=== PATIENT | female | born 1990 | race Caucasian/White ===

== ENCOUNTER → 2019-05-06 | Outpatient (CLI) | payer MEDICAID, OTHER ==
--- NOTE | 2019-05-06 16:45 | Diagnostic Imaging Report ---
INDICATION: survey. TECHNIQUE: Multiple real-time grayscale images were obtained over the gravid uterus. COMPARISON: There are no prior studies available for comparison. FINDINGS: There is a single live fetus in breech presentation. heart motion was noted, and a rate of 152 BPM was recorded. There were no abnormalities identified. However, the spine and the four-chamber heart views were less than optimal. The stomach also seems somewhat prominent. It may prove worthwhile to have a follow-up exam in 4-6 weeks for further evaluation. The growth parameters are fairly uniform. The placenta is anterior, and there is no previa. The amniotic fluid volume is within normal limits. The cervix was visualized and measures 4.4 cm in length. Biometrical measurements are as follows: Biparietal 4.7 cm, age 20 weeks 2 days. Head circumference 18.84 cm, age 21 weeks 1 days. Abdominal circumference 15.93 cm, age 21 weeks 1 days. Femur length 3.26 cm, age 20 weeks 2 days. Sonographic estimate age: 20 weeks 5 days. Sonographic estimated date of delivery: 09/18/2019. Estimated Weight: 370 gm (+/- 54 gm). LMP percentile: 43%. heart rate: 152 beats per minute. number: 1 of 1. IMPRESSION: 1. There is a single live fetus of approximately 20 weeks 5 days gestation, +/- 1.5 weeks. The EDC is 09/18/2019. 2. There were no abnormalities identified. However, the four-chamber heart view and the spine were not optimally visualized. Recommendations as above. 3. The growth parameters are fairly uniform. Dictated by: Dictated on workstation # [id number]
== END ==
LOC: RAD 15:03
PROVIDERS: ATTEND Obstetrics & Gynecology
DX: Z36.9 Encounter for antenatal screening, unspecified (principal); Z3A.20 20 weeks gestation of pregnancy
CPT/HCPCS: 76805

== ENCOUNTER 2019-09-09 05:39 | Outpatient (RCR) | payer MEDICAID ==
[~2019-09-09] VITALS: Ht 172.7 cm; Wt 82.7 kg
[~2019-09-09 05:39] MED LIST: ACYC400T PO; BUSP10TA95 PO; CLON0.5T PO; QUET200T PO; SERT100T8 PO
== END 2019-09-09 13:40 | disposition home or self-care (01) ==
LOC: PREOP 05:39
PROVIDERS: ATTEND Obstetrics & Gynecology
DX: Z01.818 Encounter for other preprocedural examination (principal)

== ENCOUNTER 2019-09-13 07:04 | Inpatient (IN) | payer MEDICAID ==
[2019-09-13] VITALS (13 sets, daily range): BP systolic 110–155; BP diastolic 65–90
[~2019-09-13] VITALS: Ht 172.7 cm; Wt 83.6 kg
--- NOTE | 2019-09-13 07:09 | NUR ---
AUSTIN NICHOLAS presented to unit via ambulation from ED, accompanied by s/o , with c/o primary c/s. Pt. weighed, gowned, voided, and to bed. EFHM and TOCO applied, VS taken. Pt. oriented to bed controls, call light, TV, heat, and A/C controls.
--- OUTSIDE RECORDS SUMMARY | 2019-09-13 07:30 | XMS REPORT | CCD ---
Author Author AUSTIN SIM Organization Unknown Address [address] [place], [place] [id number] Care Team Providers Care Rag Room Supervisor Name Role Phone HANDSHY ER, RON YBARRA Attphys HANDSHY ER, RON YBARRA Prisurg Vital Signs Unknown or Not Available. Allergies Allergy Code Allergy Type Reaction Status SULFA (sulfonamide) 0 Drug allergy Active Procedures Procedure Code Procedure Type Date CX CHEST [address] 01/01/2015 ^CULTURE URINE IDENTIFICATION 569712852 SNOMED CT 01/01/2015 .THC QUANT UR 612231019 SNOMED CT 01/01/2015 .BENZO QUANT UR 196453095 SNOMED CT 01/01/2015 CULTURE URINE 050325912 SNOMED CT 01/01/2015 D DIMER QUANT 026279046 SNOMED CT 01/01/2015 TEST URINE 863193426 SNOMED CT 01/01 RAPID DRUG SCREEN 029559450 SNOMED CT 01/02/20 15 UA ROUTINE C&S IF IND 866540597 SNOMED CT 03/2014 TROPONIN-I ADV 393282665 SNOMED CT 01/01/2015 COMPREHENSIVE METABOLIC PANEL 994358476 SNOMED CT 01/01/2015 CBC W/ AUTO DIFF (RFLX MAN DIFF IF IND) 3123847 SN OMED CT 01/01/2015 ^CBC W/AUTO DIFF 0041989 SNOMED CT 5 ^UA WITH MICRO 071785965 SNOMED CT 01/01/2015 History of Immunizations Unknown or Not Available. Problems Problem Code Start Date Resolved Date Sta tus VAGINAL DELIVERY 650 05/03/2011 A ctive Results COMPREHENSIVE METABOLIC PANEL - Collect Date/Time: 01/01/2015 13:25 Test Name Code Test Result Test Units Chiquita t Ref Range GLUCOSE 2345-7 96 MG/DL L=70 H=1 00 SODIUM 2951-2 136 MEQ/L L=135 H=14 8 POTASSIUM 2823-3 3.8 MEQ/L L=3.5 H =5.3 CHLORIDE 2075-0 105 MEQ/L L=96 H= 110 CO2 2028-9 18 MEQ/L L=22 H=29 BUN 3094-0 9 MG/DL L=8 H=22 CREATININE 2160-0 0.8 MG/DL L=0.6 H=1.6 SGOT/AST 1920-8 30 IU/L L=10 H= 40 SGPT/ALT 1742-6 18 IU/L L=8 H= 54 ALK PHOS 6768-6 75 IU/L L=35 H= 115 TOTAL PROTEIN 2885-2 7.6 G/DL L=5.5 H=8.5 ALBUMIN 1751-7 4.6 G/DL L=3.1 H=5 .4 TOTAL BILI 1975-2 0.8 MG/DL L=0.0 H=1.5 CALCIUM 73518-2 9.4 MG/DL L=8.2 H= 10.6 AGE 24 yrs GFR NonAA 89 GFR AA 108 eGFR >60 N/A eGFR AA* >60 N/A RAPID DRUG SCREEN - Collect Date/Time: 03/03/2014 14:00 Test Name Code Test Result Test Units Chiquita t Ref Range Cannabinoids (THC) NON-NEGATIVE N/A NEG: < 50 ng/ml Phencyclidine (PCP) NEGATIVE N/A NEG: < 25 ng/ml Cocaine NEGATIVE N/A NEG: < 300 ng/ml Methamphetamine NEGATIVE N/A NEG: < 1000 ng/ml Opiates NEGATIVE N/A NEG: < 300 ng/ml Amphetamine NEGATIVE N/A NEG: < 1 000 ng/ml Benzodiazepines NON-NEGATIVE N/A NEG: < 300 ng/ml Tricyclic Antidepres NEGATIVE N/A NEG: < 300 ng/ml Methadone NEGATIVE N/A NEG: < 30 0 ng/ml Barbiturates NEGATIVE N/A NEG: < 200 ng/ml Oxycodone NEGATIVE N/A NEG: < 10 0 ng/ml Propoxyphene (PPX) NEGATIVE N/A N EG: < 300 ng/ml CBC W/ AUTO DIFF (RFLX MAN DIFF IF IND) - Collect Date/Time: 01/01/2015 13:25 Test Name Code Test Result Test Units Chiquita t Ref Range WBC 33374-1 11.2 TH/CMM L=4.5 H=1 0.8 RBC 789-8 4.24 ML/CMM L=4.20 H=5. 40 HGB 718-7 14.1 G/DL L=12.0 H=16 .0 HCT 4544-3 41.0 % L=37.0 H=47 .0 MCV 97 FL L=81 H=99 MCH 33.3 PG L=27.0 H=33 .0 MCHC 34.4 G/DL L=31.0 H=36 .0 RDW SD 45 FL L=36 H=50 RDW CV 12.8 % L=0.0 H=14 .8 MPV 10.5 FL L=9.3 H=12 .5 PLT 777-3 274 TH/CMM L=130 H=44 0 NRBC# 0.00 TH/CMM L=0.00 H=0. 00 NRBC% 0.0 /100WBC L=0.0 H=2 .0 %NEUT 78.6 % %LYMP 12.0 % %MONO 7.2 % %EOS 1.8 % %BASO 0.4 % #NEUT 8.81 TH/CMM L=2.10 H=8. 20 #LYMP 1.35 TH/CMM L=0.90 H=5. 20 #MONO 0.81 TH/CMM L=0.16 H=1. 00 #EOS 0.20 TH/CMM L=0.00 H=0. 80 #BASO 0.04 TH/CMM L=0.00 H=0. 20 MANUAL DIFF NOT IND N/A D DIMER QUANT - Collect Date/Time: 01/01 13:25 Test Name Code Test Result Test Units Chiquita t Ref Range D-DIMER QUANT 54815-0 0.36 MG/L FEU L=0.0 0 H=0.50 UA ROUTINE C&S IF IND - Collect Date/Cyrus e: 01/01/2015 14:00 Test Name Code Test Result Test Units Chiquita t Ref Range COLOR YELLOW N/A NL: YELLOW APPEARANCE CLEAR N/A NL: CLEAR SPEC GRAV 1.025 N/A NL: 1.002 - 1.022 pH 6.0 N/A NL: 5 - 9 PROTEIN NEGATIVE N/A NL: NEGATIVE mg/dl GLUCOSE NEGATIVE N/A NL: NEGATIVE mg/dl KETONE TRACE N/A NL: NEGATIVE m g/dl BILIRUBIN NEGATIVE N/A NL: NEGATI VE BLOOD SMALL N/A NL: NEGATIVE NITRITE NEGATIVE N/A NL: NEGATIVE LEUK SCREEN SMALL N/A NL: NEGATI VE MICRO INDICATED? SEE BELOW N/A WBC/HPF 0-5 N/A NL: NEGATIVE RBC/HPF RARE N/A NL: NEGATIVE CASTS/LPF NEGATIVE N/A NL: NEGAT SULAIMAN CRYSTALS TRACE AMORPH N/A NL: NE GATIVE MUCOUS THRDS 1+ N/A NL: NEGA TIVE BACTERIA 1+ N/A NL: NEGATIVE EPITH CELLS FEW SQUAMOUS N/A NL: NEGATIVE TRICHOMONAS NEGATIVE N/A NL: NEG ATIVE YEAST NEGATIVE N/A NL: NEGATIVE CULT SET UP? YES N/A TEST URINE - Collect Date/Time : 01/01/2015 14:00 Test Name Code Test Result Test Units Chiquita t Ref Range TEST UR 2106-3 NEGATIVE N/A TROPONIN-I ADV - Collect Date/Time: 03/2014 13:25 Test Name Code Test Result Test Units [place] [address]-5 <0.04 ng/mL L=0.04 H=0.40 Active Medications Unknown or Not Available. Medications Administered During Visit Unknown or Not Available. Encounters Encounter Diagnosis Diagnosis Code Start Date Panic disorder without agoraphobia 37185180 01/01/2015 Social History Smoking Status Code Start Date End Date Never smoker [id number] Patient Decision Aids Unknown or Not Available. Discharge Instructions You were admitted to [facility] on 01/01/2015 with a principal diagnosis of Panic disorder without agoraphobia . You were discharged from [facility] on 01/01/2015. Should you have any questions prior to discharge, please contact a member of your healthcare team. If you have left the hospital and have any questions, please contact your primary care physician. Chief Complaint and Reason For Visit Chief Complaint Date of Onset PANIC ATTACK Function Status Unknown or Not Available. Plan of Care Unknown or Not Available. Referral/Transition of Care Unknown or Not Available.
--- OUTSIDE RECORDS SUMMARY | 2019-09-13 07:30 | XMS REPORT ---
Author Author Jo Fung Organization [facility] o[facility] Address [address] [place], [place] [id number] Care Team Providers Care Stoker Erector And Servicer Name Role Phone Radha Fung PCP Dayne Taylor PreferredProvider Allergies and Adverse Reactions Name Reaction Notes erythromycin vomiting SULFA (SULFONAMIDES) Plan of Treatment Planned Activity Comments Planned Date Planned Time Plan/Goal Nasal bone fracture and Left maxillary fracture 016 4:30 PM Mirena placement 10/03/2015 12:00 AM Scoliois with previous surgery and harward placement 1 03/08/2014 1:00 PM Medications Active Name Start Date Estimated Completion Date SIG Co mments buspirone 10 mg oral tablet take 1 tablet by oral route daily Seroquel oral ProAir HFA 90 mcg/actuation inhalation HFA aerosol inhaler 2019 inhale 1 puff (90 mcg) by inhalation route every 6 hours as needed Zoloft oral acyclovir 800 mg oral tablet 07/15/2019 07/17/2019 gomez e 1 tablet by oral route 3 times a day for 2 days Name Start Date Expiration Date SIG Comments Zithromax Z-Joel 250 mg oral tablet 05/01/2009 05/06/2009 take 2 tablets (500 mg) by oral route once daily for 1 day then 1 tablet (250 mg) by oral route once daily for 4 days Paxil 20 mg oral tablet 03/07/2010 04/06/2010 take 1 t ablet (20 mg) by oral route once daily for 30 days amoxicillin 500 mg oral tablet 06/08/2010 06/18/2010 t pavan 2 tablets by mouth BID x10 days. Zofran (as hydrochloride) 8 mg oral tablet 01/16/201101/26 take 1 tablet by oral route every 8 hours for 10 days ibuprofen 800 mg oral tablet 05/08/2011 05/18/2011 gomez e 1 tablet by oral route 3 times a day for 10 days Lidocaine Viscous 2 % mucous membrane solution 06/05/2011 use as directed by oral route 3 times a day for 5 days amoxicillin 500 mg oral tablet 08/06/2011 08/13/2011 t pavan 1 tablet (500 mg) by oral route every 12 hours for 7 days Singulair 10 mg oral tablet 12/03/2011 05/31/2012 take 1 tablet (10 mg) by oral route once daily in the evening for 30 days Zithromax Z-Joel 250 mg oral tablet 03/09/2012 03/14/2012 take 2 tablets (500 mg) by oral route once daily for 1 day then 1 tablet (250 mg) by oral route once daily for 4 days Dexilant 60 mg oral capsule,biphase delayed releas 10/27/2013 11/06/2013 take 1 capsule (60 mg) by oral route once daily for 10 days Bactrim DS 800-160 mg oral tablet 11/16/2013 11/23/2013 take 1 tablet by oral route every 12 hours for 7 days clindamycin HCl 150 mg oral capsule 12/01/2013 12/08/2013 take 2 capsules (300 mg) by oral route 2 times per day for 7 days cephalexin 500 mg oral tablet 01/04/2014 01/11/2014 ta ke 1 tablet (500 mg) by oral route every 12 hours for 7 days prednisone 20 mg oral tablet 03/28/2014 04/02/2014 gomez e 1 tablet by oral route daily for 5 days Zithromax Z-Joel 250 mg oral tablet 06/29/2014 07/04/2014 take 2 tablets (500 mg) by oral route once daily for 1 day then 1 tablet (250 mg) by oral route once daily for 4 days estradiol 1 mg oral tablet 09/14/2014 09/24/2014 take 1 tablet (1 mg) by oral route once daily for 10 days Famvir 500 mg oral tablet 09/20/2014 09/27/2014 take 1 tablet (500 mg) by oral route every 8 hours for 7 days Celebrex 200 mg oral capsule 12/05/2014 01/04/2015 gomez e 1 capsule (200 mg) by oral route once daily for 30 days Augmentin 875-125 mg oral tablet 04/05/2015 04/12/2015 take 1 tablet by oral route every 12 hours for 7 days ciprofloxacin HCl 500 mg oral tablet 04/25/2015 04/30/2015 take 1 tablet (500 mg) by oral route every 12 hours for 5 days Cipro 500 mg oral tablet 05/03/2015 05/10/2015 take 1 tablet by oral route 2 times a day for 7 days amoxicillin 500 mg oral tablet 10/05/2015 10/12/2015 t pavan 1 tablet (500 mg) by oral route every 12 hours for 7 days Vyvanse 20 mg oral capsule 10/05/2015 11/04/2015 take 1 capsule (20 mg) by oral route once daily in the morning Augmentin 875-125 mg oral tablet 01/04/2016 01/11/2016 take 1 tablet by oral route every 12 hours for 7 days amoxicillin 500 mg oral capsule 02/06/2016 02/16/2016 take 1 capsule (500 mg) by oral route every 12 hours for 10 days Macrobid 100 mg oral capsule 03/20/2016 03/27/2016 gomez e 1 capsule (100 mg) by oral route 2 times per day with food for 7 days Zofran ODT 4 mg oral tablet,disintegrating 04/22/20162016 dissolve 1 tablet by oral route every 8 hours for 3 days Zofran ODT 4 mg oral tablet,disintegrating 05/14/20162016 Take 1 tab Po q 4 hours for n/v Fioricet 50-300-40 mg oral capsule 07/31/2017 take 1 - 2 capsules by oral route every 4 hours as needed not to exceed 6 capsules per 24hrs promethazine 25 mg oral tablet 10/16/2017 t pavan 1 tablet (25 mg) by oral route every 4-6 hours as needed Macrobid 100 mg oral capsule 10/30/2017 11/06/2017 gomez e 1 capsule (100 mg) by oral route every 12 hours with food for 7 days Diflucan 150 mg oral tablet 02/12/2018 take 1 tablet (150 mg) by oral route once norethindrone (contraceptive) 0.35 mg oral tablet 03/19/2018 03/14/2019 take 1 tablet by oral route once daily for 90 days Keflex 500 mg oral capsule 04/16/2018 04/26/2018 take 1 capsule (500 mg) by oral route every 12 hours for 10 days acyclovir 400 mg oral tablet 03/19/2019 03/26/2019 gomez e 1 tablet (400 mg) by oral route every 8 hours for 7 days Discontinued Name Start Date Discontinued Date SIG Comments desonide 0.05 % topical lotion 02/02/2009 03/07/2010 a pply sparingly and rub gently into the affected area(s) by topical route 2 times per day Vyvanse 30 mg oral capsule 08/31/2009 03/07/2010 take 1 capsule (30 mg) by oral route once daily in the morning pt stopped it Augmentin 875-125 mg oral tablet 03/27/2010 06/08/2010 take 1 tablet by oral route every 12 hours omeprazole 40 mg oral capsule,delayed release(DR/EC) 03/27/2010 06/08/2010 take 1 capsule (40 mg) by oral route once daily before a meal fluoxetine 20 mg oral capsule 07/19/2010 09/23/2011 ta ke 1 capsule (20 mg) by oral route once daily in the morning "not taking" Apri 0.15-0.03 mg oral tablet 06/17/2011 12/01/2012 ta ke 1 tablet by oral route once daily for 30 days "not taking" Vyvanse 30 mg oral capsule 08/01/2011 09/23/2011 take 1 capsule (30 mg) by oral route once daily in the morning for 30 daysDx: ADHD "ran out" sertraline 100 mg oral tablet 09/23/2011 10/14/2011 ta ke 0.5 tablet daily for 6 days then 1 tablet (100 mg) by oral route once daily "I stopped taking it. It didn't work" paroxetine HCl 20 mg oral tablet 10/14/2011 12/03/2011 take 1 tablet (20 mg) by oral route once daily "made me feel like a zombie" Ventolin HFA 90 mcg/actuation inhalation HFA aerosol inhaler 12/03/2011 12/01/2012 inhale 2 puffs by inhalation route every 6 hours as ne eded "too expensive" Flexeril 10 mg oral tablet 03/09/2012 12/01/2012 take 1 tablet by mouth daily at HS alprazolam 0.5 mg oral tablet 03/09/2012 12/01/2012 ta ke 1 tablet (0.5 mg) by oral route 3 times per day "no longer have any" prednisone 20 mg oral tablet 03/09/2012 12/01/2012 gomez e 2 tablets x2 days then 1 tablet x4 days. escitalopram oxalate 20 mg oral tablet 12/01/2012 05/18/2013 take 1 tablet (20 mg) by oral route once daily alprazolam 0.25 mg oral tablet 12/01/2012 05/18/2013 t pavan 1 tablet (0.25 mg) by oral route 2 times per day as needed cyclobenzaprine 10 mg oral tablet 05/18/2013 12/01/2013 take 1 tablet (10 mg) by oral route at bedtime as needed for back pain diclofenac sodium 50 mg oral tablet,delayed release (DR/EC) 08/2010/27/2013 take 1 tablet (50 mg) by oral route 2 times per day for 30 days Never took it Xanax 0.25 mg oral tablet 08/20/2013 12/01/2013 take 1 tablet by oral route 2 times a day as needed mupirocin 2 % topical ointment 01/04/2014 07/06/2014 a pply a small amount to the affected area by topical route 3 times per day Vyvanse 30 mg oral capsule 01/24/2014 06/28/2014 take 1 capsule (30 mg) by oral route once daily in the morning Sprintec (28) 0.25-35 mg-mcg oral tablet 04/07/2014 6 take 1 tablet by oral route once daily cyclobenzaprine 10 mg oral tablet 07/07/2014 08/22/2014 take 1 tablet by oral route once a day (at bedtime) as needed Adderall 10 mg oral tablet 07/13/2014 08/22/2014 take 1 tablet (10 mg) by oral route once daily before breakfast Strattera 60 mg oral capsule 08/24/2014 08/30/2014 gomez e 1 capsule (60 mg) by oral route once daily in the morning Lexapro 10 mg oral tablet 08/29/2014 10/20/2014 take 1 tablet b y oral route daily too expensive Xanax 0.25 mg oral tablet 10/20/2014 12/05/2014 take 1 tablet (0.25 mg) by oral route 2 times per day as needed. MUST LAST 30 DAYS. tramadol 50 mg oral tablet 12/05/2014 02/09/2015 take 1 tablet (50 mg) by oral route every 6 hours as needed buspirone 5 mg oral tablet 01/02/2015 02/09/2015 take 1 tablet (5 mg) by oral route 2 times per day "Made me mean and mood changes" alprazolam 0.25 mg oral tablet 02/09/2015 05/03/2015 t pavan 1 tablet by oral route daily as needed Sprintec (28) 0.25-35 mg-mcg oral tablet 05/03/2015 07/24/19 take 1 tablet by oral route once daily "not taking" Prozac 40 mg oral capsule 05/11/2015 09/28/2015 take 1 capsule (40 mg) by oral route once daily in the morning hydrocodone-acetaminophen 10-325 mg oral tablet 07/24/2015 09/28/2015 take 1 tablet by oral route every 8 hours as needed amoxicillin 500 mg oral tablet 08/09/2015 09/26/2015 t pavan 1 tablet (500 mg) by oral route every 12 hours hydroxyzine HCl 25 mg oral tablet 09/26/2015 03/20/2016 take 1 tablet by oral route 4 times a day as needed Anixety Zyrtec-D 5-120 mg oral tablet extended release 12 hr 09/28/2015 10/05/2015 take 1 tablet by oral route once a day (in the morning) as needed Flonase Allergy Relief 50 mcg/actuation nasal spray,suspensi on 09/28/2015 10/05/2015 inhale 1 spray (50 mcg) in each nostril by intranasal route once daily Prozac 20 mg oral capsule 09/28/2015 03/20/2016 take 1 capsule by oral route daily montelukast 10 mg oral tablet 01/04/2016 ta ke 1 tablet (10 mg) by oral route once daily in the evening hydroxyzine HCl 25 mg oral tablet 05/13/2017 take 1 tablet by oral route As needed Zofran (as hydrochloride) 4 mg oral tablet 02/09/20172017 Take 1 tablet po q 8 hrs PRN nausea/vomting Latuda 20 mg oral tablet 05/13/2017 Metrogel Vaginal 0.75 % vaginal gel 05/06/2017 09/29/2017 insert 1 applicatorful (37.5 mg) by vaginal route once daily at bedtime for 5 days Lexapro 20 mg oral tablet 09/29/2017 take 1 /2 tablet (10 mg) by oral route once daily Vitamin oral tablet 04/16/2018 take 1 table t by oral route once daily Latuda 20 mg oral tablet 03/19/2019 take 1 tablet (20 mg) by oral route once daily with food (at least 350 calories) Gummy 400 mcg-35 mg -25 mg-5 mg oral tablet,chewabl e 11/17/2017 04/16/2018 chew 1 tablet by oral route daily Trintellix oral 07/15/2019 Problem List Description Status Onset ADHD Active Allergic rhinitis Active Depressive disorder Active Anxiety disorder Active 05/19/2013 Attention deficit disorder Active 12/01/2013 Anxiety Active 08/24/2014 Depression Active 08/24/2014 ADD (attention deficit disorder) Active 08/25/19 15 Vital Signs Date Time BP-Sys(mm[Hg] BP-Valeria(mm[Hg]) HR(bpm) RR(rpm) Temp WT HT HC BMI BSA BMI Percentile O2 Sat(%) 07/15/2019 5:40:00 PM 116 mm[Hg] 70 mm[Hg] 99 {beats}/min 16 rpm 97.6 F 184 lbs 67.5 in 28.3928 kg/m2 1.9937 m2 97 % 03/19/2019 5:00:00 PM 126 mm[Hg] 72 mm[Hg] 75 {beats}/min 18 rpm 98.2 F 171.5 lbs 67.5 in 26.46 kg/m2 1.92 m2 98 % 04/16/2018 5:18:00 PM 128 mm[Hg] 84 mm[Hg] 82 {beats}/min 20 rpm 98.1 F 173 lbs 67.5 in 26.6954 kg/m2 1.9332 m2 98 % 03/19/2018 1:20:00 PM 106 mm[Hg] 57 mm[Hg] 88 {beats}/min 98.6 F 174 lbs 67.5 in 26.85 kg/m2 1.94 m2 03/09/2018 1:32:00 PM 130 mm[Hg] 81 mm[Hg] 85 {beats}/min 98.2 F 177 lbs 67.5 in 27.3127 kg/m2 1.9554 m2 02/19/2018 3:37:00 PM 124 mm[Hg] 57 mm[Hg] 78 {beats}/min 98.2 F 179 lbs 67.5 in 27.62 kg/m2 1.97 m2 09/23/2017 1:47:00 PM 105 mm[Hg] 105 {beats}/min 17 rpm 98.7 F 184.375 lbs 67.5 in 28.4507 kg/m2 1.9957 m2 100 % 04/30/2017 3:56:00 PM 133 mm[Hg] 81 mm[Hg] 82 {beats}/min 99 F 18 9 lbs 67.5 in 29.16 kg/m2 2.02 m2 02/09/2017 3:42:00 PM 134 mm[Hg] 80 mm[Hg] 85 {beats}/min 16 rpm 100 F 197 lbs 67.5 in 30.40 kg/m2 2.0629 m2 97 % 06/04/2016 6:22:00 PM 128 mm[Hg] 88 mm[Hg] 100 {beats}/min 99.8 F 209 lbs 67.5 in 32.2505 kg/m2 2.12 m2 99 % 05/14/2016 6:36:00 PM 120 mm[Hg] 78 mm[Hg] 94 {beats}/min 98.7 F 210 lbs 67.5 in 32.40 kg/m2 2.1299 m2 98 % 04/22/2016 7:08:00 PM 118 mm[Hg] 70 mm[Hg] 70 {beats}/min 97.9 F 200 lbs 67.5 in 30.8618 kg/m2 2.08 m2 99 % 03/20/2016 7:42:00 PM 132 mm[Hg] 70 mm[Hg] 87 {beats}/min 18 rpm 99 F 205.375 lbs 67.5 in 31.69 kg/m2 2.1063 m2 98 % 02/06/2016 5:49:00 PM 130 mm[Hg] 98 mm[Hg] 84 {beats}/min 100.1 F 207 lbs 67.5 in 31.9419 kg/m2 2.11 m2 99 % 01/04/2016 5:57:00 PM 132 mm[Hg] 76 mm[Hg] 87 {beats}/min 18 rpm 99.5 F 201.375 lbs 98 % 10/05/2015 3:37:00 PM 126 mm[Hg] 68 mm[Hg] 86 {beats}/min 20 rpm 99.2 F 193 lbs 67.5 in 29.7816 kg/m2 2.0419 m2 98 % 09/28/2015 2:11:00 PM 126 mm[Hg] 66 mm[Hg] 92 {beats}/min 18 rpm 97.8 F 194 lbs 67.5 in 29.94 kg/m2 2.05 m2 99 % 09/26/2015 2:49:00 PM 108 mm[Hg] 68 mm[Hg] 87 {beats}/min 18 rpm 98.5 F 195 lbs 67.5 in 30.0902 kg/m2 2.0524 m2 99 % 07/24/2015 2:39:00 PM 132 mm[Hg] 70 mm[Hg] 76 {beats}/min 20 rpm 98.7 F 180 lbs 67 in 28.19 kg/m2 1.96 m2 97 % 05/03/2015 3:09:00 PM 124 mm[Hg] 66 mm[Hg] 104 {beats}/min 18 rpm 98.4 F 170.5 lbs 67 in 26.7038 kg/m2 1.912 m2 100 % 02/09/2015 3:02:00 PM 128 mm[Hg] 70 mm[Hg] 72 {beats}/min 18 rpm 98.2 F 171.312 lbs 67 in 26.83 kg/m2 1.92 m2 100 % 01/02/2015 2:45:00 PM 120 mm[Hg] 85 mm[Hg] 85 {beats}/min 20 rpm 97.4 F 164 lbs 99 % 12/05/2014 2:32:00 PM 124 mm[Hg] 66 mm[Hg] 68 {beats}/min 18 rpm 98.6 F 171 lbs 67 in 26.7821 kg/m2 1.9149 m2 100 % 11/28/2014 2:49:00 PM 77 {beats}/min 20 rpm 97.2 F 170.6 lbs 67 in 26.72 kg/m2 1.91 m2 99 % 11/08/2014 2:05:00 PM 120 mm[Hg] 84 mm[Hg] 86 {beats}/min 20 rpm 99.3 F 167.6 lbs 67 in 26.2496 kg/m2 1.8957 m2 98 % 10/20/2014 2:44:00 PM 135 mm[Hg] 81 mm[Hg] 100 {beats}/min 20 rpm 97.2 F 167.4 lbs 67 in 26.22 kg/m2 1.89 m2 99 % 08/29/2014 2:35:00 PM 122 mm[Hg] 80 mm[Hg] 83 {beats}/min 18 rpm 99.1 F 167 lbs 67 in 26.1556 kg/m2 1.8923 m2 99 % 08/22/2014 1:29:00 PM 146 mm[Hg] 82 mm[Hg] 66 {beats}/min 18 rpm 98.7 F 166.25 lbs 67 in 26.04 kg/m2 1.89 m2 98 % 07/06/2014 11:13:00 AM 126 mm[Hg] 74 mm[Hg] 80 {beats}/min 18 rpm 97.3 F 167.187 lbs 67 in 26.185 kg/m2 1.8934 m2 97 % 06/28/2014 11:15:00 AM 124 mm[Hg] 72 mm[Hg] 109 {beats}/min 18 rpm 101.8 F 167.125 lbs 67 in 26.18 kg/m2 1.89 m2 99 % 04/07/2014 2:08:00 PM 110 mm[Hg] 60 mm[Hg] 80 {beats}/min 16 rpm 98 F 170.25 lbs 67 in 26.6646 kg/m2 1.9106 m2 99 % 03/24/2014 2:00:00 PM 114 mm[Hg] 82 mm[Hg] 77 {beats}/min 16 rpm 98.6 F 165.25 lbs 67 in 25.88 kg/m2 1.88 m2 98 % 01/04/2014 2:07:00 PM 126 mm[Hg] 70 mm[Hg] 83 {beats}/min 20 rpm 98.7 F 163 lbs 67 in 25.5291 kg/m2 1.8695 m2 99 % 12/01/2013 2:41:00 PM 118 mm[Hg] 62 mm[Hg] 62 {beats}/min 18 rpm 97.5 F 163.5 lbs 67 in 25.61 kg/m2 1.87 m2 98 % 10/27/2013 10:40:00 AM 138 mm[Hg] 82 mm[Hg] 87 {beats}/min 16 rpm 98.2 F 159.125 lbs 67 in 24.9222 kg/m2 1.8472 m2 99 % 08/20/2013 2:13:00 PM 140 mm[Hg] 90 mm[Hg] 99 {beats}/min 16 rpm 98.7 F 156 lbs 98 % 05/18/2013 1:34:00 PM 126 mm[Hg] 78 mm[Hg] 100 {beats}/min 18 rpm 98 F 152.125 lbs 67 in 23.8259 kg/m2 1.8061 m2 100 % 12/01/2012 2:07:00 PM 122 mm[Hg] 62 mm[Hg] 62 {beats}/min 18 rpm 97.9 F 149 lbs 67 in 23.34 kg/m2 1.79 m2 100 % 03/09/2012 3:42:00 PM 138 mm[Hg] 82 mm[Hg] 68 {beats}/min 18 rpm 98.4 F 143.375 lbs 66 in 23.1411 kg/m2 1.7402 m2 12/03/2011 3:34:00 PM 118 mm[Hg] 66 mm[Hg] 64 {beats}/min 20 rpm 98.9 F 131 lbs 66 in 21.14 kg/m2 1.66 m2 0 % 100 % 10/14/2011 2:56:00 PM 122 mm[Hg] 70 mm[Hg] 80 {beats}/min 16 rpm 99.1 F 136 lbs 67 in 21.3004 kg/m2 1.7077 m2 0 % 09/23/2011 2:33:00 PM 118 mm[Hg] 70 mm[Hg] 72 {beats}/min 18 rpm 98.2 F 143 lbs 67 in 22.40 kg/m2 1.75 m2 0 % 06/04/2011 2:17:00 PM 79 {beats}/min 98.3 F 153 lbs 100 % 05/20/2011 2:28:00 PM 82 {beats}/min 99.6 F 155.125 lbs 99 % 04/29/2011 3:00:00 PM 105 mm[Hg] 65 mm[Hg] 92 {beats}/min 98.2 F 173 lbs 99 % 04/22/2011 3:07:00 PM 67 {beats}/min 97.5 F 170 lbs 99 % 04/16/2011 3:35:00 PM 97 {beats}/min 98.6 F 171.5 lbs 99 % 04/10/2011 3:02:00 PM 120 mm[Hg] 60 mm[Hg] 87 {beats}/min 98.7 F 172 l bs 99 % 04/01/2011 2:16:00 PM 100 mm[Hg] 60 mm[Hg] 111 {beats}/min 98.9 F 167 lbs 99 % 03/18/2011 1:50:00 PM 118 mm[Hg] 78 mm[Hg] 92 {beats}/min 20 rpm 97.8 F 167.5 lbs 67.5 in 25.8467 kg/m2 1.9022 m2 83 % 02/20/2011 3:52:00 PM 115 mm[Hg] 78 mm[Hg] 77 {beats}/min 98.7 F 166.125 lbs 67 in 26.02 kg/m2 1.89 m2 83.9 % 100 % 02/11/2011 5:05:00 PM 110 mm[Hg] 70 mm[Hg] 78 {beats}/min 99.1 F 99 % 02/05/2011 4:16:00 PM 118 mm[Hg] 70 mm[Hg] 91 {beats}/min 98.7 F 16 4.375 lbs 99 % 01/22/2011 3:00:00 PM 90 mm[Hg] 60 mm[Hg] 102 {beats}/min 98.5 F 1 61.5 lbs 99 % 01/16/2011 1:54:00 PM 110 mm[Hg] 65 mm[Hg] 102 {beats}/min 98.4 F 162.25 lbs 100 % 12/24/2010 3:18:00 PM 110 mm[Hg] 70 mm[Hg] 109 {beats}/min 99.5 F 16 3 lbs 99 % 11/29/2010 4:11:00 PM 80 {beats}/min 96.9 F 161 lbs 99 % 11/26/2010 3:13:00 PM 128 mm[Hg] 84 mm[Hg] 88 {beats}/min 18 rpm 97.5 F 161 lbs 09/17/2010 4:57:00 PM 102 mm[Hg] 70 mm[Hg] 88 {beats}/min 100.1 F 1 61.25 lbs 99 % 07/19/2010 2:31:00 PM 120 mm[Hg] 68 mm[Hg] 72 {beats}/min 18 rpm 97.8 F 173 lbs 06/08/2010 12:08:00 PM 118 mm[Hg] 70 mm[Hg] 83 {beats}/min 18 rpm 97.6 F 167 lbs 94 % 03/27/2010 3:16:00 PM 122 mm[Hg] 70 mm[Hg] 74 {beats}/min 18 rpm 97.3 F 164 lbs 67 in 25.6858 kg/m2 1.8752 m2 84 % 03/07/2010 4:02:00 PM 134 mm[Hg] 84 mm[Hg] 76 {beats}/min 16 rpm 99.3 F 164.5 lbs 08/31/2009 4:10:00 PM 118 mm[Hg] 68 mm[Hg] 76 {beats}/min 20 rpm 99 F 166.25 lbs 05/01/2009 3:46:00 PM 124 mm[Hg] 82 mm[Hg] 88 {beats}/min 20 rpm 98.3 F 166 lbs 67 in 25.999 kg/m2 1.8866 m2 86.7 % 03/06/2009 4:01:00 PM 16 {beats}/min 72 rpm 98.6 F 166.125 lbs 6 7.5 in 25.63 kg/m2 1.89 m2 85.6 % 02/02/2009 4:04:00 PM 116 mm[Hg] 68 mm[Hg] 64 {beats}/min 16 rpm 98.1 F 159.5 lbs 67 in 24.981 kg/m2 1.8493 m2 83 % Social History Name Description Comments Tobacco Current every day smoker 03/19/2019 - Lives with Mom Sibling(s) at home as well Single high school student Student (High school ) History of Procedures Date Ordered Description Order Status 12/05/2014 12:00 AM Physical Therapy Consult Reviewed 11/26/2010 12:00 AM ALPHA-FETOPROTEIN SERUM Reviewed 02/09/2015 12:00 AM FLU VACC 4 FADY 3 YRS PLUS IM Reviewed 05/03/2015 12:00 AM URINE CULTURE/COLONY COUNT Reviewed 05/03/2015 3:46 PM URINE TEST Reviewed 05/03/2015 3:46 PM URINALYSIS AUTO W/O SCOPE Reviewed 01/22/2011 12:00 AM GLUCOSE TEST Reviewed 07/24/2015 12:00 AM Consult/Referral Reviewed 04/10/2011 12:00 AM CULTURE OTHR SPECIMN AEROBIC Reviewed 02/06/2016 12:00 AM Rocephin 1 gram Injection Reviewed 02/02/2009 12:00 AM ASSAY GLUCOSE BLOOD QUANT Reviewed 02/02/2009 12:00 AM GLUCOSE BLOOD TEST Reviewed 06/04/2016 12:00 AM INFLUENZA A/B AG EIA Reviewed 06/04/2016 12:00 AM METABOLIC PANEL TOTAL CA Reviewed 06/04/2016 12:00 AM COMPLETE CBC W/AUTO DIFF WBC Reviewed 05/01/2017 10:28 AM URINE TEST Reviewed 04/30/2017 12:00 AM CYTOPATH C/V THIN LAYER Reviewed 04/30/2017 12:00 AM SPECIMEN HANDLING OFFICE-LAB Reviewed 04/30/2017 12:00 AM N.GONORRHOEAE DNA AMP PROB Reviewed 04/30/2017 12:00 AM CHLAMYDIA CULTURE Reviewed 04/30/2017 12:00 AM HIV-1ANTIBODY Reviewed 04/30/2017 12:00 AM URINALYSIS AUTO W/SCOPE Reviewed 04/30/2017 12:00 AM OBSTETRIC PANEL Reviewed 04/30/2017 12:00 AM ASSAY OF FERRITIN Reviewed 04/30/2017 12:00 AM URINE DRUG SCREEN RAPID Reviewed 04/30/2017 12:00 AM DETECT AGENT NOS DNA AMP Reviewed 04/30/2017 12:00 AM TRICHOMONAS VAGINALIS AMPLIF Reviewed 04/30/2017 12:00 AM HEPATITIS C AB TEST Reviewed 08/26/2017 12:00 AM OB US >/= 14 WKS SNGL FETUS Reviewed 10/20/2017 12:00 AM Type and screen Reviewed 10/20/2017 12:00 AM GLUCOSE TOLERANCE TEST (GTT) Reviewed 10/20/2017 12:00 AM COMPLETE CBC W/AUTO DIFF WBC Reviewed 10/20/2017 12:00 AM ASSAY OF FERRITIN Reviewed 12/15/2017 12:00 AM OB US LIMITED FETUS(S) Reviewed 11/17/2017 12:00 AM URINALYSIS Reviewed 11/17/2017 12:00 AM URINE CULTURE/COLONY COUNT Reviewed 11/17/2017 12:00 AM Urine Drug Screen Reviewed 12/24/2017 12:00 AM CULTURE SCREEN ONLY Reviewed 02/19/2018 4:33 PM URINE TEST Reviewed 03/19/2018 1:31 PM URINE TEST Reviewed 03/06/2009 12:00 AM US EXAM PELVIC COMPLETE Reviewed 03/24/2014 12:00 AM SPECIMEN HANDLING OFFICE-LAB Reviewed 03/24/2014 12:00 AM CYTOPATH C/V MANUAL Reviewed 03/24/2014 12:00 AM CHYLMD TRACH DNA AMP PROBE Reviewed 03/24/2014 12:00 AM N.GONORRHOEAE DNA AMP PROB Reviewed 04/07/2014 2:44 PM URINE TEST Reviewed 06/28/2014 12:00 AM THER/PROPH/DIAG INJ SC/IM Reviewed 06/28/2014 12:00 AM Bicillin CR, 1.2 million units [facility]# 6079 3-600-10 Reviewed 07/06/2014 11:29 AM URINE TEST Reviewed 07/06/2014 12:00 AM THER/PROPH/DIAG INJ SC/IM Reviewed 07/06/2014 12:00 AM Decadron, Per 1 Mg [facility]# [address]-56 Re viewed 07/06/2014 12:00 AM Depo-Medrol 40mg Reviewed 08/29/2014 3:06 PM URINE TEST Reviewed 09/13/2010 12:00 AM CHORIONIC GONADOTROPIN ASSAY Reviewed 08/29/2014 12:00 AM Depo Provera Injection, 150 mg Reviewed 08/29/2014 12:00 AM THER/PROPH/DIAG INJ SC/IM Reviewed 09/17/2010 12:00 AM URINE TEST Reviewed 09/17/2010 12:00 AM OBSTETRIC PANEL Reviewed 09/17/2010 12:00 AM URINALYSIS NONAUTO W/SCOPE Reviewed 09/17/2010 12:00 AM HIV-1/HIV-2 1 RESULT ANTBDY Reviewed 11/08/2014 12:00 AM X-RAY EXAM THORAC SPINE 2VWS Reviewed 11/08/2014 12:00 AM X-RAY EXAM L-S SPINE 2/3 VWS Reviewed Results Summary Date and Description Results 09/17/2010 5:23 PM RUBELLA 42.0 IU/mLCOLOR YELL OW APPEARANCE CLEAR SPEC GRAV <=1.005 pH 6.5 PROTEIN NEGATIVE GLUCOSE NEGATIVE KETONE NEGATIVE BILIRUBIN NEGATIVE BLOOD NEGATIVE NITRITE NEGATIVE LEUK SCREEN NEGATIVE WBC/HPF 0-5 RBC/HPF NEGATIVE CASTS/LPF NEGATIVE CRYSTALS NEGATIVE MUCOUS THRDS NEGATIVE BACTERIA NEGATIVE EPITH CELLS 1+ SQUAMOUS TRICHOMONAS NEGATIVE YEAST NEGATIVE CULT SET UP? NO 01/22/2011 3:24 PM Cannabinoids (THC) NON-NEGAT SULAIMAN CALLED TO/BY DR. GERBER 1000 01-22-11 SJM Phencyclidine (PCP) NEGATIVE Cocaine NEGATIVE Methamphetamine NEGATIVE Opiates NEGATIVE Amphetamine NEGATIVE Benzodiazepines NEGATIVE Tricyclic Antidepres NEGATIVE Methadone NEGATIVE Barbiturates NEGATIVE Oxycodone NEGATIVE Propoxyphene (PPX) NEGATIVE 04/07/2014 2:44 PM HCG Ur Ql negative 07/07/2014 1:28 PM HCG Ur Ql negative 08/29/2014 3:06 PM Test, Urine neg 05/03/2015 3:46 PM Test, Urine negati ve Clarity Ur cloudy Color Ur dark yellow Glucose Ur-sCnc neg Bilirub Ur Ql Strip neg Ketones Ur Ql Strip neg Sp Gr Ur Qn 1.015 Hgb Ur Ql Strip moderate pH Ur-LsCnc 6.0 Prot Ur Ql Strip 30mg/dl Urobilinogen Ur-mCnc 0.2eu/dl Nitrite Ur Ql Strip neg WBC Est Ur Ql Strip moderate 03/20/2016 6:34 PM Appearance Ur Cloudy Bacteri a UrnS Qn HPF Positive Color Ur Dark yellow Hgb Ur Ql Strip Positive Nitrite Ur Ql Strip Positive WBC Est Ur Ql Strip Grossly positive 04/30/2017 4:51 PM Pap Smear Collected 04/30/2017 5:11 PM Cannabinoids (THC) NON-NEGAT SULAIMAN ng/mLPhencyclidine (PCP) NEGATIVE ug/mLCocaine NEGATIVE Methamphetamine NEGATIVE ug/mLOpiates NEGATIVE ng/mLAmphetamine NEGATIVE Benzodiazepines NEGATIVE Tricyclic Antidepres NEGATIVE Methadone NEGATIVE ng/mLBarbiturates NEGATIVE ng/mLOxycodone NEGATIVE Propoxyphene (PPX) NEGATIVE ng/mLWBC 10.9 RBC 4.21 HGB 13.50 g/dLHCT 39.30 %MCV 93.0 fLMCH 32.10 pgMCHC 34.40 g/dLRDW SD 43 RDW CV 12.50 %MPV 11.20 fLPLT 327 NRBC# 0.00 NRBC% 0.0 %NEUT 73.10 %%LYMP 14.40 %%MONO 10.40 %%EOS 1.0 %%BASO 0.70 %#NEUT 7.94 #LYMP 1.57 #MONO 1.13 #EOS 0.11 #BASO 0.08 MANUAL DIFF NOT IND WBC 10.9 RBC 4.21 HGB 13.50 g/dLHCT 39.30 %MCV 93.0 fLMCH 32.10 pgMCHC 34.40 g/dLRDW SD 43 RDW CV 12.50 %MPV 11.20 fLPLT 327 NRBC# 0.00 NRBC% 0.0 %NEUT 73.10 %%LYMP 14.40 %%MONO 10.40 %%EOS 1.0 %%BASO 0.70 %#NEUT 7.94 #LYMP 1.57 #MONO 1.13 #EOS 0.11 #BASO 0.08 MANUAL DIFF NOT IND COLOR YELLOW APPEARANCE CLEAR SPEC GRAV <=1.005 pH 5.5 PROTEIN NEGATIVE GLUCOSE NEGATIVE mg/dLKETONE NEGATIVE BILIRUBIN NEGATIVE BLOOD NEGATIVE NITRITE NEGATIVE [place] SCREEN NEGATIVE WBC/HPF RARE RBC/HPF RARE CASTS/LPF NEGATIVE /LPFCRYSTALS NEGATIVE MUCOUS THRDS NEGATIVE B ACTERIA NEGATIVE EPITH CELLS FEW SQUAMOUS /HPFTRICHOMONAS NEGATIVE YEAST NEGATIVE CULT ORDERED YES HEPATITIS C 0.11 HIV AG/AB COMBO 0.10 FERRITIN 97.0 ng/mLHBsAg Screen Negative Rubella Antibodies, IgG 3.06 IndexRPR Non Reactive 05/01/2017 10:28 AM Test, Urine positi ve 10/20/2017 3:15 PM WBC 11.8 RBC 3.82 HGB 12.50 g/dLHCT 37.90 %MCV 99.0 fLMCH 32.70 pgMCHC 33.0 g/dLRDW SD 47 fLRDW CV 12.90 %MPV 10.80 fLPLT 309 NRBC# 0.00 NRBC% 0.0 %NEUT 80.6 %LYMP 10.8 %MONO 7.1 %EOS 0.6 %BASO 0.4 #NEUT 9.47 #LYMP 1.27 #MONO 0.84 #EOS 0.07 #BASO 0.05 MANUAL DIFF NOT IND FERRITIN 27.0 ng/mL 11/18/2017 11:12 AM Cannabinoids (THC) NON-NEGAT SULAIMAN Phencyclidine (PCP) NEGATIVE Cocaine NEGATIVE Methamphetamine NEGATIVE Opiates NEGATIVE Amphetamine NEGATIVE Benzodiazepines NEGATIVE Tricyclic Antidepres NEGATIVE Methadone NEGATIVE Barbiturates NEGATIVE Oxycodone NEGATIVE Propoxyphene (PPX) NEGATIVE COLOR YELLOW APPEARANCE SL CLOUDY SPEC GRAV 1.020 pH 7.0 PROTEIN NEGATIVE GLUCOSE NEGATIVE KETONE NEGATIVE BILIRUBIN NEGATIVE BLOOD NEGATIVE NITRITE NEGATIVE LEUK SCREEN NEGATIVE MICRO INDICATED? NOT INDICATED 12/25/2017 8:19 AM STREP GROUP B PCR GBS NEGATI VE 02/19/2018 4:33 PM Test, Urine Negati ve 03/19/2018 1:31 PM Test, Urine negati ve History Of Immunizations Name Date Admin Mfg Name Mfg Code Trade Name Lot# Route Inj Vis Given Vis Pub CVX Influenza 02/09/2015 sanofi pasteur PMC Fluzone Quadrivalent UI4 22AA Intramuscular Left Deltoid 02/09/2015 10/07/2014 141 History of Past Illness Name Date of Onset Comments Atopic Dermatitis Feb 02 2009 4:09PM Polydipsia (Excessive Thirst) Feb 02 2009 4:09PM Polyuria Feb 02 2009 4:09PM Allergic rhinitis Scoliosis ADHD Gastritis Depressive disorder Pelvic Pain Mar 06 2009 4:03PM Dysmenorrhea Mar 06 2009 4:03PM Bronchitis, Acute May 01 2009 3:47PM Upper Respiratory Infection - Acute May 01 2009 3:47PM Attention Deficit Disorder Aug 31 2009 4:13PM Anxiety disorder 05/19/2013 Attention deficit disorder 12/01/2013 Anxiety 08/24/2014 Depression 08/24/2014 ADD (attention deficit disorder) 08/24/2014 Depression and anxiety Mar 07 2010 4:01PM Bronchitis, Acute Mar 27 2010 3:16PM Allergic Rhinitis Mar 27 2010 3:16PM Depressive Disorder Mar 27 2010 3:16PM Stye Mar 27 2010 3:16PM Pharyngitis, Acute Jun 08 2010 12:09PM Attention Deficit Disorder Jun 08 2010 12:09PM Attention Deficit Hyperactivity Disorder Jul 19 2010 2:31PM Depressive Disorder Jul 19 2010 2:31PM Emotional Disturbance - Anger Jul 19 2010 2:31PM Amenorrhea, Rule Out Sep 13 2010 12:07PM test confirmed positive Sep 17 2010 5:01PM , First Normal Sep 17 2010 5:01PM , First Normal Nov 26 2010 3:21PM Upper Respiratory Infection Nov 29 2010 4:56PM , First Normal Dec 24 2010 3:13PM , First Normal Jan 16 2011 1:50PM , First Normal Jan 22 2011 2:56PM Drug Abuse Jan 22 2011 2:56PM , First Normal Mar 18 2011 1:54PM Care, First Normal Apr 10 2011 3:03PM , First Normal Apr 29 2011 3:02PM , First Normal Feb 11 2011 5:08PM Gastroenteritis May 20 2011 2:29PM , First Normal Feb 20 2011 3:55PM , First Normal Apr 01 2011 2:18PM , First Normal Apr 22 2011 3:10PM Attention Deficit Disorder Jun 04 2011 2:18PM Care, First Normal Sep 20 2011 4:22PM Depression Sep 23 2011 2:35PM Generalized Anxiety Disorder Sep 23 2011 2:35PM Depression Oct 14 2011 2:57PM Generalized Anxiety Disorder Oct 14 2011 2:57PM Anxiety Disorder Dec 03 2011 3:36PM Cough Dec 03 2011 3:36PM Back Pain Mar 09 2012 3:44PM Bronchitis, Acute Mar 09 2012 3:44PM Anxiety/Depressive Disorder Mar 09 2012 3:44PM Depression Dec 01 2012 2:09PM Generalized Anxiety Disorder Dec 01 2012 2:09PM Low Back Pain Dec 01 2012 2:09PM Back Pain May 18 2013 1:37PM Anxiety Disorder May 18 2013 1:37PM Depressive Disorder May 18 2013 1:37PM Anxiety Disorder Aug 20 2013 2:15PM Depressive Disorder Aug 20 2013 2:15PM ADHD Aug 20 2013 2:15PM Back pain Aug 20 2013 2:15PM Gastritis Oct 27 2013 10:45AM Attention deficit disorder Dec 01 2013 2:43PM Infected tooth Dec 01 2013 2:43PM Cellulitis; Right Ear Jan 04 2014 2:09PM Routine gynecological examination Mar 24 2014 2:04PM Exposure to STD Mar 24 2014 2:04PM Attention deficit disorder Apr 07 2014 2:11PM Contraceptive education Apr 07 2014 2:11PM Pharyngitis, Acute Jun 28 2014 11:16AM Neck pain Jul 06 2014 11:15AM Amenorrhea Jul 06 2014 11:15AM Anxiety Aug 22 2014 1:31PM Depression Aug 22 2014 1:31PM ADD (attention deficit disorder) Aug 22 2014 1:31PM ADD (attention deficit disorder) Aug 29 2014 2:37PM Anxiety Disorder Aug 29 2014 2:37PM Depression Aug 29 2014 2:37PM Contraceptive management Aug 29 2014 2:37PM Anxiety Disorder Oct 20 2014 2:46PM Depressive Disorder Oct 20 2014 2:46PM Grieving Oct 20 2014 2:46PM Anxiety Disorder Nov 08 2014 2:07PM Depressive Disorder Nov 08 2014 2:07PM Insomnia Nov 08 2014 2:07PM Grieving Nov 08 2014 2:07PM Contraception management Nov 08 2014 2:07PM Back pain Nov 08 2014 2:07PM Contusion of right leg Nov 08 2014 2:07PM Mild Anxiety Disorder Stable Nov 28 2014 2:50PM Mild Depressive Disorder Stable Nov 28 2014 2:50PM Bilateral thoracic back pain Nov 28 2014 2:50PM Back Pain Dec 05 2014 2:33PM Scoliosis Dec 05 2014 2:33PM Panic Disorder Jan 02 2015 2:47PM Generalized anxiety disorder Jan 02 2015 2:47PM Flu Vaccine Feb 09 2015 5:11PM Generalized Anxiety Disorder Feb 09 2015 3:05PM Right upper quadrant abdominal pain May 03 2015 3:10PM Right Flank pain May 03 2015 3:10PM Acute cystitis with hematuria May 03 2015 3:10PM Encounter for initial prescription of contraceptive pills Ma r 2 2015 3:10PM Facial fracture Jul 24 2015 4:38PM Closed fracture of nasal bone with routine healing, han bsequent encounter Jul 24 2015 2:40PM Closed fracture of maxilla with routine healing, subse quent encounter Jul 24 2015 2:40PM Anxiety Sep 28 2015 2:13PM Depression Sep 28 2015 2:13PM Allergic rhinitis Sep 28 2015 2:13PM Contraceptive education Sep 28 2015 2:13PM Anxiety Disorder Sep 26 2015 2:53PM Depression Sep 26 2015 2:53PM Lower back pain Sep 26 2015 2:53PM ADD (attention deficit disorder) Oct 05 2015 3:39PM Acute suppurative otitis media of right ear without spontaneous rupture of tympanic membrane, recurrence not specified Oct 05 2015 3:39PM Acute maxillary sinusitis, recurrence not specified Jan 03 5:59PM Upper respiratory tract infection, unspecified type Feb 05 5:52PM Fever in other diseases Feb 06 2016 5:52PM Acute cystitis with hematuria Mar 20 2016 7:44PM Sinus congestion Mar 20 2016 7:44PM Non-intractable vomiting with nausea, unspecified vomi ting type Mar 20 2016 7:44PM Viral gastroenteritis Apr 22 2016 7:12PM Viral Gastroenteritis May 14 2016 6:41PM Fever Jun 04 2016 6:25PM Vomiting, unspecified Jun 04 2016 6:25PM Diarrhea, unspecified Jun 04 2016 6:25PM Vomiting, unspecified Feb 09 2017 3:45PM Diarrhea, unspecified Feb 09 2017 3:45PM test confirmed positive Apr 30 2017 3:59PM Tobacco abuse Apr 30 2017 3:59PM Normal in multigravida in second trimester Jul 31 2017 11:43AM Normal in multigravida in second trimester Oct 20 2017 1:39PM Evaluate growth, large for dates, second trimester, not applicable or unspecified fetus Nov 17 2017 1:53PM Encounter for supervision of normal preg jaquelin in multigravida in third trimester Nov 17 2017 2:16PM Dysuria Nov 17 2017 2:16PM Group B Strep Screening, Dec 24 2017 4:00PM Normal in multigravida in third trimester Dec 24 2 018 4:00PM 6 weeks follow-up Feb 19 2018 3:43PM Sterilization education Feb 19 2018 3:43PM Contraception Mar 09 2018 1:34PM Contraception Mar 19 2018 1:31PM Abscess of left axilla Apr 16 2018 5:22PM Genital herpes Mar 19 2019 5:03PM Viral URI Mar 19 2019 5:03PM Wheezing Mar 19 2019 5:03PM Herpesviral infection of urogenital system, unspecified Jul 15 2019 5:40PM Payers Insurance Name Company Name Plan Name Plan Number Policy Number Stephen cy Group Number Start Date [employer] - RHC Aetna [facility] - RHC [id number] N/A [facility] [id number] [facility] [id number] N/A [facility] Kennedi tance Prog [id number] N/A Wppa Wppa [id number] Friday, O ctober 2008 UMR UMR [id number] Friday, [id number] N/A Cigna Cigna [id number] Friday, 2010 [facility] Kennedi tance Prog [id number] Friday, 2010 [employer]ign[employer] Cigna [id number] Friday, 2010 [facility] Asst Prog - RHC [facility] Asst Prog - RH C [id number] N/A History of Encounters Visit Date Visit Type Provider 07/15/2019 Office visit Radha TORRES RN 03/19/2019 Office visit Minal TORRES RN 04/16/2018 Office visit Radha TORRES RN 03/19/2018 Office visit Juan Hudson 03/09/2018 Office visit Juan Hudson 02/19/2018 Office visit Juan Hudson 01/14/2018 [facility] Juan Hudson 01/08/[address] Cinthia hudson MD 01/01/[address] Cinthia hudson MD 12/24/[address] Cinthia hudson MD 12/04/[address] Cinthia hudson MD 11/27/2017 Office visit Juan Hudson 11/17/[address] Cinthia hudson MD 10/20/[address] Cinthia hudson MD 09/29/[address] Cinthia hudson MD 09/23/[address] Cinthia hudson MD 09/02/2017 Office visit Juna Hudson 07/31/[address] Cinthia hudson MD 07/03/2017 Office visit Juan Hudson 06/05/[address] Cinthia hudson MD 05/13/[address] Cinthia hudson MD 04/30/2017 Office visit Maria Victoria stephen CALKER 02/09/2017 Office visit Yessica AdamsSparkle Colwyn APR N 06/04/2016 Office visit Yessica Cuenca APR N 05/14/2016 Office visit Codi Guerra CALKER 04/22/2016 Office visit Kanu Bentonran APR N 03/20/2016 Office visit Kanu Bentonran APR N 02/06/2016 Office visit Kanu Bentonran APR N 01/04/2016 Office visit Kanu Rodríguez APR N 10/05/2015 Office visit Dayne Taylor DO 09/28/2015 Office visit Capri Colby CALKER 09/26/2015 Office visit Kanu Bentonran APR N 07/24/2015 Office visit Dayne Taylor DO 05/03/2015 Office visit Capri Colby CALKER 02/09/2015 Office visit Dayne Taylor DO 01/02/2015 Office visit Katie TORRES RN 01/01/2015 [facility] Florecita Mayfield MD 12/05/2014 Office visit Capri Colby CALKER 11/28/2014 Office visit Katie TORRES RN 11/08/2014 Office visit Katie TORRES RN 10/20/2014 Office visit Katie TORRES RN 08/29/2014 Office visit Capri Colby CALKER 08/22/2014 Office visit Capri Colby CALKER 07/06/2014 Office visit 07/06/2014 Office visit Capri Colby CALKER 06/28/2014 Office visit 06/28/2014 Office visit Capri Colby CALKER 04/07/2014 Office visit Capri Colby CALKER 03/24/2014 Office visit Capri Colby CALKER 01/04/2014 Office visit Dayne Brandon DO 12/01/2013 Office visit Capri Colby CALKER 10/27/2013 Office visit Dayne Taylor DO 08/20/2013 Office visit Knau Bentonran APR N 05/18/2013 Office visit Capri Colby CALKER 12/01/2012 Office visit Dayne Taylor DO 03/09/2012 Office visit Capri Colby CALKER 12/03/2011 Office visit Dayne Taylor DO 10/14/2011 Office visit Dayne Taylor DO 09/23/2011 Office visit Dayne Taylor DO 06/04/2011 Office visit Richardson Gerber MD 05/20/2011 Office visit Richardson Gerber MD 05/03/2011 [facility] Richardson Gerber MD 04/29/2011 Office visit Richardson Gerber MD 04/22/2011 Office visit Richardson Gerber MD 04/16/2011 Office visit Richardson Gerber MD 04/10/2011 Office visit Richardson Gerber MD 04/01/2011 Office visit Richardson Gerber MD 03/18/2011 Office visit Richardson Gerber MD 03/14/2011 Office visit Richardson Gerber MD 02/20/2011 Office visit Richardson Gerber MD 02/12/2011 Office visit Richardson Gerber MD 02/11/2011 Office visit Richardson Gerber MD 02/11/2011 [facility] Richardson Gerber MD 02/05/2011 Voided Richardson Gerber MD 01/22/2011 Office visit Richardson Gerber MD 01/16/2011 Office visit Richardson Gerber MD 12/24/2010 Office visit Richardson Gerber MD 11/29/2010 Office visit Richardson Gerber MD 11/26/2010 Office visit Richardson Gerber MD 10/22/2010 Office visit Richardson Gerber MD 09/17/2010 Office visit Richardson Gerber MD 07/19/2010 Office visit Dayne Taylor DO 06/08/2010 Office visit Capri Colby APRN 03/27/2010 Office visit Dayne Taylor DO 03/07/2010 Office visit Yulisa MOYA 08/31/2009 Office visit Yulisa MOYA 05/01/2009 Office visit Joann MOYA 03/06/2009 Office visit Yulisa MOYA 02/02/2009 Office visit Yulisa MOYA 01/02/2009 Office visit Yulisa MOYA 10/26/2008 Office visit YULISA FRANCIS PA-C
--- OUTSIDE RECORDS SUMMARY | 2019-09-13 07:30 | XMS REPORT | CCD ---
Author Author AUSTIN YU Organization Unknown Address [address] [place], [place] [address] Care Team Providers Care Sand Sifter Name Role Phone SHEEBA GARCÍA MD Attphys SHEEBA GARCÍA MD Prisurg Vital Signs Unknown. Allergies Allergy Code Allergy Type Reaction Status SULFA (sulfonamide) 0 Drug allergy (disorder) Active Procedures Unknown. History of Immunizations Unknown. Problems Problem Code Start Date Resolved Date Sta tus VAGINAL DELIVERY 650 05/03/2011 A ctive Results Unknown. Medications Unknown. Medications Administered Unknown. Encounters Encounter Diagnosis Diagnosis Code Start Date CELLULITIS OF ARM 6823 08/30/2013 Social History Smoking Status Code Start Date End Date Never smoker [id number] Patient Decision Aids Unknown. Discharge Instructions You were admitted to [facility] on 08/30/2013 with a principle diagnosis of CELLULITIS OF ARM. You were discharged from [facility] on 08/30/2013. Should you have any questions prior to discharge, please contact a member of your healthcare team. If you have left the hospital and have any questions, please contact your primary care physician. Chief Complaint and Reason For Visit Chief Complaint Date of Onset ELBOW PAIN Function Status Unknown. Referral/Transition of Care Unknown.
--- OUTSIDE RECORDS SUMMARY | 2019-09-13 07:30 | XMS REPORT | CCD ---
Author Author AUSTIN JASSO Organization Unknown Address [address] [facility] [address] [place], [place] [id number] Care Team Providers Care Clarifier Operator Helper Name Role Phone MALJAMAR ER, HEATHER DO Attphys MALJAMAR ER, HEATHER DO Prisurg Vital Signs Unknown or Not Available. Allergies Allergy Code Allergy Type Reaction Status SULFA (sulfonamide) 0 Drug allergy Active Procedures Procedure Code Procedure Type Date LUMBAR SPINE; 2VIEWS OR [address] 07/21/2015 THORACIC SPINE 3 VIEWS (W/SWIMMERS) 16780833 SNOMED CT 07/21/2015 CT MAXILLOFACIAL W/O CONTRAST 119348281 SNOMED CT 07/21/2015 CT CERVICAL W/O CONTRAST 846348751 SNOMED CT 0 07/21/2015 CT HEAD W/O CONTRAST 227933774 SNOMED CT 07/[id number] 07/21/2015 History of Immunizations Unknown or Not Available. Problems Problem Code Start Date Resolved Date Sta tus VAGINAL DELIVERY 650 05/03/2011 A ctive Results TEST - Collect Date/Time: 07/02 11:25 Test Name Code Test Result Test Units Chiquita t Ref Range TEST 2118-8 NEGATIVE N/A Active Medications Unknown or Not Available. Medications Administered During Visit Unknown or Not Available. Encounters Encounter Diagnosis Diagnosis Code Start Date Fracture of nasal bones, initial encounter for closed fracture [id number] 07/21/2015 Social History Smoking Status Code Start Date End Date Never smoker [id number] Patient Decision Aids Unknown or Not Available. Discharge Instructions You were admitted to [facility] on 07/21/2015 09:55 with a principal diagnosis of Fracture of nasal bones, initial encounter for closed fracture You had the following tests done: TEST You were discharged from [facility] on 07/21/2015 13:27 Should you have any questions prior to discharge, please contact a member of your healthcare team. If you have left the hospital and have any questions, please contact your primary care physician. Chief Complaint and Reason For Visit Chief Complaint Date of Onset FACIAL INJURY Function Status Unknown or Not Available. Plan of Care Unknown or Not Available. Referral/Transition of Care Unknown or Not Available.
--- OUTSIDE RECORDS SUMMARY | 2019-09-13 07:30 | XMS REPORT | CCD ---
Author Author AUSTIN BAILEY Organization Unknown Address [address] [facility] [address] [place] [address] Care Team Providers Care Vat Tender Name Role Phone MARIA LUZ MARQUES MD Attphys MARIA LUZ MARQUES MD Prisurg Allergies Allergy Code Allergy Type Reaction Status SULFA (sulfonamide) 0 Drug allergy Active Active Medications Unknown or Not Available. Problems Problem Code Start Date Resolved Date Sta tus VAGINAL DELIVERY 650 05/03/2011 A ctive Procedures Procedure Code Procedure Type Date CT MAXILLOFACIAL W/O CONTRAST 774094038 SNOMED CT 12/14/2016 CT HEAD W/O CONTRAST 714045632 SNOMED CT 12/14 Results Unknown or Not Available. Encounters Encounter Diagnosis Diagnosis Code Start Date Fracture of nasal bones, initial encounter for closed fracture [id number] 12/14/2016 Function Status Unknown or Not Available. History of Immunizations Immunization Code Date OPV 07/05/1996 MMR 07/05/1996 DTaP 07/05/1996 Plan of Treatment Unknown or Not Available. Social History Smoking Status Code Start Date End Date Never smoker [id number] Vital Signs Unknown or Not Available. Function Status Unknown or Not Available. Goals Unknown or Not Available. ASSESSMENTS Unknown or Not Available. Health Concerns Section Unknown or Not Available.
--- OUTSIDE RECORDS SUMMARY | 2019-09-13 07:30 | XMS REPORT ---
Discharge Summary 2.1 Created on: AUSTIN NICHOLAS External Reference #: [id number] : 1990 Sex: Female Author Author AUSTIN BAILEY Organization Unknown Address [address] [facility] [address] [place], [place] [id number] Care Team Providers Care Hospital Educator Name Role Phone Xwatchlist DANIELA HINTON MD Anesth KERRI Adams [employer] Anesth SONU PATRICIO [employer] Anesth ROSELYN Fitzgerald MD Attending [facility] Functional Status No Data Found Immunization Immunization Date Status Additional Notes Code Code System OPV 07/05/1996 Completed 02 CVX MMR 07/05/1996 Completed 03 CVX DTaP 07/05/1996 Completed 20 CVX Mental Status No Data Found Results HEMOGRAM - Collect Date/Time: 01/15/2018 09:45 [employer] ID: [id number] [address] [facility] [address], [place], [place], [id number] [facility] NEGATIVE [facility] ID: [id number] [address] [facility] [address], [place], [place], [phone] LOINC: 31324-3 Test Value Unit Reference Range Code Code System WBC 15.8 TH/CMM L=4.5 H=10.8 72923-0 LOINC RBC 3.68 ML/CMM L=4.20 H=5.40 789-8 LOINC HGB 11.8 G/DL L=12.0 H=16.0 718-7 LOINC HCT 34.6 % L=37.0 H=47.0 4544-3 LOINC MCV 94 FL L=81 H=99 MCH 32.1 PG L=27.0 H=33.0 MCHC 34.1 G/DL L=31.0 H=36.0 RDW SD 42 FL L=36 H=50 RDW CV 12.2 % L=0.0 H=14.8 MPV 11.4 FL L=9.3 H=12.5 PLT 250 TH/CMM L=130 H=440 777-3 LOINC NRBC# 0.00 TH/CMM L=0.00 H=0.00 NRBC% 0.0 /100WBC L=0.0 H=2.0 RAPID DRUG SCREEN - Collect Date/Time: 1 03/16/2017 06:28 [facility] ID: [id number] [address] [facility] [address], [place], [place], [id number] [facility] ID: [id number] [address] [facility] [address], [place], [id number] LOINC: 93549-6 Test Value Unit Reference Range Code Code System Cannabinoids (THC) NON-NEGATIVE NEG: < 50 ng/ml Phencyclidine (PCP) NEGATIVE NEG: < 25 ng/ml Cocaine NEGATIVE NEG: < 300 ng/ml Methamphetamine NEGATIVE NEG: < 1000 ng/ml Opiates NEGATIVE NEG: < 300 ng/ml Amphetamine NEGATIVE NEG: < 1000 ng/ml Benzodiazepines NEGATIVE NEG: < 300 ng/ml Tricyclic Antidepres NEGATIVE NEG: < 300 ng/ml Methadone NEGATIVE NEG: < 300 ng/ml Barbiturates NEGATIVE NEG: < 200 ng/ml Oxycodone NEGATIVE NEG: < 100 ng/ml Propoxyphene (PPX) NEGATIVE NEG: < 300 ng/ml TYPE AND SCREEN - Collect Date/Time: 06:20 [facility] ID: [id number] [address] [facility] [address], [place], [place], [phone] LOINC: 895-3 Test Value Unit Reference Range Code Code System ABO/Rh Type AB Positive Antibody Screen-Gel Negative HEMOGRAM - Collect Date/Time: 01/14/2018 06:20 [facility] ID: [id number] [address], [place], [place], [id number] [employer] ID: [id number] [address], [place], [id number] LOINC: 57145-5 Test Value Unit Reference Range Code Code System WBC 14.0 TH/CMM L=4.5 H=10.8 17844-6 LOINC RBC 3.96 ML/CMM L=4.20 H=5.40 789-8 LOINC HGB 12.6 G/DL L=12.0 H=16.0 718-7 LOINC HCT 37.5 % L=37.0 H=47.0 4544-3 LOINC MCV 95 FL L=81 H=99 MCH 31.8 PG L=27.0 H=33.0 MCHC 33.6 G/DL L=31.0 H=36.0 RDW SD 43 FL L=36 H=50 RDW CV 12.2 % L=0.0 H=14.8 MPV 11.6 FL L=9.3 H=12.5 PLT 299 TH/CMM L=130 H=440 777-3 LOINC NRBC# 0.00 TH/CMM L=0.00 H=0.00 NRBC% 0.0 /100WBC L=0.0 H=2.0 Social History Type Status Start Date End Date Code Code System Smoking History Never smoker (Never Smoked ) 914553972 SNOMED-CT Smoking History Current every day smoker [id number] SNOMED-CT Vital Signs Vital Sign Value Unit Archuleta Value Archuleta Unit Date/Time Recent/Initial? Code Cod e System Body Mass Index 27.98 kg /m2 01/14/2018 05:19 Inital 11615-6 LOINC Systolic Blood Pressure 127 mm[Hg] 01/16/2018 05:57 Most Recent 8480-6 LOINC Diastolic Blood Pressure 79 mm[Hg] 01/16/2018 05:57 Most Recent 8462-4 LOINC Systolic Blood Pressure 128 mm[Hg] 01/14/2018 05:19 Inital 8480-6 LOINC Diastolic Blood Pressure 60 mm[Hg] 01/14/2018 05:19 Inital 8462-4 LOINC Body Surface Area 2.00 m2 01/14/2018 05:19 Inital 3140-1 LOINC Height 172.7200 cm 68.00 in 01/14/2018 05:19 Init al 8302-2 LOINC O2 Saturation 100 % 01/16/2018 05:57 Most Recent 97638-6 LOINC O2 Saturation 98 % 01/15/2018 01:41 Inita l 33742-0 LOINC Pulse 60.0 /min 01/16/2018 13:49 Most Recent 8867-4 LOINC Pulse 90.0 /min 01/14/2018 05:19 Inita l 8867-4 LOINC Respiration 18 /min 01/16/2018 13:49 Most Recent 9279-1 LOINC Respiration 20 /min 01/14/2018 05:19 Inita l 9279-1 LOINC Temperature 36.6 Kiley 97.9 F 01/16/2018 13:49 Most Recent 8310-5 LOINC Temperature 35.7 Kiley 96.3 F 01/14/2018 05:19 Inita l 8310-5 LOINC Weight 83.461 kg 184.00 lbs 01/14/2018 05:19 Ini sarbjit 22805-6 LOINC Assessment You had the following problems: VAGINAL DELIVERY Hospital Discharge Instructions Should you have any questions prior to discharge, please contact a member of your healthcare team. If you have left the hospital and have any questions, please contact your primary care physician. DIET: REGULAR, Drink plenty of fluids, Diet as tolerated, Increase fiber. Avoid alcohol, Eat high iron foods: grn vegs, red meats. HOME MEDICATION INSTRUCTIONS: Continue taking your vitamins. Call doc before taking new or OTC meds. IF : Breastfeed on demand, Incr flds and cals to promote mlk prdctn. Avoid spicy/gas producing foods, Exprs milk every 3-4 hrs if unable to BF. Apply moist heat/massage/or icepacks, if breast engorgement occurs. Wear supportive bra, Call Dr for fever >100.4 or breast pain. Observe for cracked and bleeding nipples. Use "soothies"for sore or cracked nipple. Use tea bags for sore or cracked nipples. Colostrum to nipples after each feed. ACTIVITIES: Refrain from smoking, Rest as possible, Nothing per vagina for 6 weeks. No lifting anything heavier than baby, Gradually resume normal activity. HYGIENE: May shower, Use sanjay-bottle with Betasept:. after each urine and BM until flow stops. Change pads with each urination or BM. BOWEL MOVEMENTS Stool softeners as needed (Colace), Avoid constipation. May take Senokot, Milk of Magnesia. CONTROL Call Dr to sched 6wks post visit. SEXUAL ACTIVITY Refrain from intercourse until pp exam. EXERCISES-VAGINAL DELIVERY May resume in 1-2 weeks, Start slowly and increase as tolerated. POST BLUES; HORMONAL CHANGES: You may have emotional changes, You may be tearful. This shouldn't last more than 2-[address] immediately if you are concerned. or have thoughts of hurting self/others. Detached/numb/afraid/depressed/anxious. PAIN MANAGEMENT Non drug pain control methods, When to contact physician. NOTIFY PHYSICIAN OF: Chills, fever gre ater than 100.4F, Excessive vaginal bleeding. Foul-smelling vaginal discharge, Dizziness or fainting. Redness/swelling in calf area, Bleeding more than heavy period (1pad/hr. Red, hot, and extremely HARD breasts, Excessive nausea or vomiting. Worsening ab pain not relieved by meds, Passing large blood clot. RELEVANT CONTACT INFORMATION: Dr. Juan Jeffries: [phone]. FOLLOW-UP: Make PP visit aapt w/[facility] in 4wks. TREATMENTS: Tucks, frequent sitz baths as needed, Stool softeners and hemmorrhoid cream. No driving for 1 wk or if on pain meds. SPECIAL INSTRUCTIONS: If you have cold/canker sores:, do not kiss/nuzzle NB til lesions clear. PATIENT PORTAL EDUCATION INFO PROVIDED? YES, patient verbalized understanding. PATIENT PORTAL DEMONSTRATION PERFORMED? YES, patient verbalized understanding. DISCHARGED TO: Home. MODE OF TRANSPORTATION: Via wheelchair, to car. ACCOMPANIED BY: Significant Other. PERSONAL EFFECTS/VALUABLES SENT HOME: Yes. IMPORTANT: INSURE YOUR BABY! Provided info on need to insure baby!. PATIENT/FAMILY UNDERSTANDS INSTRUCTIONS: Verbalizes. SMOKING CESSATION: Smoking/2nd hand smoke is hrmful to hlth, Smoking has been linked to cancer. cardiac disease, COPD, asthma, and SIDS, For more information you can call:. [phone], or [phone], A pamphlet on smoking was given to you. at admission. Reason For Referral No Data Found Hospital Course You were admitted to [facility] on 01/14/2018 04:59 with a principal diagnosis of Other mental disorders complicating childbirth You were discharged from [facility] on 01/16/2018 18:31 Medications Medication Start Date En d Date Route Frequency Dose Code Code System Ibuprofen 800MG Oral Tablet 01/14/2018 Unknown BY MOUTH EVERY 8 HOURS 800 MILLIGRAMS [id number] Rx Norm Docusate Sodium 100MG Oral Capsule, Liquid Filled 01/14/2018 Unknown BY MOUTH TWO SHAYLA ES A DAY 100 MILLIGRAMS [id number] RxNorm Oral Tablet 01/14/2018 Unknown ORAL DAILY 1 unit(s) 8060689 RxNorm Latuda 120MG Oral Tablet 01/14/2018 Unknown ORAL FOUR TIMES A DAY 20 MILLIGRAMS [id number] RxNorm Acetaminophen-Codeine Phosphate 300MG-30MG Oral Tablet 01/14/2018 Unknown BY MOUTH NEEDED EVERY 6 HR 1 TABLET 260976 RxNorm Procedures Procedure Name Date Stat us Code Code System Introduction of Other Hormone into Perip heral Vein, Percutaneous Approach 01/14/2018 completed 3E0 33VJ ICD10 PCS Introduction of Anesthetic Agent into Sp inal Canal, Percutaneous Approach 01/14/2018 completed 3E0 R3BZ ICD10 PCS Delivery of Products of Conception, External Approach 01/14/2018 completed 03W3RFR ICD10 PCS Insertion of Infusion Device into Spinal Canal, Percutaneous Approach 01/14/2018 completed 00H U33Z ICD10 PCS Implants No Data Found Problems Problem Start Date Resol justin Date Status Code Code System VAGINAL DELIVERY active SNOMED-CT Allergies Allergy Substance Reaction Severity Start Date Concern Status Code Code System SULFA (sulfonamide) Active RxNorm Plan of Treatment No Data Found Encounters No Data Found Goals No Data Found Discharge Medications No Data Found Discharge Diagnosis Discharge Diagnosis Diagnosis Code Start Date Other mental disorders complicating childbirth [id number] 01/14/2018 Health Concerns Section No Data Found
--- OUTSIDE RECORDS SUMMARY | 2019-09-13 07:31 | XMS REPORT ---
Author Author Jo Fall [facility] Address [address] [place], [place] [address] Care Team Providers Care Alteration Workroom Supervisor Name Role Phone Minal Fall PCP BrandonJohnya PreferredProvider Allergies and Adverse Reactions Name Reaction [...] take 1 tablet by oral route daily Trintellix oral Seroquel oral ProAir HFA 90 mcg/actuation inhalation HFA aerosol inhaler 2019 inhale 1 puff (90 mcg) by inhalation route every 6 hours as needed Name Start Date Expiration Date SIG Comments [...] 500 mg oral tablet 06/08/2010 06/18/2010 t paavn 2 tablets by mouth BID x10 days. [...] chew 1 tablet by oral route daily Problem List Description Status Onset ADHD Active Allergic rhinitis Active Depressive disorder Active Anxiety disorder Active 05/19/2013 Attention Deficit Disorder Active 12/01/2013 Anxiety Active 08/24/2014 Depression Active 08/24/2014 ADD (attention deficit disorder) Active 08/25/19 15 Vital Signs Date Time BP-Sys(mm[Hg] BP-Valeria(mm[Hg]) HR(bpm) RR(rpm) Temp WT HT HC BMI BSA BMI Percentile O2 Sat(%) 03/19/2019 5:00:00 PM 126 mm[Hg] 72 mm[Hg] 75 {beats}/min 18 rpm 98.2 F 171.5 lbs 67.5 in 26.464 kg/m2 1.9248 m2 98 % 04/16/2018 5:18:00 PM 128 mm[Hg] 84 mm[Hg] 82 {beats}/min 20 rpm 98.1 F 173 lbs 67.5 in 26.70 kg/m2 1.93 m2 98 % 03/19/2018 1:20:00 PM 106 mm[Hg] 57 mm[Hg] 88 {beats}/min 98.6 F 174 lbs 67.5 in 26.8497 kg/m2 1.9388 m2 03/09/2018 1:32:00 PM 130 mm[Hg] 81 mm[Hg] 85 {beats}/min 98.2 F 177 lbs 67.5 in 27.31 kg/m2 1.96 m2 02/19/2018 3:37:00 PM 124 mm[Hg] 57 mm[Hg] 78 {beats}/min 98.2 F 179 lbs 67.5 in 27.6213 kg/m2 1.9664 m2 09/23/2017 1:47:00 PM 105 mm[Hg] 105 {beats}/min 17 rpm 98.7 F 184.375 lbs 67.5 in 28.45 kg/m2 2.00 m2 100 % 04/30/2017 3:56:00 PM 133 mm[Hg] 81 mm[Hg] 82 {beats}/min 99 F 18 9 lbs 67.5 in 29.1644 kg/m2 2.0206 m2 02/09/2017 3:42:00 PM 134 mm[Hg] 80 mm[Hg] 85 {beats}/min 16 rpm 100 F 197 lbs 67.5 in 30.40 kg/m2 2.06 m2 97 % 06/04/2016 6:22:00 PM 128 mm[Hg] 88 mm[Hg] 100 {beats}/min 99.8 F 209 lbs 67.5 in 32.2505 kg/m2 2.1248 m2 99 % 05/14/2016 6:36:00 PM 120 mm[Hg] 78 mm[Hg] 94 {beats}/min 98.7 F 210 lbs 67.5 in 32.40 kg/m2 2.13 m2 98 % 04/22/2016 7:08:00 PM 118 mm[Hg] 70 mm[Hg] 70 {beats}/min 97.9 F 200 lbs 67.5 in 30.8618 kg/m2 2.0786 m2 99 % 03/20/2016 7:42:00 PM 132 mm[Hg] 70 mm[Hg] 87 {beats}/min 18 rpm 99 F 205.375 lbs 67.5 in 31.69 kg/m2 2.11 m2 98 % 02/06/2016 5:49:00 PM 130 mm[Hg] 98 mm[Hg] 84 {beats}/min 100.1 F 207 lbs 67.5 in 31.9419 kg/m2 2.1146 m2 99 % 01/04/2016 5:57:00 PM 132 [...] 12:00 AM Bicillin CR, 1.2 million units [facility]# 6079 3-600-10 Reviewed 07/06/2014 11:29 AM URINE TEST Reviewed 07/06/2014 12:00 AM THER/PROPH/DIAG INJ SC/IM Reviewed 07/06/2014 12:00 AM Decadron, Per 1 Mg [facility]# [address]-51 Re viewed 07/06/2014 12:00 AM Depo-Medrol 40mg [...] (THC) NON-NEGAT SULAIMAN CALLED TO/BY DR. GERBER 1540 01-22-11 [facility] Phencyclidine (PCP) NEGATIVE Cocaine NEGATIVE Methamphetamine NEGATIVE [...] ve History Of Immunizations Name Date Admin Mf Name Mf Code Trade Name Lot# Route Inj Vis [...] 31 2009 4:13PM Anxiety disorder 05/19/2013 Attention Deficit Disorder 12/01/2013 Anxiety 08/24/2014 Depression 08/24/2014 ADD (attention [...] 3:05PM Right upper quadrant abdominal pain May 02 2016 3:10PM Right Flank pain May 02 2016 3:10PM Acute cystitis with hematuria May 03 2015 3:10PM Encounter for initial prescription of contraceptive pills Zoran cooney 2 2015 3:10PM Facial fracture Jul 24 [...] maxillary sinusitis, recurrence not specified Jan 03 2 016 5:59PM Upper respiratory tract infection, unspecified type Feb 05 016 5:52PM Fever in other diseases Feb 06 [...] 2019 5:03PM Wheezing Mar 19 2019 5:03PM Payers Insurance Name Company Name Plan Name Plan Number Policy Number Stephen cy Group Number Start Date A[employer] Better Health - RHC A[employer] - RHC [id number] N/A [facility] [id number] [facility] [id number] 1 N/A [place] [facility] Kenendi tance Prog [id number] N/A Wppa Wppa [id number] Friday, ctober 2008 UMR UMR [id number] [facility] 2009 [facility] [id number] N/A Cign[employer] Cigna [id number] Friday, 2010 [facility] Kennedi tance Prog [id number] Friday, 2010 [employer]ign[employer] Cigna [id number] Friday, 2010 [place] [employer] - RHC [place] [employer] - RH C [id number] N/A History of Encounters Visit Date Visit Type Provider 03/19/2019 Office visit Minal TORRES RN 04/16/2018 Office visit Radha TORRES RN 03/19/2018 Office visit Juan Hudson 03/09/2018 Office visit Juan Hudson 02/19/2018 Office visit Juan Hudson 01/14/2018 [facility] Juan Hudson 01/08/[address] Cinthia [...] Dr. Cinthia hudson MD 09/02/2017 Office visit Juan Hudson 07/31/[address] Cinthia hudson MD 07/03/2017 Office visit Juan Hudson 06/05/[address] Cinthia hudson MD 05/13/[address] Cinthia hudson MD 04/30/2017 Office visit Maria Victoria stephen TRACTION POWER ENGINEER 02/09/2017 Office visit Yessica Maong APR N 06/04/2016 Office visit Yessica AdamsSparkle Cuenca APR N 05/14/2016 Office visit Codi Guerra TRACTION POWER ENGINEER 04/22/2016 Office visit Kanu Bentonran APR N 03/20/2016 Office visit Kanu Rodríguez APR N 02/06/2016 Office visit Kanu Rodríguez APR N 01/04/2016 Office visit Kanu Bentonran APR N 10/05/2015 Office visit Dayne Brandon DO 09/28/2015 Office visit Capri Colby TRACTION POWER ENGINEER 09/26/2015 Office visit Kanu Bentonran APR N 07/24/2015 Office visit Dayne Brandon DO 05/03/2015 Office visit Capri Colby TRACTION POWER ENGINEER 02/09/2015 Office visit Dayne Brandon DO 01/02/2015 Office visit Katie TORRES RN 01/01/2015 [facility] Florecita Mayfield MD 12/05/2014 Office visit Capri Colby TRACTION POWER ENGINEER 11/28/2014 Office visit Katie TORRES RN 11/08/2014 Office visit Katie TORRES RN 10/20/2014 Office visit Katie TORRES RN 08/29/2014 Office visit Capri Colby TRACTION POWER ENGINEER 08/22/2014 Office visit Capri Colby TRACTION POWER ENGINEER 07/06/2014 Office visit 07/06/2014 Office visit Capri Colby TRACTION POWER ENGINEER 06/28/2014 Office visit 06/28/2014 Office visit Capri Colby TRACTION POWER ENGINEER 04/07/2014 Office visit Capri Colby TRACTION POWER ENGINEER 03/24/2014 Office visit Capri Colby TRACTION POWER ENGINEER 01/04/2014 Office visit Dayne Brandon DO 12/01/2013 Office visit Capri Colby TRACTION POWER ENGINEER 10/27/2013 Office visit Dayne Brandon DO 08/20/2013 Office visit Kanu Rodríguez APR N 05/18/2013 Office visit Capri Lasha TRACTION POWER ENGINEER 12/01/2012 Office visit Dayne Taylor DO 03/09/2012 Office visit Capri Colby TRACTION POWER ENGINEER 12/03/2011 Office visit Dayne Taylor DO 10/14/2011 Office visit Dayne Taylor DO 09/23/2011 Office visit Dayne Taylor DO 06/04/2011 Office visit Richardson Gerber MD 05/20/2011 Office visit Richardson Gerber MD 05/03/2011 Hospital Richardson Gerber MD 04/29/2011 Office visit Richardson Gerber MD 04/22/2011 Office visit Richardson Gerber MD 04/16/2011 Office visit Richardson Gerber MD 04/10/2011 Office visit Richadrson Gerber MD 04/01/2011 Office visit Richardson Gerber MD 03/18/2011 Office visit Richardson Gerber MD 03/14/2011 Office visit Richardson Gerber MD 02/20/2011 Office visit Richardson Gerber MD 02/12/2011 Office visit Richardson Gerber MD 02/11/2011 Office visit Richardson Gerber MD 02/11/2011 [facility] Richardson Gerber MD 02/05/2011 Voided Richardson Gerber MD 01/22/2011 Office visit Richardson Gerber MD 01/16/2011 Office visit Richardson Gerber MD 12/24/2010 Office visit Richardson Gerber MD 11/29/2010 Office visit Richardson Gerber MD 11/26/2010 Office visit Richardson Gerber MD 10/22/2010 Office visit Richardson Gerber MD 09/17/2010 Office visit Richardson Gerber MD 07/19/2010 Office visit Dayne Taylor DO 06/08/2010 Office visit Capri Colby TRACTION POWER ENGINEER 03/27/2010 Office visit Dayne Taylor DO 03/07/2010 Office visit Yulisa MOYA 08/31/2009 Office visit Yulisa MOYA 05/01/2009 Office visit Joann MOYA 03/06/2009 Office visit Yulisa MOYA 02/02/2009 Office visit Yulisa MOYA 01/02/2009 Office visit Yulisa MOYA 10/26/2008 Office visit YULISA FRANCIS PA-C
--- OUTSIDE RECORDS SUMMARY | 2019-09-13 07:32 | XMS REPORT ---
Author Author Jo Cuenca [facility] Address [address] [place] [id number] Care Team Providers Care Teaching Manager Name Role Phone Yessica Cuenca PCP Dayne Taylor PreferredProvider Allergies and Adverse Reactions Name Reaction Notes erythromycin vomiting SULFA (SULFONAMIDES) Plan of Treatment Planned Activity Comments Planned Date Planned Time Plan/Goal Nasal bone fracture and Left maxillary fracture 016 4:30 PM Mirena placement 10/03/2015 12:00 AM Scvamsiois with previous surgery and harward placement 1 03/08/2014 1:00 PM Medications Active Name Start Date Estimated Completion Date SIG Co mments Latuda 20 mg oral tablet take 1 tablet (20 mg) by oral route once daily with food (at least 350 calories) buspirone 10 mg oral tablet take 1 tablet by oral route daily norethindrone (contraceptive) 0.35 mg oral tablet 03/19/2018 03/14/2019 take 1 tablet by oral route once daily for 90 days Keflex 500 mg oral capsule 04/16/2018 04/26/2018 take 1 capsule (500 mg) by oral route every 12 hours for 10 days Name Start Date Expiration Date SIG [...] tablet (150 mg) by oral route once Discontinued Name Start Date Discontinued Date SIG [...] table t by oral route once daily Gummy 400 mcg-35 mg -25 mg-5 mg oral tablet,chewabl e 11/17/2017 04/16/2018 chew 1 tablet by oral route daily Problem List Description Status Onset ADHD Active Allergic rhinitis Active Depressive Disorder Active Anxiety disorder Active 05/19/2013 Attention Deficit Disorder Active 12/01/2013 Anxiety Active 08/24/2014 Depression Active 08/24/2014 ADD (attention deficit disorder) Active 08/25/19 15 Vital Signs Date Time BP-Sys(mm[Hg] BP-Valeria(mm[Hg]) HR(bpm) RR(rpm) Temp WT HT HC BMI BSA BMI Percentile O2 Sat(%) 04/16/2018 5:18:00 PM 128 mmHg 84 mmHg 82 bpm 20 rpm 98.1 F 173 lbs 67.5 in 26.6954 kg/m 1.9332 m 98 % 03/19/2018 1:20:00 PM 106 mmHg 57 mmHg 88 bpm 98.6 F 174 lbs 67.5 in 26.85 kg/m2 1.94 m2 03/09/2018 1:32:00 PM 130 mmHg 81 mmHg 85 bpm 98.2 F 177 lbs 67.5 in 27.3127 kg/m 1.9554 m 02/19/2018 3:37:00 PM 124 mmHg 57 mmHg 78 bpm 98.2 F 179 lbs 67.5 in 27.62 kg/m2 1.97 m2 09/23/2017 1:47:00 PM 105 mmHg 105 bpm 17 rpm 98.7 F 184.375 lbs 67.5 in 28.4507 kg/m 1.9957 m 100 % 04/30/2017 3:56:00 PM 133 mmHg 81 mmHg 82 bpm 99 F 189 lbs 67.5 in 29.16 kg/m2 2.02 m2 02/09/2017 3:42:00 PM 134 mmHg 80 mmHg 85 bpm 16 rpm 100 F 197 lbs 67.5 in 30.40 kg/m2 2.06 m2 97 % 06/04/2016 6:22:00 PM 128 mmHg 88 mmHg 100 bpm 99.8 F 209 lbs 67.5 in 32.2505 kg/m 2.1248 m 99 % 05/14/2016 6:36:00 PM 120 mmHg 78 mmHg 94 bpm 98.7 F 210 lbs 67.5 in 32.40 kg/m2 2.13 m2 98 % 04/22/2016 7:08:00 PM 118 mmHg 70 mmHg 70 bpm 97.9 F 200 lbs 67.5 in 30.8618 kg/m 2.0786 m 99 % 03/20/2016 7:42:00 PM 132 mmHg 70 mmHg 87 bpm 18 rpm 99 F 205.375 lbs 67.5 in 31.69 kg/m2 2.11 m2 98 % 02/06/2016 5:49:00 PM 130 mmHg 98 mmHg 84 bpm 100.1 F 207 lbs 67.5 in 31.9419 kg/m 2.1146 m 99 % 01/04/2016 5:57:00 PM 132 mmHg 76 mmHg 87 bpm 18 rpm 99.5 F 201.375 lbs 98 % 10/05/2015 3:37:00 PM 126 mmHg 68 mmHg 86 bpm 20 rpm 99.2 F 193 lbs 67.5 in 29.7816 kg/m 2.0419 m 98 % 09/28/2015 2:11:00 PM 126 mmHg 66 mmHg 92 bpm 18 rpm 97.8 F 194 lbs 67.5 in 29.94 kg/m2 2.05 m2 99 % 09/26/2015 2:49:00 PM 108 mmHg 68 mmHg 87 bpm 18 rpm 98.5 F 195 lbs 67.5 in 30.0902 kg/m 2.0524 m 99 % 07/24/2015 2:39:00 PM 132 mmHg 70 mmHg 76 bpm 20 rpm 98.7 F 180 lbs 67 in 28.19 kg/m2 1.96 m2 97 % 05/03/2015 3:09:00 PM 124 mmHg 66 mmHg 104 bpm 18 rpm 98.4 F 170.5 lbs 67 in 26.7038 kg/m 1.912 m 100 % 02/09/2015 3:02:00 PM 128 mmHg 70 mmHg 72 bpm 18 rpm 98.2 F 171.312 lbs 67 in 26.83 kg/m2 1.92 m2 100 % 01/02/2015 2:45:00 PM 120 mmHg 85 mmHg 85 bpm 20 rpm 97.4 F 164 lbs 99 % 12/05/2014 2:32:00 PM 124 mmHg 66 mmHg 68 bpm 18 rpm 98.6 F 171 lbs 67 in 26.7821 kg/m 1.9149 m 100 % 11/28/2014 2:49:00 PM 77 bpm 20 rpm 97.2 F 170.6 lbs 67 in 26.72 kg/m2 1.91 m2 99 % 11/08/2014 2:05:00 PM 120 mmHg 84 mmHg 86 bpm 20 rpm 99.3 F 167.6 lbs 67 in 26.2496 kg/m 1.8957 m 98 % 10/20/2014 2:44:00 PM 135 mmHg 81 mmHg 100 bpm 20 rpm 97.2 F 167.4 lbs 67 i n 26.22 kg/m2 1.89 m2 99 % 08/29/2014 2:35:00 PM 122 mmHg 80 mmHg 83 bpm 18 rpm 99.1 F 167 lbs 67 in 26.1556 kg/m 1.8923 m 99 % 08/22/2014 1:29:00 PM 146 mmHg 82 mmHg 66 bpm 18 rpm 98.7 F 166.25 lbs 67 i n 26.04 kg/m2 1.89 m2 98 % 07/06/2014 11:13:00 AM 126 mmHg 74 mmHg 80 bpm 18 rpm 97.3 F 167.187 lbs 67 in 26.185 kg/m 1.8934 m 97 % 06/28/2014 11:15:00 AM 124 mmHg 72 mmHg 109 bpm 18 rpm 101.8 F 167.125 lbs 67 in 26.18 kg/m2 1.89 m2 99 % 04/07/2014 2:08:00 PM 110 mmHg 60 mmHg 80 bpm 16 rpm 98 F 170.25 lbs 67 in 26.6646 kg/m 1.9106 m 99 % 03/24/2014 2:00:00 PM 114 mmHg 82 mmHg 77 bpm 16 rpm 98.6 F 165.25 lbs 67 i n 25.88 kg/m2 1.88 m2 98 % 01/04/2014 2:07:00 PM 126 mmHg 70 mmHg 83 bpm 20 rpm 98.7 F 163 lbs 67 in 25.5291 kg/m 1.8695 m 99 % 12/01/2013 2:41:00 PM 118 mmHg 62 mmHg 62 bpm 18 rpm 97.5 F 163.5 lbs 67 in 25.61 kg/m2 1.87 m2 98 % 10/27/2013 10:40:00 AM 138 mmHg 82 mmHg 87 bpm 16 rpm 98.2 F 159.125 lbs 67 in 24.9222 kg/m 1.8472 m 99 % 08/20/2013 2:13:00 PM 140 mmHg 90 mmHg 99 bpm 16 rpm 98.7 F 156 lbs 98 % 05/18/2013 1:34:00 PM 126 mmHg 78 mmHg 100 bpm 18 rpm 98 F 152.125 lbs 67 in 23.8259 kg/m 1.8061 m 100 % 12/01/2012 2:07:00 PM 122 mmHg 62 mmHg 62 bpm 18 rpm 97.9 F 149 lbs 67 in 23.34 kg/m2 1.79 m2 100 % 03/09/2012 3:42:00 PM 138 mmHg 82 mmHg 68 bpm 18 rpm 98.4 F 143.375 lbs 66 i n 23.1411 kg/m 1.7402 m 12/03/2011 3:34:00 PM 118 mmHg 66 mmHg 64 bpm 20 rpm 98.9 F 131 lbs 66 in 21.14 kg/m2 1.66 m2 0 % 100 % 10/14/2011 2:56:00 PM 122 mmHg 70 mmHg 80 bpm 16 rpm 99.1 F 136 lbs 67 in 21.3004 kg/m 1.7077 m 0 % 09/23/2011 2:33:00 PM 118 mmHg 70 mmHg 72 bpm 18 rpm 98.2 F 143 lbs 67 in 22.40 kg/m2 1.75 m2 0 % 06/04/2011 2:17:00 PM 79 bpm 98.3 F 153 lbs 100 % 05/20/2011 2:28:00 PM 82 bpm 99.6 F 155.125 lbs 99 % 04/29/2011 3:00:00 PM 105 mmHg 65 mmHg 92 bpm 98.2 F 173 lbs 99 % 04/22/2011 3:07:00 PM 67 bpm 97.5 F 170 lbs 99 % 04/16/2011 3:35:00 PM 97 bpm 98.6 F 171.5 lbs 99 % 04/10/2011 3:02:00 PM 120 mmHg 60 mmHg 87 bpm 98.7 F 172 lbs 99 % 04/01/2011 2:16:00 PM 100 mmHg 60 mmHg 111 bpm 98.9 F 167 lbs 99 % 03/18/2011 1:50:00 PM 118 mmHg 78 mmHg 92 bpm 20 rpm 97.8 F 167.5 lbs 67.5 in 25.8467 kg/m 1.9022 m 83 % 02/20/2011 3:52:00 PM 115 mmHg 78 mmHg 77 bpm 98.7 F 166.125 lbs 67 in 26.02 kg/m2 1.89 m2 83.9 % 100 % 02/11/2011 5:05:00 PM 110 mmHg 70 mmHg 78 bpm 99.1 F 99 % 02/05/2011 4:16:00 PM 118 mmHg 70 mmHg 91 bpm 98.7 F 164.375 lbs 99 % 01/22/2011 3:00:00 PM 90 mmHg 60 mmHg 102 bpm 98.5 F 161.5 lbs 99 % 01/16/2011 1:54:00 PM 110 mmHg 65 mmHg 102 bpm 98.4 F 162.25 lbs 100 % 12/24/2010 3:18:00 PM 110 mmHg 70 mmHg 109 bpm 99.5 F 163 lbs 99 % 11/29/2010 4:11:00 PM 80 bpm 96.9 F 161 lbs 99 % 11/26/2010 3:13:00 PM 128 mmHg 84 mmHg 88 bpm 18 rpm 97.5 F 161 lbs 09/17/2010 4:57:00 PM 102 mmHg 70 mmHg 88 bpm 100.1 F 161.25 lbs 99 % 07/19/2010 2:31:00 PM 120 mmHg 68 mmHg 72 bpm 18 rpm 97.8 F 173 lbs 06/08/2010 12:08:00 PM 118 mmHg 70 mmHg 83 bpm 18 rpm 97.6 F 167 lbs 94 % 03/27/2010 3:16:00 PM 122 mmHg 70 mmHg 74 bpm 18 rpm 97.3 F 164 lbs 67 in 25.6858 kg/m 1.8752 m 84 % 03/07/2010 4:02:00 PM 134 mmHg 84 mmHg 76 bpm 16 rpm 99.3 F 164.5 lbs 08/31/2009 4:10:00 PM 118 mmHg 68 mmHg 76 bpm 20 rpm 99 F 166.25 lbs 05/01/2009 3:46:00 PM 124 mmHg 82 mmHg 88 bpm 20 rpm 98.3 F 166 lbs 67 in 25.999 kg/m 1.8866 m 86.7 % 03/06/2009 4:01:00 PM 16 bpm 72 rpm 98.6 F 166.125 lbs 67.5 in 25.63 kg/m2 1.89 m2 85.6 % 02/02/2009 4:04:00 PM 116 mmHg 68 mmHg 64 bpm 16 rpm 98.1 F 159.5 lbs 67 in 24.981 kg/m 1.8493 m 83 % Social History Name Description Comments Tobacco Current every day smoker Lives with Mom Sibling(s) at home as [...] 12:00 AM Bicillin CR, 1.2 million units [facility]# 6079 3-600-10 Reviewed 07/06/2014 11:29 AM URINE TEST Reviewed 07/06/2014 12:00 AM THER/PROPH/DIAG INJ SC/IM Reviewed 07/06/2014 12:00 AM Decadron, Per 1 Mg [facility]# [address]-33 Re viewed 07/06/2014 12:00 AM Depo-Medrol 40mg [...] (THC) NON-NEGAT SULAIMAN CALLED TO/BY DR. GERBER 8100 01-22-11 [facility] Phencyclidine (PCP) NEGATIVE Cocaine NEGATIVE Methamphetamine NEGATIVE [...] NEGATIVE ug/mLOpiates NEGATIVE ng/mLAmphetamine NEGATIVE Benzodiazepines NEGATIVE ng/mLTricyclic Antidepres NEGATIVE Methadone NEGATIVE ng/mLBarbiturates NEGATIVE ng/mLOxycodone [...] 3:15 PM WBC 11.8 RBC 3[address] 37.9 MCV 99 MCH 32.7 MCHC 33.0 RDW SD 47 RDW CV 12.9 MPV 10.8 PLT 309 NRBC# 0.00 NRBC% 0.0 %NEUT 80.6 %LYMP 10.8 %MONO 7.1 %EOS 0.6 %BASO 0.4 #NEUT 9.47 #LYMP 1.27 #MONO 0.84 #EOS 0.07 #BASO 0.05 MANUAL DIFF NOT IND FERRITIN 27 11/18/2017 11:12 AM Cannabinoids (THC) NON-NEGAT SULAIMAN [...] 4:09PM Allergic rhinitis Scoliosis ADHD Gastritis Depressive Disorder Pelvic Pain Mar 06 2009 4:03PM Dysmenorrhea [...] initial prescription of contraceptive pills Zoran cooney 2015 3:10PM Facial fracture Jul 24 2015 [...] respiratory tract infection, unspecified type Feb 05 2 016 5:52PM Fever in other diseases Feb [...] in multigravida in third trimester Dec 24 018 4:00PM 6 weeks follow-up Feb 19 2018 3:43PM Sterilization education Feb 19 2018 3:43PM Contraception Mar 09 2018 1:34PM Contraception Mar 19 2018 1:31PM Abscess of left axilla Apr 16 2018 5:22PM Payers Insurance Name Company Name Plan Name Plan Number Policy Number Stephen cy Group Number Start Date [facility] [id number] [facility] [id number] 1 N/A [place] Medical Assistance [facility] Medical Kennedi tance Prog [id number] N/A Wppa Wppa [id number] Friday, ct2008 [facility] UMR [id number] Friday, [facility] 2009 [facility] [id number] N/A Cign[employer] Cigna [id number] Friday, 2010 [place] [employer] [facility] Medical Kennedi tance Prog [id number] Friday, 2010 [employer] Cigna [id number] Friday, 2010 [place] [employer]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 [...] MD 04/30/2017 Office visit Maria Victoria stephen SANDWICH COUNTER ATTENDANT 02/09/2017 Office visit Yessica AdamsSparkle Cuenca APR N 06/04/2016 Office visit Yessica Cuenca APR N 05/14/2016 Office visit Codi Guerra SANDWICH COUNTER ATTENDANT 04/22/2016 Office visit Kanu Rodríguez APR N 03/20/2016 Office visit Kanu Rodríguez APR N 02/06/2016 Office visit Kanu Rodríguez APR N 01/04/2016 Office visit Kanu Rodríguez APR N 10/05/2015 Office visit Dayne Taylor DO 09/28/2015 Office visit Capri Colby SANDWICH COUNTER ATTENDANT 09/26/2015 Office visit Kanu Rodríguez APR N 07/24/2015 Office visit Dayne Owenste DO 05/03/2015 Office visit Cpari Colyb SANDWICH COUNTER ATTENDANT 02/09/2015 Office visit Dayne Taylor DO 01/02/2015 Office visit Katie TORRES RN 01/01/2015 [facility] Florecita Mayfield MD 12/05/2014 Office visit Capri Colby SANDWICH COUNTER ATTENDANT 11/28/2014 Office visit Katie TORRES RN 11/08/2014 Office visit Katie TORRES RN 10/20/2014 Office visit Katie TORRES RN 08/29/2014 Office visit Capri Lasha SANDWICH COUNTER ATTENDANT 08/22/2014 Office visit Capri Lasha SANDWICH COUNTER ATTENDANT 07/06/2014 Office visit 07/06/2014 Office visit Capri Lasha SANDWICH COUNTER ATTENDANT 06/28/2014 Office visit 06/28/2014 Office visit Capri Lasha SANDWICH COUNTER ATTENDANT 04/07/2014 Office visit Capri Lasha SANDWICH COUNTER ATTENDANT 03/24/2014 Office visit Capri Lasha SANDWICH COUNTER ATTENDANT 01/04/2014 Office visit Dayne Taylor DO 12/01/2013 Office visit Capri Lasha SANDWICH COUNTER ATTENDANT 10/27/2013 Office visit Dayne Taylor DO 08/20/2013 Office visit Kanu Rodríguez APR N 05/18/2013 Office visit Capri Colby SANDWICH COUNTER ATTENDANT 12/01/2012 Office visit Dayne Taylor DO 03/09/2012 Office visit Capri Colby SANDWICH COUNTER ATTENDANT 12/03/2011 Office visit Dayne Taylor DO 10/14/2011 Office visit Dayne Taylor DO 09/23/2011 Office visit Dayne Taylor DO 06/04/2011 Office visit Richardson Gerber MD 05/20/2011 Office visit Richardson Gerber MD 05/03/2011 [facility] Richardson Gerber MD 04/29/2011 Office visit [...] 02/11/2011 Office visit Richardson Gerber MD 02/11/2011 [facility] Richardson Gerber MD 02/05/2011 Voided Richardson Gerber MD 01/22/2011 Office visit Richardson Gerber MD 01/16/2011 Office visit Richardson Gerber MD 12/24/2010 Office visit Richardson Gerber MD 11/29/2010 Office visit Richardson Gerber MD 11/26/2010 Office visit Richardson Gerber MD 10/22/2010 Office visit Richardson Gerber MD 09/17/2010 Office visit Richardson Gerber MD 07/19/2010 Office visit Dayne Taylor DO 06/08/2010 Office visit Capri Colby SANDWICH COUNTER ATTENDANT 03/27/2010 Office visit Dayne Taylor DO 03/07/2010 Office visit Yulisa MOYA 08/31/2009 Office visit Yulisa MOYA 05/01/2009 Office visit Joann MOYA 03/06/2009 Office visit Yulisa MOYA 02/02/2009 Office visit Yulisa MOYA 01/02/2009 Office visit Yulisa MOYA 10/26/2008 Office visit YULISA FRANCIS PA-C
--- OUTSIDE RECORDS SUMMARY | 2019-09-13 07:32 | XMS REPORT ---
Author Author Jo Fall [facility] oup Address [address] [place], [place] [id number] Care Team Providers Care Knitted Garment Finisher Name Role Phone Minal Fall PCP BrandonJohnya [...] 12:00 AM Bicillin CR, 1.2 million units [facility]# 6079 3-600-10 Reviewed 07/06/2014 11:29 AM URINE TEST Reviewed 07/06/2014 12:00 AM THER/PROPH/DIAG INJ SC/IM Reviewed 07/06/2014 12:00 AM Decadron, Per 1 Mg [facility]# [address]-50 Re viewed 07/06/2014 12:00 AM Depo-Medrol 40mg [...] SULAIMAN CALLED TO/BY DR. GERBER 1540 01-22-11 [facility] Phencyclidine (PCP) NEGATIVE Cocaine NEGATIVE Methamphetamine NEGATIVE [...] - RHC [employer] - RHC [id number] N/A [facility] [id number] [facility] [id number] 1 N/A [place] [employer] [facility] Medical Kennedi tance Prog [id number] N/A Wppa Wppa [id number] Friday, ctober [id number] [facility] 2009 [facility] [id number] N/A Cigna Cigna [id number] Friday, 2010 [facility] Medical Kennedi tance Prog [id number] Friday, 2010 [employer]ign[employer] Cigna [id number] Friday, 2010 [place] [employer] Prog - RHC [place] [employer] Prog - RH C [id number] N/A History of Encounters Visit Date Visit Type Provider 03/19/2019 Office visit Minal TORRES RN 04/16/2018 Office visit Radha TORRES RN 03/19/2018 Office visit Juan Hudson 03/09/2018 Office visit Juan Hudson 02/19/2018 Office visit Juan Hudson 01/14/2018 [facility] Juan Hudson 01/08/[address] [...] Dr. Cinthia hudson MD 07/03/2017 Office visit Jaun Hudson 06/05/[address] Cinthia hudson MD 05/13/[address] Cinthia hudson MD 04/30/2017 Office visit Maria Victoria stephen TRAFFIC ASSISTANT 02/09/2017 Office visit Yessica Maong APR N 06/04/2016 Office visit Yessica AdamsSparkle Cuenca APR N 05/14/2016 Office visit Codi Guerra TRAFFIC ASSISTANT 04/22/2016 Office visit Kanu Bentonran APR N 03/20/2016 Office visit Kanu Rodríguez APR N 02/06/2016 Office visit Kanu Rodríguez APR N 01/04/2016 Office visit Kanu Bentonran APR N 10/05/2015 Office visit Dayne Brandon DO 09/28/2015 Office visit Capri Colby TRAFFIC ASSISTANT 09/26/2015 Office visit Kanu Bentonran APR N 07/24/2015 Office visit Dayne Brandon DO 05/03/2015 Office visit Capri Colby TRAFFIC ASSISTANT 02/09/2015 Office visit Dayne Brandon DO 01/02/2015 Office visit Katie TORRES RN 01/01/2015 [facility] Florecita Mayfield MD 12/05/2014 Office visit Capri Colby TRAFFIC ASSISTANT 11/28/2014 Office visit Katie TORRES RN 11/08/2014 Office visit Katie TORRES RN 10/20/2014 Office visit Katie TORRES RN 08/29/2014 Office visit Capri Colby TRAFFIC ASSISTANT 08/22/2014 Office visit Capri Colby TRAFFIC ASSISTANT 07/06/2014 Office visit 07/06/2014 Office visit Capri Colby TRAFFIC ASSISTANT 06/28/2014 Office visit 06/28/2014 Office visit Capri Colby TRAFFIC ASSISTANT 04/07/2014 Office visit Capri Colby TRAFFIC ASSISTANT 03/24/2014 Office visit Capri Colby TRAFFIC ASSISTANT 01/04/2014 Office visit Dayne Brandon DO 12/01/2013 Office visit Capri Colby TRAFFIC ASSISTANT 10/27/2013 Office visit Dayne Brandon DO 08/20/2013 Office visit Kanu Rodríguez APR N 05/18/2013 Office visit Capri Lasha TRAFFIC ASSISTANT 12/01/2012 Office visit Dayne Taylor DO 03/09/2012 Office visit Capri Colby TRAFFIC ASSISTANT 12/03/2011 Office visit Dayne Taylor DO 10/14/2011 [...] 02/11/2011 Office visit Richardson Gerber MD 02/11/2011 [facility] Richardson Gerber MD 02/05/2011 Voided Rcihardson Gerber MD 01/22/2011 Office visit Richardson Gerber MD 01/16/2011 Office visit Richardson Gerber MD 12/24/2010 Office visit Richardson Gerber MD 11/29/2010 Office visit Richardson Gerber MD 11/26/2010 Office visit Richardson Gerber MD 10/22/2010 Office visit Richardson Gerber MD 09/17/2010 Office visit Richardson Gerber MD 07/19/2010 Office visit Dayne Taylor DO 06/08/2010 Office visit Capri Colby TRAFFIC ASSISTANT 03/27/2010 Office visit Dayne Taylor DO 03/07/2010 Office visit Yulisa MOYA 08/31/2009 Office visit Yulisa MOYA 05/01/2009 Office visit Joann MOYA 03/06/2009 Office visit Yulisa MOYA 02/02/2009 Office visit Yulisa MOYA 01/02/2009 Office visit Yulisa MOYA 10/26/2008 Office visit YULISA FRANCIS PA-C
--- OUTSIDE RECORDS SUMMARY | 2019-09-13 07:33 | XMS REPORT ---
Author Author Jo Jeffries [facility] Address [address] [place] [id number] Care Team Providers Care Roll Tester Name Role Phone Juan Jeffries PCP Dayne Taylor PreferredProvider Allergies and Adverse Reactions Name Reaction Notes erythromycin vomiting SULFA (SULFONAMIDES) Plan of Treatment Planned Activity Comments Planned Date Planned Time Plan/Goal Nasal bone fracture and Left maxillary fracture 016 4:30 PM Mirena placement 10/03/2015 12:00 AM Justice with previous surgery and harward placement 1 03/08/2014 1:00 PM Medications Active Name Start Date Estimated Completion Date SIG Co mments Vitamin oral tablet take 1 table t by oral route once daily Latuda 20 mg oral tablet take 1 tablet (20 mg) by oral route once daily with food (at least 350 calories) Gummy 400 mcg-35 mg -25 mg-5 mg oral tablet,chewable chew 1 tablet by oral route daily buspirone 10 mg oral tablet take 1 tablet by oral route daily norethindrone (contraceptive) 0.35 mg oral tablet 03/19/2018 03/14/2019 take 1 tablet by oral route once daily for 90 days Name Start Date Expiration Date SIG [...] Zofran (as hydrochloride) 8 mg oral tablet 01/16/2011 11/26 /2011 take 1 tablet by oral route every [...] (10 mg) by oral route once daily Problem List Description Status Onset ADHD Active Allergic rhinitis Active Depressive Disorder Active Anxiety disorder Active 05/19/2013 Attention Deficit Disorder Active 12/01/2013 Anxiety Active 08/24/2014 Depression Active 08/24/2014 ADD (attention deficit disorder) Active 08/25/19 15 Vital Signs Date Time BP-Sys(mm[Hg] BP-Valeria(mm[Hg]) HR(bpm) RR(rpm) Temp WT HT HC BMI BSA BMI Percentile O2 Sat(%) 03/19/2018 1:20:00 PM 106 mmHg 57 mmHg 88 bpm 98.6 F 174 lbs 67.5 in 26.8497 kg/m 1.9388 m 03/09/2018 1:32:00 PM 130 mmHg 81 mmHg 85 bpm 98.2 F 177 lbs 67.5 in 27.31 kg/m2 1.96 m2 02/19/2018 3:37:00 PM 124 mmHg 57 mmHg 78 bpm 98.2 F 179 lbs 67.5 in 27.6213 kg/m 1.9664 m 09/23/2017 1:47:00 PM 105 mmHg 105 bpm 17 rpm 98.7 F 184.375 lbs 67.5 in 28.45 kg/m2 2.00 m2 100 % 04/30/2017 3:56:00 PM 133 mmHg 81 mmHg 82 bpm 99 F 189 lbs 67.5 in 29.1644 kg/m 2.0206 m 02/09/2017 3:42:00 PM 134 mmHg 80 mmHg [...] 12:00 AM Bicillin CR, 1.2 million units [facility]# 6079 3-600-10 Reviewed 07/06/2014 11:29 AM URINE TEST Reviewed 07/06/2014 12:00 AM THER/PROPH/DIAG INJ SC/IM Reviewed 07/06/2014 12:00 AM Decadron, Per 1 Mg [facility]# [address]-01 Re viewed 07/06/2014 12:00 AM Depo-Medrol 40mg [...] (THC) NON-NEGAT SULAIMAN CALLED TO/BY DR. 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 [place] [employer] Prog - RH C [id number] N/A Cigna Cigna [id number] Friday, 2010 [facility] [id number] [facility] [id number] 1 N/A [facility] Kennedi tance Prog [id number] N/A Wppa Wppa [id number] Friday, O ctober 2008 UMR UMR [id number] Friday, [facility] 2009 [facility] [id number] N/A Cigna Cigna [id number] Friday, 2010 [facility] Medical Kennedi tance Prog [id number] Friday, 2010 History of Encounters Visit Date Visit Type Provider 03/19/2018 Office visit Juan Hudson 03/09/2018 Office visit Juan Hudson 02/19/2018 Office visit Juan Hudson 01/14/2018 [facility] Juan Hudson 01/08/2018 Office visit [...] MD 04/30/2017 Office visit Maria Victoria stephen WILDLIFE PROTECTOR 02/09/2017 Office visit Yessica Cuenca APR N 06/04/2016 Office visit Yessica Cuenca APR N 05/14/2016 Office visit Codi Guerra WILDLIFE PROTECTOR 04/22/2016 Office visit Kanu Bentonran APR N 03/20/2016 Office visit Kanu Rodríguez APR N 02/06/2016 Office visit Kanu Bentonran APR N 01/04/2016 Office visit Kanu Rodríguez APR N 10/05/2015 Office visit Dayne Taylor DO 09/28/2015 Office visit Capri Colby WILDLIFE PROTECTOR 09/26/2015 Office visit Kanu Rodríguez APR N 07/24/2015 Office visit Dayne Brandon DO 05/03/2015 Office visit Capri Colby WILDLIFE PROTECTOR 02/09/2015 Office visit Dayne Taylor DO 01/02/2015 Office visit Katie TORRES RN 01/01/2015 [facility] Florecita Mayfield MD 12/05/2014 Office visit Capri Colby WILDLIFE PROTECTOR 11/28/2014 Office visit Katie TORRES RN 11/08/2014 Office visit Katie TORRES RN 10/20/2014 Office visit Katie TORRES RN 08/29/2014 Office visit Capri Colby WILDLIFE PROTECTOR 08/22/2014 Office visit Capri Colby WILDLIFE PROTECTOR 07/06/2014 Office visit 07/06/2014 Office visit Capri Colby WILDLIFE PROTECTOR 06/28/2014 Office visit 06/28/2014 Office visit Capri Colby WILDLIFE PROTECTOR 04/07/2014 Office visit Capri Colby WILDLIFE PROTECTOR 03/24/2014 Office visit Capri Colby WILDLIFE PROTECTOR 01/04/2014 Office visit Dayne Taylor DO 12/01/2013 Office visit Capri Colby WILDLIFE PROTECTOR 10/27/2013 Office visit Dayne Taylor DO 08/20/2013 Office visit Kanu Bentonran APR N 05/18/2013 Office visit Capri Colby WILDLIFE PROTECTOR 12/01/2012 Office visit Dayne Taylor DO 03/09/2012 Office visit Capri Colby WILDLIFE PROTECTOR 12/03/2011 Office visit Dayne Taylor DO 10/14/2011 Office visit Dayne Taylor DO 09/23/2011 Office visit Dayne Taylor DO 06/04/2011 Office visit Richardson Gerber MD 05/20/2011 Office visit Richardson Gerber MD 05/03/2011 [facility] Richardson Gerber MD 04/29/2011 Office visit [...] 02/11/2011 Office visit Richardson Gerber MD 02/11/2011 [facility] Richardson Gerber MD 02/05/2011 Voided Richardson Gerber MD 01/22/2011 Office visit Richardson Gerber MD 01/16/2011 Office visit Richardson Gerber MD 12/24/2010 Office visit Richardson Gerber MD 11/29/2010 Office visit Richardson Gerber MD 11/26/2010 Office visit Richardson Gerber MD 10/22/2010 Office visit Richardson Gerber MD 09/17/2010 Office visit Richardson Gerber MD 07/19/2010 Office visit Dayne Taylor DO 06/08/2010 Office visit Capri Colby WILDLIFE PROTECTOR 03/27/2010 Office visit Dayne Taylor DO 03/07/2010 Office visit Yulisa MOYA 08/31/2009 Office visit Yulisa MOYA 05/01/2009 Office visit Joann MOYA 03/06/2009 Office visit Yulisa MOYA 02/02/2009 Office visit Yulisa MOYA 01/02/2009 Office visit Yulisa MOYA 10/26/2008 Office visit YULISA FRANCIS PA-C
--- OUTSIDE RECORDS SUMMARY | 2019-09-13 07:34 | XMS REPORT ---
Author Author Jo Jeffries [facility] Address [address] [place] [id number] Care Team Providers Care Health Sanitarian Name Role Phone Juan Jeffries PCP Dayne [...] take 1 tablet by oral route daily Name Start Date Expiration Date SIG Comments [...] diclofenac sodium 50 mg oral tablet,delayed release (/EC) 08/2010/27/2013 take 1 tablet (50 mg) by [...] (28) 0.25-35 mg-mcg oral tablet 05/03/2015 07/24/19 16 take 1 tablet by oral route once [...] HC BMI BSA BMI Percentile O2 Sat(%) 03/09/2018 1:32:00 PM 130 mmHg 81 mmHg [...] Reviewed 02/19/2018 4:33 PM URINE TEST Reviewed 03/06/2009 12:00 AM [...] 12:00 AM Bicillin CR, 1.2 million units [facility]# 6079 3-600-10 Reviewed 07/06/2014 11:29 AM URINE TEST Reviewed 07/06/2014 12:00 AM THER/PROPH/DIAG INJ SC/IM Reviewed 07/06/2014 12:00 AM Decadron, Per 1 Mg [facility]# [address]-23 Re viewed 07/06/2014 12:00 AM Depo-Medrol 40mg [...] (THC) NON-NEGAT SULAIMAN CALLED TO/BY DR. GERBER 5810 01-22-11 SJM Phencyclidine (PCP) NEGATIVE Cocaine NEGATIVE [...] 02/19/2018 4:33 PM Test, Urine Negati ve History Of Immunizations Name Date Admin [...] 2018 3:43PM Contraception Mar 09 2018 1:34PM Payers Insurance Name Company Name Plan Name Plan Number Policy Number Stephen cy Group Number Start Date [employer] [place] [employer] Prog - RHC [employer] [place] [employer] Prog - RH C [id number] N/A Cigna Cigna [id number] Friday, 2010 [facility] [address] [facility] [id number] 1 N/A [place] Medical Assistance [facility] Medical Kennedi tance Prog [id number] N/A Wppa Wppa [id number] Friday, ctober 2008 UMR UMR [id number] Friday, [facility] 2009 [facility] [id number] N/A Cigna Cigna [id number] Friday, 2010 [facility] Assistance [facility] Medical Kennedi tance Prog [id number] Friday, 2010 History of Encounters Visit Date Visit Type Provider 03/09/2018 Office visit Juan Hudson 02/19/2018 Office [...] hudson MD 04/30/2017 Office visit Maria Victoria CarrionSparkle stephen HYDRO PLANT TECHNICIAN 02/09/2017 Office visit Yessica Cuenca APR N 06/04/2016 Office visit Yessica Cuenca APR N 05/14/2016 Office visit Codi Guerra HYDRO PLANT TECHNICIAN 04/22/2016 Office visit Kanu Rodríguez APR N 03/20/2016 Office visit Kanu Rodríguez APR N 02/06/2016 Office visit Kanu Rodríguez APR N 01/04/2016 Office visit Kanu Rodríguez APR N 10/05/2015 Office visit Dayne Brandon DO 09/28/2015 Office visit Capri Colby HYDRO PLANT TECHNICIAN 09/26/2015 Office visit Kanu Rodríguez APR N 07/24/2015 Office visit Dayne Brandon DO 05/03/2015 Office visit Capri Colby HYDRO PLANT TECHNICIAN 02/09/2015 Office visit Dayne Brandon DO 01/02/2015 Office visit Katie TORRES RN 01/01/2015 [facility] Florecita Mayfield MD 12/05/2014 Office visit Capri Cloby HYDRO PLANT TECHNICIAN 11/28/2014 Office visit Katie TORRES RN 11/08/2014 Office visit Katie TORRES RN 10/20/2014 Office visit Katie TORRES RN 08/29/2014 Office visit Capri Colby HYDRO PLANT TECHNICIAN 08/22/2014 Office visit Capri Colby HYDRO PLANT TECHNICIAN 07/06/2014 Office visit 07/06/2014 Office visit Capri Colby HYDRO PLANT TECHNICIAN 06/28/2014 Office visit 06/28/2014 Office visit Capri Colby HYDRO PLANT TECHNICIAN 04/07/2014 Office visit Capri Colby HYDRO PLANT TECHNICIAN 03/24/2014 Office visit Capri Walker HYDRO PLANT TECHNICIAN 01/04/2014 Office visit Dayne Brandon DO 12/01/2013 Office visit Capri Colby HYDRO PLANT TECHNICIAN 10/27/2013 Office visit Dayne Brandon DO 08/20/2013 Office visit Kanu Bentonran APR N 05/18/2013 Office visit Capri Colby HYDRO PLANT TECHNICIAN 12/01/2012 Office visit Dayne Brandon DO 03/09/2012 Office visit Capri Colby HYDRO PLANT TECHNICIAN 12/03/2011 Office visit Dayne Brandon DO 10/14/2011 Office visit Dayne Brandon DO 09/23/2011 Office visit Dayne Brandon DO 06/04/2011 Office visit Richardson Gerber MD [...] visit Capri Colby APRN 03/27/2010 Office visit aDyne Taylor DO 03/07/2010 Office visit Yulisa MOYA 08/31/2009 Office visit Yulisa MOYA 05/01/2009 Office visit Joann MOYA 03/06/2009 Office visit Yulisa MOYA 02/02/2009 Office visit Yulisa MOYA 01/02/2009 Office visit Yulisa MOYA 10/26/2008 Office visit YULISA FRANCIS PA-C
--- OUTSIDE RECORDS SUMMARY | 2019-09-13 07:34 | XMS REPORT ---
Author Author Jo Jeffries [facility] Address [address] [place] [id number] Care Team Providers Care Skate Maker Name Role Phone Juan Jeffries PCP Dayne [...] HC BMI BSA BMI Percentile O2 Sat(%) 02/19/2018 3:37:00 PM 124 mmHg 57 mmHg 78 bpm 98.2 F 179 lbs 67.5 in 27.6213 kg/m 1.9664 m 09/23/2017 1:47:00 PM 105 mmHg 105 bpm 17 rpm 98.7 F 184.375 lbs 67.5 in 28.4507 kg/m 2.00 m2 100 % 04/30/2017 3:56:00 PM 133 mmHg 81 mmHg 82 bpm 99 F 189 lbs 67.5 in 29.16 kg/m2 2.0206 m 02/09/2017 3:42:00 PM 134 mmHg [...] 12:00 AM Bicillin CR, 1.2 million units [facility]# 6079 3-600-10 Reviewed 07/06/2014 11:29 AM URINE TEST Reviewed 07/06/2014 12:00 AM THER/PROPH/DIAG INJ SC/IM Reviewed 07/06/2014 12:00 AM Decadron, Per 1 Mg [facility]# [address]-03 Re viewed 07/06/2014 12:00 AM Depo-Medrol 40mg [...] (THC) NON-NEGAT SULAIMAN CALLED TO/BY DR. GERBER 9431 01-22-11 SJM Phencyclidine (PCP) NEGATIVE Cocaine NEGATIVE [...] 01 2012 2:09PM Back Pain May 18 2014 1:37PM Anxiety Disorder May 18 2013 1:37PM [...] 03 2015 3:10PM Right Flank pain May 02 2016 3:10PM Acute cystitis with hematuria May 03 2015 3:10PM Encounter for initial prescription of contraceptive pills Zoran cooney 2 2016 3:10PM Facial fracture Jul 24 2015 4:38PM [...] maxillary sinusitis, recurrence not specified Jan 03 016 5:59PM Upper respiratory tract infection, unspecified [...] 3:43PM Sterilization education Feb 19 2018 3:43PM Payers Insurance Name Company Name Plan Name Plan Number Policy Number Stephen cy Group Number Start Date [place] Radi[employer] Cardiac Catheterization Prog - RHC [place] Radi[employer] Cardiac Catheterization Prog - RH C [id number] N/A Cigna Cigna [id number] Friday, 2010 [facility] [id number] [facility] [id number] 1 N/A [place] Medical Assistance [facility] Medical Kennedi tance Prog [id number] N/A Wppa Wppa [id number] Friday, ctober 2008 UMR UMR [id number] Friday, [facility] 2009 [facility] [id number] N/A Cigna Cigna [id number] Friday, 2010 [facility] Medical Kennedi tance Prog [id number] Friday, 2010 History of Encounters Visit Date Visit Type Provider 02/19/2018 Office visit Juan Hudson 01/14/2018 [facility] Juan Hudson 01/08/[address] [...] Juan Hudson 06/05/[address] Cinthia hudosn MD 05/13/[address] Cinthia hudson MD 04/30/2017 Office visit Maria Victoria stephen CONTENT STRATEGY LEAD 02/09/2017 Office visit Yessica Cuenca APR N 06/04/2016 Office visit Yessica Cuenca APR N 05/14/2016 Office visit Codi Guerra CONTENT STRATEGY LEAD 04/22/2016 Office visit Kanu Bentonran APR N 03/20/2016 Office visit Kanu Bentonran APR N 02/06/2016 Office visit Kanu Bentonran APR N 01/04/2016 Office visit Kanu Bentonran APR N 10/05/2015 Office visit Dayne Brandon DO 09/28/2015 Office visit Capri Lasha CONTENT STRATEGY LEAD 09/26/2015 Office visit Kanu Bentonran APR N 07/24/2015 Office visit Dayne Brandon DO 05/03/2015 Office visit Capri Colby CONTENT STRATEGY LEAD 02/09/2015 Office visit Dayne Brandon DO 01/02/2015 Office visit Katie TORRES RN 01/01/2015 [facility] Florecita Mafyield MD 12/05/2014 Office visit Capri Colby CONTENT STRATEGY LEAD 11/28/2014 Office visit Katie TORRES RN 11/08/2014 Office visit Katie TORRES RN 10/20/2014 Office visit Katie TORRES RN 08/29/2014 Office visit Capri Colby CONTENT STRATEGY LEAD 08/22/2014 Office visit Capri Colby CONTENT STRATEGY LEAD 07/06/2014 Office visit 07/06/2014 Office visit Capri Colby CONTENT STRATEGY LEAD 06/28/2014 Office visit 06/28/2014 Office visit Capri Colby CONTENT STRATEGY LEAD 04/07/2014 Office visit Carpi Colby CONTENT STRATEGY LEAD 03/24/2014 Office visit Capri Colby CONTENT STRATEGY LEAD 01/04/2014 Office visit Dayne Brandon DO 12/01/2013 Office visit Capri Lasha CONTENT STRATEGY LEAD 10/27/2013 Office visit Dayne Brandon DO 08/20/2013 Office visit Kanu Bentonran APR N 05/18/2013 Office visit Capri Colby CONTENT STRATEGY LEAD 12/01/2012 Office visit Dayne Brandon DO 03/09/2012 Office visit Capri Lasha CONTENT STRATEGY LEAD 12/03/2011 Office visit Dayne Brandon DO 10/14/2011 Office visit Dayne Brandon DO 09/23/2011 Office visit Dayne Brandon DO 06/04/2011 Office visit Richardson Gerber MD 05/20/2011 Office visit Richardson Gerber MD 05/03/2011 [facility] Richardson Gerber MD 04/29/2011 Office visit [...] 02/11/2011 Office visit Richardson Gerber MD 02/11/2011 [facility] Richardson Gerber MD 02/05/2011 Voided Richardson [...]
[2019-09-13] MEDS ORDERED: LACTATED RINGERS 1,000 ML IV PRN (07:35)
[2019-09-13] MEDS ORDERED: LACTATED RINGERS 1,000 ML IV ONE (07:35)
--- OUTSIDE RECORDS SUMMARY | 2019-09-13 07:35 | XMS REPORT ---
Author Author Jo Jeffries [facility] Address [address] [place] [id number] Care Team Providers Care Meeting Specialist Name Role Phone Juan Jeffries PCP Dayne [...] 12:00 AM Bicillin CR, 1.2 million units [facility]# 6079 3-600-10 Reviewed 07/06/2014 11:29 AM URINE TEST Reviewed 07/06/2014 12:00 AM THER/PROPH/DIAG INJ SC/IM Reviewed 07/06/2014 12:00 AM Decadron, Per 1 Mg [facility]# [address]-67 Re viewed 07/06/2014 12:00 AM Depo-Medrol 40mg [...] (THC) NON-NEGAT SULAIMAN CALLED TO/BY DR. 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 - RH C [id number] N/A Cigna Cigna [id number] Friday, 2010 [facility] [id number] [facility] [id number] 1 N/A [place] Medical Assistance [facility] Medical Kennedi tance Prog [id number] N/A Wppa Wppa [id number] Friday, ctober 2008 UMR UMR [id number] Friday, [facility] 2009 [facility] [id number] N/A Cigna Cigna [id number] Friday, 2010 [facility] Medical Kennedi tance Prog [id number] Friday, 2010 History of Encounters Visit Date Visit Type Provider 02/19/2018 Office visit Juan Hudson 01/14/2018 [facility] Juan Hudson 01/08/[address] Cinthia [...] MD 04/30/2017 Office visit Maria Victoria stephen MELANGEUR OPERATOR 02/09/2017 Office visit Yessica Cuenca APR N 06/04/2016 Office visit Yessica Cuenca APR N 05/14/2016 Office visit Codi Guerra MELANGEUR OPERATOR 04/22/2016 Office visit Kanu Bentonran APR N 03/20/2016 Office visit Kanu Bentonran APR N 02/06/2016 Office visit Kanu Bentonran APR N 01/04/2016 Office visit Kanu Bentonran APR N 10/05/2015 Office visit Dayne Brandon DO 09/28/2015 Office visit Capri Lasha MELANGEUR OPERATOR 09/26/2015 Office visit Kanu Bentonran APR N 07/24/2015 Office visit Dayne Brandon DO 05/03/2015 Office visit Capri Colby MELANGEUR OPERATOR 02/09/2015 Office visit Dayne Brandon DO 01/02/2015 Office visit Katie TORRES RN 01/01/2015 [facility] Florecita Mayfield MD 12/05/2014 Office visit Capri Colby MELANGEUR OPERATOR 11/28/2014 Office visit Katie TORRES RN 11/08/2014 Office visit Katie TORRES RN 10/20/2014 Office visit Katie TORRES RN 08/29/2014 Office visit Capri Colby MELANGEUR OPERATOR 08/22/2014 Office visit Capri Colby MELANGEUR OPERATOR 07/06/2014 Office visit 07/06/2014 Office visit Capri Colby MELANGEUR OPERATOR 06/28/2014 Office visit 06/28/2014 Office visit Capri Colby MELANGEUR OPERATOR 04/07/2014 Office visit Capri Colby MELANGEUR OPERATOR 03/24/2014 Office visit Capri Colby MELANGEUR OPERATOR 01/04/2014 Office visit Dayne Brandon DO 12/01/2013 Office visit Capri Lasha MELANGEUR OPERATOR 10/27/2013 Office visit Dayne Brandon DO 08/20/2013 Office visit Kanu Bentonran APR N 05/18/2013 Office visit Capri Colby MELANGEUR OPERATOR 12/01/2012 Office visit Dayne Brandon DO 03/09/2012 Office visit Capri Lasha MELANGEUR OPERATOR 12/03/2011 Office visit Dayne Brandon DO 10/14/2011 Office visit Dayne Brandon DO 09/23/2011 Office visit Dayne Brandon DO 06/04/2011 Office visit Richardson Gerber MD 05/20/2011 Office visit Richardson Gerber MD 05/03/2011 [facility] Richardson Gerber MD 04/29/2011 Office visit Richardson [...] 02/11/2011 Office visit Richardson Gerber MD 02/11/2011 [facility] Richardson Gerber MD 02/05/2011 Voided Richardson Gerber [...]
--- OUTSIDE RECORDS SUMMARY | 2019-09-13 07:35 | XMS REPORT ---
Author Author Jo Jeffries [facility] Address [address] [place] [id number] Care Team Providers Care Property And Casualty Insurance Agent Name Role Phone Juan Jeffries PCP Dayne [...] table t by oral route once daily Fioricet 50-300-40 mg oral capsule 07/31/2017 take 1 - 2 capsules by oral route every 4 hours as needed not to exceed 6 capsules per 24hrs Latuda 20 mg oral tablet take 1 tablet (20 mg) by oral route once daily with food (at least 350 calories) promethazine 25 mg oral tablet 10/16/2017 t pavan 1 tablet (25 mg) by oral route every 4-6 hours as needed Gummy 400 mcg-35 mg -25 mg-5 mg oral tablet,chewable chew 1 tablet by oral route daily Name [...] tab Po q 4 hours for n/v Macrobid 100 mg oral capsule 10/30/2017 11/06/2017 gomez e 1 capsule (100 mg) by oral route every 12 hours with food for 7 days Discontinued Name Start Date [...] Allergic rhinitis Active Depressive Disorder Active Anxiety Disorder Active 05/19/2013 Attention deficit disorder Active 12/01/2013 Anxiety Active 08/24/2014 Depression Active 08/24/2014 ADD (attention deficit disorder) Active 08/25/19 15 Vital Signs Date Time BP-Sys(mm[Hg] BP-Valeria(mm[Hg]) HR(bpm) RR(rpm) Temp WT HT HC BMI BSA BMI Percentile O2 Sat(%) 09/23/2017 1:47:00 PM 105 mmHg 105 bpm [...] 12/24/2017 12:00 AM CULTURE SCREEN ONLY Reviewed 03/06/2009 12:00 AM US EXAM PELVIC COMPLETE Reviewed 03/24/2014 12:00 AM SPECIMEN HANDLING OFFICE-LAB Reviewed 03/24/2014 12:00 AM CYTOPATH C/V MANUAL Reviewed 03/24/2014 12:00 AM CHYLMD TRACH DNA AMP PROBE Reviewed 03/24/2014 12:00 AM N.GONORRHOEAE DNA AMP PROB Reviewed 04/07/2014 2:44 PM URINE TEST Reviewed 06/28/2014 12:00 AM THER/PROPH/DIAG INJ SC/IM Reviewed 06/28/2014 12:00 AM Bicillin CR, 1.2 million units [facility]# 6079 3-600-10 Reviewed 07/06/2014 11:29 AM URINE TEST Reviewed 07/06/2014 12:00 AM THER/PROPH/DIAG INJ SC/IM Reviewed 07/06/2014 12:00 AM Decadron, Per 1 Mg [facility]# [address]-79 Re viewed 07/06/2014 12:00 AM Depo-Medrol 40mg [...] (THC) NON-NEGAT SULAIMAN CALLED TO/BY DR. 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 [facility] 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 Prog - RH C [id number] N/A [employer] Cigna [id number] Friday, 2010 [facility] [id number] [facility] [id number] 1 N/A [place] Medical Assistance Program [facility] Kennedi tansamanta Prog [id number] N/A Wppa Wppa [id number] Friday, O ctober 2008 UMR UMR [id number] Friday, [facility] 2009 [facility] [id number] N/A [employer] Cigna [id number] Friday, 2010 [facility] Kennedi Mcqueen [id number] Friday, 2010 History of Encounters Visit Date Visit Type Provider 01/14/2018 [facility] Juan Hudson 01/08/2018 Office visit [...] MD 04/30/2017 Office visit Maria Victoria stephen FOREST RESOURCES PROFESSOR 02/09/2017 Office visit Yessica Cuenca APR N 06/04/2016 Office visit Yessica Cuenca APR N 05/14/2016 Office visit Codi Guerra FOREST RESOURCES PROFESSOR 04/22/2016 Office visit Kanu Rodríguez APR N 03/20/2016 Office visit Kanu Rodríguez APR N 02/06/2016 Office visit Kanu Rodríguez APR N 01/04/2016 Office visit Kanu Rodríguez APR N 10/05/2015 Office visit Dayne Taylor DO 09/28/2015 Office visit Capri Colby FOREST RESOURCES PROFESSOR 09/26/2015 Office visit Kanu Rodríguez APR N 07/24/2015 Office visit Dayne Taylor DO 05/03/2015 Office visit Capri Colby FOREST RESOURCES PROFESSOR 02/09/2015 Office visit Dayne Taylor DO 01/02/2015 Office visit Katie TORRES RN 01/01/2015 [facility] Florecita Mayfield MD 12/05/2014 Office visit Capri Colby FOREST RESOURCES PROFESSOR 11/28/2014 Office visit Katie Mcconnell AP RN 11/08/2014 Office visit Katie TORRES RN 10/20/2014 Office visit Katie Mcconnell AP RN 08/29/2014 Office visit Capri Colby FOREST RESOURCES PROFESSOR 08/22/2014 Office visit Capri Colby FOREST RESOURCES PROFESSOR 07/06/2014 Office visit 07/06/2014 Office visit Capri Lasha FOREST RESOURCES PROFESSOR 06/28/2014 Office visit 06/28/2014 Office visit Capri Lasha FOREST RESOURCES PROFESSOR 04/07/2014 Office visit Capri Lasha FOREST RESOURCES PROFESSOR 03/24/2014 Office visit Capri Lasha FOREST RESOURCES PROFESSOR 01/04/2014 Office visit Dayne Taylor DO 12/01/2013 Office visit Capri Colby FOREST RESOURCES PROFESSOR 10/27/2013 Office visit Dayne Taylor DO 08/20/2013 Office visit Kanu Rodríguez APR N 05/18/2013 Office visit Capri Colby FOREST RESOURCES PROFESSOR 12/01/2012 Office visit Dayne Taylor DO 03/09/2012 Office visit Capri Colby FOREST RESOURCES PROFESSOR 12/03/2011 Office visit Dayne Taylor DO 10/14/2011 Office visit Dayne Taylor DO 09/23/2011 Office visit Dayen Taylor DO 06/04/2011 Office visit Richardson Gerber MD 05/20/2011 Office visit Richardson Gerber MD 05/03/2011 [facility] Richardson Gerber MD 04/29/2011 Office [...] 02/11/2011 Office visit Richardson Gerber MD 02/11/2011 [facility] Richardson Gerber MD 02/05/2011 Voided Richardson Gerber MD 01/22/2011 Office visit Richardson Gerber MD 01/16/2011 Office visit Richardson Gerber MD 12/24/2010 Office visit Richardson Gerber MD 11/29/2010 Office visit Richardson Gerber MD 11/26/2010 Office visit Richardson Gerber MD 10/22/2010 Office visit Richardson Gerber MD 09/17/2010 Office visit Richardson Gerber MD 07/19/2010 Office visit Dayne Taylor DO 06/08/2010 Office visit Capri Colby FOREST RESOURCES PROFESSOR 03/27/2010 Office visit Dayne Taylor DO 03/07/2010 Office visit Yulisa MOYA 08/31/2009 Office visit Yulisa MOYA 05/01/2009 Office visit Joann MOYA 03/06/2009 Office visit Yulisa MOYA 02/02/2009 Office visit Yulisa MOYA 01/02/2009 Office visit Yulisa MOAY 10/26/2008 Office visit YULISA FRANCIS PA-C
--- OUTSIDE RECORDS SUMMARY | 2019-09-13 07:36 | XMS REPORT ---
Author Author Jo Gillette [facility] Address [address] [place] [phone] Care Team Providers Care Dining Room Attendant Cafeteria Name Role Phone Cinthia Gillette PCP Dayne Taylor PreferredProvider Allergies and Adverse [...] route every 12 hours for 10 days Wellbutrin SR oral Macrobid 100 mg oral capsule 03/20/2016 03/27/2016 [...] 12:00 AM Bicillin CR, 1.2 million units [facility]# 6079 3-600-10 Reviewed 07/06/2014 11:29 AM URINE TEST Reviewed 07/06/2014 12:00 AM THER/PROPH/DIAG INJ SC/IM Reviewed 07/06/2014 12:00 AM Decadron, Per 1 Mg [facility]# [address]-85 Re viewed 07/06/2014 12:00 AM Depo-Medrol 40mg [...] (THC) NON-NEGAT SULAIMAN CALLED TO/BY DR. 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 [id number] N/A Cign[employer] Cigna [id number] Friday, 2010 [place] Medical [place] [facility] Kennedi Mcqueen [id number] Friday, 2010 Vineet Manley [id number] Friday, 2010 History of Encounters Visit Date Visit Type Provider 01/08/[address] Cinthia hudson MD [...] Cinthia hudson MD 04/30/2017 Office visit Maria Victroia stephen RUBBERIZING MECHANIC 02/09/2017 Office visit Yessica Cuenca APR N 06/04/2016 Office visit Yessica Cuenca APR N 05/14/2016 Office visit Codi Guerra RUBBERIZING MECHANIC 04/22/2016 Office visit Kanu Rodríguez APR N 03/20/2016 Office visit Kanu Rodríguez APR N 02/06/2016 Office visit Kanu Rodríguez APR N 01/04/2016 Office visit Kanu Rodríguez APR N 10/05/2015 Office visit Dayne Taylor DO 09/28/2015 Office visit Capri Colby RUBBERIZING MECHANIC 09/26/2015 Office visit Kanu Rodríguez APR N 07/24/2015 Office visit Dayne Taylor DO 05/03/2015 Office visit Capri Colby RUBBERIZING MECHANIC 02/09/2015 Office visit Dayne Taylor DO 01/02/2015 Office visit Katie TORRES RN 01/01/2015 [facility] Florecita Mayfield MD 12/05/2014 Office visit Capri Colby RUBBERIZING MECHANIC 11/28/2014 Office visit Katie TORRES RN 11/08/2014 Office visit Katie TORRES RN 10/20/2014 Office visit Katie TORRES RN 08/29/2014 Office visit Capri Lasha RUBBERIZING MECHANIC 08/22/2014 Office visit Capri Lasha RUBBERIZING MECHANIC 07/06/2014 Office visit 07/06/2014 Office visit Capri Lasha RUBBERIZING MECHANIC 06/28/2014 Office visit 06/28/2014 Office visit Capri Colby RUBBERIZING MECHANIC 04/07/2014 Office visit Capri Colby RUBBERIZING MECHANIC 03/24/2014 Office visit Capri Colby RUBBERIZING MECHANIC 01/04/2014 Office visit Dayne Taylor DO 12/01/2013 Office visit Capri Colby RUBBERIZING MECHANIC 10/27/2013 Office visit Dayne Taylor DO 08/20/2013 Office visit Kanu Rodríguez APR N 05/18/2013 Office visit Capri Colby RUBBERIZING MECHANIC 12/01/2012 Office visit Dayne Taylor DO 03/09/2012 Office visit Capri Colby RUBBERIZING MECHANIC 12/03/2011 Office visit Dayne Taylor DO 10/14/2011 Office visit Dayne Taylor DO 09/23/2011 Office visit Dayne Taylor DO 06/04/2011 Office visit Richardson Gerber MD 05/20/2011 Office visit Richardson Gerber MD 05/03/2011 [facility] Richardson Gerber MD 04/29/2011 Office [...] 02/11/2011 Office visit Richardson Gerber MD 02/11/2011 [facility] Richardson Gerber MD 02/05/2011 Voided Richardson Gerber MD 01/22/2011 Office visit Richardson Gerber MD 01/16/2011 Office visit Richardson Gerber MD 12/24/2010 Office visit Richardson Gerber MD 11/29/2010 Office visit Richardson Gerber MD 11/26/2010 Office visit Richardson Gerber MD 10/22/2010 Office visit Richardson Gerber MD 09/17/2010 Office visit Richardson Gerber MD 07/19/2010 Office visit Dayne Taylor DO 06/08/2010 Office visit Capri Cloby APRN 03/27/2010 Office visit Dayne Taylor DO 03/07/2010 Office visit Yulisa MOYA 08/31/2009 Office visit Yulisa MOYA 05/01/2009 Office visit Joann MOYA 03/06/2009 Office visit Yulisa MOYA 02/02/2009 Office visit Yulisa MOYA 01/02/2009 Office visit Yulisa MOYA 10/26/2008 Office visit YULISA FRANCIS PA-C
--- OUTSIDE RECORDS SUMMARY | 2019-09-13 07:37 | XMS REPORT ---
Author Author Jo Gillette [facility] Address [address] [place] [phone] Care Team Providers Care Fisher Swordfish Name Role Phone Cinthia Gillette PCP Dayne [...] AM Bicillin CR, 1.2 million units [facility]# 6079 3-600-10 Reviewed 07/06/2014 11:29 AM URINE TEST Reviewed 07/06/2014 12:00 AM THER/PROPH/DIAG INJ SC/IM Reviewed 07/06/2014 12:00 AM Decadron, Per [address] [facility]# [id number] Re viewed 07/06/2014 12:00 AM Depo-Medrol 40mg [...] (THC) NON-NEGAT SULAIMAN CALLED TO/BY DR. GERBER 3640 01-22-11 SJ Phencyclidine (PCP) NEGATIVE Cocaine NEGATIVE [...] fracture of nasal bone with routine healing, ahn bsequent encounter Jul 24 2015 2:40PM Closed [...] Name Plan Name Plan Number Policy Number [facility] Group Number Start Date [place] Hand Prog - RHC [facility] Asst Prog - RH C [id number] N/A [facility] [id number] [facility] [id number] 1 N/A [place] Medical Assistance Program [facility] Kennedi macrina Prog [id number] N/A Wppa Wppa [id number] Friday, O ctober 2008 UMR UMR [id number] Friday, [facility] [id number] N/A [employer]ign[employer] Cigna [id number] Friday, 2010 [place] Medical Assistance [facility] Kennedi Mcqueen [id number] Friday, 2010 Vineet Manley [id number] Friday, 2010 History of Encounters Visit Date [...] MD 04/30/2017 Office visit Maria Victoria stephen ROTOR WINDER 02/09/2017 Office visit Yessica Cuenca APR N 06/04/2016 Office visit Yessica Cuenca APR N 05/14/2016 Office visit Codi Guerra ROTOR WINDER 04/22/2016 Office visit Kanu Rodríguez APR N 03/20/2016 Office visit Kanu Rodríguez APR N 02/06/2016 Office visit Kanu Rodríguez APR N 01/04/2016 Office visit Kanu Rodríguez APR N 10/05/2015 Office visit Dayne Taylor DO 09/28/2015 Office visit Capri Colby ROTOR WINDER 09/26/2015 Office visit Kanu Rodríguez APR N 07/24/2015 Office visit Dayne Taylor DO 05/03/2015 Office visit Capri Colby ROTOR WINDER 02/09/2015 Office visit Dayne Taylor DO 01/02/2015 Office visit Katie TORRES RN 01/01/2015 [facility] Florecita Mayfield MD 12/05/2014 Office visit Capri Colby ROTOR WINDER 11/28/2014 Office visit Katie TORRES RN 11/08/2014 Office visit Katie TORRES RN 10/20/2014 Office visit Katie TORRES RN 08/29/2014 Office visit Capri Lasha ROTOR WINDER 08/22/2014 Office visit Capri Lasha ROTOR WINDER 07/06/2014 Office visit 07/06/2014 Office visit Capri Lasha ROTOR WINDER 06/28/2014 Office visit 06/28/2014 Office visit Capri Colby ROTOR WINDER 04/07/2014 Office visit Capri Colby ROTOR WINDER 03/24/2014 Office visit Capri Colby ROTOR WINDER 01/04/2014 Office visit Dayne Taylor DO 12/01/2013 Office visit Capri Colby ROTOR WINDER 10/27/2013 Office visit Dayne Taylor DO 08/20/2013 Office visit Kanu Rodríguez APR N 05/18/2013 Office visit Capri Colby ROTOR WINDER 12/01/2012 Office visit Dayne Taylor DO 03/09/2012 Office visit Capri Colby ROTOR WINDER 12/03/2011 Office visit Dayne Taylor DO 10/14/2011 Office visit Dayne Taylor DO 09/23/2011 Office visit Dayne Taylor DO 06/04/2011 Office visit Richardson Gerber MD 05/20/2011 Office visit Richardson Gerber MD 05/03/2011 [facility] Richardson Gerber MD 04/29/2011 Office visit Richardson [...] 02/11/2011 Office visit Richardson Gerber MD 02/11/2011 [facility] Richardson Gerber MD 02/05/2011 Voided Richardson Gerber [...]
--- OUTSIDE RECORDS SUMMARY | 2019-09-13 07:37 | XMS REPORT ---
Author Author Jo Gillette [facility] Address [address] [place] [phone] Care Team Providers Care Social Media Intern Name Role Phone Cinthia Gillette PCP Dayne [...] AM Bicillin CR, 1.[address] [facility]# 6079 3-600-10 Reviewed 07/06/2014 11:29 AM URINE TEST Reviewed 07/06/2014 12:00 AM THER/PROPH/DIAG INJ SC/IM Reviewed 07/06/2014 12:00 AM Decadron, Per [address] [facility]# [address]-11 Re viewed 07/06/2014 12:00 AM Depo-Medrol 40mg [...] (THC) NON-NEGAT SULAIMAN CALLED TO/BY DR. GERBER 6000 01-22-11 SJ Phencyclidine (PCP) NEGATIVE Cocaine NEGATIVE [...] Name Plan Name Plan Number Policy Number [facility] Group Number Start Date [place] [employer] Director Prog - RHC [facility] Asst Prog - RH C [id number] N/A [facility] [address] [facility] [id number] 1 N/A [place] Medical Assistance Program [facility] Kennedi macrina Prog [id number] N/A Wppa Wppa [id number] Friday, O ctober 2008 UMR UMR [id number] Friday, [facility] [id number] N/A Cigna Cigna [id number] Friday, 2010 [place] Medical Assistance [facility] Kennedi Mcqueen [id number] Friday, 2010 Vineet Manley [id number] Friday, 2010 History of Encounters Visit Date [...] MD 04/30/2017 Office visit Maria Victoria stephen CHEMICAL PLANT OPERATOR 02/09/2017 Office visit Yessica Cuenca APR N 06/04/2016 Office visit Yessica Cuenca APR N 05/14/2016 Office visit Codi Guerra CHEMICAL PLANT OPERATOR 04/22/2016 Office visit Kanu Rodríguez APR N 03/20/2016 Office visit Kanu Rodríguez APR N 02/06/2016 Office visit Kanu Rodríguez APR N 01/04/2016 Office visit Kanu Rodríguez APR N 10/05/2015 Office visit Dayne Taylor DO 09/28/2015 Office visit Capri Colby CHEMICAL PLANT OPERATOR 09/26/2015 Office visit Kanu Rodríguez APR N 07/24/2015 Office visit Dayne Taylor DO 05/03/2015 Office visit Capri Colby CHEMICAL PLANT OPERATOR 02/09/2015 Office visit Dayne Taylor DO 01/02/2015 Office visit Katie TORRES RN 01/01/2015 [facility] Florecita Mayfield MD 12/05/2014 Office visit Capri Colby CHEMICAL PLANT OPERATOR 11/28/2014 Office visit Katie TORRES RN 11/08/2014 Office visit Katie TORRES RN 10/20/2014 Office visit Katie TORRES RN 08/29/2014 Office visit Capri Lasha CHEMICAL PLANT OPERATOR 08/22/2014 Office visit Capri Lasha CHEMICAL PLANT OPERATOR 07/06/2014 Office visit 07/06/2014 Office visit Capri Lasha CHEMICAL PLANT OPERATOR 06/28/2014 Office visit 06/28/2014 Office visit Capri Colby CHEMICAL PLANT OPERATOR 04/07/2014 Office visit Capri Colby CHEMICAL PLANT OPERATOR 03/24/2014 Office visit Capri Colby CHEMICAL PLANT OPERATOR 01/04/2014 Office visit Dayne Taylor DO 12/01/2013 Office visit Capri Colby CHEMICAL PLANT OPERATOR 10/27/2013 Office visit Dayne Taylor DO 08/20/2013 Office visit Kanu Rodríguez APR N 05/18/2013 Office visit Capri Colby CHEMICAL PLANT OPERATOR 12/01/2012 Office visit Dayne Taylor DO 03/09/2012 Office visit Capri Colby CHEMICAL PLANT OPERATOR 12/03/2011 Office visit Dayne Taylor DO 10/14/2011 Office visit Dayne Taylor DO 09/23/2011 Office visit Dayne Taylor DO 06/04/2011 Office visit Richardson Gerber MD 05/20/2011 Office visit Richardson Gerber MD 05/03/2011 [facility] Richardson Gerber MD 04/29/2011 Office visit Richardson [...] 02/11/2011 Office visit Richardson Gerber MD 02/11/2011 [facility] Richardson Gerber MD 02/05/2011 Voided Richardson Gerber [...]
--- OUTSIDE RECORDS SUMMARY | 2019-09-13 07:38 | XMS REPORT ---
Author Author Jo Gillette [facility] Address [address] [place] [phone] Care Team Providers Care Outbound Sales Consultant Name Role Phone Cinthia Gillette PCP Dayne [...] 12:00 AM Bicillin CR, 1.2 million units [facility]# 6079 3-600-10 Reviewed 07/06/2014 11:29 AM URINE TEST Reviewed 07/06/2014 12:00 AM THER/PROPH/DIAG INJ SC/IM Reviewed 07/06/2014 12:00 AM Decadron, Per 1 Mg [facility]# [address]-55 Re viewed 07/06/2014 12:00 AM Depo-Medrol 40mg [...] (THC) NON-NEGAT SULAIMAN CALLED TO/BY DR. 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 Prog - RH C [id number] N/A [facility] [id number] [facility] [id number] 1 N/A [place] Medical Assistance Program [facility] Kennedi macrina Prog [id number] N/A Wppa Wppa [id number] Friday, O ctober 2008 UMR UMR [id number] Friday, [facility] [id number] N/A Cigna Cigna [id number] Friday, 2010 [place] Medical Assistance [facility] Kennedi Mcqueen [id number] Friday, 2010 Vineet Manley [id number] Friday, 2010 History of Encounters Visit Date [...] Office visit Maria Victoria stephen CHEMICAL PLANT MANAGER 02/09/2017 Office visit Yessica Cuenca APR N 06/04/2016 Office visit Yessica Cuenca APR N 05/14/2016 Office visit Codi Guerra CHEMICAL PLANT MANAGER 04/22/2016 Office visit Kanu Rodríguez APR N 03/20/2016 Office visit Kanu Rodríguez APR N 02/06/2016 Office visit Kanu Rodríguez APR N 01/04/2016 Office visit Kanu Rodríguez APR N 10/05/2015 Office visit Dayne Taylor DO 09/28/2015 Office visit Capri Colby CHEMICAL PLANT MANAGER 09/26/2015 Office visit Kanu Rodríguez APR N 07/24/2015 Office visit Dayne Taylor DO 05/03/2015 Office visit Capri Colby CHEMICAL PLANT MANAGER 02/09/2015 Office visit Dayne Taylor DO 01/02/2015 Office visit Katie TORRES RN 01/01/2015 [facility] Florecita Mayfield MD 12/05/2014 Office visit Capri Colby CHEMICAL PLANT MANAGER 11/28/2014 Office visit Katie TORRES RN 11/08/2014 Office visit Katie TORRES RN 10/20/2014 Office visit Katie TORRES RN 08/29/2014 Office visit Capri Lasha CHEMICAL PLANT MANAGER 08/22/2014 Office visit Capri Lasha CHEMICAL PLANT MANAGER 07/06/2014 Office visit 07/06/2014 Office visit Capri Lasha CHEMICAL PLANT MANAGER 06/28/2014 Office visit 06/28/2014 Office visit Capri Colby CHEMICAL PLANT MANAGER 04/07/2014 Office visit Capri Colby CHEMICAL PLANT MANAGER 03/24/2014 Office visit Capri Colby CHEMICAL PLANT MANAGER 01/04/2014 Office visit Dayne Taylor DO 12/01/2013 Office visit Capri Colby CHEMICAL PLANT MANAGER 10/27/2013 Office visit Dayne Taylor DO 08/20/2013 Office visit Kanu Rodríguez APR N 05/18/2013 Office visit Capri Colby CHEMICAL PLANT MANAGER 12/01/2012 Office visit Dayne Taylor DO 03/09/2012 Office visit Capri Colby CHEMICAL PLANT MANAGER 12/03/2011 Office visit Dayne Taylor DO 10/14/2011 Office visit Dayne Taylor DO 09/23/2011 Office visit Dayne Taylor DO 06/04/2011 Office visit Richardson Gerber MD 05/20/2011 Office visit Richardson Gerber MD 05/03/2011 [facility] Richardson Gerber MD 04/29/2011 Office visit [...] 02/11/2011 Office visit Richardson Gerber MD 02/11/2011 [facility] Richardson Gerber MD 02/05/2011 Voided Richardson [...] visit Joann MOYA 03/06/2009 Office visit Yulisa OMYA 02/02/2009 Office visit Yulisa MOYA 01/02/2009 Office visit Yulisa MOYA 10/26/2008 Office visit YULISA FRANCIS PA-C
--- OUTSIDE RECORDS SUMMARY | 2019-09-13 07:39 | XMS REPORT ---
Author Author Jo Gillette [facility] Physicians oup Address [address] [place] [phone] Care Team Providers Care Porcelain Slusher Name Role Phone Cinthia Gillette PCP Dayne [...] Disorder Active Anxiety disorder Active 05/19/2013 Attention deficit [...] Reviewed 10/20/2017 12:00 AM Type and screen Returned 10/20/2017 12:00 AM GLUCOSE TOLERANCE TEST (GTT) Returned 10/20/2017 12:00 AM COMPLETE CBC W/AUTO DIFF WBC Returned 10/20/2017 12:00 AM ASSAY OF FERRITIN Returned 12/15/2017 12:00 AM OB US LIMITED FETUS(S) Returned 11/17/2017 12:00 AM URINALYSIS Returned 11/17/2017 12:00 AM URINE CULTURE/COLONY COUNT Returned 11/17/2017 12:00 AM Urine Drug Screen Returned 12/24/2017 12:00 AM CULTURE SCREEN ONLY Returned 03/06/2009 12:00 AM US EXAM PELVIC COMPLETE Reviewed 03/24/2014 12:00 AM SPECIMEN HANDLING OFFICE-LAB Reviewed 03/24/2014 12:00 AM CYTOPATH C/V MANUAL Reviewed 03/24/2014 12:00 AM CHYLMD TRACH DNA AMP PROBE Reviewed 03/24/2014 12:00 AM N.GONORRHOEAE DNA AMP PROB Reviewed 04/07/2014 2:44 PM URINE TEST Reviewed 06/28/2014 12:00 AM THER/PROPH/DIAG INJ SC/IM Reviewed 06/28/2014 12:00 AM Bicillin CR, 1.2 million units [facility]# 6079 3-600-10 Reviewed 07/06/2014 11:29 AM URINE TEST Reviewed 07/06/2014 12:00 AM THER/PROPH/DIAG INJ SC/IM Reviewed 07/06/2014 12:00 AM Decadron, Per [address] [facility]# [address]-41 Re viewed 07/06/2014 12:00 AM Depo-Medrol 40mg [...] (THC) NON-NEGAT SULAIMAN CALLED TO/BY DR. 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 [place] Fiscal Agent Prog - RH C [id number] [id number] [id number] 1 N/A [place] Medical Assistance [facility] Medical Kennedi tance Prog [id number] N/A Wppa Wppa [id number] Friday, ctober 2008 UMR UMR [id number] Friday, [facility] [id number] N/A Cigna Cigna [id number] Friday, 2010 [facility] Assistance [facility] Medical Kennedi tance Prog [id number] Friday, 2010 Cigna Cigna [id number] Friday, 2010 History of Encounters Visit Date Visit Type Provider 01/01/[address] Cinthia hudson MD [...] MD 04/30/2017 Office visit Maria Victoria stephen TECHNICAL SUPPORT PROFESSIONAL 02/09/2017 Office visit Yessica Cuenca APR N 06/04/2016 Office visit Yessica LSparkle Beacon APR N 05/14/2016 Office visit Codi Guerra TECHNICAL SUPPORT PROFESSIONAL 04/22/2016 Office visit Kanu Rodríguez APR N 03/20/2016 Office visit Kanu Rodríguez APR N 02/06/2016 Office visit Kanu Rodríguez APR N 01/04/2016 Office visit Kanu Rodríguze APR N 10/05/2015 Office visit Dayne Brandon DO 09/28/2015 Office visit Capri Colby TECHNICAL SUPPORT PROFESSIONAL 09/26/2015 Office visit Kanu Rodríguez APR N 07/24/2015 Office visit Dayne Brandon DO 05/03/2015 Office visit Capri Colby TECHNICAL SUPPORT PROFESSIONAL 02/09/2015 Office visit Dayne Taylor DO 01/02/2015 Office visit Katie TORRES RN 01/01/2015 [facility] Florecita Mayfield MD 12/05/2014 Office visit Capri Colby TECHNICAL SUPPORT PROFESSIONAL 11/28/2014 Office visit Katie TORRES RN 11/08/2014 Office visit Katie TORRES RN 10/20/2014 Office visit Katie TORRES RN 08/29/2014 Office visit Capri Colby TECHNICAL SUPPORT PROFESSIONAL 08/22/2014 Office visit Capri Colby TECHNICAL SUPPORT PROFESSIONAL 07/06/2014 Office visit 07/06/2014 Office visit Capri Colby TECHNICAL SUPPORT PROFESSIONAL 06/28/2014 Office visit 06/28/2014 Office visit Capri Colby TECHNICAL SUPPORT PROFESSIONAL 04/07/2014 Office visit Capri Colby TECHNICAL SUPPORT PROFESSIONAL 03/24/2014 Office visit Capri Colby TECHNICAL SUPPORT PROFESSIONAL 01/04/2014 Office visit Dayne Brandon DO 12/01/2013 Office visit Capri Colby TECHNICAL SUPPORT PROFESSIONAL 10/27/2013 Office visit Dayne Brandon DO 08/20/2013 Office visit Kanu Rodríguez APR N 05/18/2013 Office visit Capri Colby TECHNICAL SUPPORT PROFESSIONAL 12/01/2012 Office visit Dayne Brandon DO 03/09/2012 Office visit Capri Colby TECHNICAL SUPPORT PROFESSIONAL 12/03/2011 Office visit Dayne Brandon DO 10/14/2011 Office visit Dayne Brandon DO 09/23/2011 Office visit Dayne Taylor DO 06/04/2011 Office visit Richardson Gerber MD 05/20/2011 Office visit Richardson Gerber MD 05/03/2011 [facility] Richardson Gerber MD 04/29/2011 Office visit [...] 02/11/2011 Office visit Richardson Gerber MD 02/11/2011 [facility] Richardson Gerber MD 02/05/2011 Voided Richardson [...]
--- OUTSIDE RECORDS SUMMARY | 2019-09-13 07:39 | XMS REPORT ---
Author Author Jo Gillette [facility] Physicians oup Address [address] [place] [phone] Care Team Providers Care Stock Broker Supervisor Name Role Phone Cinthia Gillette PCP Dayne [...] 12:00 AM Bicillin CR, 1.2 million units [facility]# 6079 3-600-10 Reviewed 07/06/2014 11:29 AM URINE TEST Reviewed 07/06/2014 12:00 AM THER/PROPH/DIAG INJ SC/IM Reviewed 07/06/2014 12:00 AM Decadron, Per 1 Mg [facility]# [id number] Re viewed 07/06/2014 12:00 AM Depo-Medrol 40mg [...] (THC) NON-NEGAT SULAIMAN CALLED TO/BY DR. GERBER 8810 01-22-11 [facility] Phencyclidine (PCP) NEGATIVE Cocaine NEGATIVE [...] Stephen cy Group Number Start Date [place] Alum Operator Prog - RHC [place] Alum [place] Prog - RH C [id number] N/A [facility] [address] [facility] [id number] N/A [place] Medical Assistance [facility] Medical Kennedi tance Prog [id number] N/A Wppa Wppa [id number] Friday, ctober 2008 UMR UMR [id number] Friday, [facility] [id number] N/A Cigna Cigna [id number] Friday, 2010 [facility] Assistance [facility] Medical Kennedi tance Prog [id number] Friday, 2010 Cign[employer] Cigna [id number] Friday, 2010 History of Encounters Visit Date [...] MD 04/30/2017 Office visit Maria Victoria stephen CLINICAL REHABILITATION LIAISON 02/09/2017 Office visit Yessica Cuenca APR N 06/04/2016 Office visit Yessica LSparkle Moosic APR N 05/14/2016 Office visit Codi Guerra CLINICAL REHABILITATION LIAISON 04/22/2016 Office visit Kanu Rodríguez APR N 03/20/2016 Office visit Kanu Rodríguez APR N 02/06/2016 Office visit Kanu Rodríguez APR N 01/04/2016 Office visit Kanu Rodríguez APR N 10/05/2015 Office visit Dayne Brandon DO 09/28/2015 Office visit Capri Colby CLINICAL REHABILITATION LIAISON 09/26/2015 Office visit Kanu Rodríguez APR N 07/24/2015 Office visit Dayne Brandon DO 05/03/2015 Office visit Capri Colby CLINICAL REHABILITATION LIAISON 02/09/2015 Office visit Dayne Taylor DO 01/02/2015 Office visit Katie TORRES RN 01/01/2015 [facility] Florecita Mayfield MD 12/05/2014 Office visit Capri Colby CLINICAL REHABILITATION LIAISON 11/28/2014 Office visit Katie TORRES RN 11/08/2014 Office visit Katie TORRES RN 10/20/2014 Office visit Katie TORRES RN 08/29/2014 Office visit Capri Colby CLINICAL REHABILITATION LIAISON 08/22/2014 Office visit Capri Colby CLINICAL REHABILITATION LIAISON 07/06/2014 Office visit 07/06/2014 Office visit Capri Colby CLINICAL REHABILITATION LIAISON 06/28/2014 Office visit 06/28/2014 Office visit Capri Colby CLINICAL REHABILITATION LIAISON 04/07/2014 Office visit Capri Colby CLINICAL REHABILITATION LIAISON 03/24/2014 Office visit Capri Cobly CLINICAL REHABILITATION LIAISON 01/04/2014 Office visit Dayne Brandon DO 12/01/2013 Office visit Capri Colby CLINICAL REHABILITATION LIAISON 10/27/2013 Office visit Dayne Brandon DO 08/20/2013 Office visit Kanu Rodríguez APR N 05/18/2013 Office visit Capri Colby CLINICAL REHABILITATION LIAISON 12/01/2012 Office visit Dayne Brandon DO 03/09/2012 Office visit Capri Colby CLINICAL REHABILITATION LIAISON 12/03/2011 Office visit Dayne Brandon DO 10/14/2011 Office visit Dayne Brandon DO 09/23/2011 Office visit Dayne Taylor DO 06/04/2011 Office visit Richardson Gerber MD 05/20/2011 Office visit Richardson Gerber MD 05/03/2011 [facility] Richardson Gerber MD 04/29/2011 Office visit [...] 02/11/2011 Office visit Richardson Gerber MD 02/11/2011 [facility] Richardson Gerber MD 02/05/2011 Voided Richardson Gerber MD 01/22/2011 Office visit Richardson Gerber MD 01/16/2011 Office visit Richardson Gerber MD 12/24/2010 Office visit Richardson Gerber MD 11/29/2010 Office visit Richardson Gerber MD 11/26/2010 Office visit Richardson Gerber MD 10/22/2010 Office visit Richardson Gerber MD 09/17/2010 Office visit Richardson Gerber MD 07/19/2010 Office visit Dayne Taylor DO 06/08/2010 Office visit Capri Cobly APRN 03/27/2010 Office visit Dayne Taylor DO 03/07/2010 Office visit Yulisa MOYA 08/31/2009 Office visit Yulisa MOYA 05/01/2009 Office visit Joann MOYA 03/06/2009 Office visit Yulisa MOYA 02/02/2009 Office visit Yulisa MOYA 01/02/2009 Office visit Yulisa MOYA 10/26/2008 Office visit YULISA FRANCIS PA-C
--- OUTSIDE RECORDS SUMMARY | 2019-09-13 07:40 | XMS REPORT ---
Author Author Jo Gillette [facility] Physicians Gr oup Address [address] [place] [phone] Care Team Providers Care Service Cashier Name Role Phone Cinthia Gillette PCP Brandon Dayne PreferredProvider Allergies and Adverse Reactions Name Reaction Notes erythromycin vomiting SULFA (SULFONAMIDES) Plan of Treatment Planned Activity Comments Planned Date Planned Time Plan/Goal Ob Limited Sono 12/15/2017 12:00 AM Group B strep culture 12/24/2017 12:00 AM Nasal bone fracture and Left maxillary fracture [...] 10/20/2017 12:00 AM ASSAY OF FERRITIN Returned 11/17/2017 12:00 AM URINALYSIS Returned 11/17/2017 12:00 AM URINE CULTURE/COLONY COUNT Returned 11/17/2017 12:00 AM Urine Drug Screen Returned 03/06/2009 12:00 AM US EXAM PELVIC COMPLETE Reviewed 03/24/2014 12:00 AM SPECIMEN HANDLING OFFICE-LAB Reviewed 03/24/2014 12:00 AM CYTOPATH C/V MANUAL Reviewed 03/24/2014 12:00 AM CHYLMD TRACH DNA AMP PROBE Reviewed 03/24/2014 12:00 AM N.GONORRHOEAE DNA AMP PROB Reviewed 04/07/2014 2:44 PM URINE TEST Reviewed 06/28/2014 12:00 AM THER/PROPH/DIAG INJ SC/IM Reviewed 06/28/2014 12:00 AM Bicillin CR, 1.2 million units [facility]# 6079 3-600-10 Reviewed 07/06/2014 11:29 AM URINE TEST Reviewed 07/06/2014 12:00 AM THER/PROPH/DIAG INJ SC/IM Reviewed 07/06/2014 12:00 AM Decadron, Per 1 Mg [facility]# [address]-43 Re viewed 07/06/2014 12:00 AM Depo-Medrol 40mg [...] SULAIMAN CALLED TO/BY DR. 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 [facility] [id number] N/A Cign[employer] Cigna [id number] Friday, 2010 [facility] Medical Kennedi tance Prog [id number] Friday, 2010 [employer] Cigna [id number] Friday, 2010 History of Encounters Visit Date Visit Type Provider 12/24/[address] Cinthia hudson MD [...] MD 04/30/2017 Office visit Maria Victoria stephen HUMAN INTELLIGENCE 02/09/2017 Office visit Yessica Maong APR N 06/04/2016 Office visit Yessica George Webster APR N 05/14/2016 Office visit Codi Guerra HUMAN INTELLIGENCE 04/22/2016 Office visit Kanu Rodríguez APR N 03/20/2016 Office visit Kanu Rodríguez APR N 02/06/2016 Office visit Kanu Rodríguez APR N 01/04/2016 Office visit Kanu Rodríguez APR N 10/05/2015 Office visit Dayne Brandon DO 09/28/2015 Office visit Capri Colby HUMAN INTELLIGENCE 09/26/2015 Office visit Kanu Rodríguez APR N 07/24/2015 Office visit Dayne Brandon DO 05/03/2015 Office visit Capri Colby HUMAN INTELLIGENCE 02/09/2015 Office visit Dayne Brandon DO 01/02/2015 Office visit Katie TORRES RN 01/01/2015 [facility] Florecita Mayfield MD 12/05/2014 Office visit Capri Colby HUMAN INTELLIGENCE 11/28/2014 Office visit Katie TORRES RN 11/08/2014 Office visit Katie TORRES RN 10/20/2014 Office visit Katie TORRES RN 08/29/2014 Office visit Capri Colby HUMAN INTELLIGENCE 08/22/2014 Office visit Capri Colby HUMAN INTELLIGENCE 07/06/2014 Office visit 07/06/2014 Office visit Capri Colby HUMAN INTELLIGENCE 06/28/2014 Office visit 06/28/2014 Office visit Capri Colby HUMAN INTELLIGENCE 04/07/2014 Office visit Capri Colby HUMAN INTELLIGENCE 03/24/2014 Office visit Capri Colby HUMAN INTELLIGENCE 01/04/2014 Office visit Dayne Brandon DO 12/01/2013 Office visit Capri Colby HUMAN INTELLIGENCE 10/27/2013 Office visit Dayne Brandon DO 08/20/2013 Office visit Kanu Bentonran APR N 05/18/2013 Office visit Capri Colby HUMAN INTELLIGENCE 12/01/2012 Office visit Dayne Brandon DO 03/09/2012 Office visit Capri Colby HUMAN INTELLIGENCE 12/03/2011 Office visit Dayne Brandon DO 10/14/2011 [...] 02/11/2011 Office visit Richardson Gerber MD 02/11/2011 [facility] Richardson Gerber MD 02/05/2011 Voided Richardson [...]
--- OUTSIDE RECORDS SUMMARY | 2019-09-13 07:40 | XMS REPORT ---
Author Author Jo Gillette [facility] Physicians Gr oup Address [address] [place] [phone] Care Team Providers Care Cnc Router Operator Name Role Phone Cinthia Gillette PCP Brandon [...] AM Bicillin CR, 1.2 million units [facility]# 6079 3-600-10 Reviewed 07/06/2014 11:29 AM URINE TEST Reviewed 07/06/2014 12:00 AM THER/PROPH/DIAG INJ SC/IM Reviewed 07/06/2014 12:00 AM Decadron, Per 1 Mg [facility]# [address]-89 Re viewed 07/06/2014 12:00 AM Depo-Medrol 40mg [...] SULAIMAN CALLED TO/BY DR. 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 [id number] N/A Cigna Cigna [id number] Friday, [address] [facility] Medical Kennedi tance Prog [id number] Friday, 2010 C[employer] Cigna [id number] Friday, 2010 History of Encounters Visit Date [...] MD 04/30/2017 Office visit Maria Victoria stephen VENEER CUTTER 02/09/2017 Office visit Yessica Maong APR N 06/04/2016 Office visit Yessica George Aline APR N 05/14/2016 Office visit Codi Guerra VENEER CUTTER 04/22/2016 Office visit Kanu Rodríguez APR N 03/20/2016 Office visit Kanu Rodríguez APR N 02/06/2016 Office visit Kanu Rodríguez APR N 01/04/2016 Office visit Kanu Rodríguez APR N 10/05/2015 Office visit Dayne Brandon DO 09/28/2015 Office visit Capri Colby VENEER CUTTER 09/26/2015 Office visit Kanu Rodríguez APR N 07/24/2015 Office visit Dayne Brandon DO 05/03/2015 Office visit Capri Colby VENEER CUTTER 02/09/2015 Office visit Dayne Brandon DO 01/02/2015 Office visit Katie TORRES RN 01/01/2015 [facility] Florecita Mayfield MD 12/05/2014 Office visit Capri Colby VENEER CUTTER 11/28/2014 Office visit Katie TORRES RN 11/08/2014 Office visit Katie TORRES RN 10/20/2014 Office visit Katie TORERS RN 08/29/2014 Office visit Capri Colby VENEER CUTTER 08/22/2014 Office visit Capri Colby VENEER CUTTER 07/06/2014 Office visit 07/06/2014 Office visit Capri Colby VENEER CUTTER 06/28/2014 Office visit 06/28/2014 Office visit Capri Colby VENEER CUTTER 04/07/2014 Office visit Capri Colby VENEER CUTTER 03/24/2014 Office visit Capri Colby VENEER CUTTER 01/04/2014 Office visit Dayne Brandon DO 12/01/2013 Office visit Capri Colby VENEER CUTTER 10/27/2013 Office visit Dayen Brandon DO 08/20/2013 Office visit Kanu Bentonran APR N 05/18/2013 Office visit Capri Colby VENEER CUTTER 12/01/2012 Office visit Dayne Brandon DO 03/09/2012 Office visit Capri Colby VENEER CUTTER 12/03/2011 Office visit Dayne Brandon DO 10/14/2011 Office visit Dayne Brandon DO 09/23/2011 Office visit Dayne Brandon DO 06/04/2011 Office visit Richardson Gerber MD 05/20/2011 Office visit Richardson Gerber MD 05/03/2011 [facility] Richardson Gerber MD 04/29/2011 Office visit Richardson Gerber MD 04/22/2011 Office visit Richardson Greber MD 04/16/2011 Office visit Richardson Gerber MD 04/10/2011 Office visit Richardson Gerber MD 04/01/2011 Office visit Richardson Gerber MD 03/18/2011 Office visit Richardson Gerber MD 03/14/2011 Office visit Richardson Gerber MD 02/20/2011 Office visit Richardson Gerber MD 02/12/2011 Office visit Richardson Gerber MD 02/11/2011 Office visit Richardson Gerber MD 02/11/2011 [facility] Richardson Gerber MD 02/05/2011 Voided [...]
--- OUTSIDE RECORDS SUMMARY | 2019-09-13 07:41 | XMS REPORT ---
Author Author Jo Gillette [facility] Gr o[facility] Address [address] [place] [phone] Care Team Providers Care Clerical Assigner Name Role Phone Cinthia Gillette PCP Brandon [...] 12:00 AM Bicillin CR, 1.2 million units [facility]# 6079 3-600-10 Reviewed 07/06/2014 11:29 AM URINE TEST Reviewed 07/06/2014 12:00 AM THER/PROPH/DIAG INJ SC/IM Reviewed 07/06/2014 12:00 AM Decadron, Per 1 Mg [facility]# [address]-02 Re viewed 07/06/2014 12:00 AM Depo-Medrol 40mg [...] SULAIMAN CALLED TO/BY DR. GERBER 1540 01-22-11 [facility] Phencyclidine (PCP) NEGATIVE Cocaine NEGATIVE Methamphetamine NEGATIVE [...] Stephen cy Group Number Start Date [place] Automatic I Threading Machine Feeder Prog - RHC [place] Automatic [place] Threading Machine Feeder Prog - RH C [id number] N/A [facility] [id number] [facility] [id number] 1 N/A [facility] Assistance [facility] Kennedi tance Prog [id number] N/A Wppa Wppa [id number] Friday, ctober 2008 UM UMR [id number] Friday, [facility] 2009 [facility] [id number] N/A Cigna Cigna [id number] Friday, [address] [facility] Medical Kennedi tance Prog [id number] Friday, 2010 Cigna Cigna [id number] Friday, 2010 History of Encounters Visit Date Visit Type Provider 12/24/[address] Cinthia hudson MD 12/04/[address] Cinthia hudson MD 11/27/2017 Office visit Juan Hudson 11/17/[address] Cinthia uhdson MD 10/20/[address] Cinthia hudson MD 09/29/[address] Cinthia hudson MD 09/23/[address] Cinthia hudson MD 09/02/2017 Office visit Juan Hudson 07/31/[address] Cinthia hudson MD 07/03/2017 Office visit Juan Hudson 06/05/[address] Cinthia hudson MD 05/13/[address] Cinthia hudson MD 04/30/2017 Office visit Maria Victoria stephen BUSINESS SYSTEM CONSULTANT 02/09/2017 Office visit Yessica Maong APR N 06/04/2016 Office visit Yessica George [place] APR N 05/14/2016 Office visit Codi Guerra BUSINESS SYSTEM CONSULTANT 04/22/2016 Office visit Kanu Rodríguez APR N 03/20/2016 Office visit Kanu Rodríguez APR N 02/06/2016 Office visit Kanu Rodríguez APR N 01/04/2016 Office visit Kanu Rodríguez APR N 10/05/2015 Office visit Dayne Brandon DO 09/28/2015 Office visit Capri Colby BUSINESS SYSTEM CONSULTANT 09/26/2015 Office visit Kanu Rodríguez APR N 07/24/2015 Office visit Dayne Brandon DO 05/03/2015 Office visit Capri Colby BUSINESS SYSTEM CONSULTANT 02/09/2015 Office visit Dayne Brandon DO 01/02/2015 Office visit Katie TORRES RN 01/01/2015 [facility] Florecita Mayfield MD 12/05/2014 Office visit Capri Colby BUSINESS SYSTEM CONSULTANT 11/28/2014 Office visit Katie TORRES RN 11/08/2014 Office visit Katie TORRES RN 10/20/2014 Office visit Katie TORRES RN 08/29/2014 Office visit Capri Colby BUSINESS SYSTEM CONSULTANT 08/22/2014 Office visit Capri Colby BUSINESS SYSTEM CONSULTANT 07/06/2014 Office visit 07/06/2014 Office visit Capri Colby BUSINESS SYSTEM CONSULTANT 06/28/2014 Office visit 06/28/2014 Office visit Capri Colby BUSINESS SYSTEM CONSULTANT 04/07/2014 Office visit Capri Colby BUSINESS SYSTEM CONSULTANT 03/24/2014 Office visit Capri Colby BUSINESS SYSTEM CONSULTANT 01/04/2014 Office visit Dayne Brandon DO 12/01/2013 Office visit Capri Colby BUSINESS SYSTEM CONSULTANT 10/27/2013 Office visit Dayne Brandon DO 08/20/2013 Office visit Kanu Bentonran APR N 05/18/2013 Office visit Capri Colby BUSINESS SYSTEM CONSULTANT 12/01/2012 Office visit Dayne Brandon DO 03/09/2012 Office visit Capri Colby BUSINESS SYSTEM CONSULTANT 12/03/2011 Office visit Dayne Brandon DO 10/14/2011 [...]
--- OUTSIDE RECORDS SUMMARY | 2019-09-13 07:41 | XMS REPORT ---
Author Author Jo Gillette Organization [facility] o[facility] Address [address] [place] [id number] Care Team Providers Care Collections Assistant Name Role Phone Cinthia Gillette PCP Dayne Taylor PreferredProvider Allergies and Adverse Reactions Name Reaction Notes erythromycin vomiting SULFA (SULFONAMIDES) Plan of Treatment Planned Activity Comments Planned Date Planned Time Plan/Goal Ob Limited Sono 12/15/2017 12:00 AM Nasal bone fracture and Left [...] Start Date Expiration Date SIG Comments Zithromax Z-Jeol 250 mg oral tablet 05/01/2009 05/06/2009 take [...] 12:00 AM Bicillin CR, 1.2 million units [facility]# 6079 3-600-10 Reviewed 07/06/2014 11:29 AM URINE TEST Reviewed 07/06/2014 12:00 AM THER/PROPH/DIAG INJ SC/IM Reviewed 07/06/2014 12:00 AM Decadron, Per 1 Mg [facility]# [address]-84 Re viewed 07/06/2014 12:00 AM Depo-Medrol 40mg [...] SULAIMAN CALLED TO/BY DR. 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 [place] [employer] Agent Prog - RH C [id number] N/A [facility] [id number] [facility] [id number] 1 N/A [facility] Assistance [facility] Medical Kennedi tance Prog [id number] N/A Wppa Wppa [id number] Friday, ctober 2008 UMR UMR [id number] Friday, [facility] 2009 [facility]s [facility] [id number] N/A Cigna Cigna [id number] Friday, 2010 [facility] Medical Kennedi tance Prog [id number] Friday, 2010 Cigna Cigna [id number] Friday, 2010 History of Encounters Visit Date [...] MD 04/30/2017 Office visit Maria Victoria stephen APRN 02/09/2017 Office visit Yessica Cuenca APR N 06/04/2016 Office visit Yessica Cuenca APR N 05/14/2016 Office visit Codi Guerra DOCUMENT COORDINATOR 04/22/2016 Office visit Kanu Bentonran APR N 03/20/2016 Office visit Kanu Bentonran APR N 02/06/2016 Office visit Kanu Bentonran APR N 01/04/2016 Office visit Kanu Bentonran APR N 10/05/2015 Office visit Dayne Brandon DO 09/28/2015 Office visit Capri Lasha DOCUMENT COORDINATOR 09/26/2015 Office visit Kanu Bentonran APR N 07/24/2015 Office visit Dayne Brandon DO 05/03/2015 Office visit Capri Lasha DOCUMENT COORDINATOR 02/09/2015 Office visit Dayne Brandon DO 01/02/2015 Office visit Katie TORRES RN 01/01/2015 [facility] Florecita Mayfield MD 12/05/2014 Office visit Capri Colby DOCUMENT COORDINATOR 11/28/2014 Office visit Katie TORRES RN 11/08/2014 Office visit Katie TORRES RN 10/20/2014 Office visit Katie TORRES RN 08/29/2014 Office visit Capri Colby DOCUMENT COORDINATOR 08/22/2014 Office visit Capri Lasha DOCUMENT COORDINATOR 07/06/2014 Office visit 07/06/2014 Office visit Capri Lasha DOCUMENT COORDINATOR 06/28/2014 Office visit 06/28/2014 Office visit Capri Lasha DOCUMENT COORDINATOR 04/07/2014 Office visit Capri Colby DOCUMENT COORDINATOR 03/24/2014 Office visit Capri Lasha DOCUMENT COORDINATOR 01/04/2014 Office visit Dayne Brandon DO 12/01/2013 Office visit Capri Colby DOCUMENT COORDINATOR 10/27/2013 Office visit Dayne Brandon DO 08/20/2013 Office visit Kanu Bentonran APR N 05/18/2013 Office visit Capri Colby DOCUMENT COORDINATOR 12/01/2012 Office visit Dayne Brandon DO 03/09/2012 Office visit Capri Colby DOCUMENT COORDINATOR 12/03/2011 Office visit Dayne Brandon DO 10/14/2011 Office visit Dayne Brandon DO 09/23/2011 Office visit Dayne Brandon DO 06/04/2011 Office visit Richardson Gerber MD 05/20/2011 Office visit Richardson Gerber MD 05/03/2011 [facility] Richardson Gerber MD 04/29/2011 Office visit Richardson [...] 02/11/2011 Office visit Richardson Gerber MD 02/11/2011 [facility] Richardson Gerber MD 02/05/2011 Voided Richardson Gerber MD 01/22/2011 Office visit Richardson Gerber MD 01/16/2011 Office visit Richardson Gerber MD 12/24/2010 Office visit Richardson Gerber MD 11/29/2010 Office visit Richardson Gerber MD 11/26/2010 Office visit Richardson Gerber MD 10/22/2010 Office visit Richardson Gerber MD 09/17/2010 Office visit Richardson Gerber MD 07/19/2010 Office visit Dayne Taylor DO 06/08/2010 Office visit Capri Colby DOCUMENT COORDINATOR 03/27/2010 Office visit Dayne Taylor DO 03/07/2010 Office visit Yulisa MOYA 08/31/2009 Office visit Yulisa MOYA 05/01/2009 Office visit Joann MOYA 03/06/2009 Office visit Yulisa MOYA 02/02/2009 Office visit Yulias MOYA 01/02/2009 Office visit Yulisa MOYA 10/26/2008 Office visit YULISA FRANCIS PA-C
--- OUTSIDE RECORDS SUMMARY | 2019-09-13 07:42 | XMS REPORT ---
Author Author Jo Gillette Organization [facility] oup Address [address] [place] [phone] Care Team Providers Care Airplane Rigger Name Role Phone Cinthia Gillette PCP Dayne [...] 12:00 AM Bicillin CR, 1.2 million units [facility]# 6079 3-600-10 Reviewed 07/06/2014 11:29 AM URINE TEST Reviewed 07/06/2014 12:00 AM THER/PROPH/DIAG INJ SC/IM Reviewed 07/06/2014 12:00 AM Decadron, Per 1 Mg [facility]# [id number] Re viewed 07/06/2014 12:00 AM Depo-Medrol 40mg [...] SULAIMAN CALLED TO/BY DR. GERBER 1540 01-22-11 [facility] Phencyclidine (PCP) NEGATIVE Cocaine NEGATIVE Methamphetamine [...] Number Stephen cy Group Number Start Date [place] Safety Glass Installer Prog - RHC [place] Safety Glass Installer Prog - RH C [id number] N/A [facility] [address] [facility] [id number] 1 N/A [facility] Assistance [facility] Medical Kennedi tance Prog [id number] N/A W[facility] Wppa [id number] Friday, ctober 2008 UMR UMR [id number] Friday, [facility] 2009 [facility]s [facility] [id number] N/A Cign[employer] Cigna [id number] Friday, 2010 [facility] Medical Kennedi tance Prog [id number] Friday, 2010 C[employer] Cigna [id number] Friday, 2010 History of Encounters Visit Date Visit Type Provider 12/04/[address] Cinthia hudson MD [...] MD 04/30/2017 Office visit Maria Victoria stephen JAVA FRONT END WEB DEVELOPER 02/09/2017 Office visit Yessica Cuenca APR N 06/04/2016 Office visit Yessica Cuenca APR N 05/14/2016 Office visit Codi Guerra JAVA FRONT END WEB DEVELOPER 04/22/2016 Office visit Kanu Bentonran APR N 03/20/2016 Office visit Kanu Rodríguez APR N 02/06/2016 Office visit Kanu Bentonran APR N 01/04/2016 Office visit Kanu Bentonran APR N 10/05/2015 Office visit Dayne Brandon DO 09/28/2015 Office visit Capri Lasha JAVA FRONT END WEB DEVELOPER 09/26/2015 Office visit Kanu Bentonran APR N 07/24/2015 Office visit Dayne Brandon DO 05/03/2015 Office visit Capri Lasha JAVA FRONT END WEB DEVELOPER 02/09/2015 Office visit Dayne Brandon DO 01/02/2015 Office visit Katie TORRES RN 01/01/2015 [facility] Florecita Mayfield MD 12/05/2014 Office visit Capri Colby JAVA FRONT END WEB DEVELOPER 11/28/2014 Office visit Katie TORRES RN 11/08/2014 Office visit Katie TORRES RN 10/20/2014 Office visit Katie TORRES RN 08/29/2014 Office visit Capri Colby JAVA FRONT END WEB DEVELOPER 08/22/2014 Office visit Capri Colby JAVA FRONT END WEB DEVELOPER 07/06/2014 Office visit 07/06/2014 Office visit Capri Colby JAVA FRONT END WEB DEVELOPER 06/28/2014 Office visit 06/28/2014 Office visit Capri Lasha JAVA FRONT END WEB DEVELOPER 04/07/2014 Office visit Capri Colby JAVA FRONT END WEB DEVELOPER 03/24/2014 Office visit Capri Colby JAVA FRONT END WEB DEVELOPER 01/04/2014 Office visit Dayne Brandon DO 12/01/2013 Office visit Capri Colby JAVA FRONT END WEB DEVELOPER 10/27/2013 Office visit Dayne Brandon DO 08/20/2013 Office visit Kanu Rodríguez APR N 05/18/2013 Office visit Capri Lasha JAVA FRONT END WEB DEVELOPER 12/01/2012 Office visit Dayne Brandon DO 03/09/2012 Office visit Capri Colby JAVA FRONT END WEB DEVELOPER 12/03/2011 Office visit Dayne Brandon DO 10/14/2011 Office visit Dayne Brandon DO 09/23/2011 Office visit Dayne Brandon DO 06/04/2011 Office visit Richardson Gerber MD 05/20/2011 Office visit Richardson Gerber MD 05/03/2011 [facility] Richardson Gerber MD 04/29/2011 Office [...] 02/11/2011 Office visit Richardson Gerber MD 02/11/2011 [facility] Richardson Gerber MD 02/05/2011 Voided [...]
--- OUTSIDE RECORDS SUMMARY | 2019-09-13 07:43 | XMS REPORT ---
Author Author Jo Gillette Organization [facility] Phys[facility] oup Address [address] [place] [phone] Care Team Providers Care Rough Rib Grader Name Role Phone Cinthia Gillette PCP Dayne Taylor PreferredProvider Allergies and Adverse Reactions Name Reaction Notes erythromycin vomiting SULFA (SULFONAMIDES) Plan of Treatment Planned Activity Comments Planned Date Planned Time Plan/Goal Ob Limited Sono 12/15/2017 12:00 AM UA with C&S, if indicated 11/17/2017 12:00 AM UA with C&S, if indicated 11/17/2017 12:00 AM Urine Drug Screen 11/17/2017 12:00 AM Nasal bone fracture and Left [...] 10/20/2017 12:00 AM ASSAY OF FERRITIN Returned 03/06/2009 12:00 AM US EXAM PELVIC COMPLETE Reviewed 03/24/2014 12:00 AM SPECIMEN HANDLING OFFICE-LAB Reviewed 03/24/2014 12:00 AM CYTOPATH C/V MANUAL Reviewed 03/24/2014 12:00 AM CHYLMD TRACH DNA AMP PROBE Reviewed 03/24/2014 12:00 AM N.GONORRHOEAE DNA AMP PROB Reviewed 04/07/2014 2:44 PM URINE TEST Reviewed 06/28/2014 12:00 AM THER/PROPH/DIAG INJ SC/IM Reviewed 06/28/2014 12:00 AM Bicillin CR, 1.2 million units [facility]# 6079 3-600-10 Reviewed 07/06/2014 11:29 AM URINE TEST Reviewed 07/06/2014 12:00 AM THER/PROPH/DIAG INJ SC/IM Reviewed 07/06/2014 12:00 AM Decadron, Per 1 Mg [facility]# [address]-67 Re viewed 07/06/2014 12:00 AM Depo-Medrol 40mg [...] CALLED TO/BY DR. 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 [place] Logistics Manager Prog - RH C [id number] N/A [facility] [id number] [facility] [id number] 1 N/A [facility] Assistance [facility] Kennedi tance Prog [id number] N/A Wppa Wppa [id number] Friday, ctober 2008 UMR UMR [id number] Friday, [facility] [id number] N/A Cign[employer] Cigna [id number] Friday, 2010 [facility] Medical Kennedi tance Prog [id number] Friday, 2010 C[employer] Cigna [id number] Friday, 2010 History of Encounters Visit Date Visit Type Provider 11/17/[address] Cinthia hudson MD [...] MD 04/30/2017 Office visit Maria Victoria stephen TEMPLATE WORKER 02/09/2017 Office visit Yessica Cuenca APR N 06/04/2016 Office visit Yessica Cuenca APR N 05/14/2016 Office visit Codi Guerra TEMPLATE WORKER 04/22/2016 Office visit Kanu Rodríguez APR N 03/20/2016 Office visit Kanu Bentonran APR N 02/06/2016 Office visit Kanu Bentonran APR N 01/04/2016 Office visit Kanu Benotnran APR N 10/05/2015 Office visit Dayne Brandon DO 09/28/2015 Office visit Capri Colby TEMPLATE WORKER 09/26/2015 Office visit Kanu Bentonran APR N 07/24/2015 Office visit Dayne Brandon DO 05/03/2015 Office visit Capri Colby TEMPLATE WORKER 02/09/2015 Office visit Dayne Brandon DO 01/02/2015 Office visit Katie TORRES RN 01/01/2015 [facility] Florecita Mayfield MD 12/05/2014 Office visit Capri Colby TEMPLATE WORKER 11/28/2014 Office visit Katie TORRES RN 11/08/2014 Office visit Katie TORRES RN 10/20/2014 Office visit Katie TORRES RN 08/29/2014 Office visit Capri Lasha TEMPLATE WORKER 08/22/2014 Office visit Capri Colby TEMPLATE WORKER 07/06/2014 Office visit 07/06/2014 Office visit Capri Colby TEMPLATE WORKER 06/28/2014 Office visit 06/28/2014 Office visit Capri Colby TEMPLATE WORKER 04/07/2014 Office visit Capri Colby TEMPLATE WORKER 03/24/2014 Office visit Capri Colby TEMPLATE WORKER 01/04/2014 Office visit Dayne Brandon DO 12/01/2013 Office visit Capri Colby TEMPLATE WORKER 10/27/2013 Office visit Dayne Brandon DO 08/20/2013 Office visit Kanu Bentonran APR N 05/18/2013 Office visit Capri Colby TEMPLATE WORKER 12/01/2012 Office visit Dayne Brandon DO 03/09/2012 Office visit Capri Lasha TEMPLATE WORKER 12/03/2011 Office visit Dayne Brandon DO 10/14/2011 Office visit Dayne Brandon DO 09/23/2011 Office visit Dayne Brandon DO 06/04/2011 Office visit Richardson Gerber MD 05/20/2011 Office visit Richardson Gerber MD 05/03/2011 [facility] Richardson Gerber MD 04/29/2011 Office visit [...] 02/11/2011 Office visit Richardson Gerber MD 02/11/2011 [facility] Richardson Gerber MD 02/05/2011 Voided Richardson [...] Office visit Yulisa MOYA 08/31/2009 Office visit Yuilsa MOYA 05/01/2009 Office visit Joann MOYA 03/06/2009 Office visit Yulisa MOYA 02/02/2009 Office visit Yulisa MOYA 01/02/2009 Office visit Yulisa MOYA 10/26/2008 Office visit YULISA FRANCIS PA-C
--- OUTSIDE RECORDS SUMMARY | 2019-09-13 07:43 | XMS REPORT ---
Author Author Jo Gillette Organization [facility] Address [address] [place] [phone] Care Team Providers Care Filer Repairer Name Role Phone Cinthia Gillette PCP Dayne [...] 12:00 AM Bicillin CR, 1.2 million units [facility]# 6079 3-600-10 Reviewed 07/06/2014 11:29 AM URINE TEST Reviewed 07/06/2014 12:00 AM THER/PROPH/DIAG INJ SC/IM Reviewed 07/06/2014 12:00 AM Decadron, Per 1 Mg [facility]# [address]-55 Re viewed 07/06/2014 12:00 AM Depo-Medrol 40mg [...] CALLED TO/BY DR. GERBER 1540 01-22-11 [facility] Phencyclidine (PCP) NEGATIVE Cocaine NEGATIVE Methamphetamine [...] Number Stephen cy Group Number Start Date [place] Neon Technician Prog - RHC [place] Neon Technician Prog - RH C [id number] N/A [facility] [address] [facility] [id number] 1 N/A [facility] Assistance [facility] Medical Kennedi tance Prog [id number] N/A Wppa Wppa [id number] Friday, ctober 2008 UMR UMR [id number] Friday, [facility] 2009 [facility]s [facility] [id number] N/A Cigna Cigna [id number] Friday, 2010 [facility] Medical Kennedi tance Prog [id number] Friday, 2010 Cign[employer] Cigna [id number] Friday, 2010 History of Encounters Visit Date [...] MD 04/30/2017 Office visit Maria Victoria stephen DIRECTOR OF PHYSICIAN PRACTICES 02/09/2017 Office visit Yessica Cuenca APR N 06/04/2016 Office visit Yessica Cuenca APR N 05/14/2016 Office visit Codi Guerra DIRECTOR OF PHYSICIAN PRACTICES 04/22/2016 Office visit Kanu Bentonran APR N 03/20/2016 Office visit Kanu Rodríguez APR N 02/06/2016 Office visit Kanu Bentonran APR N 01/04/2016 Office visit Kanu Bentonran APR N 10/05/2015 Office visit Dayne Brandon DO 09/28/2015 Office visit Capri Lasha DIRECTOR OF PHYSICIAN PRACTICES 09/26/2015 Office visit Kanu Bentonran APR N 07/24/2015 Office visit Dayne Brandon DO 05/03/2015 Office visit Capri Lasha DIRECTOR OF PHYSICIAN PRACTICES 02/09/2015 Office visit Dayne Brandon DO 01/02/2015 Office visit Katie TORRES RN 01/01/2015 [facility] Florecita Mayfield MD 12/05/2014 Office visit Capri Colby DIRECTOR OF PHYSICIAN PRACTICES 11/28/2014 Office visit Katie TORRES RN 11/08/2014 Office visit Katie TORRES RN 10/20/2014 Office visit Katie TORRES RN 08/29/2014 Office visit Capri Colby DIRECTOR OF PHYSICIAN PRACTICES 08/22/2014 Office visit Capri Colby DIRECTOR OF PHYSICIAN PRACTICES 07/06/2014 Office visit 07/06/2014 Office visit Capri Colby DIRECTOR OF PHYSICIAN PRACTICES 06/28/2014 Office visit 06/28/2014 Office visit Capri Lasha DIRECTOR OF PHYSICIAN PRACTICES 04/07/2014 Office visit Capri Colby DIRECTOR OF PHYSICIAN PRACTICES 03/24/2014 Office visit Capri Colby DIRECTOR OF PHYSICIAN PRACTICES 01/04/2014 Office visit Dayne Brandon DO 12/01/2013 Office visit Capri Colby DIRECTOR OF PHYSICIAN PRACTICES 10/27/2013 Office visit Dayne Brandon DO 08/20/2013 Office visit Kanu Rodríguez APR N 05/18/2013 Office visit Capri Lasha DIRECTOR OF PHYSICIAN PRACTICES 12/01/2012 Office visit Dayne Brandon DO 03/09/2012 Office visit Capri Colby DIRECTOR OF PHYSICIAN PRACTICES 12/03/2011 Office visit Dayne Brandon DO 10/14/2011 Office visit Dayne Brandon DO 09/23/2011 Office visit Dayne Brandon DO 06/04/2011 Office visit Richardson Gerber MD 05/20/2011 Office visit Richardson Gerber MD 05/03/2011 [facility] Richardson Gerber MD 04/29/2011 Office [...] 02/11/2011 Office visit Richardson Gerber MD 02/11/2011 [facility] Richardson Gerber MD 02/05/2011 Voided [...]
--- OUTSIDE RECORDS SUMMARY | 2019-09-13 07:44 | XMS REPORT ---
Author Author Jo Gillette Organization [facility] oup Address [address] [place] [phone] Care Team Providers Care Features Reporter Name Role Phone Cinthia Gillette PCP Dayne [...] Per [address] [facility]# [address]-87 Re viewed 07/06/2014 12:00 AM Depo-Medrol 40mg [...] SULAIMAN CALLED TO/BY DR. 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] MD 04/30/2017 Office visit Maria Victoria stephen WATER PURIFIER OPERATOR 02/09/2017 Office visit Yessica Cuenca APR N 06/04/2016 Office visit Yessica Cuenca APR N 05/14/2016 Office visit Codi Guerra WATER PURIFIER OPERATOR 04/22/2016 Office visit Kanu Rodríguez APR N 03/20/2016 Office visit Kanu Bentonran APR N 02/06/2016 Office visit Kanu Bentonran APR N 01/04/2016 Office visit Kanu Bentonran APR N 10/05/2015 Office visit Dayne Brandon DO 09/28/2015 Office visit Capri Colby WATER PURIFIER OPERATOR 09/26/2015 Office visit Kanu Bentonran APR N 07/24/2015 Office visit Dayne Brandon DO 05/03/2015 Office visit Capri Colby WATER PURIFIER OPERATOR 02/09/2015 Office visit Dayne Brandon DO 01/02/2015 Office visit Katie TORRES RN 01/01/2015 [facility] Florecita Mayfield MD 12/05/2014 Office visit Capri Colby WATER PURIFIER OPERATOR 11/28/2014 Office visit Katie TORRES RN 11/08/2014 Office visit Katie TORRES RN 10/20/2014 Office visit Katie TORRES RN 08/29/2014 Office visit Capri Lasha WATER PURIFIER OPERATOR 08/22/2014 Office visit Capri Colby WATER PURIFIER OPERATOR 07/06/2014 Office visit 07/06/2014 Office visit Capri Colby WATER PURIFIER OPERATOR 06/28/2014 Office visit 06/28/2014 Office visit Capri Colby WATER PURIFIER OPERATOR 04/07/2014 Office visit Capri Colby WATER PURIFIER OPERATOR 03/24/2014 Office visit Capri Colby WATER PURIFIER OPERATOR 01/04/2014 Office visit Dayne Brandon DO 12/01/2013 Office visit Capri Colby WATER PURIFIER OPERATOR 10/27/2013 Office visit Dayne Brandon DO 08/20/2013 Office visit Kanu Bentonran APR N 05/18/2013 Office visit Capri Colby WATER PURIFIER OPERATOR 12/01/2012 Office visit Dayne Brandon DO 03/09/2012 Office visit Capri Lasha WATER PURIFIER OPERATOR 12/03/2011 Office visit Dayne Brandon DO [...]
--- OUTSIDE RECORDS SUMMARY | 2019-09-13 07:44 | XMS REPORT ---
Author Author Jo Gillette Organization [facility] o[facility] Address [address] [place] [phone] Care Team Providers Care Hand Sign Writer Name Role Phone Cinthia Gillette PCP Dayne [...] 12:00 AM Bicillin CR, 1.2 million units [facility]# 6079 3-600-10 Reviewed 07/06/2014 11:29 AM URINE TEST Reviewed 07/06/2014 12:00 AM THER/PROPH/DIAG INJ SC/IM Reviewed 07/06/2014 12:00 AM Decadron, Per 1 Mg [facility]# [address]-83 Re viewed 07/06/2014 12:00 AM Depo-Medrol 40mg [...] SULAIMAN CALLED TO/BY DR. 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 [id number] N/A Cigna Cigna [id number] Friday, 2010 [facility] Assistance [facility] Medical Kennedi tance Prog [id number] Friday, 2010 Cigna Cigna [id number] Friday, 2010 History of Encounters Visit Date [...] MD 04/30/2017 Office visit Maria Victoria stephen DATABASE MANAGEMENT SPECIALIST 02/09/2017 Office visit Yessica Cuenca APR N 06/04/2016 Office visit Yessica Cuenca APR N 05/14/2016 Office visit Codi Guerra DATABASE MANAGEMENT SPECIALIST 04/22/2016 Office visit Kanu Rodríguez APR N 03/20/2016 Office visit Kanu Rodríguez APR N 02/06/2016 Office visit Kanu Rodríguez APR N 01/04/2016 Office visit Kanu Rodríguez APR N 10/05/2015 Office visit Dayne Taylor DO 09/28/2015 Office visit Capri Colby DATABASE MANAGEMENT SPECIALIST 09/26/2015 Office visit Kanu Rodríguez APR N 07/24/2015 Office visit Dayne Taylor DO 05/03/2015 Office visit Capri Colby DATABASE MANAGEMENT SPECIALIST 02/09/2015 Office visit Dayne Taylor DO 01/02/2015 Office visit Katie TORRES RN 01/01/2015 [facility] Florecita Mayfield MD 12/05/2014 Office visit Capri Colby DATABASE MANAGEMENT SPECIALIST 11/28/2014 Office visit Katie TORRES RN 11/08/2014 Office visit Katie TORRES RN 10/20/2014 Office visit Katie TORRES RN 08/29/2014 Office visit Capri Colby DATABASE MANAGEMENT SPECIALIST 08/22/2014 Office visit Capri Colby DATABASE MANAGEMENT SPECIALIST 07/06/2014 Office visit 07/06/2014 Office visit Capri Colby DATABASE MANAGEMENT SPECIALIST 06/28/2014 Office visit 06/28/2014 Office visit Capri Colby DATABASE MANAGEMENT SPECIALIST 04/07/2014 Office visit Capri Colby DATABASE MANAGEMENT SPECIALIST 03/24/2014 Office visit Capri Colby DATABASE MANAGEMENT SPECIALIST 01/04/2014 Office visit Dayne Taylor DO 12/01/2013 Office visit Capri Colby DATABASE MANAGEMENT SPECIALIST 10/27/2013 Office visit Dayne Taylor DO 08/20/2013 Office visit Kanu Rodríguez APR N 05/18/2013 Office visit Capri Colby DATABASE MANAGEMENT SPECIALIST 12/01/2012 Office visit Dayne Taylor DO 03/09/2012 Office visit Capri Colby DATABASE MANAGEMENT SPECIALIST 12/03/2011 Office visit Dayne Taylor DO 10/14/2011 Office visit Dayne Taylor DO 09/23/2011 Office visit Dayne Taylor DO 06/04/2011 Office visit Richardson Gerber MD 05/20/2011 Office visit Richardson Gerber MD 05/03/2011 [facility] Richardson Gerber MD 04/29/2011 Office visit [...] 02/11/2011 Office visit Richardson Gerber MD 02/11/2011 [facility] Richardson Gerber MD 02/05/2011 Voided Richardson [...] Office visit Joann MOYA 03/06/2009 Office visit Yulias MOYA 02/02/2009 Office visit Yulisa MOYA 01/02/2009 Office visit Yulisa MOYA 10/26/2008 Office visit YULISA FRANCIS PA-C
[2019-09-13] MEDS ORDERED: CITRIC ACID/SOB CIT (BICITRA) 30 ML UDC PO ONE (07:45)
[2019-09-13] MEDS ORDERED: ceFAZolin INJECTION 1,000 MG in WATER (STERILE) FOR INJECTION 10 ML IV ONE (07:45)
[2019-09-13] MEDS ORDERED: FAMOTIDINE 20MG/2ML IV (PEPCID) IV ONE (07:45)
[2019-09-13] MEDS ORDERED: METOCLOPRAMIDE INJ 10 MG/2 ML (REGLAN) IV ONE (07:45)
--- OUTSIDE RECORDS SUMMARY | 2019-09-13 07:45 | XMS REPORT ---
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 [place] [employer] Officer Prog - RH C [id number] N/A [facility] [id number] [facility] [id number] N/A [place] Medical Assistance [facility] Medical Kennedi tance Prog [id number] N/A Wppa Wppa [id number] Friday, ctober 2008 UMR UMR [id number] Friday, [facility] [id number] N/A Cigna Cigna [id number] Friday, 2010 [facility] Assistance [facility] Medical Kennedi tance Prog [id number] Friday, 2010 Cigna Cigna [id number] Friday, 2010 History of Encounters Visit Date [...] MD 04/30/2017 Office visit Maria Victoria stephen EMULSION OPERATOR 02/09/2017 Office visit Yessica Cuenca APR N 06/04/2016 Office visit Yessica Cuenca APR N 05/14/2016 Office visit Codi Guerra EMULSION OPERATOR 04/22/2016 Office visit Kanu Rodríguez APR N 03/20/2016 Office visit Kanu Rodríguez APR N 02/06/2016 Office visit Kanu Rodríguez APR N 01/04/2016 Office visit Kanu Rodríguez APR N 10/05/2015 Office visit Dayne Taylor DO 09/28/2015 Office visit Capri Colby EMULSION OPERATOR 09/26/2015 Office visit Kanu Rodríguez APR N 07/24/2015 Office visit Dayne Taylor DO 05/03/2015 Office visit Capri Colby EMULSION OPERATOR 02/09/2015 Office visit Dayne Taylor DO 01/02/2015 Office visit Katie TORRES RN 01/01/2015 [facility] Florecita Mayfield MD 12/05/2014 Office visit Capri Colby EMULSION OPERATOR 11/28/2014 Office visit Katie TORRES RN 11/08/2014 Office visit Katie TORRES RN 10/20/2014 Office visit Katie TORRES RN 08/29/2014 Office visit Capri Colby EMULSION OPERATOR 08/22/2014 Office visit Capri Colby EMULSION OPERATOR 07/06/2014 Office visit 07/06/2014 Office visit Capri Colby EMULSION OPERATOR 06/28/2014 Office visit 06/28/2014 Office visit Capri Colby EMULSION OPERATOR 04/07/2014 Office visit Capri Colby EMULSION OPERATOR 03/24/2014 Office visit Capri Colby EMULSION OPERATOR 01/04/2014 Office visit Dayne Taylor DO 12/01/2013 Office visit Capri Colby EMULSION OPERATOR 10/27/2013 Office visit Dayne Taylor DO 08/20/2013 Office visit Kanu Rodríguez APR N 05/18/2013 Office visit Capri Colby EMULSION OPERATOR 12/01/2012 Office visit Dayne Taylor DO 03/09/2012 Office visit Capri Colby EMULSION OPERATOR 12/03/2011 Office visit Dayne Taylor DO [...]
--- OUTSIDE RECORDS SUMMARY | 2019-09-13 07:46 | XMS REPORT ---
Author Author Jo Gillette Organization [facility] Address [address] [place] [id number] Care Team Providers Care Affirmative Action Specialist Name Role Phone Cinthia Gillette PCP Brandon Dayne PreferredProvider Allergies and Adverse Reactions Name Reaction Notes erythromycin vomiting SULFA (SULFONAMIDES) Plan of Treatment Planned Activity Comments Planned Date Planned Time Plan/Goal 1 hour glucose tolerance test 10/20/2017 12:00 AM CBC + platelets + diff auto 10/20/2017 12:00 AM FERRITIN 10/20/2017 12:00 AM Nasal bone fracture and Left [...] oral route every 4-6 hours as needed Name Start Date Expiration [...] tab Po q 4 hours for n/v Discontinued Name Start Date Discontinued Date SIG [...] US >/= 14 WKS SNGL FETUS Reviewed 03/06/2009 12:00 AM US EXAM PELVIC COMPLETE Reviewed 03/24/2014 12:00 AM SPECIMEN HANDLING OFFICE-LAB Reviewed 03/24/2014 12:00 AM CYTOPATH C/V MANUAL Reviewed 03/24/2014 12:00 AM CHYLMD TRACH DNA AMP PROBE Reviewed 03/24/2014 12:00 AM N.GONORRHOEAE DNA AMP PROB Reviewed 04/07/2014 2:44 PM URINE TEST Reviewed 06/28/2014 12:00 AM THER/PROPH/DIAG INJ SC/IM Reviewed 06/28/2014 12:00 AM Bicillin CR, 1.2 million units [facility]# 6079 3-600-10 Reviewed 07/06/2014 11:29 AM URINE TEST Reviewed 07/06/2014 12:00 AM THER/PROPH/DIAG INJ SC/IM Reviewed 07/06/2014 12:00 AM Decadron, Per 1 Mg [facility]# [address]-18 Re viewed 07/06/2014 12:00 AM Depo-Medrol 40mg [...] (THC) NON-NEGAT SULAIMAN CALLED TO/BY DR. GERBER [id number] 01-22-11 [facility] Phencyclidine (PCP) NEGATIVE Cocaine NEGATIVE Methamphetamine [...] ve History Of Immunizations Name Date Admin [facility] Name Mf Code Trade Name Lot# Route [...] in second trimester Oct 20 2017 1:39PM Payers Insurance Name Company Name Plan Name Plan Number Policy Number Stephen cy Group Number Start Date [place] Prog - RHC [place] Prog - RH C [id number] N/A [facility] [id number] N/A [place] Medical Assistance [facility] Medical Kennedi tance Prog [id number] N/A Wppa Wppa [id number] Friday, O ctober 2008 UMR UMR [id number] Friday, [facility] 2009 [facility] [id number] N/A Cigna Cigna [id number] Friday, September 17, 2010 [facility] Assistance [facility] Knenedi Mcqueen [id number] Friday, November 26, 2010 [employer] Manley [id number] Friday, September 17, 2010 History of Encounters Visit Date Visit Type Provider 10/20/[address] Cinthia hudson MD 09/29/[address] Cinthia hudson MD 09/23/[address] Cinthia hudson MD 09/02/2017 Office visit Juan Hudson 07/31/[address] Cinthia hudson MD 07/03/2017 Office visit Juan Hudson 06/05/[address] Cinthia hudson MD 05/13/[address] Cinthia hudson MD 04/30/2017 Office visit Maria Victoria stephen TAR HEATER OPERATOR 02/09/2017 Office visit Yessica Cuenca APR N 06/04/2016 Office visit Yessica Cuenca APR N 05/14/2016 Office visit Codi Guerra TAR HEATER OPERATOR 04/22/2016 Office visit Kanu Bentonran APR N 03/20/2016 Office visit Kanu Rodríguez APR N 02/06/2016 Office visit Kanu Rodríguez APR N 01/04/2016 Office visit Kanu Rodríguez APR N 10/05/2015 Office visit Dayne Taylor DO 09/28/2015 Office visit Capri Colby TAR HEATER OPERATOR 09/26/2015 Office visit Kanu Bentonran APR N 07/24/2015 Office visit Dayne Taylor DO 05/03/2015 Office visit Capri Colby TAR HEATER OPERATOR 02/09/2015 Office visit Dayne Taylor DO 01/02/2015 Office visit Katie TORRES RN 01/01/2015 Amber Mayfield MD 12/05/2014 Office visit Capri Colby TAR HEATER OPERATOR 11/28/2014 Office visit Katie TORRES RN 11/08/2014 Office visit Katie TORRES RN 10/20/2014 Office visit Katie TORRES RN 08/29/2014 Office visit Capri Colby TAR HEATER OPERATOR 08/22/2014 Office visit Capri Colby TAR HEATER OPERATOR 07/06/2014 Office visit 07/06/2014 Office visit Capri Colby TAR HEATER OPERATOR 06/28/2014 Office visit 06/28/2014 Office visit Capri Colby TAR HEATER OPERATOR 04/07/2014 Office visit Capri Colby TAR HEATER OPERATOR 03/24/2014 Office visit Capri Colby TAR HEATER OPERATOR 01/04/2014 Office visit Dayne Padronhite DO 12/01/2013 Office visit Capri Colby TAR HEATER OPERATOR 10/27/2013 Office visit Dayne Brandon DO 08/20/2013 Office visit Kanu Rodríguez APR N 05/18/2013 Office visit Capri Colby TAR HEATER OPERATOR 12/01/2012 Office visit Dayne Taylor DO 03/09/2012 Office visit Capri Colby TAR HEATER OPERATOR 12/03/2011 Office visit Dayne Owenste DO 10/14/2011 Office visit Dayne Taylor DO 09/23/2011 Office visit Dayne Taylor DO 06/04/2011 Office visit Richardson Gerber MD 05/20/2011 Office visit Richardson Gerber MD 05/03/2011 [facility] Richardson Gerber MD 04/29/2011 Office [...] 02/11/2011 Office visit Richardson Gerber MD 02/11/2011 [facility] Richardson Gerber MD 02/05/2011 Voided Richardson Gerber MD 01/22/2011 Office visit Richardson Gerber MD 01/16/2011 Office visit Richardson Gerber MD 12/24/2010 Office visit Richardson Gerber MD 11/29/2010 Office visit Richardson Gerber MD 11/26/2010 Office visit Richardson Gerber MD 10/22/2010 Office visit Richardson Gerber MD 09/17/2010 Office visit Richardson Gerber MD 07/19/2010 Office visit Dayne Taylor DO 06/08/2010 Office visit Capri Colby TAR HEATER OPERATOR 03/27/2010 Office visit Dayne Taylor DO 03/07/2010 Office visit Yulisa MOYA 08/31/2009 Office visit Yulisa MOYA 05/01/2009 Office visit Joann MOYA 03/06/2009 Office visit Yulisa MOYA 02/02/2009 Office visit Yulisa MOYA 01/02/2009 Office visit Yulisa MOYA 10/26/2008 Office visit YULISA FRANCIS PA-C
--- OUTSIDE RECORDS SUMMARY | 2019-09-13 07:46 | XMS REPORT ---
Author Author Jo Gillette [facility] Address [address] [place] [id number] Care Team Providers Care Pick Pack Worker Name Role Phone Cinthia Gillette PCP Dayne [...] 12:00 AM Bicillin CR, 1.2 million units [facility]# 6079 3-600-10 Reviewed 07/06/2014 11:29 AM URINE TEST Reviewed 07/06/2014 12:00 AM THER/PROPH/DIAG INJ SC/IM Reviewed 07/06/2014 12:00 AM Decadron, Per 1 Mg [facility]# [address]-43 Re viewed 07/06/2014 12:00 AM Depo-Medrol 40mg [...] (THC) NON-NEGAT SULAIMAN CALLED TO/BY DR. GERBER [id number] 01-22-11 [facility] Phencyclidine (PCP) NEGATIVE Cocaine NEGATIVE Methamphetamine [...] Number Stephen cy Group Number Start Date [place] Prog - RHC [place] Prog - RH C [id number] N/A [facility] [address] [facility] [id number] N/A [place] Medical Assistance Program [facility] Kennedi macrina Pro [id number] N/A Wppa Wppa [id number] Friday, ctober 2008 UMR UMR [id number] Friday, [facility] 2009 Childrenashanti De La Garza [facility] [id number] N/A Cigna Cigna [id number] Friday, 2010 [facility] Kennedi Mcqueen [id number] Friday, 2010 Cigna Cigna [id number] Friday, 2010 History of Encounters Visit Date [...] MD 04/30/2017 Office visit Maria Victoria stephen BACK TENDER PULP DRIER 02/09/2017 Office visit Yessica Cuenca APR N 06/04/2016 Office visit Yessica Cuenca APR N 05/14/2016 Office visit Codi Guerra BACK TENDER PULP DRIER 04/22/2016 Office visit Kanu Rodríguez APR N 03/20/2016 Office visit Kanu Rodríguez APR N 02/06/2016 Office visit Kanu Rodríguez APR N 01/04/2016 Office visit Kanu Rodríguez APR N 10/05/2015 Office visit Dayne Taylor DO 09/28/2015 Office visit Capri Colby BACK TENDER PULP DRIER 09/26/2015 Office visit Kanu Rodríguez APR N 07/24/2015 Office visit Dayne Taylor DO 05/03/2015 Office visit Capri Colby BACK TENDER PULP DRIER 02/09/2015 Office visit Dayne Taylor DO 01/02/2015 Office visit Katie TORRES RN 01/01/2015 Amber Mayfield MD 12/05/2014 Office visit Capri Colby BACK TENDER PULP DRIER 11/28/2014 Office visit Katie TORRES RN 11/08/2014 Office visit Katie TORRES RN 10/20/2014 Office visit Katie TORRES RN 08/29/2014 Office visit Capri Colby BACK TENDER PULP DRIER 08/22/2014 Office visit Capri Colby BACK TENDER PULP DRIER 07/06/2014 Office visit 07/06/2014 Office visit Capri Colby BACK TENDER PULP DRIER 06/28/2014 Office visit 06/28/2014 Office visit Capri Colby BACK TENDER PULP DRIER 04/07/2014 Office visit Capri Colby BACK TENDER PULP DRIER 03/24/2014 Office visit Capri Colby BACK TENDER PULP DRIER 01/04/2014 Office visit Dayne Taylor DO 12/01/2013 Office visit Capri Lasha BACK TENDER PULP DRIER 10/27/2013 Office visit Dayne Taylor DO 08/20/2013 Office visit Kanu Rodríguez APR N 05/18/2013 Office visit Capri Colby BACK TENDER PULP DRIER 12/01/2012 Office visit Dayne Taylor DO 03/09/2012 Office visit Capri Colby BACK TENDER PULP DRIER 12/03/2011 Office visit Dayne Taylor DO 10/14/2011 Office visit Dayne Taylor DO 09/23/2011 Office visit Dayne Taylor DO 06/04/2011 Office visit Richardson Gerber MD 05/20/2011 Office visit Richardson Gerber MD 05/03/2011 [facility] Richardson Gerber MD 04/29/2011 Office visit [...] 02/11/2011 Office visit Richardson Gerber MD 02/11/2011 [facility] Richardson Gerber MD 02/05/2011 Voided Richardson Gerber MD 01/22/2011 Office visit Richardson Gerber MD 01/16/2011 Office visit Richardson Gerber MD 12/24/2010 Office visit Richardson Gerber MD 11/29/2010 Office visit Richardson Gerber MD 11/26/2010 Office visit Richardson Gerber MD 10/22/2010 Office visit Richardson Gerber MD 09/17/2010 Office visit Richardson Gerber MD 07/19/2010 Office visit Dayne Taylor DO 06/08/2010 Office visit Capri Colby BACK TENDER PULP DRIER 03/27/2010 Office visit Dayne Taylor DO 03/07/2010 Office visit Yulisa MOYA 08/31/2009 Office visit Yulisa MOYA 05/01/2009 Office visit Joann MOYA 03/06/2009 Office visit Yulisa MOYA 02/02/2009 Office visit Yulisa MOYA 01/02/2009 Office visit Yulisa MOYA 10/26/2008 Office visit YULISA FRANCIS PA-C
--- OUTSIDE RECORDS SUMMARY | 2019-09-13 07:47 | XMS REPORT ---
Author Author Jo Gillette Organization [facility] Address [address] [place] [id number] Care Team Providers Care Access Assoc Name Role Phone Cinthia Gillette PCP Brandon [...] AM Bicillin CR, 1.2 million units [facility]# 6079 3-600-10 Reviewed 07/06/2014 11:29 AM URINE TEST Reviewed 07/06/2014 12:00 AM THER/PROPH/DIAG INJ SC/IM Reviewed 07/06/2014 12:00 AM Decadron, Per 1 Mg [facility]# [address]-54 Re viewed 07/06/2014 12:00 AM Depo-Medrol 40mg [...] (THC) NON-NEGAT SULAIMAN CALLED TO/BY DR. 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 Prog - RH C [id number] N/A [facility] [id number] N/A [place] Medical Assistance [facility] Medical Kennedi tance Prog [id number] N/A Wppa Wppa [id number] Friday, O ctober 2008 UMR UMR [id number] Friday, [facility] 2009 [facility] [id number] N/A Cigna Cigna [id number] Friday, 2010 [facility] Assistance [facility] Kennedi Mcqueen [id number] Friday, 2010 [employer] Manley [id number] Friday, 2010 History of Encounters Visit Date [...] MD 04/30/2017 Office visit Maria Victoria stephen FLOORING PROFESSIONAL 02/09/2017 Office visit Yessica Cuenca APR N 06/04/2016 Office visit Yessica Cuenca APR N 05/14/2016 Office visit Codi Guerra FLOORING PROFESSIONAL 04/22/2016 Office visit Kanu Bentonran APR N 03/20/2016 Office visit Kanu Rodríguez APR N 02/06/2016 Office visit Kanu Rodríguez APR N 01/04/2016 Office visit Kanu Rodríguez APR N 10/05/2015 Office visit Dayne Taylor DO 09/28/2015 Office visit Capri Colby FLOORING PROFESSIONAL 09/26/2015 Office visit Kanu Bentonran APR N 07/24/2015 Office visit Dayne Taylor DO 05/03/2015 Office visit Capri Colby FLOORING PROFESSIONAL 02/09/2015 Office visit Dayne Taylor DO 01/02/2015 Office visit Katie TORRES RN 01/01/2015 Amber Mayfield MD 12/05/2014 Office visit Capri Colby FLOORING PROFESSIONAL 11/28/2014 Office visit Katie TORRES RN 11/08/2014 Office visit Katie TORRES RN 10/20/2014 Office visit Katie TORRES RN 08/29/2014 Office visit Capri Colby FLOORING PROFESSIONAL 08/22/2014 Office visit Capri Colby FLOORING PROFESSIONAL 07/06/2014 Office visit 07/06/2014 Office visit Capri Colby FLOORING PROFESSIONAL 06/28/2014 Office visit 06/28/2014 Office visit Capri Colby FLOORING PROFESSIONAL 04/07/2014 Office visit Capri Colby FLOORING PROFESSIONAL 03/24/2014 Office visit Capri Colby FLOORING PROFESSIONAL 01/04/2014 Office visit Dayne Padronhite DO 12/01/2013 Office visit Capri Colby FLOORING PROFESSIONAL 10/27/2013 Office visit Dayne Brandon DO 08/20/2013 Office visit Kanu Rodríguez APR N 05/18/2013 Office visit Capri Colby FLOORING PROFESSIONAL 12/01/2012 Office visit Dayne Taylor DO 03/09/2012 Office visit Capri Colby FLOORING PROFESSIONAL 12/03/2011 Office visit Dayne Owenste DO 10/14/2011 Office visit Dayne Taylor DO 09/23/2011 Office visit Dayne Taylor DO 06/04/2011 Office visit Richardson Gerber MD 05/20/2011 Office visit Richardson Gerber MD 05/03/2011 [facility] [place] Gerber MD 04/29/2011 Office visit Richardson Gerber [...] Office visit Richardson Gerber MD 02/11/2011 [facility] Richardson Gerber MD 02/05/2011 Voided Richardson Gerber MD 01/22/2011 Office visit Richardson Gerber MD 01/16/2011 Office visit Richardson Gerber MD 12/24/2010 Office visit Richardson Gerber MD 11/29/2010 Office visit Richardson Gerber MD 11/26/2010 Office visit Richardson Gerber MD 10/22/2010 Office visit Richardson Gerber MD 09/17/2010 Office visit Richardson Gerber MD 07/19/2010 Office visit Dayne Taylor DO 06/08/2010 Office visit Capri Colby FLOORING PROFESSIONAL 03/27/2010 Office visit Dayne Taylor DO 03/07/2010 Office visit Yulisa MOYA 08/31/2009 Office visit Yulisa MOYA 05/01/2009 Office visit Joann MOYA 03/06/2009 Office visit Yulisa MOYA 02/02/2009 Office visit Yulisa MOYA 01/02/2009 Office visit Yulisa MOYA 10/26/2008 Office visit YULISA FRANCIS PA-C
--- OUTSIDE RECORDS SUMMARY | 2019-09-13 07:47 | XMS REPORT ---
Author Author Jo Gillette Organization [facility] Address [address] [place] [phone] Care Team Providers Care Almond Roaster Name Role Phone Cinthia Gillette PCP Brandon [...] 12:00 AM Bicillin CR, 1.2 million units [facility]# 6079 3-600-10 Reviewed 07/06/2014 11:29 AM URINE TEST Reviewed 07/06/2014 12:00 AM THER/PROPH/DIAG INJ SC/IM Reviewed 07/06/2014 12:00 AM Decadron, Per 1 Mg [facility]# [address]-22 Re viewed 07/06/2014 12:00 AM Depo-Medrol 40mg [...] (THC) NON-NEGAT SULAIMAN CALLED TO/BY DR. GERBER 8960 01-22-11 [facility] Phencyclidine (PCP) NEGATIVE Cocaine NEGATIVE Methamphetamine [...] ve History Of Immunizations Name Date Admin [facility] Name Mf Code Trade Name Lot# Route [...] Stephen cy Group Number Start Date [place] Floor Layer Prog - RHC [place] Floor Layer Prog - RH C [id number] N/A [facility] [id number] N/A [place] Medical Assistance [facility] Medical Kennedi tance Prog [id number] N/A Wppa Wppa [id number] Friday, O ctober 2008 UMR UMR [id number] Friday, [facility] 2009 [facility] [id number] N/A Cigna Cigna [id number] Friday, 2010 [facility] Assistance [facility] Kennedi Mcqueen [id number] Friday, 2010 [employer] Manley [id number] Friday, 2010 History of Encounters Visit Date [...] MD 04/30/2017 Office visit Maria Victoria stephen PROFESSIONAL BASS FISHERMAN 02/09/2017 Office visit Yessica Cuenca APR N 06/04/2016 Office visit Yessica Cuenca APR N 05/14/2016 Office visit Codi Guerra PROFESSIONAL BASS FISHERMAN 04/22/2016 Office visit Kanu Bentonran APR N 03/20/2016 Office visit Kanu Rodríguez APR N 02/06/2016 Office visit Kanu Rodríguez APR N 01/04/2016 Office visit Kanu Rodríguez APR N 10/05/2015 Office visit Dayne Taylor DO 09/28/2015 Office visit Capri Colby PROFESSIONAL BASS FISHERMAN 09/26/2015 Office visit Kanu Bentonran APR N 07/24/2015 Office visit Dayne Taylor DO 05/03/2015 Office visit Capri Colby PROFESSIONAL BASS FISHERMAN 02/09/2015 Office visit Dayne Taylor DO 01/02/2015 Office visit Katie TORRES RN 01/01/2015 Amber Mayfield MD 12/05/2014 Office visit Capri Colby PROFESSIONAL BASS FISHERMAN 11/28/2014 Office visit Katie TORRES RN 11/08/2014 Office visit Katie TORRES RN 10/20/2014 Office visit Katie TORRES RN 08/29/2014 Office visit Capri Colby PROFESSIONAL BASS FISHERMAN 08/22/2014 Office visit Capri Colby PROFESSIONAL BASS FISHERMAN 07/06/2014 Office visit 07/06/2014 Office visit Capri Colby PROFESSIONAL BASS FISHERMAN 06/28/2014 Office visit 06/28/2014 Office visit Capri Colby PROFESSIONAL BASS FISHERMAN 04/07/2014 Office visit Capri Colby PROFESSIONAL BASS FISHERMAN 03/24/2014 Office visit Capri Colby PROFESSIONAL BASS FISHERMAN 01/04/2014 Office visit Dayne Padronhite DO 12/01/2013 Office visit Capri Colby PROFESSIONAL BASS FISHERMAN 10/27/2013 Office visit Dayne Brandon DO 08/20/2013 Office visit Kanu Rodríguez APR N 05/18/2013 Office visit Capri Colby PROFESSIONAL BASS FISHERMAN 12/01/2012 Office visit Dayne Taylor DO 03/09/2012 Office visit Capri Colby PROFESSIONAL BASS FISHERMAN 12/03/2011 Office visit Dayne Owenste DO 10/14/2011 Office visit Dayne Taylor DO 09/23/2011 Office visit Dayne Taylor DO 06/04/2011 Office visit Richardson Gerber MD 05/20/2011 Office visit Richardson Gerber MD 05/03/2011 [facility] Richardson Gerber MD 04/29/2011 Office visit [...] 02/11/2011 Office visit Richardson Gerber MD 02/11/2011 [facility] Richardson Gerber MD 02/05/2011 Voided Richardson Gerber MD 01/22/2011 Office visit Richardson Gerber MD 01/16/2011 Office visit Richardson Gerber MD 12/24/2010 Office visit Richardson Gerber MD 11/29/2010 Office visit Richardson Gerber MD 11/26/2010 Office visit Richardson Gerber MD 10/22/2010 Office visit Richardson Gerber MD 09/17/2010 Office visit Richardson Gerber MD 07/19/2010 Office visit Dayne Taylor DO 06/08/2010 Office visit Capri Colby PROFESSIONAL BASS FISHERMAN 03/27/2010 Office visit Dayne Taylor DO 03/07/2010 Office visit Yulisa MOYA 08/31/2009 Office visit Yulisa MOYA 05/01/2009 Office visit Joann MOYA 03/06/2009 Office visit Yulisa MOYA 02/02/2009 Office visit Yulisa MOYA 01/02/2009 Office visit Yulisa MOYA 10/26/2008 Office visit YULISA FRANCIS PA-C
--- OUTSIDE RECORDS SUMMARY | 2019-09-13 07:48 | XMS REPORT ---
Author Author [facility] oup Address [address] [place] [phone] Care Team Providers Care Certified [place] Administrator Name Role Phone Cinthia Gillette PCP Dayne [...] 12:00 AM Bicillin CR, 1.2 million units [facility]# 6079 3-600-10 Reviewed 07/06/2014 11:29 AM URINE TEST Reviewed 07/06/2014 12:00 AM THER/PROPH/DIAG INJ SC/IM Reviewed 07/06/2014 12:00 AM Decadron, Per 1 Mg [facility]# [address]-05 Re viewed 07/06/2014 12:00 AM Depo-Medrol 40mg [...] SULAIMAN CALLED TO/BY DR. GERBER 1540 01-22-11 [facility] Phencyclidine (PCP) NEGATIVE Cocaine NEGATIVE Methamphetamine [...] Of Immunizations Name Date Admin Mf Name Mfg Code Trade Name Lot# Route [...] Encounter for initial prescription of contraceptive pills oZran cooney 2 2016 3:10PM Facial fracture Jul [...] in second trimester Jul 31 2017 11:43AM Payers Insurance Name Company Name Plan Name Plan Number Policy Number Stephen cy Group Number Start Date [place] Lead Handler Prog - RHC [facility] Asst Prog - C [id number] N/A [facility] [id number] N/A [facility] Medical Kennedi tance Prog [id number] N/A Wppa Wppa [id number] Friday, O ctober 2008 UMR UMR [id number] Friday, [place] [facility] [id number] N/A Cigna Cigna [id number] Friday, 2010 [facility] Medical Kennedi tance Prog [id number] Friday, 2010 Cigna Cigna [id number] Friday, 2010 History of Encounters Visit Date Visit Type Provider 10/20/[address] Cinthia hudson MD 09/29/[address] Cinthia hudson MD 09/23/[address] Cinthia hudson MD 09/02/2017 Office visit Juan Hudson 07/31/[address] Cinthia hudson MD 07/03/2017 Office visit Juan Hudson 06/05/[address] iCnthia hudson MD 05/13/[address] Cinthia hudson MD 04/30/2017 Office visit Maria Victoria stephen FIELD HANDYMAN 02/09/2017 Office visit Yessica LSparkle Cuenca APR N 06/04/2016 Office visit Yessica Cuenca APR N 05/14/2016 Office visit Codi Guerra FIELD HANDYMAN 04/22/2016 Office visit Kanu Bentonran APR N 03/20/2016 Office visit Kanu Bentonran APR N 02/06/2016 Office visit Kanu Bentonran APR N 01/04/2016 Office visit Kanu Bentonran APR N 10/05/2015 Office visit aDyne Taylor DO 09/28/2015 Office visit Capri Colby FIELD HANDYMAN 09/26/2015 Office visit Kanu Rodríguez APR N 07/24/2015 Office visit Dayne Taylor DO 05/03/2015 Office visit Capri Colby FIELD HANDYMAN 02/09/2015 Office visit Dayne Taylor DO 01/02/2015 Office visit Katie TORRES RN 01/01/2015 Amber Mayfield MD 12/05/2014 Office visit Capri Colby FIELD HANDYMAN 11/28/2014 Office visit Katie TORRES RN 11/08/2014 Office visit Katei TORRES RN 10/20/2014 Office visit Katie TORRES RN 08/29/2014 Office visit Capri Colby FIELD HANDYMAN 08/22/2014 Office visit Capri Colby FIELD HANDYMAN 07/06/2014 Office visit 07/06/2014 Office visit Capri Colby FIELD HANDYMAN 06/28/2014 Office visit 06/28/2014 Office visit Capri Colby FIELD HANDYMAN 04/07/2014 Office visit Capri Colby FIELD HANDYMAN 03/24/2014 Office visit Capri Colby FIELD HANDYMAN 01/04/2014 Office visit Dayne Padronhite DO 12/01/2013 Office visit Capri Colby FIELD HANDYMAN 10/27/2013 Office visit Dayne Taylor DO 08/20/2013 Office visit Kanu Rodríguez APR N 05/18/2013 Office visit Capri Colby FIELD HANDYMAN 12/01/2012 Office visit Dayne Brandon DO 03/09/2012 Office visit Capri Colby FIELD HANDYMAN 12/03/2011 Office visit Dayne Taylor DO 10/14/2011 [...] Taylor DO 06/08/2010 Office visit Capri Colby FIELD HANDYMAN 03/27/2010 Office visit Dayne Taylor DO 03/07/2010 Office visit Yulisa MOYA 08/31/2009 Office visit Yulisa MOYA 05/01/2009 Office visit Joann MOYA 03/06/2009 Office visit Yulisa MOYA 02/02/2009 Office visit Yulisa MOYA 01/02/2009 Office visit Yulisa MOYA 10/26/2008 Office visit YULISA FRANCIS PA-C
--- OUTSIDE RECORDS SUMMARY | 2019-09-13 07:49 | XMS REPORT ---
Author Author [facility] Address [address] [place] [phone] Care Team Providers Care Heat Plant Specialist Name Role Phone Cinthia Gillette PCP Dayne [...] Date Estimated Completion Date SIG Co mments Metrogel Vaginal 0.75 % vaginal gel 05/06/2017 insert 1 applicatorful (37.5 mg) by vaginal route once daily at bedtime for 5 days Lexapro 20 mg oral tablet take 1/2 tablet (10 mg) by oral route once daily Vitamin oral tablet take 1 table t by oral route once daily Fioricet 50-300-40 mg oral capsule 07/31/2017 take 1 - 2 capsules by oral route every 4 hours as needed not to exceed 6 capsules per 24hrs promethazine 25 mg oral tablet 09/23/2017 t pavan 1 tablet (25 mg) by [...] nausea/vomting Latuda 20 mg oral tablet 05/13/2017 Problem List Description Status Onset ADHD Active [...] Mg [facility]# [address]-69 Re viewed 07/06/2014 12:00 AM Depo-Medrol 40mg [...] (THC) NON-NEGAT SULAIMAN CALLED TO/BY DR. GERBER 5264 01-22-11 [facility] Phencyclidine (PCP) NEGATIVE Cocaine NEGATIVE [...] ve History Of Immunizations Name Date Admin [facility] Name Mf Code Trade Name Lot# Route [...] Stephen cy Group Number Start Date [place] Utilization Review Rn Prog - RHC [place] Utilization Review Rn Prog - RH C [id number] N/A [facility] [id number] N/A [facility] Kennedi tance Prog [id number] N/A Wppa Wppa [id number] Friday, ctober 2008 [facility] UMR [id number] Friday, [facility] 2009 [facility] [id number] N/A Cigna Cigna [id number] Friday, 2010 [facility] Kennedi tance Prog [id number] Friday, 2010 Cigna Cigna [id number] Friday, 2010 History of Encounters Visit Date Visit Type Provider 09/29/[address] Cinthia hudson MD 09/23/[address] Cinthia hudson MD 09/02/2017 Office visit Juan Hudson 07/31/[address] Cinthia hudson MD 07/03/2017 Office visit Juan Hudson 06/05/[address] Cinthia hudson MD 05/13/[address] Cinthia hudson MD 04/30/2017 Office visit Maria Victoria SheylaSparkle stephen FRUIT I FARMWORKER 02/09/2017 Office visit Yessica Cuenca APR N 06/04/2016 Office visit Yessica Maong APR N 05/14/2016 Office visit Codi Guerra FRUIT I FARMWORKER 04/22/2016 Office visit Kanu Bentonran APR N 03/20/2016 Office visit Kanu Rodríguez APR N 02/06/2016 Office visit Kanu Rodríguez APR N 01/04/2016 Office visit Kanu Rodríguez APR N 10/05/2015 Office visit Dayne Brandon DO 09/28/2015 Office visit Capri Colby FRUIT I FARMWORKER 09/26/2015 Office visit Kanu Rodríguez APR N 07/24/2015 Office visit Dayne Brandon DO 05/03/2015 Office visit Capri Colby FRUIT I FARMWORKER 02/09/2015 Office visit Dayne Brandon DO 01/02/2015 Office visit Katie TORRES RN 01/01/2015 [facility] Florecita Mayfield MD 12/05/2014 Office visit Capri Colby FRUIT I FARMWORKER 11/28/2014 Office visit Katie TORRES RN 11/08/2014 Office visit Katie TORRES RN 10/20/2014 Office visit Katie TORRES RN 08/29/2014 Office visit Capri Colby FRUIT I FARMWORKER 08/22/2014 Office visit Capri Walker FRUIT I FARMWORKER 07/06/2014 Office visit 07/06/2014 Office visit Capri Walker FRUIT I FARMWORKER 06/28/2014 Office visit 06/28/2014 Office visit Capri Colby FRUIT I FARMWORKER 04/07/2014 Office visit Capri Colby FRUIT I FARMWORKER 03/24/2014 Office visit Capri Walker FRUIT I FARMWORKER 01/04/2014 Office visit Dayne Brandon DO 12/01/2013 Office visit Capri Colby FRUIT I FARMWORKER 10/27/2013 Office visit Dayne Brandon DO 08/20/2013 Office visit Kanu Bentonran APR N 05/18/2013 Office visit Capri Colby FRUIT I FARMWORKER 12/01/2012 Office visit Dayne Brandon DO 03/09/2012 Office visit Capri Colby FRUIT I FARMWORKER 12/03/2011 Office visit Dayne Owenste DO 10/14/2011 Office visit Dayne Brandon DO 09/23/2011 Office visit Dayne Owenste DO 06/04/2011 Office visit Richardson Gerber MD [...] Taylor DO 06/08/2010 Office visit Capri Colby FRUIT I FARMWORKER 03/27/2010 Office visit Dayne Owenste DO 03/07/2010 Office visit Yulisa MOYA 08/31/2009 Office visit Yulisa MOYA 05/01/2009 Office visit Joann MOYA 03/06/2009 Office visit Yulisa MOYA 02/02/2009 Office visit Yulisa MOYA 01/02/2009 Office visit Yulisa MOYA 10/26/2008 Office visit YULISA FRANCIS PA-C
--- OUTSIDE RECORDS SUMMARY | 2019-09-13 07:49 | XMS REPORT ---
Author Author [facility] Physicians oup Address [address] [place] [phone] Care Team Providers Care Director Of Sustainable Design Name Role Phone Cinthia Gillette PCP Dayne [...] oral route every 4-6 hours as needed Latuda 20 mg oral tablet take 1 tablet (20 mg) by oral route once daily with food (at least 350 calories) Name Start Date Expiration Date SIG Comments [...] 1 Mg [facility]# [address]-13 Re viewed 07/06/2014 12:00 AM Depo-Medrol 40mg [...] SULAIMAN CALLED TO/BY DR. 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 - RHC [facility] Asst Prog - C [id number] N/A [facility] [id number] N/A [facility] Medical Kennedi tance Prog [id number] N/A Wppa Wppa [id number] Friday, O ctober 2008 UMR UMR [id number] Friday, [place] [facility] [id number] N/A Cigna Cigna [id number] Friday, 2010 [facility] Medical Kennedi tance Prog [id number] Friday, 2010 Cigna Cigna [id number] Friday, 2010 History of Encounters Visit Date Visit Type Provider 09/29/[address] Cinthia hudson MD 09/23/[address] Cinthia hudson MD 09/02/2017 Office visit Juan Hudson 07/31/[address] Cinthia hudson MD 07/03/2017 Office visit Juan Hudson 06/05/[address] Cinthia hudson MD 05/13/[address] Cinthia hudson MD 04/30/2017 Office visit Maria Victoriaaung stephen TERMITE TECHNICIAN 02/09/2017 Office visit Yessica Cuenca APR N 06/04/2016 Office visit Yessica Cuenca APR N 05/14/2016 Office visit Codi Guerra TERMITE TECHNICIAN 04/22/2016 Office visit Kanu Bentonran APR N 03/20/2016 Office visit Kanu Bentonran APR N 02/06/2016 Office visit Kanu Bentonran APR N 01/04/2016 Office visit Kanu Bentonran APR N 10/05/2015 Office visit Dayne Taylor DO 09/28/2015 Office visit Capri Colby TERMITE TECHNICIAN 09/26/2015 Office visit Kanu Rodríguez APR N 07/24/2015 Office visit Dayne Taylor DO 05/03/2015 Office visit Capri Colby TERMITE TECHNICIAN 02/09/2015 Office visit Dayne Taylor DO 01/02/2015 Office visit Katie TORRSE RN 01/01/2015 [facility] Florecita aMyfield MD 12/05/2014 Office visit Capri Colby TERMITE TECHNICIAN 11/28/2014 Office visit Katie TORRES RN 11/08/2014 Office visit Katie TORRES RN 10/20/2014 Office visit Katie TORRES RN 08/29/2014 Office visit Capri Colby TERMITE TECHNICIAN 08/22/2014 Office visit Capri Colby TERMITE TECHNICIAN 07/06/2014 Office visit 07/06/2014 Office visit Capri Colby TERMITE TECHNICIAN 06/28/2014 Office visit 06/28/2014 Office visit Capri Colby TERMITE TECHNICIAN 04/07/2014 Office visit Capri Colby TERMITE TECHNICIAN 03/24/2014 Office visit Capri Colby TERMITE TECHNICIAN 01/04/2014 Office visit Dayne Taylor DO 12/01/2013 Office visit Capri Colby TERMITE TECHNICIAN 10/27/2013 Office visit Dayne Taylor DO 08/20/2013 Office visit Kanu Rodríguez APR N 05/18/2013 Office visit Capri Colby TERMITE TECHNICIAN 12/01/2012 Office visit Dayne Taylor DO 03/09/2012 Office visit Capri Colby TERMITE TECHNICIAN 12/03/2011 Office visit Dayne Taylor DO 10/14/2011 Office visit Dayne Taylor DO 09/23/2011 Office visit Dayne Taylor DO 06/04/2011 Office visit Richardson Gerber MD 05/20/2011 Office visit Richardson Gerber MD 05/03/2011 [facility] Richardson Gerber MD 04/29/2011 Office visit [...] 02/11/2011 Office visit Richardson Gerber MD 02/11/2011 [facility] Richardson Gerber MD 02/05/2011 Voided Richardson Gerber MD 01/22/2011 Office visit Richardson Gerber MD 01/16/2011 Office visit Richardson Gerber MD 12/24/2010 Office visit Richardson Gerber MD 11/29/2010 Office visit Richardson Gerber MD 11/26/2010 Office visit Richardson Gerber MD 10/22/2010 Office visit Richardson Gerber MD 09/17/2010 Office visit Richardson Gerber MD 07/19/2010 Office visit Dayne Taylor DO 06/08/2010 Office visit Capri Colby TERMITE TECHNICIAN 03/27/2010 Office visit Dayne Taylor DO 03/07/2010 Office visit Yulisa MOYA 08/31/2009 Office visit Yulisa MOYA 05/01/2009 Office visit Joann MOYA 03/06/2009 Office visit Yulisa MOYA 02/02/2009 Office visit Yulisa MOYA 01/02/2009 Office visit Yulisa MOYA 10/26/2008 Office visit YULISA FRANCIS PA-C
--- OUTSIDE RECORDS SUMMARY | 2019-09-13 07:50 | XMS REPORT ---
Author Author [facility] Physicians oup Address [address] [place] [phone] Care Team Providers Care Safety Compliance Specialist Name Role Phone Cinthia Gillette PCP [...] not to exceed 6 capsules per 24hrs Name Start Date Expiration Date SIG Comments [...] in 28.4507 kg/m 1.9957 m 100 % 09/23/2017 1:47:00 PM 105 mmHg 105 bpm [...] 12:00 AM Bicillin CR, 1.2 million units [facility]# 6079 3-600-10 Reviewed 07/06/2014 11:29 AM URINE TEST Reviewed 07/06/2014 12:00 AM THER/PROPH/DIAG INJ SC/IM Reviewed 07/06/2014 12:00 AM Decadron, Per 1 Mg [facility]# [address]-66 Re viewed 07/06/2014 12:00 AM Depo-Medrol 40mg [...] (THC) NON-NEGAT SULAIMAN CALLED TO/BY DR. GERBER 1969 01-22-[address] 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 [place] Tool[place] Helper Prog - RH C [id number] N/A [facility] [id number] N/A [facility] Medical Kennedi tance Prog [id number] N/A Wppa Wppa [id number] Friday, O ctober 2008 UMR UMR [id number] Friday, [facility] 2009 [facility] [id number] N/A Cigna Cigna [id number] Friday, 2010 [facility] Assistance [facility] Medical Kennedi tance Prog [id number] Friday, 2010 Cigna Cigna [id number] Friday, 2010 History of Encounters Visit Date Visit Type Provider 09/23/[address] Cinthia hudson MD 09/02/2017 Office visit Juan Hudson 07/31/[address] Cinthia hudson MD 07/03/2017 Office visit Juan Hudson 06/05/[address] Cinthia hudson MD 05/13/[address] Cinthia hudson MD 04/30/2017 Office visit Maria Victoria stephen CROSSING SUPERVISOR 02/09/2017 Office visit Yessica Cuenca APR N 06/04/2016 Office visit Yessica [facility]Sparkle [facility] APR N 05/14/2016 Office visit Codi Guerra CROSSING SUPERVISOR 04/22/2016 Office visit Kanu Bentonran APR N 03/20/2016 Office visit Kanu Rodríguez APR N 02/06/2016 Office visit Kanu Rodríguez APR N 01/04/2016 Office visit Kanu Rodríguez APR N 10/05/2015 Office visit Dayne Taylor DO 09/28/2015 Office visit Capri Colby CROSSING SUPERVISOR 09/26/2015 Office visit Kanu Bentonran APR N 07/24/2015 Office visit Dayne Brandon DO 05/03/2015 Office visit Capri Colby CROSSING SUPERVISOR 02/09/2015 Office visit Dayne Brandon DO 01/02/2015 Office visit Katie TORRES RN 01/01/2015 [facility] Florecita Mayfield MD 12/05/2014 Office visit Capri Colby CROSSING SUPERVISOR 11/28/2014 Office visit Katie TORRES RN 11/08/2014 Office visit Katie TORRES RN 10/20/2014 Office visit Katie TORRES RN 08/29/2014 Office visit Capri Colby CROSSING SUPERVISOR 08/22/2014 Office visit Capri Colby CROSSING SUPERVISOR 07/06/2014 Office visit 07/06/2014 Office visit Capri Colby CROSSING SUPERVISOR 06/28/2014 Office visit 06/28/2014 Office visit Capri Colby CROSSING SUPERVISOR 04/07/2014 Office visit Capri Colby CROSSING SUPERVISOR 03/24/2014 Office visit Capri Colby CROSSING SUPERVISOR 01/04/2014 Office visit Dayne Taylor DO 12/01/2013 Office visit Capri Colby CROSSING SUPERVISOR 10/27/2013 Office visit Dayne Taylor DO 08/20/2013 Office visit Kanu Rodríguez APR N 05/18/2013 Office visit Capri Colby CROSSING SUPERVISOR 12/01/2012 Office visit Dayne Taylor DO 03/09/2012 Office visit Capri Colby CROSSING SUPERVISOR 12/03/2011 Office visit Dayne Brandon DO 10/14/2011 [...] Taylor DO 06/08/2010 Office visit Capri Colby CROSSING SUPERVISOR 03/27/2010 Office visit Dayne Owenste DO 03/07/2010 Office visit Yulisa MOYA 08/31/2009 Office visit Yulisa MOYA 05/01/2009 Office visit Joann MOYA 03/06/2009 Office visit Yulisa MOYA 02/02/2009 Office visit Yulisa MOYA 01/02/2009 Office visit Yulisa MOYA 10/26/2008 Office visit YULISA FRANCIS PA-C
--- OUTSIDE RECORDS SUMMARY | 2019-09-13 07:50 | XMS REPORT ---
Author Author [facility] Physicians oup Address [address] [place] [phone] Care Team Providers Care Glue Spreading Machine Operator Name Role Phone Cinthia Gillette PCP Dayne [...] AM Bicillin CR, 1.2 million units [facility]# 6079 3-600-10 Reviewed 07/06/2014 11:29 AM URINE TEST Reviewed 07/06/2014 12:00 AM THER/PROPH/DIAG INJ SC/IM Reviewed 07/06/2014 12:00 AM Decadron, Per 1 Mg [facility]# [address]-99 Re viewed 07/06/2014 12:00 AM Depo-Medrol 40mg [...] (THC) NON-NEGAT SULAIMAN CALLED TO/BY DR. 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 Kennedi tance Prog [id number] N/A Wppa Wppa [id number] Friday, ctober 2008 [facility] UMR [id number] Friday, [facility] 2009 [facility] [id number] N/A Cigna Cigna [id number] Friday, 2010 [facility] Kennedi tance Prog [id number] Friday, 2010 Cigna Cigna [id number] Friday, 2010 History of Encounters Visit Date Visit Type Provider 09/23/[address] Cinthia hudson MD 09/02/2017 Office visit Juan Hudson 07/31/[address] Cinthia hudson MD 07/03/2017 Office visit Juan Hudson 06/05/[address] Cinthia hudson MD 05/13/[address] Cinthia hudson MD 04/30/2017 Office visit Maria Victoria Dye Alida stephen MANAGER GLOBAL 02/09/2017 Office visit Yessica AdamsSparkle [place] APR N 06/04/2016 Office visit Yessica AdamsSparkle [place] APR N 05/14/2016 Office visit Codi Guerra MANAGER GLOBAL 04/22/2016 Office visit Kanu Rodríguez APR N 03/20/2016 Office visit Kanu Bentonran APR N 02/06/2016 Office visit Kanu Bentonran APR N 01/04/2016 Office visit Kanu Bentonran APR N 10/05/2015 Office visit Dayne Brandon DO 09/28/2015 Office visit Capri Colby MANAGER GLOBAL 09/26/2015 Office visit Kanu Bentonran APR N 07/24/2015 Office visit Dayne Brandon DO 05/03/2015 Office visit Capri Colby MANAGER GLOBAL 02/09/2015 Office visit Dayne Brandon DO 01/02/2015 Office visit Katie TORRES RN 01/01/2015 [facility] Florecita Mayfield MD 12/05/2014 Office visit Capri Colby MANAGER GLOBAL 11/28/2014 Office visit Katie TORRES RN 11/08/2014 Office visit Katie TORRES RN 10/20/2014 Office visit Katie TORRES RN 08/29/2014 Office visit Capri Colby MANAGER GLOBAL 08/22/2014 Office visit Capri Colby MANAGER GLOBAL 07/06/2014 Office visit 07/06/2014 Office visit Capri Colby MANAGER GLOBAL 06/28/2014 Office visit 06/28/2014 Office visit Capri Colby MANAGER GLOBAL 04/07/2014 Office visit Capri Colby MANAGER GLOBAL 03/24/2014 Office visit Capri Colby MANAGER GLOBAL 01/04/2014 Office visit Dayne Brandon DO 12/01/2013 Office visit Capri Colby MANAGER GLOBAL 10/27/2013 Office visit Dayne Brandon DO 08/20/2013 Office visit Kanu Rodríguez APR N 05/18/2013 Office visit Capri Colby MANAGER GLOBAL 12/01/2012 Office visit Dayne Brandon DO 03/09/2012 Office visit Capri Colby MANAGER GLOBAL 12/03/2011 Office visit Dayne Taylor DO 10/14/2011 [...] Richardson Gerber MD 02/20/2011 Office visit Richardson Gebrer MD 02/12/2011 Office visit Richardson Gerber MD [...] Taylor DO 06/08/2010 Office visit Capri Colby MANAGER GLOBAL 03/27/2010 Office visit Dayne Taylor DO 03/07/2010 Office visit Yulisa MOYA 08/31/2009 Office visit Yulisa MOYA 05/01/2009 Office visit Joann MOYA 03/06/2009 Office visit Yulisa MOYA 02/02/2009 Office visit Yulisa MOYA 01/02/2009 Office visit Yulisa MOYA 10/26/2008 Office visit YULISA FRANCIS PA-C
[2019-09-13] MEDS: LACTATED RINGERS 1,000 ML IV PRN ×2 (07:51→08:31)
--- OUTSIDE RECORDS SUMMARY | 2019-09-13 07:51 | XMS REPORT ---
Author Author Jo Jeffries [facility] Address [address] [place] [id number] Care Team Providers Care Aquatics Manager Name Role Phone Juan Jeffries PCP Dayne [...] table t by oral route once daily Name Start Date Expiration Date SIG [...] HC BMI BSA BMI Percentile O2 Sat(%) 04/30/2017 3:56:00 PM 133 mmHg 81 mmHg [...] 12:00 AM HEPATITIS C AB TEST Reviewed 03/06/2009 12:00 AM US EXAM PELVIC COMPLETE Reviewed 03/24/2014 12:00 AM SPECIMEN HANDLING OFFICE-LAB Reviewed 03/24/2014 12:00 AM CYTOPATH C/V MANUAL Reviewed 03/24/2014 12:00 AM CHYLMD TRACH DNA AMP PROBE Reviewed 03/24/2014 12:00 AM N.GONORRHOEAE DNA AMP PROB Reviewed 04/07/2014 2:44 PM URINE TEST Reviewed 06/28/2014 12:00 AM THER/PROPH/DIAG INJ SC/IM Reviewed 06/28/2014 12:00 AM Bicillin CR, 1.2 million units [facility]# 6079 3-600-10 Reviewed 07/06/2014 11:29 AM URINE TEST Reviewed 07/06/2014 12:00 AM THER/PROPH/DIAG INJ SC/IM Reviewed 07/06/2014 12:00 AM Decadron, Per 1 Mg [facility]# [address]-06 Re viewed 07/06/2014 12:00 AM Depo-Medrol 40mg [...] (THC) NON-NEGAT SULAIMAN CALLED TO/BY DR. GERBER [id number] 01-22-11 SJM Phencyclidine (PCP) NEGATIVE Cocaine NEGATIVE [...] 3:59PM Tobacco abuse Apr 30 2017 3:59PM Payers Insurance Name Company Name Plan Name Plan Number Policy Number Stephen cy Group Number Start Date Cigna Cigna [id number] Friday, 2010 [facility] [id number] N/A [facility] Kennedi tance Prog [id number] N/A Wppa Wppa [id number] Friday, O ctober 2008 UMR UMR [id number] Friday, [facility] 2009 [facility] [id number] N/A Cigna Cigna [id number] Friday, 2010 [facility] Kennedi tance Prog [id number] Friday, 2010 History of Encounters Visit Date Visit Type Provider 07/03/2017 Office visit Juan An 06/05/[address] Cinthia an MD 05/13/[address] Cinthia an MD 04/30/2017 Office visit Maria Victoria stephen GENERAL SURGEON 02/09/2017 Office visit Yessica Cuenca APR N 06/04/2016 Office visit Yessica Cuenca APR N 05/14/2016 Office visit Codi Guerra GENERAL SURGEON 04/22/2016 Office visit Kanu Rodríguez APR N 03/20/2016 Office visit Kanu Rodríguez APR N 02/06/2016 Office visit Kanu Rodríguez APR N 01/04/2016 Office visit Kanu Rodríguez APR N 10/05/2015 Office visit Dayne Taylor DO 09/28/2015 Office visit Capri Colby GENERAL SURGEON 09/26/2015 Office visit Kanu Rodríguez APR N 07/24/2015 Office visit Dayne Taylor DO 05/03/2015 Office visit Capri Colby GENERAL SURGEON 02/09/2015 Office visit Dayne Taylor DO 01/02/2015 Office visit Katie TORRES RN 01/01/2015 [facility] Florecita Mayfield MD 12/05/2014 Office visit Capri Colby GENERAL SURGEON 11/28/2014 Office visit Katie TORRES RN 11/08/2014 Office visit Katie TORRES RN 10/20/2014 Office visit Katie TORRES RN 08/29/2014 Office visit Capri Colby GENERAL SURGEON 08/22/2014 Office visit Capri Colby GENERAL SURGEON 07/06/2014 Office visit 07/06/2014 Office visit Capri Colby GENERAL SURGEON 06/28/2014 Office visit 06/28/2014 Office visit Capri Colby GENERAL SURGEON 04/07/2014 Office visit Capri Colby GENERAL SURGEON 03/24/2014 Office visit Capri Colby GENERAL SURGEON 01/04/2014 Office visit Dayne Taylor DO 12/01/2013 Office visit Capri Colby GENERAL SURGEON 10/27/2013 Office visit Dayne Taylor DO 08/20/2013 Office visit Kanu Rodríguez APR N 05/18/2013 Office visit Capri Colby GENERAL SURGEON 12/01/2012 Office visit Dayne Taylor DO 03/09/2012 Office visit Capri Colby GENERAL SURGEON 12/03/2011 Office visit Dayne Taylor DO 10/14/2011 Office visit Dayne Taylor DO 09/23/2011 Office visit Dayne Taylor DO 06/04/2011 Office visit Richardson Gerber MD 05/20/2011 Office visit Richardson Gerber MD 05/03/2011 [facility] Richardson Gerber MD 04/29/2011 Office visit [...] 02/11/2011 Office visit Richardson Gerber MD 02/11/2011 [facility] Richardson Gerber MD 02/05/2011 Voided Richardson [...]
--- OUTSIDE RECORDS SUMMARY | 2019-09-13 07:51 | XMS REPORT ---
Author Author Jo Jeffries [facility] Address [address] [place] [id number] Care Team Providers Care Global Logistics Analyst Name Role Phone Juan Jeffries PCP Dayne [...] million units [facility]# 6079 3-600-10 Reviewed 07/06/2014 11:29 AM URINE TEST Reviewed 07/06/2014 12:00 AM THER/PROPH/DIAG INJ SC/IM Reviewed 07/06/2014 12:00 AM Decadron, Per 1 Mg [facility]# [address]-82 Re viewed 07/06/2014 12:00 AM Depo-Medrol 40mg [...] SULAIMAN CALLED TO/BY DR. GERBER 1540 01-22-11 SJ Phencyclidine (PCP) NEGATIVE Cocaine NEGATIVE [...] Number Stephen cy Group Number Start Date [place] [employer] Associate Prog - RHC [facility] Asst Prog - RH C [id number] N/A [facility] [id number] N/A [facility] Kennedi tance Prog [id number] N/A Wppa Wppa [id number] Friday, ctober 2008 R UMR [id number] Friday, [facility] 2009 [facility] [id number] N/A Cigna Cigna [id number] Friday, 2010 [facility] Kennedi tance Prog [id number] Friday, 2010 Cigna Cigna [id number] Friday, 2010 History of Encounters Visit Date Visit Type Provider 09/02/2017 Office visit Juan Hudson 07/31/[address] Cinthia hudson MD 07/03/2017 Office visit Juan Hudson 06/05/[address] Cinthia hudson MD 05/13/[address] Cinthia hudson MD 04/30/2017 Office visit Maria Victoria stephen SENIOR MEDICAL TRANSCRIPTIONIST 02/09/2017 Office visit Yessica Cuenca APR N 06/04/2016 Office visit Yessica Cuenca APR N 05/14/2016 Office visit Codi Guerra SENIOR MEDICAL TRANSCRIPTIONIST 04/22/2016 Office visit Kanu Bentonran APR N 03/20/2016 Office visit Kanu Rodríguez APR N 02/06/2016 Office visit Kanu Rodríguez APR N 01/04/2016 Office visit Kanu Bentonran APR N 10/05/2015 Office visit Dayne Brandon DO 09/28/2015 Office visit Capri Colby SENIOR MEDICAL TRANSCRIPTIONIST 09/26/2015 Office visit Kanu Rodríguez APR N 07/24/2015 Office visit Dayne Brandon DO 05/03/2015 Office visit Capri Colby SENIOR MEDICAL TRANSCRIPTIONIST 02/09/2015 Office visit Dayne Brandon DO 01/02/2015 Office visit Katie TORRES RN 01/01/2015 [facility] Florecita Mayfield MD 12/05/2014 Office visit Capri Colby SENIOR MEDICAL TRANSCRIPTIONIST 11/28/2014 Office visit Katie TORRES RN 11/08/2014 Office visit Katie TORRES RN 10/20/2014 Office visit Katie TORRES RN 08/29/2014 Office visit Capri Colby SENIOR MEDICAL TRANSCRIPTIONIST 08/22/2014 Office visit Capri Colby SENIOR MEDICAL TRANSCRIPTIONIST 07/06/2014 Office visit 07/06/2014 Office visit Capri Colby SENIOR MEDICAL TRANSCRIPTIONIST 06/28/2014 Office visit 06/28/2014 Office visit Capri Colby SENIOR MEDICAL TRANSCRIPTIONIST 04/07/2014 Office visit Capri Lasha SENIOR MEDICAL TRANSCRIPTIONIST 03/24/2014 Office visit Capri Colby SENIOR MEDICAL TRANSCRIPTIONIST 01/04/2014 Office visit Dayne Brandon DO 12/01/2013 Office visit Capri Colby SENIOR MEDICAL TRANSCRIPTIONIST 10/27/2013 Office visit Dayne Brandon DO 08/20/2013 Office visit Kanu Bentonran APR N 05/18/2013 Office visit Capri Colby SENIOR MEDICAL TRANSCRIPTIONIST 12/01/2012 Office visit Dayne Brandon DO 03/09/2012 Office visit Capri Colby SENIOR MEDICAL TRANSCRIPTIONIST 12/03/2011 Office visit Dayne Brandon DO 10/14/2011 Office visit Dayne Brandon DO 09/23/2011 Office visit Dayne Brandon DO 06/04/2011 Office visit Richardson Gerber MD 05/20/2011 Office visit Richardson Gerber MD 05/03/2011 [facility] Richardson Gerber MD 04/29/2011 Office visit Richadrson Gerber MD 04/22/2011 Office visit Richardson Gerber [...]
--- OUTSIDE RECORDS SUMMARY | 2019-09-13 07:52 | XMS REPORT ---
Author Author Jo Rodríguez [facility] Address [address] [place] [id number] Care Team Providers Care Dairy Supplies Sales Representative Name Role Phone Kanu Rodríguez PCP Dayne Taylor PreferredProvider Unavailable Allergies and Adverse Reactions Name Reaction Notes erythromycin vomiting SULFA (SULFONAMIDES) Plan of Treatment Planned Activity Comments Planned Date Planned Time Plan/Goal Nasal bone fracture and Left maxillary fracture 016 4:30 PM Mirena placement 10/03/2015 12:00 AM Scoliois with previous surgery and harward placement 1 03/08/2014 1:00 PM Medications Active Name Start Date Estimated Completion Date SIG Co mments Wellbutrin SR oral Name Start Date Expiration Date SIG Comments [...] route every 8 hours for 3 days Discontinued Name Start Date Discontinued Date [...] by oral route 2 times per day buspirone 5 mg oral tablet 01/02/2015 02/09/2015 take 1 tablet (5 mg) by oral route 2 times per day "Made me mean and mood changes" alprazolam 0.25 mg oral tablet 02/09/2015 05/03/2015 t pavan 1 tablet by oral route daily as needed Sprintec (28) 0.25-35 mg-mcg oral tablet 05/03/2015 07/24/19 16 take 1 tablet by oral route once daily Sprintec (28) 0.25-35 mg-mcg oral tablet 05/03/2015 [...] oral route once daily in the evening Problem List Description Status Onset ADHD Active Allergic rhinitis Active Depressive Disorder Active Anxiety Disorder Active 05/19/2013 Attention Deficit Disorder Active 12/01/2013 Anxiety Active 08/24/2014 Depression Active 08/24/2014 ADD (attention deficit disorder) Active 08/25/19 15 Vital Signs Date Time BP-Sys(mm[Hg] BP-Valeria(mm[Hg]) HR(bpm) RR(rpm) Temp WT HT HC BMI BSA BMI Percentile O2 Sat(%) 04/22/2016 7:08:00 PM 118 mmHg 70 mmHg 70 bpm 97.9 F 200 lbs 67.5 in 30.86 kg/m2 2.08 m2 99 % 03/20/2016 7:42:00 PM 132 mmHg 70 mmHg 87 bpm 18 rpm 99 F 205.375 lbs 67.5 in 31.6912 kg/m 2.1063 m 98 % 02/06/2016 5:49:00 PM 130 mmHg 98 mmHg 84 bpm 100.1 F 207 lbs 67.5 in 31.94 kg/m2 2.11 m2 99 % 01/04/2016 5:57:00 PM 132 mmHg 76 mmHg 87 bpm 18 rpm 99.5 F 201.375 lbs 98 % 10/05/2015 3:37:00 PM 126 mmHg 68 mmHg 86 bpm 20 rpm 99.2 F 193 lbs 67.5 in 29.78 kg/m2 2.04 m2 98 % 09/28/2015 2:11:00 PM 126 mmHg 66 mmHg 92 bpm 18 rpm 97.8 F 194 lbs 67.5 in 29.9359 kg/m 2.0472 m 99 % 09/26/2015 2:49:00 PM 108 mmHg 68 mmHg 87 bpm 18 rpm 98.5 F 195 lbs 67.5 in 30.09 kg/m2 2.05 m2 99 % 07/24/2015 2:39:00 PM 132 mmHg 70 mmHg 76 bpm 20 rpm 98.7 F 180 lbs 67 in 28.1917 kg/m 1.9646 m 97 % 05/03/2015 3:09:00 PM 124 mmHg 66 mmHg 104 bpm 18 rpm 98.4 F 170.5 lbs 67 in 26.70 kg/m2 1.91 m2 100 % 02/09/2015 3:02:00 PM 128 mmHg 70 mmHg 72 bpm 18 rpm 98.2 F 171.312 lbs 67 in 26.8311 kg/m 1.9166 m 100 % 01/02/2015 2:45:00 PM 120 mmHg [...] rpm 98.3 F 166 lbs 67 in 26.00 kg/m2 1.89 m2 86.7 % 03/06/2009 4:01:00 PM 16 bpm 72 rpm 98.6 F 166.125 lbs 67.5 in 25.6346 kg/m 1.8944 m 85.6 % 02/02/2009 4:04:00 PM 116 mmHg 68 mmHg 64 bpm 16 rpm 98.1 F 159.5 lbs 67 in 24.98 kg/m2 1.85 m2 83 % Social History Name Description Comments Tobacco Former smoker Lives with Mom Sibling(s) at home as well Single high school student Student (High school ) History of Procedures Date Ordered Description Order Status 11/26/2010 12:00 AM ALPHA-FETOPROTEIN SERUM Reviewed 02/09/2015 [...] 02/02/2009 12:00 AM GLUCOSE BLOOD TEST Reviewed 03/06/2009 12:00 AM US EXAM PELVIC COMPLETE Reviewed 03/24/2014 12:00 AM SPECIMEN HANDLING OFFICE-LAB Reviewed 03/24/2014 12:00 AM CYTOPATH C/V MANUAL Reviewed 03/24/2014 12:00 AM CHYLMD TRACH DNA AMP PROBE Reviewed 03/24/2014 12:00 AM N.GONORRHOEAE DNA AMP PROB Reviewed 04/07/2014 2:44 PM URINE TEST Reviewed 06/28/2014 12:00 AM THER/PROPH/DIAG INJ SC/IM Reviewed 06/28/2014 12:00 AM Bicillin CR, 1.2 million units [facility]# 6079 3-600-10 Reviewed 07/06/2014 11:29 AM URINE TEST Reviewed 07/06/2014 12:00 AM THER/PROPH/DIAG INJ SC/IM Reviewed 07/06/2014 12:00 AM Decadron, Per 1 Mg [facility]# [address]-88 Re viewed 07/06/2014 12:00 AM Depo-Medrol 40mg [...] L-S SPINE 2/3 VWS Reviewed Results Summary Data and Description Results 09/17/2010 5:23 PM RUBELLA 42.0 IU/mLWBC 10.3 R BC 4.44 HGB 14.10 g/dLHCT 40.90 %MCV 92.0 fLMCH 31.80 pgMCHC 34.50 g/dLRDW SD 42 RDW CV 12.30 %MPV 12.20 fLPLT 300 NRBC# 0.00 NRBC% 0.0 %NEUT 75.90 %%LYMP 14.90 %%MONO 7.20 %%EOS 1.50 %%BASO 0.50 %#NEUT 7.79 #LYMP 1.53 #MONO 0.74 #EOS 0.15 #BASO 0.05 MANUAL DIFF NOT IND COLOR YELLOW APPEARANCE CLEAR SPEC GRAV <=1.005 pH 6.5 [...] Barbiturates NEGATIVE Oxycodone NEGATIVE Propoxyphene (PPX) NEGATIVE 02/11/2011 6:45 PM COLOR YELLOW APPEARANCE SAWYER R SPEC GRAV <=1.005 pH 5.5 PROTEIN NEGATIVE GLUCOSE NEGATIVE KETONE 15 BILIRUBIN NEGATIVE BLOOD NEGATIVE NITRITE NEGATIVE LEUK SCREEN NEGATIVE WBC/HPF RARE RBC/HPF NEGATIVE CASTS/LPF NEGATIVE CRYSTALS NEGATIVE MUCOUS THRDS NEGATIVE BACTERIA NEGATIVE EPITH CELLS FEW SQUAMOUS TRICHOMONAS NEGATIVE YEAST NEGATIVE CULT SET UP? NO 05/02/2011 3:16 PM AMNISURE ROM NEGATIVE 04/07/2014 2:44 PM HCG Ur Ql [...] WBC Est Ur Ql Strip Grossly positive History Of Immunizations Name Date Admin Mfg Name Mfg Code Trade Name Lot# Route Inj Vis Given Vis Pub CVX Influenza 02/09/2015 sanofi pasteur PMC Fluzone Quadrivalent UI4 22AA Intramuscular Left Deltoid 02/09/2015 10/07/2014 141 History of Past Illness Name Date of Onset Comments Atopic Dermatitis Feb 02 2009 4:09PM Polydipsia (Excessive Thirst) Feb 02 2009 4:09PM Polyuria Feb 02 2009 4:09PM Seizure disorder Allergic rhinitis Scoliosis ADHD Gastritis Depressive Disorder Pelvic Pain Mar 06 2009 4:03PM Dysmenorrhea Mar 06 2009 4:03PM Bronchitis, Acute May 01 2009 3:47PM Upper Respiratory Infection - Acute May 01 2009 3:47PM Attention Deficit Disorder Aug 31 2009 4:13PM Anxiety Disorder 05/19/2013 Attention Deficit Disorder 12/01/2013 Anxiety 08/24/2014 [...] 7:44PM Viral gastroenteritis Apr 22 2016 7:12PM Payers Insurance Name Company Name Plan Name Plan Number Policy Number Stephen cy Group Number Start Date Cigna Cigna [id number] Friday, 2010 [facility] [id number] N/A [place] [facility] Kennedi tance Prog [id number] N/A Wppa Wppa [id number] Friday, O ctober 2008 [facility] UMR [id number] Friday, [facility] 2009 [facility] [id number] N/A Cigna Cigna [id number] Friday, 2010 [place] [facility] Kennedi tance Prog [id number] Friday, 2010 History of Encounters Visit Date Visit Type Provider 04/22/2016 Office visit Kanu Rodríguez APR N 03/20/2016 Office visit Kanu Rodríguez APR N 02/06/2016 Office visit Kanu Rodríguez APR N 01/04/2016 Office visit Kanu Rodríguez APR N 10/05/2015 Office visit Dayne Taylor DO 09/28/2015 Office visit Capri Colby BALANCE WHEEL SCREW HOLE DRILLER 09/26/2015 Office visit Kanu Rodríguez APR N 07/24/2015 Office visit Dayne Taylor DO 05/03/2015 Office visit Capri Lasha BALANCE WHEEL SCREW HOLE DRILLER 02/09/2015 Office visit Dayne Owenste DO 01/02/2015 Office visit Katie TORRES RN 01/01/2015 [facility] Florecita Mayfield MD 12/05/2014 Office visit Capri Colby BALANCE WHEEL SCREW HOLE DRILLER 11/28/2014 Office visit Katie TORRES RN 11/08/2014 Office visit Katie TORRES RN 10/20/2014 Office visit Katie TORRES RN 08/29/2014 Office visit Capri Colby BALANCE WHEEL SCREW HOLE DRILLER 08/22/2014 Office visit Capri Colby BALANCE WHEEL SCREW HOLE DRILLER 07/06/2014 Office visit 07/06/2014 Office visit Capri Colby BALANCE WHEEL SCREW HOLE DRILLER 06/28/2014 Office visit 06/28/2014 Office visit Capri Colby BALANCE WHEEL SCREW HOLE DRILLER 04/07/2014 Office visit Capri Colby BALANCE WHEEL SCREW HOLE DRILLER 03/24/2014 Office visit Capri Colby BALANCE WHEEL SCREW HOLE DRILLER 01/04/2014 Office visit Dayne Taylor DO 12/01/2013 Office visit Capri Colby BALANCE WHEEL SCREW HOLE DRILLER 10/27/2013 Office visit Dayne Taylor DO 08/20/2013 Office visit Kanu Rodríguez APR N 05/18/2013 Office visit Capri Colby BALANCE WHEEL SCREW HOLE DRILLER 12/01/2012 Office visit Dayne Taylor DO 03/09/2012 Office visit Capri Colby BALANCE WHEEL SCREW HOLE DRILLER 12/03/2011 Office visit Dayne Taylor DO 10/14/2011 Office visit Dayne Owenste DO 09/23/2011 Office visit Dayne Taylor DO 06/04/2011 Office visit Richardson Gerber MD 05/20/2011 Office visit Richardson Gerber MD 05/03/2011 [facility] Richardson Gerber MD 04/29/2011 Office visit [...] 02/11/2011 Office visit Richardson Gerber MD 02/11/2011 [facility] Richardson Gerber MD 02/05/2011 Voided Richardson Gerber MD 01/22/2011 Office visit Richardson Gerber MD 01/16/2011 Office visit Richardson Gerber MD 12/24/2010 Office visit Richardson Gerber MD 11/29/2010 Office visit Richardson Gerber MD 11/26/2010 Office visit Richardson Gerber MD 10/22/2010 Office visit Richardson Gerber MD 09/17/2010 Office visit Richardson Gerber MD 07/19/2010 Office visit Dayne Taylor DO 06/08/2010 Office visit Capri Colby BALANCE WHEEL SCREW HOLE DRILLER 03/27/2010 Office visit Dayne Taylor DO 03/07/2010 Office visit Yulisa MOYA 08/31/2009 Office visit Yulisa MOYA 05/01/2009 Office visit Joann MOYA 03/06/2009 Office visit Yulisa MOYA 02/02/2009 Office visit Yulisa MOYA 01/02/2009 Office visit Yulisa MOYA 10/26/2008 Office visit YULISA FRANCIS PA-C
--- OUTSIDE RECORDS SUMMARY | 2019-09-13 07:52 | XMS REPORT ---
Author Author Jo Colby Organization [facility] Address [address] [place], [place] [id number] Care Team Providers Care Self Contained Behavior Unit Teacher Name Role Phone Capri Colby PCP Unavailable Allergies and Adverse Reactions Name Reaction Notes Erythromycin vomiting SULFUR Plan of Treatment Planned Activity Comments Planned Date Planned Time Plan/Goal Scoliois with previous surgery and harward placement 1 03/08/2014 1:00 PM Medications Active Name Start Date Estimated Completion Date SIG Co mments Sprintec (28) 0.25-35 mg-mcg oral tablet 05/03/2015 take 1 tablet by oral route once daily Prozac 40 mg oral capsule 05/11/2015 take 1 capsule (40 mg) by oral route once daily in the morning Name Start Date Expiration Date SIG Comments [...] 2 times a day for 7 days Discontinued Name Start Date [...] tablet by oral route daily as needed Problem List Description Status Onset ADHD Active Allergic rhinitis Active Depressive Disorder Active Anxiety disorder Active 05/19/2013 Attention deficit disorder Active 12/01/2013 Anxiety Active 08/24/2014 Depression Active 08/24/2014 ADD (attention deficit disorder) Active 08/25/19 15 Vital Signs Date Time BP-Sys(mm[Hg] BP-Valeria(mm[Hg]) HR(bpm) RR(rpm) Temp WT HT HC BMI BSA BMI Percentile O2 Sat(%) 05/03/2015 3:09:00 PM 124 mmHg 66 mmHg [...] Reviewed 05/03/2015 12:00 AM URINE CULTURE/COLONY COUNT Returned 05/03/2015 3:46 PM URINE TEST Reviewed 05/03/2015 3:46 PM URINALYSIS AUTO W/O SCOPE Reviewed 01/22/2011 12:00 AM GLUCOSE TEST Reviewed 04/10/2011 12:00 AM CULTURE OTHR SPECIMN AEROBIC Reviewed 02/02/2009 12:00 AM ASSAY GLUCOSE BLOOD QUANT Reviewed 02/02/2009 12:00 AM GLUCOSE BLOOD TEST Reviewed 03/06/2009 12:00 AM US EXAM PELVIC COMPLETE Reviewed 03/24/2014 12:00 AM SPECIMEN HANDLING OFFICE-LAB Returned 03/24/2014 12:00 AM CYTOPATH C/V MANUAL Returned 03/24/2014 12:00 AM CHYLMD TRACH DNA AMP PROBE Returned 03/24/2014 12:00 AM N.GONORRHOEAE DNA AMP PROB Returned 04/07/2014 2:44 PM URINE TEST Reviewed 06/28/2014 12:00 AM THER/PROPH/DIAG INJ SC/IM Reviewed 06/28/2014 12:00 AM Bicillin CR, 1.2 million units [facility]# 6079 3-600-10 Reviewed 07/06/2014 11:29 AM URINE TEST Reviewed 07/06/2014 12:00 AM THER/PROPH/DIAG INJ SC/IM Reviewed 07/06/2014 12:00 AM Decadron, Per 1 Mg [facility]# [address]-93 Re viewed 07/06/2014 12:00 AM Depo-Medrol 40mg [...] 12:00 AM X-RAY EXAM THORAC SPINE 2VWS Returned 11/08/2014 12:00 AM X-RAY EXAM L-S SPINE 2/3 VWS Returned Results Summary Data and Description Results 09/17/2010 5:23 PM RUBELLA 42.0 IU/mLWBC 10.3 R BC 4.44 HGB 14.10 g/dLHCT 40.90 %MCV 92.0 fLMCH 31.80 pgMCHC 34.50 g/dLRDW CV 12.30 %MPV 12.20 fLPLT 300 %NEUT 75.90 %%LYMP 14.90 %%MONO 7.20 %%EOS 1.50 %%BASO 0.50 %#NEUT 7.79 #LYMP 1.53 #MONO 0.74 #EOS 0.15 #BASO 0.05 COLOR YELLOW APPEARANCE CLEAR SPEC GRAV <=1.005 pH 6.5 PROTEIN NEGATIVE GLUCOSE NEGATIVE KETONE NEGATIVE BILIRUBIN NEGATIVE BLOOD NEGATIVE NITRITE NEGATIVE LEUK SCREEN NEGATIVE CASTS/LPF NEGATIVE CRYSTALS NEGATIVE MUCOUS THRDS NEGATIVE BACTERIA NEGATIVE EPITH CELLS 1+ SQUAMOUS TRICHOMONAS NEGATIVE YEAST NEGATIVE 01/22/2011 3:24 PM Cannabinoids (THC) NON-NEGAT SULAIMAN Phencyclidine (PCP) NEGATIVE Cocaine NEGATIVE Methamphetamine NEGATIVE Opiates NEGATIVE Amphetamine NEGATIVE Benzodiazepines NEGATIVE Methadone NEGATIVE Barbiturates NEGATIVE Oxycodone NEGATIVE Propoxyphene (PPX) NEGATIVE 02/11/2011 6:45 PM COLOR YELLOW APPEARANCE SAWYER R SPEC GRAV <=1.005 pH 5.5 PROTEIN NEGATIVE GLUCOSE NEGATIVE KETONE 15 BILIRUBIN NEGATIVE BLOOD NEGATIVE NITRITE NEGATIVE LEUK SCREEN NEGATIVE CASTS/LPF NEGATIVE CRYSTALS NEGATIVE MUCOUS THRDS NEGATIVE BACTERIA NEGATIVE EPITH CELLS FEW SQUAMOUS TRICHOMONAS NEGATIVE YEAST NEGATIVE 05/02/2011 3:16 PM AMNISURE ROM NEGATIVE 04/07/2014 [...] neg WBC Est Ur Ql Strip moderate History Of Immunizations Name Date Admin Mfg [...] contraceptive pills Ma r 2 2015 3:10PM Payers Insurance Name Company Name Plan Name Plan Number Policy Number Stephen cy Group Number Start Date Cigna Cigna [id number] Friday, 2010 [facility] [id number] N/A [place] [employer] [facility] Medical Kennedi tance Prog [id number] N/A Wppa Wppa [id number] Friday, ctober 2008 UMR UMR [id number] Friday, [facility] [id number] N/A Cigna Cigna [id number] Friday, 2010 [place] [employer] [facility] Medical Kennedi tance Prog [id number] Friday, 2010 History of Encounters Visit Date Visit Type Provider 05/03/2015 Office visit Capri Colby APRN 02/09/2015 Office visit Dayne Taylor DO 01/02/2015 Office visit Katie TORRES RN 01/01/2015 [facility] Florecita Mayfield MD 12/05/2014 Office visit Capri Colby MOTOR POWER CONNECTOR 11/28/2014 Office visit Katie TORRES RN 11/08/2014 Office visit Katie TORRES RN 10/20/2014 Office visit Katie TORRES RN 08/29/2014 Office visit Capri Colby MOTOR POWER CONNECTOR 08/22/2014 Office visit Capri Colby APRN 07/06/2014 Office visit 07/06/2014 Office visit Capri Colby APRN 06/28/2014 Office visit 06/28/2014 Office visit Capri Colby APRN 04/07/2014 Office visit Capri Colby MOTOR POWER CONNECTOR 03/24/2014 Office visit Capri Colby MOTOR POWER CONNECTOR 01/04/2014 Office visit Dayne Taylor DO 12/01/2013 Office visit Capri Colby MOTOR POWER CONNECTOR 10/27/2013 Office visit Dayne Taylor DO 08/20/2013 Office visit Kanu Rodríguez APR N 05/18/2013 Office visit Capri Colby MOTOR POWER CONNECTOR 12/01/2012 Office visit Dayne Taylor DO 03/09/2012 Office visit Capri Colby APRN 12/03/2011 Office visit Dayne Taylor DO 10/14/2011 Office visit Dayne Taylor DO 09/23/2011 Office visit Dayne Taylor DO 06/04/2011 Office visit Richardson Barber MD 05/20/2011 Office visit Richardson Barber MD 05/03/2011 [facility] Richardson Barber MD 04/29/2011 Office visit Richardson Barber MD 04/22/2011 Office visit Richardson Barber MD 04/16/2011 Office visit Richardson Barber MD 04/10/2011 Office visit Richardson Barber MD 04/01/2011 Office visit Richardson Barber MD 03/18/2011 Office visit Richardson Barber MD 03/14/2011 Office visit Richardson Barber MD 02/20/2011 Office visit Richardson Barber MD 02/12/2011 Office visit Richardson Barber MD 02/11/2011 Office visit Richardson Barber MD 02/11/2011 [facility] Richardson Barber MD 02/05/2011 Voided Richardson Barber MD 01/22/2011 Office visit Richardson Barber MD 01/16/2011 Office visit Richardson Barber MD 12/24/2010 Office visit Richardson Barber MD 11/29/2010 Office visit Richardson Barber MD 11/26/2010 Office visit Richardson Barber MD 10/22/2010 Office visit Richardson Barber MD 09/17/2010 Office visit Richardson Barber MD 07/19/2010 Office visit Dayne Taylor DO 06/08/2010 Office visit Capri Colby APRN 03/27/2010 Office visit Dayne Taylor DO 03/07/2010 Office visit Yulisa MOYA 08/31/2009 Office visit Yulisa MOYA 05/01/2009 Office visit Joann MOYA 03/06/2009 Office visit Yulisa MOYA 02/02/2009 Office visit Yulisa MOYA 01/02/2009 Office visit Yulisa MOYA 10/26/2008 Office visit YULISA FRANCIS PA-C
--- OUTSIDE RECORDS SUMMARY | 2019-09-13 07:53 | XMS REPORT ---
Author Author Jo Taylor [facility] Address [address] [place] [id number] Care Team Providers Care Psychiatric Orderly Name Role Phone Dayne Taylor PCP Unavailable Allergies and Adverse Reactions Name Reaction Notes erythromycin vomiting SULFA (SULFONAMIDES) Plan of Treatment Planned Activity Comments Planned Date Planned Time Plan/Goal Nasal bone fracture and Left maxillary fracture 016 4:30 PM Mirena placement 10/03/2015 12:00 AM Scoliois with previous surgery and harward placement 1 03/08/2014 1:00 PM Medications Active Name Start Date Estimated Completion Date SIG Co mments hydroxyzine HCl 25 mg oral tablet 09/26/2015 take 1 tablet by oral route 4 times a day as needed Anixety Prozac 20 mg oral capsule 09/28/2015 take 1 capsule by oral route daily montelukast 10 mg oral tablet ta ke 1 tablet (10 mg) by oral route once daily in the evening amoxicillin 500 mg oral tablet 10/05/2015 10/12/2015 [...] mg) by oral route every 12 hours Zyrtec-D 5-120 mg oral tablet extended release 12 hr 09/28/2015 10/05/2015 take 1 tablet by oral route once a day (in the morning) as needed Flonase Allergy Relief 50 mcg/actuation nasal spray,suspensi on 09/28/2015 10/05/2015 inhale 1 spray (50 mcg) in each nostril by intranasal route once daily Problem List Description Status Onset ADHD Active Allergic rhinitis Active Depressive Disorder Active Anxiety Disorder Active 05/19/2013 Attention deficit disorder Active 12/01/2013 Anxiety Active 08/24/2014 Depression Active 08/24/2014 ADD (attention deficit disorder) Active 08/25/19 15 Vital Signs Date Time BP-Sys(mm[Hg] BP-Valeria(mm[Hg]) HR(bpm) RR(rpm) Temp WT HT HC BMI BSA BMI Percentile O2 Sat(%) 10/05/2015 3:37:00 PM 126 mmHg 68 mmHg [...] 12:00 AM Bicillin CR, 1.2 million units [facility]# 6079 3-600-10 Reviewed 07/06/2014 11:29 AM URINE TEST Reviewed 07/06/2014 12:00 AM THER/PROPH/DIAG INJ SC/IM Reviewed 07/06/2014 12:00 AM Decadron, Per 1 Mg [facility]# [address]-11 Re viewed 07/06/2014 12:00 AM Depo-Medrol 40mg [...] recurrence not specified Oct 05 2015 3:39PM Payers Insurance Name Company Name Plan Name Plan Number Policy Number Stephen cy Group Number Start Date Cigna Cigna [id number] Friday, 2010 [facility] [id number] N/A [facility] Kennedi tance Prog [id number] N/A Wppa Wppa [id number] Friday, O ctober 2008 UMR UMR [id number] Friday, [facility] [id number] N/A Cigna Cigna [id number] Friday, 2010 [facility] Kennedi tance Prog [id number] Friday, 2010 History of Encounters Visit Date Visit Type Provider 10/05/2015 Office visit Dayne Taylor DO 09/28/2015 Office visit Capri Colby APRN 09/26/2015 Office visit Kanu Rodríguez APR N 07/24/2015 Office visit Dayne Taylor DO 05/03/2015 Office visit Capri Colby APRN 02/09/2015 Office visit Dayne Taylor DO 01/02/2015 Office visit Katie TORRES RN 01/01/2015 Amber Mayfield MD 12/05/2014 Office visit Capri Colby APRN 11/28/2014 Office visit Katie TORRES RN 11/08/2014 Office visit Katie TORRES RN 10/20/2014 Office visit Katie TORRES RN 08/29/2014 Office visit Capri Lasha GLASS WORKER 08/22/2014 Office visit Capri Lasha GLASS WORKER 07/06/2014 Office visit 07/06/2014 Office visit Capri Lasha GLASS WORKER 06/28/2014 Office visit 06/28/2014 Office visit Capri Lasha GLASS WORKER 04/07/2014 Office visit Capri Lasha GLASS WORKER 03/24/2014 Office visit Capri Lasha GLASS WORKER 01/04/2014 Office visit Dayne Taylor DO 12/01/2013 Office visit Capri Lasha GLASS WORKER 10/27/2013 Office visit Dayne Taylor DO 08/20/2013 Office visit Kanu Rodríguez APR N 05/18/2013 Office visit Capri Lasha GLASS WORKER 12/01/2012 Office visit Dayne Taylor DO 03/09/2012 Office visit Capri Colby GLASS WORKER 12/03/2011 Office visit Dayne Taylor DO 10/14/2011 Office visit Dayne Taylor DO 09/23/2011 Office visit Dayne Taylor DO 06/04/2011 Office visit Richardson Barber MD 05/20/2011 Office visit Richardson Barber MD 05/03/2011 [facility] Richardson Barber MD 04/29/2011 Office visit Richardson Barber MD 04/22/2011 Office visit Richardson Barber MD 04/16/2011 Office visit Richardson Barber MD 04/10/2011 Office visit Richardson Barber MD 04/01/2011 Office visit Richardson Barber MD 03/18/2011 Office visit Richardson Braber MD 03/14/2011 Office visit Richardson Barber MD 02/20/2011 Office visit Richardson Barber MD 02/12/2011 Office visit Richardson Barber MD 02/11/2011 Office visit Richardson Barber MD 02/11/2011 Hospital Richardson Barber MD 02/05/2011 Voided Richardson [...]
--- OUTSIDE RECORDS SUMMARY | 2019-09-13 07:53 | XMS REPORT ---
Author Author Jo Jeffries [facility] Address [address] [place] [id number] Care Team Providers Care Car Inspector Name Role Phone Juan Jeffries PCP Dayne [...] 1 Mg [facility]# [address]-87 Re viewed 07/06/2014 12:00 AM Depo-Medrol 40mg [...] (THC) NON-NEGAT SULAIMAN CALLED TO/BY DR. GERBER [id number] 01-22-11 SJM Phencyclidine (PCP) NEGATIVE Cocaine NEGATIVE [...] cy Group Number Start Date Cigna Cigna [id number] Friday, 2010 [facility] [id number] N/A [facility] Kennedi tance Prog [id number] N/A Wppa Wppa [id number] Friday, O ctober 2008 UMR UMR [id number] Friday, [facility] 2009 [facility] [id number] N/A Cigna Cigna [id number] Friday, 2010 [facility] Kennedi tance Prog [id number] Friday, 2010 History of Encounters Visit Date Visit Type Provider 07/03/2017 Office visit Juan An 06/05/[address] Cinthia an MD 05/13/[address] Cinthia an MD 04/30/2017 Office visit Maria Victoria stephen HYDRAULIC SPECIALIST 02/09/2017 Office visit Yessica Cuenca APR N 06/04/2016 Office visit Yessica Cuenca APR N 05/14/2016 Office visit Codi Guerra HYDRAULIC SPECIALIST 04/22/2016 Office visit Kanu Rodríguez APR N 03/20/2016 Office visit Kanu Rodríguez APR N 02/06/2016 Office visit Kanu Rodríguez APR N 01/04/2016 Office visit Kanu Rodríguez APR N 10/05/2015 Office visit Dayne Taylor DO 09/28/2015 Office visit Capri Colby HYDRAULIC SPECIALIST 09/26/2015 Office visit Kanu Rodríguez APR N 07/24/2015 Office visit Dayne Taylor DO 05/03/2015 Office visit Capri Colby HYDRAULIC SPECIALIST 02/09/2015 Office visit Dayne Taylor DO 01/02/2015 Office visit Katie TORRES RN 01/01/2015 [facility] Florecita Mayfield MD 12/05/2014 Office visit Capri Colby HYDRAULIC SPECIALIST 11/28/2014 Office visit Katie TORRES RN 11/08/2014 Office visit Katie TORRES RN 10/20/2014 Office visit Katie TORRES RN 08/29/2014 Office visit Capri Colby HYDRAULIC SPECIALIST 08/22/2014 Office visit Capri Colby HYDRAULIC SPECIALIST 07/06/2014 Office visit 07/06/2014 Office visit Capri Colby HYDRAULIC SPECIALIST 06/28/2014 Office visit 06/28/2014 Office visit Capri Colby HYDRAULIC SPECIALIST 04/07/2014 Office visit Capri Colby HYDRAULIC SPECIALIST 03/24/2014 Office visit Capri Colby HYDRAULIC SPECIALIST 01/04/2014 Office visit Dayne Taylor DO 12/01/2013 Office visit Capri Colby HYDRAULIC SPECIALIST 10/27/2013 Office visit Dayne Taylor DO 08/20/2013 Office visit Kanu Rodríguez APR N 05/18/2013 Office visit Capri Colby HYDRAULIC SPECIALIST 12/01/2012 Office visit Dayne Taylor DO 03/09/2012 Office visit Capri Colby HYDRAULIC SPECIALIST 12/03/2011 Office visit Dayne Taylor DO 10/14/2011 Office visit Dayne Taylor DO 09/23/2011 Office visit Dayne Taylor DO 06/04/2011 Office visit Richardson Gerber MD 05/20/2011 Office visit Richardson Gerber MD 05/03/2011 [facility] Richardson Gerber MD 04/29/2011 Office visit [...]
--- OUTSIDE RECORDS SUMMARY | 2019-09-13 07:54 | XMS REPORT ---
Author Author Jo Colby Organization [facility] Address [address] [place], [place] [id number] Care Team Providers Care Metal Fabricating Inspector Name Role Phone Capri Colby PCP Unavailable Allergies and Adverse Reactions Name Reaction Notes Erythromycin vomiting SULFUR Plan of Treatment Not available. Medications Active Name Start Date Estimated Completion Date SIG Co mments Sprintec (28) oral tablet 0.25-35 mg-mcg 04/07/2014 take 1 tablet by oral route once daily Adderall oral tablet 10 mg 06/13/2014 take 1 tablet (10 mg) by oral route once daily before breakfast cyclobenzaprine oral tablet 10 mg 07/07/2014 take 1 tablet by oral route once a day (at bedtime) as needed Name Start Date Expiration Date SIG Comments Zithromax Z-Joel Oral Tablet 250 mg 05/01/2009 05/06/2009 take 2 tablets (500 mg) by oral route once daily for 1 day then 1 tablet (250 mg) by oral route once daily for 4 days Paxil Oral Tablet 20 mg 03/07/2010 04/06/2010 take 1 t ablet (20 mg) by oral route once daily for 30 days Amoxicillin Oral Tablet 500 mg 06/08/2010 06/18/2010 t pavan 2 tablets by mouth BID x10 days. Zofran Oral Tablet 8 mg 01/16/2011 01/26/2011 take 1 t ablet by oral route every 8 hours for 10 days ibuprofen Oral Tablet 800 mg 05/08/2011 05/18/2011 gomez e 1 tablet by oral route 3 times a day for 10 days Lidocaine Viscous Mucous Membrane Solution 2 % 06/05/2011 use as directed by oral route 3 times a day for 5 days amoxicillin Oral Tablet 500 mg 08/06/2011 08/13/2011 t pavan 1 tablet (500 mg) by oral route every 12 hours for 7 days Singulair Oral tablet 10 mg 12/03/2011 05/31/2012 take 1 tablet (10 mg) by oral route once daily in the evening for 30 days Zithromax Z-Joel Oral tablet 250 mg 03/09/2012 03/14/2012 take 2 tablets (500 mg) by oral route once daily for 1 day then 1 tablet (250 mg) by oral route once daily for 4 days Dexilant oral capsule,biphase delayed releas 60 mg 10/27/2013 11/06/2013 take 1 capsule (60 mg) by oral route once daily for 10 days Bactrim DS oral tablet 800-160 mg 11/16/2013 11/23/2013 take 1 tablet by oral route every 12 hours for 7 days clindamycin HCl oral capsule 150 mg 12/01/2013 12/08/2013 take 2 capsules (300 mg) by oral route 2 times per day for 7 days cephalexin oral tablet 500 mg 01/04/2014 01/11/2014 ta ke 1 tablet (500 mg) by oral route every 12 hours for 7 days prednisone oral tablet 20 mg 03/28/2014 04/02/2014 gomez e 1 tablet by oral route daily for 5 days Zithromax Z-Joel oral tablet 250 mg 06/29/2014 07/04/2014 take 2 tablets (500 mg) by oral route once daily for 1 day then 1 tablet (250 mg) by oral route once daily for 4 days Discontinued Name Start Date Discontinued Date SIG Comments Desonide Topical Lotion 0.05 % 02/02/2009 03/07/2010 a pply sparingly and rub gently into the affected area(s) by topical route 2 times per day Vyvanse Oral Capsule 30 mg 08/31/2009 03/07/2010 take 1 capsule (30 mg) by oral route once daily in the morning pt stopped it Augmentin Oral Tablet 875-125 mg 03/27/2010 06/08/2010 take 1 tablet by oral route every 12 hours Omeprazole Oral Capsule, Delayed Release(E.C.) 40 mg 03/27/2010 06/08/2010 take 1 capsule (40 mg) by oral route once daily before a meal fluoxetine Oral Capsule 20 mg 07/19/2010 09/23/2011 ta ke 1 capsule (20 mg) by oral route once daily in the morning "not taking" Apri Oral Tablet 0.15-30 mg-mcg 06/17/2011 12/01/2012 take 1 tablet by oral route once daily for 30 days "not taking" Vyvanse Oral Capsule 30 mg 08/01/2011 09/23/2011 take 1 capsule (30 mg) by oral route once daily in the morning for 30 daysDx: ADHD "ran out" sertraline Oral Tablet 100 mg 09/23/2011 10/14/2011 ta ke 0.5 tablet daily for 6 days then 1 tablet (100 mg) by oral route once daily "I stopped taking it. It didn't work" paroxetine HCl Oral tablet 20 mg 10/14/2011 12/03/2011 take 1 tablet (20 mg) by oral route once daily "made me feel like a zombie" Ventolin HFA Inhalation HFA Aerosol Inhaler 90 mcg/actuation 12/03/2011 12/01/2012 inhale 2 puffs by inhalation route every 6 hours as ne eded "too expensive" Flexeril Oral tablet 10 mg 03/09/2012 12/01/2012 take 1 tablet by mouth daily at HS alprazolam Oral tablet 0.5 mg 03/09/2012 12/01/2012 ta ke 1 tablet (0.5 mg) by oral route 3 times per day "no longer have any" prednisone Oral tablet 20 mg 03/09/2012 12/01/2012 gomez e 2 tablets x2 days then 1 tablet x4 days. escitalopram Oral tablet 20 mg 12/01/2012 05/18/2013 t pavan 1 tablet (20 mg) by oral route once daily alprazolam Oral tablet 0.25 mg 12/01/2012 05/18/2013 t pavan 1 tablet (0.25 mg) by oral route 2 times per day as needed cyclobenzaprine oral tablet 10 mg 05/18/2013 12/01/2013 take 1 tablet (10 mg) by oral route at bedtime as needed for back pain diclofenac sodium oral tablet,delayed release (DR/EC) 50 mg 08/2010/27/2013 take 1 tablet (50 mg) by oral route 2 times per day for 30 days Never took it Xanax oral tablet 0.25 mg 08/20/2013 12/01/2013 take 1 tablet by oral route 2 times a day as needed mupirocin topical ointment 2 % 01/04/2014 07/06/2014 a pply a small amount to the affected area by topical route 3 times per day Vyvanse oral capsule 30 mg 01/24/2014 06/28/2014 take 1 capsule (30 mg) by oral route once daily in the morning Problem List Description Status Onset ADHD Active Allergic Rhinitis Active Depressive Disorder Active Anxiety Disorder Active 05/19/2013 Attention Deficit Disorder Active 12/01/2013 Vital Signs Date Time BP-Sys(mm[Hg] BP-Valeria(mm[Hg]) HR(bpm) RR(rpm) Temp WT HT HC BMI BSA BMI Percentile O2 Sat(%) 07/06/2014 11:13:00 AM 126 mmHg 74 mmHg 80 bpm 18 rpm 97.3 F 167.187 lbs 67 in 26.18 kg/m2 1.89 m2 97 % 06/28/2014 11:15:00 AM 124 mmHg 72 mmHg 109 bpm 18 rpm 101.8 F 167.125 lbs 67 in 26.1752 kg/m 1.893 m 99 % 04/07/2014 2:08:00 PM 110 mmHg 60 mmHg 80 bpm 16 rpm 98 F 170.25 lbs 67 in 26.66 kg/m2 1.91 m2 99 % 03/24/2014 2:00:00 PM 114 mmHg 82 mmHg 77 bpm 16 rpm 98.6 F 165.25 lbs 67 i n 25.8815 kg/m 1.8824 m 98 % 01/04/2014 2:07:00 PM 126 mmHg 70 mmHg 83 bpm 20 rpm 98.7 F 163 lbs 67 in 25.53 kg/m2 1.87 m2 99 % 12/01/2013 2:41:00 PM 118 mmHg 62 mmHg 62 bpm 18 rpm 97.5 F 163.5 lbs 67 in 25.6075 kg/m 1.8724 m 98 % 10/27/2013 10:40:00 AM 138 mmHg 82 mmHg 87 bpm 16 rpm 98.2 F 159.125 lbs 67 in 24.92 kg/m2 1.85 m2 99 % 08/20/2013 2:13:00 PM 140 mmHg 90 mmHg 99 bpm 16 rpm 98.7 F 156 lbs 98 % 05/18/2013 1:34:00 PM 126 mmHg 78 mmHg 100 bpm 18 rpm 98 F 152.125 lbs 67 in 23.83 kg/m2 1.81 m2 100 % 12/01/2012 2:07:00 PM 122 mmHg 62 mmHg 62 bpm 18 rpm 97.9 F 149 lbs 67 in 23.3365 kg/m 1.7874 m 100 % 03/09/2012 3:42:00 PM 138 mmHg 82 mmHg 68 bpm 18 rpm 98.4 F 143.375 lbs 66 i n 23.14 kg/m2 1.74 m2 12/03/2011 3:34:00 PM 118 mmHg 66 mmHg 64 bpm 20 rpm 98.9 F 131 lbs 66 in 21.1437 kg/m 1.6634 m 0 % 100 % 10/14/2011 2:56:00 PM 122 mmHg 70 mmHg 80 bpm 16 rpm 99.1 F 136 lbs 67 in 21.30 kg/m2 1.71 m2 0 % 09/23/2011 2:33:00 PM 118 mmHg 70 mmHg 72 bpm 18 rpm 98.2 F 143 lbs 67 in 22.3967 kg/m 1.7511 m 0 % 06/04/2011 2:17:00 PM 79 bpm [...] rpm 97.3 F 164 lbs 67 in 25.69 kg/m2 1.88 m2 84 % 03/07/2010 4:02:00 PM 134 mmHg [...] Status 11/26/2010 12:00 AM ALPHA-FETOPROTEIN SERUM Reviewed 01/22/2011 12:00 AM GLUCOSE TEST Reviewed [...] 06/28/2014 12:00 AM THER/PROPH/DIAG INJ SC/IM Reviewed 07/06/2014 11:29 AM URINE TEST Reviewed 07/06/2014 12:00 AM THER/PROPH/DIAG INJ SC/IM Reviewed 09/13/2010 12:00 AM CHORIONIC GONADOTROPIN ASSAY Reviewed 09/17/2010 12:00 AM URINE TEST Reviewed 09/17/2010 12:00 AM OBSTETRIC PANEL Reviewed 09/17/2010 12:00 AM URINALYSIS NONAUTO W/SCOPE Reviewed 09/17/2010 12:00 AM HIV-1/HIV-2 1 RESULT ANTBDY Reviewed Results Summary Data and Description Results [...] 07/07/2014 1:28 PM HCG Ur Ql negative History Of Immunizations Not available. History of Past Illness Name Date of Onset Comments Atopic Dermatitis Feb 02 2009 4:09PM Polydipsia (Excessive Thirst) Feb 02 2009 4:09PM Polyuria Feb 02 2009 4:09PM Seizure disorder Allergic Rhinitis Scoliosis ADHD Gastritis Depressive Disorder Pelvic Pain Mar 06 2009 4:03PM Dysmenorrhea Mar 06 2009 4:03PM Bronchitis, Acute May 01 2009 3:47PM Upper Respiratory Infection - Acute May 01 2009 3:47PM Attention Deficit Disorder Aug 31 2009 4:13PM Anxiety Disorder 05/19/2013 Attention Deficit Disorder 12/01/2013 Depression and anxiety Mar 07 2010 4:01PM [...] 2014 11:15AM Amenorrhea Jul 06 2014 11:15AM Payers Insurance Name Company Name Plan Name Plan Number Policy Number Stephen Group Number Start Date Cigna Alejandrana [id number] Friday, 2010 [facility] [id number] N/A [facility] Kennedi [place]ance Prog [id number] N/A Wppa Wppa [id number] Friday, O ctober 2008 R UMR [id number] Friday, [facility] [id number] N/A Cigna Cigna [id number] Friday, 2010 [place] Medical [facility] Medical Kennedi tance Prog [id number] Friday, 2010 History of Encounters Visit Date Visit Type Provider 07/06/2014 Office visit Capri Lasha PATRIOT MISSILE [employer] DEFENSE ARTILLERY 06/28/2014 Office visit Capri Lasha PATRIOT MISSILE [employer] DEFENSE ARTILLERY 04/07/2014 Office visit Capri Lasha PATRIOT MISSILE [employer] DEFENSE ARTILLERY 03/24/2014 Office visit Capri Colby PATRIOT MISSILE [employer] DEFENSE ARTILLERY 01/04/2014 Office visit Dayne Taylor DO 12/01/2013 Office visit Capri Lasha PATRIOT MISSILE [employer] DEFENSE ARTILLERY 10/27/2013 Office visit Dayne Taylor DO 08/20/2013 Office visit Kanu Marcos APR N 05/18/2013 Office visit Capri Lasha PATRIOT MISSILE [employer] DEFENSE ARTILLERY 12/01/2012 Office visit Dayne Taylor DO 03/09/2012 Office visit Capri Colby PATRIOT MISSILE [employer] DEFENSE ARTILLERY 12/03/2011 Office visit Dayne Taylor DO 10/14/2011 Office visit Dayne Taylor DO 09/23/2011 Office visit Dayne Taylor DO 06/04/2011 Office visit Richardson Barber MD 05/20/2011 Office visit Richardson Barber MD 05/03/2011 [facility] Richardson Barber MD 04/29/2011 Office visit [...] 02/11/2011 Office visit Richardson Barber MD 02/11/2011 [facility] Richardson Barber MD 02/05/2011 Voided Richardson Barber MD 01/22/2011 Office visit Richardson Barber MD 01/16/2011 Office visit Richardson Barber MD 12/24/2010 Office visit Richardson Barber MD 11/29/2010 Office visit Richardson Barber MD 11/26/2010 Office visit Richardson Barber MD 10/22/2010 Office visit Richardson Barber MD 09/17/2010 Office visit Richardson Barber MD 07/19/2010 Office visit Dayne Taylor DO 06/08/2010 Office visit Capri Lasha PATRIOT MISSILE [employer] DEFENSE ARTILLERY 03/27/2010 Office visit Dayne Taylor DO 03/07/2010 Office visit Yulisa MOYA 08/31/2009 Office visit Yulisa MOYA 05/01/2009 Office visit Joann MOYA 03/06/2009 Office visit Yulisa MOYA 02/02/2009 Office visit Yulisa MOYA 01/02/2009 Office visit Yulisa MOYA 10/26/2008 Office visit YULISA FRANCIS PA-C
--- OUTSIDE RECORDS SUMMARY | 2019-09-13 07:54 | XMS REPORT ---
Author Author Jo Colby Organization [facility] Address [address] [place], [place] [address] Care Team Providers Care Piano Maker Name Role Phone Capri Colby PCP Unavailable Allergies and Adverse Reactions Name Reaction Notes Erythromycin vomiting SULFUR Plan of Treatment Not available. Medications Active Name Start Date Estimated Completion Date SIG Co mments Sprintec (28) 0.25-35 mg-mcg oral tablet 04/07/2014 take 1 tablet by oral route once daily Prozac 40 mg oral capsule 11/25/2014 take 1 capsule (40 mg) by oral route once daily in the morning tramadol 50 mg oral tablet 12/05/2014 take 1 tablet (50 mg) by oral route every 6 hours as needed Celebrex 200 mg oral capsule 12/05/2014 01/04/2015 gomez e 1 capsule (200 mg) by oral route once daily for 30 days Name Start Date Expiration Date SIG [...] oral route once daily in the morning cyclobenzaprine 10 mg oral tablet 07/07/2014 08/22/2014 [...] day as needed. MUST LAST 30 DAYS. Problem List Description Status Onset ADHD Active Allergic rhinitis Active Depressive Disorder Active Anxiety Disorder Active 05/19/2013 Attention deficit disorder Active 12/01/2013 Anxiety Active 08/24/2014 Depression Active 08/24/2014 ADD (attention deficit disorder) Active 08/25/19 15 Vital Signs Date Time BP-Sys(mm[Hg] BP-Valeria(mm[Hg]) HR(bpm) RR(rpm) Temp WT HT HC BMI BSA BMI Percentile O2 Sat(%) 12/05/2014 2:32:00 PM 124 mmHg 66 mmHg 68 bpm 18 rpm 98.6 F 171 lbs 67 in 26.78 kg/m2 1.91 m2 100 % 11/28/2014 2:49:00 PM 77 bpm 20 rpm 97.2 F 170.6 lbs 67 in 26.7195 kg/m 1.9126 m 99 % 11/08/2014 2:05:00 PM 120 mmHg 84 mmHg 86 bpm 20 rpm 99.3 F 167.6 lbs 67 in 26.25 kg/m2 1.90 m2 98 % 10/20/2014 2:44:00 PM 135 mmHg 81 mmHg 100 bpm 20 rpm 97.2 F 167.4 lbs 67 i n 26.2183 kg/m 1.8946 m 99 % 08/29/2014 2:35:00 PM 122 mmHg 80 mmHg 83 bpm 18 rpm 99.1 F 167 lbs 67 in 26.16 kg/m2 1.89 m2 99 % 08/22/2014 1:29:00 PM 146 mmHg 82 mmHg 66 bpm 18 rpm 98.7 F 166.25 lbs 67 i n 26.0382 kg/m 1.8881 m 98 % 07/06/2014 11:13:00 AM 126 mmHg [...] F 166 lbs 67 in 25.999 kg/m 1.89 m2 86.7 % 03/06/2009 4:01:00 PM 16 bpm 72 rpm 98.6 F 166.125 lbs 67.5 in 25.63 kg/m2 1.8944 m 85.6 % 02/02/2009 4:04:00 PM 116 mmHg 68 mmHg 64 bpm 16 rpm 98.1 F 159.5 lbs 67 in 24.981 kg/m 1.85 m2 83 % Social History Name [...] Per 1 Mg [facility]# [address]-84 Re viewed 07/06/2014 12:00 AM Depo-Medrol 40mg [...] negative 08/29/2014 3:06 PM Test, Urine neg History Of Immunizations Not available. History of [...] 2014 2:33PM Scoliosis Dec 05 2014 2:33PM Payers Insurance Name Company Name Plan Name Plan Number Policy Number Stephen Group Number Start Date Cigna Cigna [id number] Friday, 2010 [facility] [id number] N/A [place] Medical Assistance [facility] Medical Kennedi tance Prog [id number] N/A Wppa Wppa [id number] Friday, ctober 2008 [facility] UMR [id number] Friday, [facility] 2009 [facility] [id number] N/A Cigna Cigna [id number] Friday, 2010 [place] Medical [employer] [facility] Medical Kennedi tance Prog [id number] Friday, 2010 History of Encounters Visit Date Visit Type Provider 12/05/2014 Office visit Capri Colby PROPERTY CLERK 11/28/2014 Office visit Katie TORRES RN 11/08/2014 Office visit Katie TORRES RN 10/20/2014 Office visit Katie TORRES RN 08/29/2014 Office visit Capri Lasha PROPERTY CLERK 08/22/2014 Office visit Capri Colby PROPERTY CLERK 07/06/2014 Office visit Capri Colby PROPERTY CLERK 06/28/2014 Office visit Capri Lasha PROPERTY CLERK 04/07/2014 Office visit Capri Lasha PROPERTY CLERK 03/24/2014 Office visit Capri Lasha PROPERTY CLERK 01/04/2014 Office visit Dayne Taylor DO 12/01/2013 Office visit Capri Lsaha PROPERTY CLERK 10/27/2013 Office visit Dayne Taylor DO 08/20/2013 Office visit Kanu Bentonran APR N 05/18/2013 Office visit Capri Lasha PROPERTY CLERK 12/01/2012 Office visit Dayne Taylor DO 03/09/2012 Office visit Capri Colby PROPERTY CLERK 12/03/2011 Office visit Dayne Taylor DO 10/14/2011 Office visit Dayne Taylor DO 09/23/2011 Office visit Dayne Taylor DO 06/04/2011 Office visit Richardson Barber MD 05/20/2011 Office visit Richardson Barber MD 05/03/2011 [facility] Richardson Barber MD 04/29/2011 Office [...] visit Dayne Taylor DO 03/07/2010 Office visit Julia MOYA 08/31/2009 Office visit Julia MOYA 05/01/2009 Office visit Joann MOYA 03/06/2009 Office visit Julia MOYA 02/02/2009 Office visit Julia MOYA 01/02/2009 Office visit Julia MOYA 10/26/2008 Office visit JULIA FRANCIS PA-C
--- OUTSIDE RECORDS SUMMARY | 2019-09-13 07:54 | XMS REPORT ---
Author Author Jo Taylor Organization [facility] Address [address] [place], [place] [address] Care Team Providers Care Fisher Net Name Role Phone Dayne Taylor PCP Unavailable [...] oral route once daily in the morning alprazolam 0.25 mg oral tablet 02/09/2015 t pavan 1 tablet by oral route daily as needed Name Start Date Expiration Date [...] oral route once daily for 30 days Discontinued Name Start Date Discontinued Date [...] day "Made me mean and mood changes" Problem List Description Status Onset ADHD Active Allergic rhinitis Active Depressive Disorder Active Anxiety Disorder Active 05/19/2013 Attention deficit disorder Active 12/01/2013 Anxiety Active 08/24/2014 Depression Active 08/24/2014 ADD (attention deficit disorder) Active 08/25/19 15 Vital Signs Date Time BP-Sys(mm[Hg] BP-Valeria(mm[Hg]) HR(bpm) RR(rpm) Temp WT HT HC BMI BSA BMI Percentile O2 Sat(%) 02/09/2015 3:02:00 PM 128 mmHg 70 mmHg [...] 4 FADY 3 YRS PLUS IM Reviewed 01/22/2011 12:00 AM GLUCOSE TEST Reviewed [...] Mg [facility]# [address]-06 Re viewed 07/06/2014 12:00 AM Depo-Medrol 40mg [...] PM Test, Urine neg History Of Immunizations Name Date Admin Mfg [...] Generalized Anxiety Disorder Feb 09 2015 3:05PM Payers Insurance Name Company Name Plan Name Plan Number Policy Number Stephen cy Group Number Start Date Cigna Cigna [id number] Friday, 2010 [facility] [id number] N/A [place] Medical Assistance [facility] Medical Kennedi tance Prog [id number] N/A Wppa Wppa [id number] Friday, O ctober 2008 U[facility] UMR [id number] Friday, [facility] 2009 [facility] [id number] N/A Cigna Cigna [id number] Friday, 2010 [facility] Assistance [facility] Medical Kennedi tance Prog [id number] Friday, 2010 History of Encounters Visit Date Visit Type Provider 02/09/2015 Office visit Dayne Taylor DO 01/02/2015 Office visit Katie TORRES RN 12/05/2014 Office visit Capri Colby APRN 11/28/2014 Office visit Katie TORRES RN 11/08/2014 Office visit Katie TORRES RN 10/20/2014 Office visit Katie TORRES RN 08/29/2014 Office visit Capri Colby APRN 08/22/2014 Office visit Capri Colby APRN 07/06/2014 Office visit Capri Colby APRN 06/28/2014 Office visit Capri Colby APRN 04/07/2014 Office visit Capri Colby APRN 03/24/2014 Office visit Capri Colby APRN 01/04/2014 Office visit Dayne Taylor DO 12/01/2013 Office visit Capri Colby APRN 10/27/2013 Office visit Dayne Taylor DO 08/20/2013 Office visit Kanu Rodríguez APR N 05/18/2013 Office visit Capri Colby APRN 12/01/2012 Office visit Dayne Taylor DO 03/09/2012 Office visit Capri Colby PROOF INSPECTOR 12/03/2011 Office visit Dayne Taylor DO 10/14/2011 Office visit Dayne Taylor DO 09/23/2011 Office visit Dayne Taylor DO 06/04/2011 Office visit Richardson Barber MD 05/20/2011 Office visit Richardson Barber MD 05/03/2011 Hospital Richardson Barber MD 04/29/2011 Office visit Richardson Barber MD 04/22/2011 Office visit Richardson Barber MD 04/16/2011 Office visit Richardson Barber MD 04/10/2011 Office visit Richardson Barber MD 04/01/2011 Office visit Richardson Barber MD 03/18/2011 Office visit Richardson Barber MD 03/14/2011 Office visit Rihcardson Barber MD 02/20/2011 Office visit Richardson Barber MD 02/12/2011 Office visit Richardson Barber MD 02/11/2011 Office visit Richardson Barber MD 02/11/2011 [facility] Richardson Barber MD 02/05/2011 Voided Richardson Barber MD 01/22/2011 Office visit Richardson Barber MD 01/16/2011 Office visit Richardson Barber MD 12/24/2010 Office visit Richardson Barber MD 11/29/2010 Office visit Richardson Barber MD 11/26/2010 Office visit Richarsdon Barber MD 10/22/2010 Office visit Richardson Barber MD 09/17/2010 Office visit Richardson Barber MD 07/19/2010 Office visit Dayne Taylor DO 06/08/2010 Office visit Capri Colby PROOF INSPECTOR 03/27/2010 Office visit Dayne Taylor DO 03/07/2010 Office visit Julia MOYA 08/31/2009 Office visit Julia MOYA 05/01/2009 Office visit Joann MOYA 03/06/2009 Office visit Julia MOYA 02/02/2009 Office visit Julia MOYA 01/02/2009 Office visit Julia MOYA 10/26/2008 Office visit JULIA FRANCIS PA-C
--- OUTSIDE RECORDS SUMMARY | 2019-09-13 07:55 | XMS REPORT ---
Author Author Jo Rodríguez [facility] Address [address] [place] [id number] Care Team Providers Care Alteration Worker Name Role Phone Kanu Rodríguez PCP Dayne [...] take 1 capsule by oral route daily Name Start Date [...] route every 12 hours for 7 days Discontinued Name Start [...] each nostril by intranasal route once daily montelukast 10 mg oral tablet 01/04/2016 [...] HC BMI BSA BMI Percentile O2 Sat(%) 01/04/2016 5:57:00 PM 132 mmHg 76 mmHg [...] Per 1 Mg [facility]# [address]-20 Re viewed 07/06/2014 12:00 AM Depo-Medrol 40mg [...] CALLED TO/BY DR. GERBER [id number] 01-22-11 [facility] Phencyclidine (PCP) NEGATIVE Cocaine NEGATIVE Methamphetamine NEGATIVE [...] Of Immunizations Name Date Admin Mfg Name Mf Code Trade Name Lot# Route [...] sinusitis, recurrence not specified Jan 03 5:59PM Payers Insurance Name Company Name Plan Name Plan Number Policy Number Stephen cy Group Number Start Date Cigna Cigna [id number] Friday, 2010 [facility] [id number] N/A [place] Medical Assistance [facility] Kennedi tance Prog [id number] N/A Wppa Wppa [id number] Friday, O ctober 2008 [facility] UMR [id number] Friday, [place] [facility] 2009 [facility] [id number] N/A Cigna Cigna [id number] Friday, 2010 [place] [employer] [facility] Kennedi tance Prog [id number] Friday, 2010 History of Encounters Visit Date Visit Type Provider 01/04/2016 Office visit Kanu Rodríguez APR N 10/05/2015 Office visit Dayne Taylor DO 09/28/2015 Office visit Capri Colby SUSHI CHEF 09/26/2015 Office visit Kanu Rodríguez APR N 07/24/2015 Office visit Dayne Brandon DO 05/03/2015 Office visit Capri Colby SUSHI CHEF 02/09/2015 Office visit Dayne Taylor DO 01/02/2015 Office visit Katie TORRES RN 01/01/2015 [facility] Florecita Mayfield MD 12/05/2014 Office visit Capri Colby SUSHI CHEF 11/28/2014 Office visit Katie TORRES RN 11/08/2014 Office visit Katie TORRES RN 10/20/2014 Office visit Katie TORRES RN 08/29/2014 Office visit Capri Colby SUSHI CHEF 08/22/2014 Office visit Capri Colby SUSHI CHEF 07/06/2014 Office visit 07/06/2014 Office visit Capri Colby SUSHI CHEF 06/28/2014 Office visit 06/28/2014 Office visit Capri Colby SUSHI CHEF 04/07/2014 Office visit Capri Colby SUSHI CHEF 03/24/2014 Office visit Capri Colby SUSHI CHEF 01/04/2014 Office visit Dayne Taylor DO 12/01/2013 Office visit Capri Colby SUSHI CHEF 10/27/2013 Office visit Dayne Brandon DO 08/20/2013 Office visit Kanu Rodríguez APR N 05/18/2013 Office visit Capri Colby SUSHI CHEF 12/01/2012 Office visit Dayne Taylor DO 03/09/2012 Office visit Capri Colby SUSHI CHEF 12/03/2011 Office visit Dayne Brandon DO 10/14/2011 [...]
--- NOTE | 2019-09-13 07:56 | NUR ---
#20g IV to Lt.wrist x1 attempt per this RN. admission labs collected prior to infusing IVF's. 1 liter LR infusing w/o via gravity per anesthesia pre-op protocol.
--- OUTSIDE RECORDS SUMMARY | 2019-09-13 07:56 | XMS REPORT ---
Author Author Jo Mcconnell [facility] Address [address] [place], [place] [address] Care Team Providers Care Pipeline Construction Inspector Name Role Phone Katie Mcconnell PCP Unavailable Allergies and Adverse Reactions Name Reaction Notes Erythromycin vomiting SULFUR Plan of Treatment Not available. Medications Active Name Start Date Estimated Completion Date SIG Co mments Sprintec (28) 0.25-35 mg-mcg oral tablet 04/07/2014 take 1 tablet by oral route once daily Xanax 0.25 mg oral tablet 10/20/2014 take 1 tablet (0.25 mg) by oral route 2 times per day as needed. MUST LAST 30 DAYS. Prozac 40 mg oral capsule 11/25/2014 take [...] b y oral route daily too expensive Problem List Description Status Onset ADHD Active Allergic rhinitis Active Depressive Disorder Active Anxiety Disorder Active 05/19/2013 Attention deficit disorder Active 12/01/2013 Anxiety Active 08/24/2014 Depression Active 08/24/2014 ADD (attention deficit disorder) Active 08/25/19 15 Vital Signs Date Time BP-Sys(mm[Hg] BP-Valeria(mm[Hg]) HR(bpm) RR(rpm) Temp WT HT HC BMI BSA BMI Percentile O2 Sat(%) 11/08/2014 2:05:00 PM 120 mmHg 84 mmHg [...] F 131 lbs 66 in 21.14 kg/m2 1.6634 m 0 % 100 % 10/14/2011 2:56:00 PM 122 mmHg 70 mmHg 80 bpm 16 rpm 99.1 F 136 lbs 67 in 21.3004 kg/m 1.71 m2 0 % 09/23/2011 2:33:00 PM 118 mmHg 70 mmHg 72 bpm 18 rpm 98.2 F 143 lbs 67 in 22.40 kg/m2 1.7511 m 0 % 06/04/2011 2:17:00 PM [...] rpm 97.8 F 167.5 lbs 67.5 in 25.85 kg/m2 1.9022 m 83 % 02/20/2011 3:52:00 PM 115 mmHg 78 mmHg 77 bpm 98.7 F 166.125 lbs 67 in 26.0186 kg/m 1.89 m2 83.9 % 100 % 02/11/2011 [...] 12:00 AM Bicillin CR, 1.2 million units [facility]# 6079 3-600-10 Reviewed 07/06/2014 11:29 AM URINE TEST Reviewed 07/06/2014 12:00 AM THER/PROPH/DIAG INJ SC/IM Reviewed 07/06/2014 12:00 AM Decadron, Per 1 Mg [facility]# [address]-24 Re viewed 07/06/2014 12:00 AM Depo-Medrol 40mg [...] of right leg Nov 08 2014 2:07PM Payers Insurance Name Company Name Plan Name Plan Number Policy Number Stephen cy Group Number Start Date Cigna Cigna [id number] Friday, 2010 [facility] [id number] N/A [place] Medical Assistance [facility] Medical Kennedi tance Prog [id number] N/A Wppa Wppa [id number] Friday, O ctober 2008 UMR UMR [id number] Friday, [facility] 2009 [facility] [id number] N/A Cigna Cigna [id number] Friday, 2010 [place] Medical Assistance [facility] Medical Kennedi tance Prog [id number] Friday, 2010 History of Encounters Visit Date Visit Type Provider 11/08/2014 Office visit Katie TORRES RN 10/20/2014 Office visit Katie TORRES RN 08/29/2014 Office visit Capri Colby MORTGAGE PROCESSOR 08/22/2014 Office visit Capri Colby MORTGAGE PROCESSOR 07/06/2014 Office visit Capri Colby MORTGAGE PROCESSOR 06/28/2014 Office visit Capri Colby MORTGAGE PROCESSOR 04/07/2014 Office visit Capri Colby MORTGAGE PROCESSOR 03/24/2014 Office visit Capri Colby MORTGAGE PROCESSOR 01/04/2014 Office visit Dayne Taylor DO 12/01/2013 Office visit Capri Colby MORTGAGE PROCESSOR 10/27/2013 Office visit Dayne Taylor DO 08/20/2013 Office visit Kanu Rodríguez APR N 05/18/2013 Office visit Capri Colby MORTGAGE PROCESSOR 12/01/2012 Office visit Dayne Taylor DO 03/09/2012 Office visit Capri Colby MORTGAGE PROCESSOR 12/03/2011 Office visit Dayne Taylor DO 10/14/2011 [...] 02/11/2011 Office visit Richardson Barber MD 02/11/2011 [facility] Richardson Barber MD 02/05/2011 Voided Richardson [...]
--- OUTSIDE RECORDS SUMMARY | 2019-09-13 07:56 | XMS REPORT ---
Author Author Jo Rodríguez [facility] Address [address] [place] [id number] Care Team Providers Care Baby Doctor Name Role Phone Kanu Rodríguez PCP Allergies and Adverse Reactions Name Reaction Notes [...] oral route once daily in the morning Discontinued Name Start Date Discontinued Date SIG [...] 1 Mg [facility]# [address]-52 Re viewed 07/06/2014 12:00 AM Depo-Medrol 40mg [...] moderate History Of Immunizations Name Date Admin [facility] Name [facility] Code Trade Name Lot# Route Inj Vis Given Vis Pub CVX Influenza 02/09/2015 [facility] PMC Fluzone Quadrivalent UI4 22AA Intramuscular Left [...] for initial prescription of contraceptive pills Zoran r 2015 3:10PM Facial fracture Jul 24 2015 [...] cy Group Number Start Date Cigna Cigna [id number] Friday, 2010 [facility] [id number] N/A [place] Medical Assistance [facility] Kennedi tance Prog [id number] N/A Wppa Wppa [id number] Friday, ctober 2008 R UMR [id number] Friday, [facility] [id number] N/A Cigna Cigna [id number] Friday, 2010 [place] Medical Assistance [facility] Medical Kennedi tance Prog [id number] Friday, 2010 History of Encounters Visit Date Visit Type Provider 01/04/2016 Office visit Kanu Rodríguez APR N 10/05/2015 Office visit Dayne Taylor DO 09/28/2015 Office visit Capri Colby CONSULTING SYSTEMS ENGINEER 09/26/2015 Office visit Kanu Rodríguez APR N 07/24/2015 Office visit Dayne Taylor DO 05/03/2015 Office visit Capri Colby CONSULTING SYSTEMS ENGINEER 02/09/2015 Office visit Dayne Taylor DO 01/02/2015 Office visit Katie TORRES RN 01/01/2015 Hospital Florecita Mayfield MD 12/05/2014 Office visit Capri Colby CONSULTING SYSTEMS ENGINEER 11/28/2014 Office visit Katie TORRES RN 11/08/2014 Office visit Katie TORRES RN 10/20/2014 Office visit Katie TORRES RN 08/29/2014 Office visit Capri Colby CONSULTING SYSTEMS ENGINEER 08/22/2014 Office visit Capri Colby CONSULTING SYSTEMS ENGINEER 07/06/2014 Office visit 07/06/2014 Office visit Capri Colby CONSULTING SYSTEMS ENGINEER 06/28/2014 Office visit 06/28/2014 Office visit Capri Colby CONSULTING SYSTEMS ENGINEER 04/07/2014 Office visit Capri Colby CONSULTING SYSTEMS ENGINEER 03/24/2014 Office visit Capri Colby CONSULTING SYSTEMS ENGINEER 01/04/2014 Office visit Dayne Taylor DO 12/01/2013 Office visit Capri Lasha CONSULTING SYSTEMS ENGINEER 10/27/2013 Office visit Dayne Taylor DO 08/20/2013 Office visit Kanu Marcos APR N 05/18/2013 Office visit Capri Lasha CONSULTING SYSTEMS ENGINEER 12/01/2012 Office visit Dayne Taylor DO 03/09/2012 Office visit Capri Colby CONSULTING SYSTEMS ENGINEER 12/03/2011 Office visit Dayne Taylor DO 10/14/2011 Office visit Dayne Taylor DO 09/23/2011 Office visit Dayne Taylor DO 06/04/2011 Office visit Richardson Barber MD 05/20/2011 Office visit Richardson Barber MD 05/03/2011 [facility] Richardson Barber MD 04/29/2011 Office visit Richardson [...] 02/11/2011 Office visit Richardson Barber MD 02/11/2011 [facility] Richardson Barber MD 02/05/2011 Voided Richardson Barber MD 01/22/2011 Office visit Richardson Barber MD 01/16/2011 Office visit Richardson Barber MD 12/24/2010 Office visit Richardson Barber MD 11/29/2010 Office visit Richardson Barber MD 11/26/2010 Office visit Richardson Barber MD 10/22/2010 Office visit Richardson Braber MD 09/17/2010 Office visit Richardson Barber MD 07/19/2010 Office visit Dayne Taylor DO 06/08/2010 Office visit Capri Colby APRN 03/27/2010 Office visit Dayne Taylor DO 03/07/2010 Office visit Yulisa MOYA 08/31/2009 Office visit Yulisa MOYA 05/01/2009 Office visit Joann MOYA 03/06/2009 Office visit Yulisa MOYA 02/02/2009 Office visit Yulisa MOYA 01/02/2009 Office visit Yuilsa MOYA 10/26/2008 Office visit YULISA FRANCIS PA-C
--- OUTSIDE RECORDS SUMMARY | 2019-09-13 07:56 | XMS REPORT ---
Author Author Jo Cuenca Organization [facility] Address [address] [place] [id number] Care Team Providers Care Receiving Lead Name Role Phone Yessica Cuenca PCP Unavailable Dayne Taylor PreferredProvider Unavailable Allergies and Adverse Reactions Name Reaction Notes erythromycin vomiting SULFA (SULFONAMIDES) Plan of Treatment Planned Activity Comments Planned Date Planned Time Plan/Goal INFLUENZA A & B 06/04/2016 12:00 AM BMP 06/04/2016 12:00 AM CBC W/ AUTO DIFF (RFLX MAN DIFF IF IND). 06/04/2016 12:00 AM Nasal bone fracture and Left maxillary fracture 016 4:30 PM Mirena placement 10/03/2015 12:00 AM Scoliois with previous surgery and harward placement 1 03/08/2014 1:00 PM Medications Active Name Start Date Estimated Completion Date SIG Co mments Wellbutrin SR oral hydroxyzine HCl 25 mg oral tablet take 1 tablet by oral route As needed Name Start Date Expiration Date SIG [...] prednisone 20 mg oral tablet 03/28/2014 04/02/2014 goemz e 1 tablet by oral route daily [...] HC BMI BSA BMI Percentile O2 Sat(%) 06/04/2016 6:22:00 PM 128 mmHg 88 mmHg 100 bpm 99.8 F 209 lbs 67.5 in 32.25 kg/m2 2.12 m2 99 % 05/14/2016 6:36:00 PM 120 mmHg 78 mmHg 94 bpm 98.7 F 210 lbs 67.5 in 32.4049 kg/m 2.1299 m 98 % 04/22/2016 7:08:00 PM 118 mmHg [...] F 167.5 lbs 67.5 in 25.85 kg/m2 1.90 m2 83 % 02/20/2011 3:52:00 PM 115 mmHg 78 mmHg 77 bpm 98.7 F 166.125 lbs 67 in 26.0186 kg/m 1.8874 m 83.9 % 100 % 02/11/2011 5:05:00 PM [...] 12:00 AM Bicillin CR, 1.2 million units [facility]# 6079 3-600-10 Reviewed 07/06/2014 11:29 AM URINE TEST Reviewed 07/06/2014 12:00 AM THER/PROPH/DIAG INJ SC/IM Reviewed 07/06/2014 12:00 AM Decadron, Per 1 Mg [facility]# [address]-10 Re viewed 07/06/2014 12:00 AM Depo-Medrol 40mg [...] SULAIMAN CALLED TO/BY DR. GERBER 1540 01-22-11 [facility] Phen[facility]idine (PCP) NEGATIVE Cocaine NEGATIVE Methamphetamine [...] initial prescription of contraceptive pills Ma r 2015 3:10PM Facial fracture Jul 24 [...] 6:25PM Diarrhea, unspecified Jun 04 2016 6:25PM Payers Insurance Name Company Name Plan Name Plan Number Policy Number Stephen cy Group Number Start Date Cigna Cigna [id number] Friday, 2010 [facility] [id number] N/A [place] Medical [place] [facility] Kenn[place] tance Prog [id number] N/A Wppa Wppa [id number] Friday, ctober 2008 UMR UMR [id number] Friday, [facility] 2009 [facility] [id number] N/A Vineet Manley [id number] Friday, 2010 [place] Medical Assistance [facility] Medical Kennedi tansamanta Prog [id number] Friday, 2010 History of Encounters Visit Date Visit Type Provider 06/04/2016 Office visit Yessica Cuenca APR N 05/14/2016 Office visit Codi Guerra CHIEF INSPECTOR 04/22/2016 Office visit Kanu Rodríguez APR N 03/20/2016 Office visit Kanu Rodríguez APR N 02/06/2016 Office visit Kanu Rodríguez APR N 01/04/2016 Office visit Kanu Rodríguez APR N 10/05/2015 Office visit Dayne Taylor DO 09/28/2015 Office visit Capri Colby CHIEF INSPECTOR 09/26/2015 Office visit Kanu Rodríguez APR N 07/24/2015 Office visit Dayne Taylor DO 05/03/2015 Office visit Capri Colby CHIEF INSPECTOR 02/09/2015 Office visit Dayne Taylor DO 01/02/2015 Office visit Katie TORRES RN 01/01/2015 [facility] Florecita Mayfield MD 12/05/2014 Office visit Capri Colby CHIEF INSPECTOR 11/28/2014 Office visit Katie TORRES RN 11/08/2014 Office visit Katie TORRES RN 10/20/2014 Office visit Katie TORRES RN 08/29/2014 Office visit Capri Colby CHIEF INSPECTOR 08/22/2014 Office visit Capri Colby CHIEF INSPECTOR 07/06/2014 Office visit 07/06/2014 Office visit Capri Colby CHIEF INSPECTOR 06/28/2014 Office visit 06/28/2014 Office visit Capri Colby APRN 04/07/2014 Office visit Capri Colby APRN 03/24/2014 Office visit Capri Colby CHIEF INSPECTOR 01/04/2014 Office visit Dayne Taylor DO 12/01/2013 Office visit Capri Colby CHIEF INSPECTOR 10/27/2013 Office visit Dayne Taylro DO 08/20/2013 Office visit Kanu Rodríguez APR N 05/18/2013 Office visit Capri Colby CHIEF INSPECTOR 12/01/2012 Office visit Dayne Taylor DO 03/09/2012 Office visit Capri Colby CHIEF INSPECTOR 12/03/2011 Office visit Dayne Owenste DO 10/14/2011 Office visit Dayne Owenste DO [...] 02/11/2011 Office visit Richardson Gerber MD 02/11/2011 [facility] Richardson Gerber MD 02/05/2011 [...] Taylor DO 06/08/2010 Office visit Capri Colby CHIEF INSPECTOR 03/27/2010 Office visit Dayne Taylor DO 03/07/2010 Office visit Yulisa MOYA 08/31/2009 Office visit Yulisa MOYA 05/01/2009 Office visit Joann MOYA 03/06/2009 Office visit Yulisa MOYA 02/02/2009 Office visit Yulisa MOYA 01/02/2009 Office visit Yulisa MOYA 10/26/2008 Office visit YULISA FRANCIS PA-C
--- OUTSIDE RECORDS SUMMARY | 2019-09-13 07:57 | XMS REPORT ---
Author Author Jo Gillette [facility] Address [address] [place] [id number] Care Team Providers Care Kettle Skimmer Name Role Phone Cinthia Gillette PCP Dayne [...] AM Bicillin CR, 1.2 million units [facility]# 6079 3-600-10 Reviewed 07/06/2014 11:29 AM URINE TEST Reviewed 07/06/2014 12:00 AM THER/PROPH/DIAG INJ SC/IM Reviewed 07/06/2014 12:00 AM Decadron, Per 1 Mg [facility]# [address]-92 Re viewed 07/06/2014 12:00 AM Depo-Medrol 40mg [...] (THC) NON-NEGAT SULAIMAN CALLED TO/BY DR. GERBER [id number] 01-22-11 [facility] Phencyclidine (PCP) NEGATIVE Cocaine NEGATIVE [...] Jul 19 2010 2:31PM Amenorrhea, Rule Out Audie 14 2011 12:07PM test confirmed positive Sep 17 2010 [...] cy Group Number Start Date Cigna Cigna [id number] Friday, 2010 [facility] [id number] N/A [facility] Kennedi tance Prog [id number] N/A Wppa Wppa [id number] Friday, ctober 2008 UM UMR [id number] Friday, [facility] 2009 [facility] [id number] N/A Cigna Cigna [id number] Friday, 2010 [facility] Medical Kennedi tance Prog [id number] Friday, 2010 History of Encounters Visit Date Visit Type Provider 06/05/[address] Cinthia hudson MD 05/13/[address] Cinthia hudson MD 04/30/2017 Office visit Maria Victoria stephen NUTRITIONAL HEALTH COACH 02/09/2017 Office visit Yessica Cuenca APR N 06/04/2016 Office visit Yessica Cuenca APR N 05/14/2016 Office visit Codi Guerra NUTRITIONAL HEALTH COACH 04/22/2016 Office visit Kanu Rodríguez APR N 03/20/2016 Office visit Kanu Rodríguez APR N 02/06/2016 Office visit Kanu Rodríguez APR N 01/04/2016 Office visit Kanu Rodríguez APR N 10/05/2015 Office visit Dayne Taylor DO 09/28/2015 Office visit Capri Colby NUTRITIONAL HEALTH COACH 09/26/2015 Office visit Kanu Rodríguez APR N 07/24/2015 Office visit Dayne Taylor DO 05/03/2015 Office visit Capri Colby NUTRITIONAL HEALTH COACH 02/09/2015 Office visit Dayne Taylor DO 01/02/2015 Office visit Katie TORRES RN 01/01/2015 Hospital Florecita Mayfield MD 12/05/2014 Office visit Capri Lasha NUTRITIONAL HEALTH COACH 11/28/2014 Office visit Katie Mcconnell AP RN 11/08/2014 Office visit Katie TORRES RN 10/20/2014 Office visit Katie TORRES RN 08/29/2014 Office visit Capri Colby NUTRITIONAL HEALTH COACH 08/22/2014 Office visit Capri Lasha NUTRITIONAL HEALTH COACH 07/06/2014 Office visit 07/06/2014 Office visit Capri Colby NUTRITIONAL HEALTH COACH 06/28/2014 Office visit 06/28/2014 Office visit Capri Colby NUTRITIONAL HEALTH COACH 04/07/2014 Office visit Capri Colby NUTRITIONAL HEALTH COACH 03/24/2014 Office visit Capri Colby NUTRITIONAL HEALTH COACH 01/04/2014 Office visit Dayne Taylor DO 12/01/2013 Office visit Capri Lasha NUTRITIONAL HEALTH COACH 10/27/2013 Office visit Dayne Brandon DO 08/20/2013 Office visit Kanu Rodríguez APR N 05/18/2013 Office visit Capri Colby NUTRITIONAL HEALTH COACH 12/01/2012 Office visit Dayne Taylor DO 03/09/2012 Office visit Capri Colby NUTRITIONAL HEALTH COACH 12/03/2011 Office visit Dayne Taylor DO 10/14/2011 Office visit Dayne Brandon DO 09/23/2011 Office visit Dayne Taylor DO 06/04/2011 Office visit Richardson Gerber MD 05/20/2011 Office visit Richardson Gerber MD 05/03/2011 [facility] Richardson Gerber MD 04/29/2011 Office visit [...] visit Richardson Gerber MD 02/11/2011 [facility] Richardson Gerber MD 02/05/2011 Voided Richardson Gerber MD 01/22/2011 Office visit Richardson Gerber MD 01/16/2011 Office visit Richardson Gerber MD 12/24/2010 Office visit Richardson Gerber MD 11/29/2010 Office visit Richardson Gerber MD 11/26/2010 Office visit Richardson Gerber MD 10/22/2010 Office visit Richardson Gerber MD 09/17/2010 Office visit Richardson Gerber MD 07/19/2010 Office visit Dayne Taylor DO 06/08/2010 Office visit Capri Colby NUTRITIONAL HEALTH COACH 03/27/2010 Office visit Dayne Taylor DO 03/07/2010 Office visit Yulisa MOYA 08/31/2009 Office visit Yulisa MOYA 05/01/2009 Office visit Joann MOYA 03/06/2009 Office visit Yulisa MOYA 02/02/2009 Office visit Yulisa MOYA 01/02/2009 Office visit Yulisa MOYA 10/26/2008 Office visit YULISA FRANCIS PA-C
--- OUTSIDE RECORDS SUMMARY | 2019-09-13 07:57 | XMS REPORT ---
Author Author Jo Colby Organization [facility] Address [address] [place], [place] [phone] Care Team Providers Care Adhesive Bonding Machine Operator Name Role Phone Capir Colby PCP Unavailable Allergies and Adverse Reactions [...] 12:00 AM Bicillin CR, 1.2 million units [facility]# 6079 3-600-10 Reviewed 07/06/2014 11:29 AM URINE TEST Reviewed 07/06/2014 12:00 AM THER/PROPH/DIAG INJ SC/IM Reviewed 07/06/2014 12:00 AM Decadron, Per 1 Mg [facility]# [address]-45 Re viewed 07/06/2014 12:00 AM Depo-Medrol 40mg [...] cy Group Number Start Date Cigna Cigna [id number] Friday, 2010 [facility] [id number] N/A [place] Medical Assistance [facility] Medical Kennedi tance Prog [id number] N/A Wppa Wppa [id number] Friday, ctober 2008 UMR UMR [id number] Friday, [facility] [id number] N/A Cigna Cigna [id number] Friday, 2010 [place] Medical Assistance [facility] Medical Kennedi tance Prog [id number] Friday, 2010 History of Encounters Visit Date Visit Type Provider 05/03/2015 Office visit Capri Colby APRN 02/09/2015 Office visit Dayne Taylor DO 01/02/2015 Office visit Katie TORRES RN 01/01/2015 [facility] Florecita Mayfield MD 12/05/2014 Office visit Capri Colby SHELLFISH HARVESTER 11/28/2014 Office visit Katie TORRES RN 11/08/2014 Office visit Katie TORRES RN 10/20/2014 Office visit Katie TORRES RN 08/29/2014 Office visit Capri Colby SHELLFISH HARVESTER 08/22/2014 Office visit Capri Colby APRN 07/06/2014 Office visit 07/06/2014 Office visit Capri Colby APRN 06/28/2014 Office visit 06/28/2014 Office visit Capri Colby APRN 04/07/2014 Office visit Capri Colby SHELLFISH HARVESTER 03/24/2014 Office visit Capri Colby SHELLFISH HARVESTER 01/04/2014 Office visit Dayne Taylor DO 12/01/2013 Office visit Capri Colby SHELLFISH HARVESTER 10/27/2013 Office visit Dayne Taylor DO 08/20/2013 Office visit Kanu Rodríguez APR N 05/18/2013 Office visit Capri Colby SHELLFISH HARVESTER 12/01/2012 Office visit Dayne Taylor DO 03/09/2012 Office visit Capri Colby APRN 12/03/2011 Office visit Dayne Taylor DO 10/14/2011 Office visit Dayne Taylor DO 09/23/2011 Office visit Dayne Taylor DO 06/04/2011 Office visit Richardson Barber MD 05/20/2011 Office visit Richardson Barber MD 05/03/2011 [facility] Richardson Barber MD 04/29/2011 Office visit Richardson [...] 02/11/2011 Office visit Richardson Barber MD 02/11/2011 [facility] Richardson Barber MD 02/05/2011 Voided Richardson Barber [...]
--- OUTSIDE RECORDS SUMMARY | 2019-09-13 07:58 | XMS REPORT ---
Author Author Jo Mcconnell [facility] Address [address] [place], [place] [address] Care Team Providers Care Miller Head Name Role Phone Katie Mcconnell PCP Unavailable [...] HC BMI BSA BMI Percentile O2 Sat(%) 11/28/2014 2:49:00 PM 77 bpm 20 rpm [...] AM Bicillin CR, 1.2 million units [facility]# 6079 3-600-10 Reviewed 07/06/2014 11:29 AM URINE TEST Reviewed 07/06/2014 12:00 AM THER/PROPH/DIAG INJ SC/IM Reviewed 07/06/2014 12:00 AM Decadron, Per 1 Mg [facility]# [address]-15 Re viewed 07/06/2014 12:00 AM Depo-Medrol 40mg [...] thoracic back pain Nov 28 2014 2:50PM Payers Insurance Name Company Name Plan Name Plan Number Policy Number Stephen cy Group Number Start Date Cigna Cigna [id number] Friday, 2010 [facility] [id number] N/A [place] Medical Assistance [facility] Medical Kennedi tance Prog [id number] N/A Wppa Wppa [id number] Friday, O ctober 2008 UM UMR [id number] Friday, [facility] [id number] N/A Cigna Cigna [id number] Friday, 2010 [place] Medical Assistance [facility] Medical Kennedi tance Prog [id number] Friday, 2010 History of Encounters Visit Date Visit Type Provider 11/28/2014 Office visit Katie TORRES RN 11/08/2014 Office visit Katie TORRES RN 10/20/2014 Office visit Katie TORRES RN 08/29/2014 Office visit Capri Colby APRN 08/22/2014 Office visit Capri Colby MEASUREMENT COORDINATOR 07/06/2014 Office visit Capri Colby APRN 06/28/2014 Office visit Capri Colby APRN 04/07/2014 Office visit Capri Colby MEASUREMENT COORDINATOR 03/24/2014 Office visit Capri Colby MEASUREMENT COORDINATOR 01/04/2014 Office visit Dayne Taylor DO 12/01/2013 Office visit Capri Colby MEASUREMENT COORDINATOR 10/27/2013 Office visit Dayne Taylor DO 08/20/2013 Office visit Kanu Rodríguez APR N 05/18/2013 Office visit Capri Colby MEASUREMENT COORDINATOR 12/01/2012 Office visit Dayne Taylor DO 03/09/2012 Office visit Capri Colby MEASUREMENT COORDINATOR 12/03/2011 Office visit Dayne Taylor DO 10/14/2011 [...] visit Dayne Taylor DO 06/08/2010 Office visit Capir Colby MEASUREMENT COORDINATOR 03/27/2010 Office visit Dayne Taylor DO 03/07/2010 Office visit Julia MOYA 08/31/2009 Office visit Julia MOYA 05/01/2009 Office visit Joann MOYA 03/06/2009 Office visit Julia MOYA 02/02/2009 Office visit Julia MOYA 01/02/2009 Office visit Julia MOYA 10/26/2008 Office visit JULIA FRANCIS PA-C
--- OUTSIDE RECORDS SUMMARY | 2019-09-13 07:58 | XMS REPORT ---
Author Author Jo Colby Organization [facility] oup Address [address] [place], [place] [id number] Care Team Providers Care Milk Hauler Name Role Phone Capri Colby PCP Unavailable Allergies and Adverse Reactions Name Reaction Notes Erythromycin vomiting SULFUR Plan of Treatment Planned Activity Comments Planned Date Planned Time Plan/Goal Scoliois with previous surgery and harward placement 1 03/08/2014 1:00 PM Medications Active Name Start Date Estimated Completion Date SIG Co mments Prozac 40 mg oral capsule 02/16/2015 take 1 capsule (40 mg) by oral route once daily in the morning Sprintec (28) 0.25-35 mg-mcg oral tablet 05/03/2015 take 1 tablet by oral route once daily Cipro 500 mg oral tablet 05/03/2015 05/10/2015 take 1 tablet by oral route 2 times a day for 7 days Name Start Date Expiration Date SIG [...] route every 12 hours for 5 days Discontinued Name Start Date Discontinued Date [...] 1.2 million units [facility]# 6079 3-600-10 Reviewed 07/06/2014 11:29 AM URINE TEST Reviewed 07/06/2014 12:00 AM THER/PROPH/DIAG INJ SC/IM Reviewed 07/06/2014 12:00 AM Decadron, Per 1 Mg [facility]# [address]-12 Re viewed 07/06/2014 12:00 AM Depo-Medrol 40mg [...] cy Group Number Start Date Cigna Cigna [id number] Friday, 2010 [facility] [id number] N/A [place] [facility] Kennedi tance Prog [id number] N/A Wppa Wppa [id number] Friday, ctober 2008 UMR UMR [id number] Friday, [facility] [id number] N/A Cigna Cigna [id number] Friday, 2010 [place] [facility] Kennedi tance Prog [id number] Friday, 2010 History of Encounters Visit Date Visit Type Provider 05/03/2015 Office visit Capri Colby APRN 02/09/2015 Office visit Dayne Taylor DO 01/02/2015 Office visit Katie TORRES RN 01/01/2015 [facility] Florecita Mayfield MD 12/05/2014 Office visit Capri Colby PODIATRY TEACHER 11/28/2014 Office visit Katie TORRES RN 11/08/2014 Office visit Katie TORRES RN 10/20/2014 Office visit Katie TORRES RN 08/29/2014 Office visit Capri Colby PODIATRY TEACHER 08/22/2014 Office visit Capir Colby APRN 07/06/2014 Office visit 07/06/2014 Office visit Capri Colby APRN 06/28/2014 Office visit 06/28/2014 Office visit Capri Colby APRN 04/07/2014 Office visit Capri Colby PODIATRY TEACHER 03/24/2014 Office visit Capri Colby PODIATRY TEACHER 01/04/2014 Office visit Dayne Taylor DO 12/01/2013 Office visit Capri Colby PODIATRY TEACHER 10/27/2013 Office visit Dayne Taylor DO 08/20/2013 Office visit Kanu Rodríguez APR N 05/18/2013 Office visit Capri Colby PODIATRY TEACHER 12/01/2012 Office visit Dayne Taylor DO 03/09/2012 Office visit Capri Colby APRN 12/03/2011 Office visit Dayne Taylor DO 10/14/2011 Office visit Dayne Taylor DO 09/23/2011 Office visit Dayne Taylor DO 06/04/2011 Office visit Richardson Barber MD 05/20/2011 Office visit Richardson Barber MD 05/03/2011 [facility] Richardson Barber MD 04/29/2011 Office visit [...] 02/11/2011 Office visit Richardson Barber MD 02/11/2011 [facility] Richardson Barber MD 02/05/2011 Voided Richardson [...]
--- OUTSIDE RECORDS SUMMARY | 2019-09-13 07:59 | XMS REPORT ---
Author Author Jo Taylor [facility] Phys[facility] oup Address [address] [place] [id number] Care Team Providers Care Office Machines Teacher Name Role Phone Dayne Taylor PCP Unavailable Allergies and Adverse Reactions Name Reaction Notes erythromycin vomiting SULFUR Plan of Treatment Planned Activity Comments Planned Date Planned Time Plan/Goal Nasal bone fracture and Left maxillary fracture 016 4:30 PM Scoliois with previous surgery and harward placement 1 03/08/2014 1:00 PM Medications Active Name Start Date Estimated Completion Date SIG Co mments Prozac 40 mg oral capsule 05/11/2015 take 1 capsule (40 mg) by oral route once daily in the morning hydrocodone-acetaminophen 10-325 mg oral tablet 07/24/2015 take 1 tablet by oral route every 8 hours as needed amoxicillin 500 mg oral tablet 08/09/2015 t pavan 1 tablet (500 mg) by oral route every 12 hours Name Start Date Expiration Date SIG Comments [...] by oral route once daily "not taking" Problem List Description Status Onset ADHD Active Allergic rhinitis Active Depressive Disorder Active Anxiety disorder Active 05/19/2013 Attention deficit disorder Active 12/01/2013 Anxiety Active 08/24/2014 Depression Active 08/24/2014 ADD (attention deficit disorder) Active 08/25/19 15 Vital Signs Date Time BP-Sys(mm[Hg] BP-Valeria(mm[Hg]) HR(bpm) RR(rpm) Temp WT HT HC BMI BSA BMI Percentile O2 Sat(%) 07/24/2015 2:39:00 PM 132 mmHg 70 mmHg [...] CR, 1.2 million units [facility]# 6079 3-600-10 Reviewed 07/06/2014 11:29 AM URINE TEST Reviewed 07/06/2014 12:00 AM THER/PROPH/DIAG INJ SC/IM Reviewed 07/06/2014 12:00 AM Decadron, Per 1 Mg [facility]# [address]-76 Re viewed 07/06/2014 12:00 AM Depo-Medrol 40mg [...] subse quent encounter Jul 24 2015 2:40PM Payers Insurance Name Company Name Plan Name Plan Number Policy Number Stephen cy Group Number Start Date Cigna Cigna [id number] Friday, 2010 [facility] [id number] N/A [place] [facility] Medical Kennedi tance Prog [id number] N/A Wppa Wppa [id number] Friday, ctober 2008 UMR UMR [id number] Friday, [facility] 2009 [facility] [id number] N/A Cigna Cigna [id number] Friday, 2010 [facility] Assistance [facility] Medical Kennedi tance Prog [id number] Friday, 2010 History of Encounters Visit Date Visit Type Provider 07/24/2015 Office visit Dayne Taylor DO 05/03/2015 [...] visit Capri Colby APRN 08/22/2014 Office visit aCpri Colby EXPERIMENTAL MACHINIST 07/06/2014 Office visit 07/06/2014 Office visit Capri Colby EXPERIMENTAL MACHINIST 06/28/2014 Office visit 06/28/2014 Office visit Capri Colby EXPERIMENTAL MACHINIST 04/07/2014 Office visit Capri Colby EXPERIMENTAL MACHINIST 03/24/2014 Office visit Capri Colby EXPERIMENTAL MACHINIST 01/04/2014 Office visit Dayne Brandon DO 12/01/2013 Office visit Capri Colby EXPERIMENTAL MACHINIST 10/27/2013 Office visit Dayne Taylor DO 08/20/2013 Office visit Kanu Rodríguez APR N 05/18/2013 Office visit Capri Colby EXPERIMENTAL MACHINIST 12/01/2012 Office visit Dayne Owenste DO 03/09/2012 Office visit Capri Colby EXPERIMENTAL MACHINIST 12/03/2011 Office visit Dayne Talyor DO 10/14/2011 Office visit Dayne Taylor DO 09/23/2011 Office visit Dayne Taylor DO 06/04/2011 Office visit Richardson Barber MD 05/20/2011 Office visit Richardson Barber MD 05/03/2011 [facility] Richardson Barber MD 04/29/2011 Office visit Richardson [...] 02/11/2011 Office visit Richardson Barber MD 02/11/2011 [facility] Richardson Barber MD 02/05/2011 Voided Richardson Barber [...]
--- OUTSIDE RECORDS SUMMARY | 2019-09-13 07:59 | XMS REPORT ---
Author Author Jo Colby Organization [facility] Phys[facility] oup Address [address] [place] [id number] Care Team Providers Care Assembly Member Name Role Phone Capri Colby PCP Unavailable [...] oral tablet extended release 12 hr 09/28/2015 take 1 tablet by oral route once a day (in the morning) as needed Flonase Allergy Relief 50 mcg/actuation nasal spray,suspension inhale 1 spray (50 mcg) in each nostril by intranasal route once daily Prozac 20 mg oral capsule 09/28/2015 take [...] oral route daily for 5 days Zithromax Z-Jeol 250 mg oral tablet 06/29/2014 07/04/2014 take [...] mg) by oral route every 12 hours Problem List Description Status Onset ADHD Active Allergic rhinitis Active Depressive Disorder Active Anxiety Disorder Active 05/19/2013 Attention deficit disorder Active 12/01/2013 Anxiety Active 08/24/2014 Depression Active 08/24/2014 ADD (attention deficit disorder) Active 08/25/19 15 Vital Signs Date Time BP-Sys(mm[Hg] BP-Valeria(mm[Hg]) HR(bpm) RR(rpm) Temp WT HT HC BMI BSA BMI Percentile O2 Sat(%) 09/28/2015 2:11:00 PM 126 mmHg 66 mmHg [...] Decadron, Per 1 Mg [facility]# [address]-26 Re viewed 07/06/2014 12:00 AM Depo-Medrol 40mg [...] 2:13PM Contraceptive education Sep 28 2015 2:13PM Payers Insurance Name Company Name Plan Name Plan Number Policy Number Stephen cy Group Number Start Date Cigna Cigna [id number] Friday, 2010 [facility] [id number] N/A [facility] Assistance [facility] Medical Kennedi tance Prog [id number] N/A Wppa Wppa [id number] Friday, ctober 2008 [facility] [id number] Friday, [facility] [id number] N/A Vineet Manley [id number] Friday, 2010 [facility] Assistance [facility] Medical Kennedi tance Prog [id number] Friday, 2010 History of Encounters Visit Date Visit Type Provider 09/28/2015 Office visit Capri Colby DIRECTOR HEMATOLOGY 09/26/2015 Office visit Kanu Rodríguez APR N 07/24/2015 Office visit Dayne Taylor DO 05/03/2015 Office visit Capri Colby DIRECTOR HEMATOLOGY 02/09/2015 Office visit Dayne Taylor DO 01/02/2015 Office visit Katie TORRES RN 01/01/2015 [facility] Florecita Mayfield MD 12/05/2014 Office visit Capri Colby DIRECTOR HEMATOLOGY 11/28/2014 Office visit Katie TORRES RN 11/08/2014 Office visit Katie TORRES RN 10/20/2014 Office visit Katie TORRES RN 08/29/2014 Office visit Capri Colby DIRECTOR HEMATOLOGY 08/22/2014 Office visit Capri Colby DIRECTOR HEMATOLOGY 07/06/2014 Office visit 07/06/2014 Office visit Capri Colby DIRECTOR HEMATOLOGY 06/28/2014 Office visit 06/28/2014 Office visit Capri Colby APRN 04/07/2014 Office visit Capri Colby DIRECTOR HEMATOLOGY 03/24/2014 Office visit Capri Colby DIRECTOR HEMATOLOGY 01/04/2014 Office visit Dayne Taylor DO 12/01/2013 Office visit Capri Colby DIRECTOR HEMATOLOGY 10/27/2013 Office visit Dayne Taylor DO 08/20/2013 Office visit Kanu Rodríguez APR N 05/18/2013 Office visit Capri Colby DIRECTOR HEMATOLOGY 12/01/2012 Office visit Dayne Taylor DO 03/09/2012 Office visit Capri Colby DIRECTOR HEMATOLOGY 12/03/2011 Office visit Dayne Taylor DO 10/14/2011 [...]
--- OUTSIDE RECORDS SUMMARY | 2019-09-13 07:59 | XMS REPORT ---
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 Name Role Phone Capri Colby PCP Unavailable [...] Bicillin CR, 1.2 million units [facility]# 6079 3-600-10 Reviewed 07/06/2014 11:29 AM URINE TEST Reviewed 07/06/2014 12:00 AM THER/PROPH/DIAG INJ SC/IM Reviewed 07/06/2014 12:00 AM Decadron, Per 1 Mg [facility] 2[facility]# [address]-29 Re viewed 07/06/2014 12:00 AM Depo-Medrol 40mg [...] Stephen cy Group Number Start Date Cigna Alejandrana [id number] Friday, 2010 [facility] [id number] N/A [place] Medical Assistance [facility] Kennedi tance Prog [id number] N/A Wppa Wppa [id number] Friday, O ctober 2008 [facility] UMR [id number] Friday, [facility] 2009 [facility] [id number] N/A Cigna Cigna [id number] Friday, 2010 [place] [facility] Kennedi tance Prog [id number] Friday, 2010 History of Encounters Visit Date Visit Type Provider 12/05/2014 Office visit Capri Colby DIRECTOR OF FOOD AND NUTRITION SERVICES 11/28/2014 Office visit Katie TORRES RN 11/08/2014 Office visit Katie TORRES RN 10/20/2014 Office visit Katie TORRES RN 08/29/2014 Office visit Capri Colby DIRECTOR OF FOOD AND NUTRITION SERVICES 08/22/2014 Office visit Capri Lasha DIRECTOR OF FOOD AND NUTRITION SERVICES 07/06/2014 Office visit Capri Lasha DIRECTOR OF FOOD AND NUTRITION SERVICES 06/28/2014 Office visit Capri Lasha DIRECTOR OF FOOD AND NUTRITION SERVICES 04/07/2014 Office visit Capri Lasha DIRECTOR OF FOOD AND NUTRITION SERVICES 03/24/2014 Office visit Capri Colby DIRECTOR OF FOOD AND NUTRITION SERVICES 01/04/2014 Office visit Dayne Brandon DO 12/01/2013 Office visit Capri Lasha DIRECTOR OF FOOD AND NUTRITION SERVICES 10/27/2013 Office visit Dayne Taylor DO 08/20/2013 Office visit Kanu Rodríguez APR N 05/18/2013 Office visit Capri Lasha DIRECTOR OF FOOD AND NUTRITION SERVICES 12/01/2012 Office visit Dayne Taylor DO 03/09/2012 Office visit Capri Colby DIRECTOR OF FOOD AND NUTRITION SERVICES 12/03/2011 Office visit Dayne Taylor DO 10/14/2011 [...] Taylor DO 06/08/2010 Office visit Capri Colby DIRECTOR OF FOOD AND NUTRITION SERVICES 03/27/2010 Office visit Dayne Taylor DO 03/07/2010 Office visit Yulisa MOYA 08/31/2009 Office visit Yulisa MOYA 05/01/2009 Office visit Joann MOYA 03/06/2009 Office visit Yulisa MOYA 02/02/2009 Office visit Yulisa MOYA 01/02/2009 Office visit Yulisa MOYA 10/26/2008 Office visit YULISA FRANCIS PA-C
--- OUTSIDE RECORDS SUMMARY | 2019-09-13 08:00 | XMS REPORT ---
Author Author Jo Taylor Organization [facility] Phys[facility] oup Address [address] [place], [place] [address] Care Team Providers Care Fish Hatchery Superintendent Name Role Phone Dayne Taylor PCP Unavailable [...] AM Bicillin CR, 1.2 million units [facility]# 6079 3-600-10 Reviewed 07/06/2014 11:29 AM URINE TEST Reviewed 07/06/2014 12:00 AM THER/PROPH/DIAG INJ SC/IM Reviewed 07/06/2014 12:00 AM Decadron, Per 1 Mg [facility]# [address]-10 Re viewed 07/06/2014 12:00 AM Depo-Medrol 40mg [...] 2:47PM Flu Vaccine Feb 09 2015 5:11PM Payers Insurance Name Company Name Plan Name Plan Number Policy Number Stephen cy Group Number Start Date Cigna Cigna [id number] Friday, 2010 [facility] [id number] N/A [place] Medical Assistance [facility] Medical Kennedi tance Prog [id number] N/A Wppa Wppa [id number] Friday, O ctober 2008 UMR UMR [id number] Friday, [facility] [id number] N/A Cigna Cigna [id number] Friday, 2010 [place] [facility] Medical Kennedi tance Prog [id number] Friday, 2010 History of Encounters Visit Date [...] 02/11/2011 Office visit Richardson Barber MD 02/11/2011 [facility] Richardson Barber MD 02/05/2011 Voided Richardson [...]
--- OUTSIDE RECORDS SUMMARY | 2019-09-13 08:00 | XMS REPORT ---
Author Author Jo Colby Organization [facility] Physicians o[facility] Address [address] [place], [place] [address] Care Team Providers Care Health Sanitarian Name Role Phone Capri Cloby PCP Unavailable Allergies and Adverse Reactions Name Reaction Notes Erythromycin vomiting SULFUR Plan of Treatment Not available. Medications Active Name Start Date Estimated Completion Date SIG Co mments Sprintec (28) oral tablet 0.25-35 mg-mcg 04/07/2014 take 1 tablet by oral route once daily cyclobenzaprine oral tablet 10 mg 07/07/2014 take 1 tablet by oral route once a day (at bedtime) as needed Adderall oral tablet 10 mg 07/13/2014 take 1 tablet (10 mg) by oral route once daily before breakfast Name Start Date Expiration Date SIG Comments [...] Active 05/19/2013 Attention deficit disorder Active 12/01/2013 Vital Signs Date Time BP-Sys(mm[Hg] [...] Anxiety Disorder 05/19/2013 Attention deficit disorder 12/01/2013 Depression and anxiety Mar 07 2010 [...] Stephen Group Number Start Date Cigna Alejandrana [id number] Friday, 2010 [facility] [id number] N/A [facility] Kennedi tance Prog [id number] N/A Wppa Wppa [id number] Friday, O ctober 2008 R UMR [id number] Friday, [facility] 2009 [facility] [id number] N/A Cigna Cigna [id number] Friday, 2010 [place] [facility] Medical Kennedi tance Prog [id number] Friday, 2010 History of Encounters Visit Date Visit Type Provider 07/06/2014 Office visit Capri Lasha LOOP TACKER 06/28/2014 Office visit Capri Lasha LOOP TACKER 04/07/2014 Office visit Capri Lasha LOOP TACKER 03/24/2014 Office visit Capri Colby LOOP TACKER 01/04/2014 Office visit Dayne Taylor DO 12/01/2013 Office visit Capri Lasha LOOP TACKER 10/27/2013 Office visit aDyne Taylor DO 08/20/2013 Office visit Kanu Marcos APR N 05/18/2013 Office visit Capri Lasha LOOP TACKER 12/01/2012 Office visit Dayne Taylor DO 03/09/2012 Office visit Capri oClby LOOP TACKER 12/03/2011 Office visit Dayne Taylor DO 10/14/2011 Office visit Dayne Taylor DO 09/23/2011 Office visit Dayne Taylor DO 06/04/2011 Office visit Richardson Barber MD 05/20/2011 Office visit Richardson Barber MD 05/03/2011 [facility] Richardson Barber MD 04/29/2011 Office visit [...] Taylor DO 06/08/2010 Office visit Capri Lasha LOOP TACKER 03/27/2010 Office visit Dayne Taylor DO 03/07/2010 Office visit Yulisa MOYA 08/31/2009 Office visit Yulisa MOYA 05/01/2009 Office visit Joann MOYA 03/06/2009 Office visit Yulisa MOYA 02/02/2009 Office visit Yulisa MOYA 01/02/2009 Office visit Yulisa MOYA 10/26/2008 Office visit YULISA FRANCIS PA-C
--- OUTSIDE RECORDS SUMMARY | 2019-09-13 08:01 | XMS REPORT ---
Author Author Jo Gillette [facility] Physicians oup Address [address] [place] [id number] Care Team Providers Care Buckle Gluer Name Role Phone Cinthia Gillette PCP Dayne Taylor PreferredProvider Allergies and Adverse Reactions Name Reaction Notes erythromycin vomiting SULFA (SULFONAMIDES) Plan of Treatment Planned Activity Comments Planned Date Planned Time Plan/Goal Ultrasound, OB complete >14 weeks 08/26/2017 12:00 A M Nasal bone fracture and Left maxillary fracture [...] 12:00 AM Bicillin CR, 1.2 million units [facility]# 6079 3-600-10 Reviewed 07/06/2014 11:29 AM URINE TEST Reviewed 07/06/2014 12:00 AM THER/PROPH/DIAG INJ SC/IM Reviewed 07/06/2014 12:00 AM Decadron, Per 1 Mg [facility]# [address]-74 Re viewed 07/06/2014 12:00 AM Depo-Medrol 40mg [...] (THC) NON-NEGAT SULAIMAN CALLED TO/BY DR. GERBER 9800 01-22-11 [facility] Phencyclidine (PCP) NEGATIVE Cocaine NEGATIVE Methamphetamine [...] cy Group Number Start Date Cigna Cigna [id number] Friday, 2010 [facility] [id number] N/A [facility] Kennedi tance Prog [id number] N/A Wppa Wppa [id number] Friday, ctober 2008 [facility] UMR [id number] Friday, [facility] [id number] N/A Cigna Cigna [id number] Friday, 2010 [facility] Medical Kennedi tance Prog [id number] Friday, 2010 History of Encounters Visit Date Visit Type Provider 07/31/[address] Cinthia hudson MD 07/03/2017 Office visit Juan Hudson 06/05/[address] Cinthia hudson MD 05/13/[address] Cinthia hudson MD 04/30/2017 Office visit Maria Victoria stephen LEAD OXIDE MILL TENDER 02/09/2017 Office visit Yessica Cuneca APR N 06/04/2016 Office visit Yessica Cuenca APR N 05/14/2016 Office visit Codi Guerra LEAD OXIDE MILL TENDER 04/22/2016 Office visit Kanu Rodríguez APR N 03/20/2016 Office visit Kanu Bentonran APR N 02/06/2016 Office visit Kanu Bentonran APR N 01/04/2016 Office visit Kanu Bentonran APR N 10/05/2015 Office visit Dayne Brandon DO 09/28/2015 Office visit Capri Colby LEAD OXIDE MILL TENDER 09/26/2015 Office visit Kanu Bentonran APR N 07/24/2015 Office visit Dayne Brandon DO 05/03/2015 Office visit Capri Colby LEAD OXIDE MILL TENDER 02/09/2015 Office visit Dayne Brandon DO 01/02/2015 Office visit Katie TORRES RN 01/01/2015 Hospital Florecita Mayfield MD 12/05/2014 Office visit Capri Colby LEAD OXIDE MILL TENDER 11/28/2014 Office visit Katie TORRES RN 11/08/2014 Office visit Katie TORRES RN 10/20/2014 Office visit Katie TORRES RN 08/29/2014 Office visit Capri Colby LEAD OXIDE MILL TENDER 08/22/2014 Office visit Capri Lasha LEAD OXIDE MILL TENDER 07/06/2014 Office visit 07/06/2014 Office visit Capri Colby LEAD OXIDE MILL TENDER 06/28/2014 Office visit 06/28/2014 Office visit Capri Colby LEAD OXIDE MILL TENDER 04/07/2014 Office visit Capri Colby LEAD OXIDE MILL TENDER 03/24/2014 Office visit Capri Colby LEAD OXIDE MILL TENDER 01/04/2014 Office visit Dayne Brandon DO 12/01/2013 Office visit Capri Colby LEAD OXIDE MILL TENDER 10/27/2013 Office visit Dayne Brandon DO 08/20/2013 Office visit Kanu Bentonran APR N 05/18/2013 Office visit Capri Colby LEAD OXIDE MILL TENDER 12/01/2012 Office visit Dayne Brandon DO 03/09/2012 Office visit Capri Lasha LEAD OXIDE MILL TENDER 12/03/2011 Office visit Dayne Brandon DO 10/14/2011 [...]
--- OUTSIDE RECORDS SUMMARY | 2019-09-13 08:01 | XMS REPORT ---
Author Jo Culver Organization [facility] Address [address] [place] [id number] Care Team Providers Care Cargo Bracer Name Role Phone Codi Guerra PCP Dayne Taylor PreferredProvider Unavailable Allergies and [...] tablet by oral route As needed Zofran ODT 4 mg oral tablet,disintegrating 05/14/20162016 Take 1 tab Po q 4 hours for n/v Name Start Date Expiration Date SIG Comments [...] HC BMI BSA BMI Percentile O2 Sat(%) 05/14/2016 6:36:00 PM 120 mmHg 78 mmHg [...] Bicillin CR, 1.[address] [facility]# 6079 3-600-10 Reviewed 07/06/2014 11:29 AM URINE TEST Reviewed 07/06/2014 12:00 AM THER/PROPH/DIAG INJ SC/IM Reviewed 07/06/2014 12:00 AM Decadron, Per [address] [facility]# [address]-17 Re viewed 07/06/2014 12:00 AM Depo-Medrol 40mg [...] Cannabinoids (THC) NON-NEGAT SULAIMAN CALLED TO/BY DR. GERBRE 1540 01-22-11 SJM Phencyclidine (PCP) NEGATIVE Cocaine [...] positive History Of Immunizations Name Date [place] [facility] [place] Mf Code Trade Name Lot# [...] 7:12PM Viral Gastroenteritis May 14 2016 6:41PM Payers Insurance Name Company Name Plan Name Plan Number Policy Number Stephen cy Group Number Start Date Cigna Vineet [id number] Friday, 2010 [facility] [id number] N/A [facility] Kennedi macrina Prog [id number] N/A Wppa Wppa [id number] Friday, O ctober 2008 U[facility] UMR [id number] Friday, [place] [facility] 2009 [facility] [id number] N/A Cigna Cigna [id number] Friday, 2010 [facility] Assistance [facility] Kennedikayla schrader Prog [id number] Friday, 2010 History of Encounters Visit Date Visit Type Provider 05/14/2016 Office visit Codi Guerra 3D ARTIST 04/22/2016 Office visit Kanu Bentonran APR N 03/20/2016 Office visit Kanu Bentonran APR N 02/06/2016 Office visit Kanu Bentonran APR N 01/04/2016 Office visit Kanu Bentonran APR N 10/05/2015 Office visit Dayne Brandon DO 09/28/2015 Office visit Capri Colby 3D ARTIST 09/26/2015 Office visit Kanu Bentonran APR N 07/24/2015 Office visit Dayne Brandon DO 05/03/2015 Office visit Capri Colby 3D ARTIST 02/09/2015 Office visit Dayne Brandon DO 01/02/2015 Office visit Katie TORRES RN 01/01/2015 [facility] Florecita Mayfield MD 12/05/2014 Office visit Capri Colby 3D ARTIST 11/28/2014 Office visit Katie TORRES RN 11/08/2014 Office visit Katie TORRES RN 10/20/2014 Office visit Katie TORRES RN 08/29/2014 Office visit Capri Colby 3D ARTIST 08/22/2014 Office visit Capri Colby 3D ARTIST 07/06/2014 Office visit 07/06/2014 Office visit Capri Colby 3D ARTIST 06/28/2014 Office visit 06/28/2014 Office visit Capri Colby 3D ARTIST 04/07/2014 Office visit Capri Lasha 3D ARTIST 03/24/2014 Office visit Capri Colby 3D ARTIST 01/04/2014 Office visit Dayne Brandon DO 12/01/2013 Office visit Capri Colby 3D ARTIST 10/27/2013 Office visit Dayne Brandon DO 08/20/2013 Office visit Kanu Rodríguez APR N 05/18/2013 Office visit Capri Colby 3D ARTIST 12/01/2012 Office visit Dayne Brandon DO 03/09/2012 Office visit Capri Colby 3D ARTIST 12/03/2011 Office visit Dayne Brandon DO 10/14/2011 Office visit Dayne Brandon DO 09/23/2011 Office visit Dayne Brandon DO 06/04/2011 Office visit Richardson Gerber MD 05/20/2011 Office visit Richardson Gerber MD 05/03/2011 [facility] Richardson Gerber MD 04/29/2011 Office [...] 02/11/2011 Office visit Richardson Gerber MD 02/11/2011 [facility] Richardson Gerber MD 02/05/2011 Voided Richardson Gerber MD 01/22/2011 Office visit Richardson Gerber MD 01/16/2011 Office visit Richardson Gerber MD 12/24/2010 Office visit Richardson Gerber MD 11/29/2010 Office visit Richardson Gerber MD 11/26/2010 Office visit Richardson Gerber MD 10/22/2010 Office visit Richardson Gerber MD 09/17/2010 Office visit Richardson Gerber MD 07/19/2010 Office visit Dayne Taylor DO 06/08/2010 Office visit Capri Colby 3D ARTIST 03/27/2010 Office visit Dayne Taylor DO 03/07/2010 Office visit Yulisa MOYA 08/31/2009 Office visit Yulisa MOYA 05/01/2009 Office visit Joann MOYA 03/06/2009 Office visit Yulisa MOYA 02/02/2009 Office visit Yulisa MOYA 01/02/2009 Office visit Yulisa MOYA 10/26/2008 Office visit YULISA FRANCIS PA-C
--- OUTSIDE RECORDS SUMMARY | 2019-09-13 08:02 | XMS REPORT ---
Author Author Jo Taylor Organization [facility] Address [address] [place], [place] [id number] Care Team Providers Care Programmer Engineering And Scientific Name Role Phone Dayne Taylor PCP Unavailable [...] 1 tablet by oral route once daily alprazolam 0.25 mg oral tablet 02/09/2015 t pavan 1 tablet by oral route daily as needed Prozac 40 mg oral capsule 02/16/2015 take 1 capsule (40 mg) by oral route once daily in the morning Augmentin 875-125 mg oral tablet 04/05/2015 04/12/2015 take 1 tablet by oral route every 12 hours for 7 days Name Start Date Expiration [...] CR, 1.2 million units [facility]# 6079 3-600-10 Reviewed 07/06/2014 11:29 AM URINE TEST Reviewed 07/06/2014 12:00 AM THER/PROPH/DIAG INJ SC/IM Reviewed 07/06/2014 12:00 AM Decadron, Per 1 Mg [facility]# [address]-84 Re viewed 07/06/2014 12:00 AM Depo-Medrol 40mg [...] neg History Of Immunizations Name Date Admin [facility] Name [facility] Code Trade Name Lot# Route Inj Vis [...] cy Group Number Start Date Cigna Cigna [id number] Friday, 2010 [facility] [id number] N/A [place] [facility] Kennedi tance Prog [id number] N/A Wppa Wppa [id number] Friday, ctober 2008 UMR UMR [id number] Friday, [facility] 2009 [facility] [id number] N/A Cigna Cigna [id number] Friday, 2010 [place] [facility] Medical Kennedi tance Prog [id number] Friday, 2010 History of Encounters Visit Date Visit Type Provider 02/09/2015 Office visit Dayne Taylor DO 01/02/2015 Office visit Katie TORRES RN 01/01/2015 [facility] Florecita Mayfield MD 12/05/2014 Office visit Capri Colby APRN 11/28/2014 Office visit Katie TORRES RN 11/08/2014 Office visit Katie TORRES RN 10/20/2014 Office visit Katie TORRES RN 08/29/2014 Office visit Capri Colby APRN 08/22/2014 Office visit Capri Colby APRN 07/06/2014 Office visit 07/06/2014 Office visit Capri Colby APRN 06/28/2014 Office visit 06/28/2014 Office visit Capri Cobly APRN 04/07/2014 Office visit Capri Colby APRN 03/24/2014 Office visit Capri Colby APRN 01/04/2014 Office visit Dayne Taylor DO 12/01/2013 Office visit Capri Colby EDGE WORKER 10/27/2013 Office visit Dayne Padronhite DO 08/20/2013 Office visit Kanu Bentonran APR N 05/18/2013 Office visit Capri Colby EDGE WORKER 12/01/2012 Office visit Dayne Padronhite DO 03/09/2012 Office visit Capri Colby EDGE WORKER 12/03/2011 Office visit Dayne Brandon DO 10/14/2011 Office visit Dayne Brandon DO 09/23/2011 Office visit Dayne Taylor DO 06/04/2011 Office visit Richardson Barber MD 05/20/2011 Office visit Richardson Barber MD 05/03/2011 [facility] Richardson Barber MD 04/29/2011 Office visit [...] 02/11/2011 Office visit Richardson Barber MD 02/11/2011 [facility] Richardson Barber MD 02/05/2011 Voided Richardson Barber MD 01/22/2011 Office visit Richardson Barber MD 01/16/2011 Office visit Richardson Barber MD 12/24/2010 Office visit Richardson Barber MD 11/29/2010 Office visit Richardson Barber MD 11/26/2010 Office visit Richardson Barber MD 10/22/2010 Office visit Richardson Barber MD 09/17/2010 Office visit Richardson Barber MD 07/19/2010 Office visit Dayne Taylor DO 06/08/2010 Office visit Capri Colby EDGE WORKER 03/27/2010 Office visit Dayne Taylor DO 03/07/2010 Office visit Yulisa MOYA 08/31/2009 Office visit Yulisa MOYA 05/01/2009 Office visit Joann MOYA 03/06/2009 Office visit Yulisa MOYA 02/02/2009 Office visit Yulisa MOYA 01/02/2009 Office visit Yulisa MOYA 10/26/2008 Office visit YULISA FRANCIS PA-C
--- OUTSIDE RECORDS SUMMARY | 2019-09-13 08:02 | XMS REPORT ---
Author Author Jo Cuenca [facility] Address [address] [place] [id number] Care Team Providers Care Oil Heater Installer Name Role Phone Yessica Cuenca PCP Dayne [...] mments hydroxyzine HCl 25 mg oral tablet take 1 tablet by oral route As needed Zofran (as hydrochloride) 4 mg oral tablet 02/09/2017 Take 1 tablet po q 8 hrs PRN nausea/vomting Name Start Date Expiration Date SIG Comments [...] HC BMI BSA BMI Percentile O2 Sat(%) 02/09/2017 3:42:00 PM 134 mmHg 80 mmHg [...] AM COMPLETE CBC W/AUTO DIFF WBC Reviewed 03/06/2009 12:00 AM US EXAM PELVIC [...] [facility]# [address]-03 Re viewed 07/06/2014 12:00 AM Depo-Medrol 40mg [...] 3:45PM Diarrhea, unspecified Feb 09 2017 3:45PM Payers Insurance Name Company Name Plan Name Plan Number Policy Number Stephen cy Group Number Start Date Cigna Alejandraartur [id number] Friday, 2010 [facility] [id number] N/A [facility] Kennedikayla Daog [id number] N/A Wppa Wppa [id number] Friday, O ctober 2008 [facility] UMR [id number] Friday, [facility] [id number] N/A Cigna Cigna [id number] Friday, 2010 [facility] Kennedi Daog [id number] Friday, 2010 History of Encounters Visit Date Visit Type Provider 02/09/2017 Office visit Yessica Cuenca APR N 06/04/2016 Office visit Yessica Cuenca APR N 05/14/2016 Office visit Codi Guerra TURFGRASS MANAGEMENT PROFESSOR 04/22/2016 Office visit Kanu Bentonran APR N 03/20/2016 Office visit Kanu Rodríguez APR N 02/06/2016 Office visit Kanu Rodríguez APR N 01/04/2016 Office visit Kanu Bentonran APR N 10/05/2015 Office visit Dayne Brandon DO 09/28/2015 Office visit Capri Colby TURFGRASS MANAGEMENT PROFESSOR 09/26/2015 Office visit Kanu Bentonran APR N 07/24/2015 Office visit Dayne Brandon DO 05/03/2015 Office visit Capri Colby TURFGRASS MANAGEMENT PROFESSOR 02/09/2015 Office visit Dayne Brandon DO 01/02/2015 Office visit Katie TORRES RN 01/01/2015 [facility] Florecita Mayfield MD 12/05/2014 Office visit Capri Colby TURFGRASS MANAGEMENT PROFESSOR 11/28/2014 Office visit Katie TORRES RN 11/08/2014 Office visit Katie TORRES RN 10/20/2014 Office visit Katie TORRES RN 08/29/2014 Office visit Capri Colby TURFGRASS MANAGEMENT PROFESSOR 08/22/2014 Office visit Capri Colby TURFGRASS MANAGEMENT PROFESSOR 07/06/2014 Office visit 07/06/2014 Office visit Capri Colby TURFGRASS MANAGEMENT PROFESSOR 06/28/2014 Office visit 06/28/2014 Office visit Capri Colby TURFGRASS MANAGEMENT PROFESSOR 04/07/2014 Office visit Capri Colby TURFGRASS MANAGEMENT PROFESSOR 03/24/2014 Office visit Capri Colby TURFGRASS MANAGEMENT PROFESSOR 01/04/2014 Office visit Dayne Owenste DO 12/01/2013 Office visit Capri Colby TURFGRASS MANAGEMENT PROFESSOR 10/27/2013 Office visit Dayne Brandon DO 08/20/2013 Office visit Kanu Rodríguez APR N 05/18/2013 Office visit Capri Colby TURFGRASS MANAGEMENT PROFESSOR 12/01/2012 Office visit Dayne Brandon DO 03/09/2012 Office visit Capri Colby TURFGRASS MANAGEMENT PROFESSOR 12/03/2011 Office visit Dayne Brandon DO 10/14/2011 Office visit Dayne Brandon DO 09/23/2011 Office visit Dayne Brandon DO 06/04/2011 Office visit Richardson Gerber MD 05/20/2011 Office visit Richardson Gerber MD 05/03/2011 [facility] Richardson Gerber MD 04/29/2011 Office visit Richardson [...] 02/11/2011 Office visit Richardson Gerber MD 02/11/2011 [facility] Richardson Gerber MD 02/05/2011 Voided Richardson Gerber [...]
--- OUTSIDE RECORDS SUMMARY | 2019-09-13 08:02 | XMS REPORT ---
Author Author Jo Colby Organization [facility] Address [address] [place], [place] [phone] Care Team Providers Care President + Publisher Name Role Phone Capri Colby PCP Unavailable Allergies and Adverse Reactions Name Reaction Notes Erythromycin vomiting SULFUR Plan of Treatment Not available. Medications Active Name Start Date Estimated Completion Date SIG Co mments Sprintec (28) oral tablet 0.25-35 mg-mcg 04/07/2014 take 1 tablet by oral route once daily Lexapro oral tablet 10 mg 08/29/2014 take 1 tablet b y oral route daily Name Start Date Expiration [...] route once daily in the morning cyclobenzaprine oral tablet 10 mg 07/07/2014 08/22/2014 take 1 tablet by oral route once a day (at bedtime) as needed Adderall oral tablet 10 mg 07/13/2014 08/22/2014 take 1 tablet (10 mg) by oral route once daily before breakfast Strattera oral capsule 60 mg 08/24/2014 08/30/2014 gomez e 1 capsule (60 [...] HC BMI BSA BMI Percentile O2 Sat(%) 08/29/2014 2:35:00 PM 122 mmHg 80 mmHg [...] F 152.125 lbs 67 in 23.8259 kg/m 1.81 m2 100 % 12/01/2012 2:07:00 PM 122 mmHg 62 mmHg 62 bpm 18 rpm 97.9 F 149 lbs 67 in 23.34 kg/m2 1.7874 m 100 % 03/09/2012 3:42:00 PM 138 mmHg 82 mmHg 68 bpm 18 rpm 98.4 F 143.375 lbs 66 i n 23.1411 kg/m 1.74 m2 12/03/2011 3:34:00 PM 118 mmHg [...] 07/06/2014 12:00 AM THER/PROPH/DIAG INJ SC/IM Reviewed 08/29/2014 3:06 PM URINE TEST Reviewed 09/13/2010 12:00 AM CHORIONIC GONADOTROPIN ASSAY Reviewed 08/29/2014 12:00 AM THER/PROPH/DIAG INJ SC/IM [...] 2:37PM Contraceptive management Aug 29 2014 2:37PM Payers Insurance Name Company Name Plan Name Plan Number Policy Number Stephen cy Group Number Start Date Cigna Cigna [id number] Friday, 2010 [facility] [id number] N/A [facility] Kennedi tance Prog [id number] N/A Wppa Wppa [id number] Friday, njober 2008 UMR UMR [id number] Friday, [facility] 2009 [facility] [id number] N/A Cigna Cigna [id number] Friday, 2010 [facility] Assistance [facility] Kennedi tance Prog [id number] Friday, 2010 History of Encounters Visit Date Visit Type Provider 08/29/2014 Office visit Capri Colby BURLAP SPREADER 08/22/2014 Office visit Capri Colby BURLAP SPREADER 07/06/2014 Office visit Capri Colby BURLAP SPREADER 06/28/2014 Office visit Capri Colby BURLAP SPREADER 04/07/2014 Office visit Capri Colby BURLAP SPREADER 03/24/2014 Office visit Capri Colby BURLAP SPREADER 01/04/2014 Office visit Dayne Taylor DO 12/01/2013 Office visit Capri Colby BURLAP SPREADER 10/27/2013 Office visit Dayne Taylor DO 08/20/2013 Office visit Kanu Rodríguez APR N 05/18/2013 Office visit Capri Colby BURLAP SPREADER 12/01/2012 Office visit Dayne Taylor DO 03/09/2012 Office visit Capri Colby BURLAP SPREADER 12/03/2011 Office visit Dayne Taylor DO 10/14/2011 Office visit Dayne Taylor DO 09/23/2011 Office visit Dayne Taylor DO 06/04/2011 Office visit Richardson Barber MD 05/20/2011 Office visit Richardson Barber MD 05/03/2011 [facility] Richardson Barber MD 04/29/2011 Office [...] 02/11/2011 Office visit Richardson Barber MD 02/11/2011 [facility] Richardson Barber MD 02/05/2011 Voided Richardson [...]
--- OUTSIDE RECORDS SUMMARY | 2019-09-13 08:03 | XMS REPORT ---
Author Author Jo Cuenca Organization [facility] Address [address] [place] [id number] Care Team Providers Care Mapping Engineer Name Role Phone Yessica Cuenca PCP Unavailable [...] 12:00 AM Bicillin CR, 1.2 million units [facility]# 6079 3-600-10 Reviewed 07/06/2014 11:29 AM URINE TEST Reviewed 07/06/2014 12:00 AM THER/PROPH/DIAG INJ SC/IM Reviewed 07/06/2014 12:00 AM Decadron, Per 1 Mg [facility]# [address]-30 Re viewed 07/06/2014 12:00 AM Depo-Medrol 40mg [...] Nov 28 2014 2:50PM Mild Depressive Disorder Nov 28 2014 2:50PM Bilateral thoracic back [...] cy Group Number Start Date Cigna Cigna [id number] Friday, 2010 [facility] [id number] N/A [facility] Medical Kennedi tance Prog [id number] N/A Wppa Wppa [id number] Friday, ctober 2008 [facility] [id number] Friday, [facility] [id number] N/A Vineet Manley [id number] Friday, 2010 [facility] Assistance [facility] Medical Kennedi tance Prog [id number] Friday, 2010 History of Encounters Visit Date Visit Type Provider 06/04/2016 Office visit Yessica Cuenca APR N 05/14/2016 Office visit Codi Guerra ENVIRONMENTAL SCIENCE PROFESSOR 04/22/2016 Office visit Kanu Rodríguez APR N 03/20/2016 Office visit Kanu Rodríguez APR N 02/06/2016 Office visit Kanu Rodríguez APR N 01/04/2016 Office visit Kanu Rodríguez APR N 10/05/2015 Office visit Dayne Taylor DO 09/28/2015 Office visit Capri Colby ENVIRONMENTAL SCIENCE PROFESSOR 09/26/2015 Office visit Kanu Rodríguez APR N 07/24/2015 Office visit Dayne Taylor DO 05/03/2015 Office visit Capri Colby ENVIRONMENTAL SCIENCE PROFESSOR 02/09/2015 Office visit Dayne Taylor DO 01/02/2015 Office visit Katie TORRES RN 01/01/2015 [facility] Florecita Mayfield MD 12/05/2014 Office visit Capri Colby ENVIRONMENTAL SCIENCE PROFESSOR 11/28/2014 Office visit Katie TORRES RN 11/08/2014 Office visit Katie TORRES RN 10/20/2014 Office visit Katie TORRES RN 08/29/2014 Office visit Capri Colby ENVIRONMENTAL SCIENCE PROFESSOR 08/22/2014 Office visit Capri Colby ENVIRONMENTAL SCIENCE PROFESSOR 07/06/2014 Office visit 07/06/2014 Office visit Capri Colby ENVIRONMENTAL SCIENCE PROFESSOR 06/28/2014 Office visit 06/28/2014 Office visit Capri Colby APRN 04/07/2014 Office visit Capri Colby APRN 03/24/2014 Office visit Capri Colby ENVIRONMENTAL SCIENCE PROFESSOR 01/04/2014 Office visit Dayne Taylor DO 12/01/2013 Office visit Capri Colby ENVIRONMENTAL SCIENCE PROFESSOR 10/27/2013 Office visit Dayne Taylor DO 08/20/2013 Office visit Kanu Rodríguez APR N 05/18/2013 Office visit Capri Colby ENVIRONMENTAL SCIENCE PROFESSOR 12/01/2012 Office visit Dayne Brandon DO 03/09/2012 Office visit Capri Colby ENVIRONMENTAL SCIENCE PROFESSOR 12/03/2011 Office visit Dayne Owenste DO 10/14/2011 [...] Taylor DO 06/08/2010 Office visit Capri Colby ENVIRONMENTAL SCIENCE PROFESSOR 03/27/2010 Office visit Dayne Owenste DO 03/07/2010 Office visit Yulisa MOYA 08/31/2009 Office visit Yulisa MOYA 05/01/2009 Office visit Joann MOYA 03/06/2009 Office visit Yulisa MOYA 02/02/2009 Office visit Yulisa MOYA 01/02/2009 Office visit Yulisa MOYA 10/26/2008 Office visit YULISA FRANCIS PA-C
--- OUTSIDE RECORDS SUMMARY | 2019-09-13 08:03 | XMS REPORT ---
Author Author Jo Colby Organization [facility] Address [address] [place], [place] [address] Care Team Providers Care Program Supervisor Name Role Phone Capri Colby PCP Unavailable Allergies and Adverse Reactions Name Reaction Notes Erythromycin vomiting SULFUR Plan of Treatment Not available. Medications Active Name Start Date Estimated Completion Date SIG Co mments Sprintec (28) oral tablet 0.25-35 mg-mcg 04/07/2014 take 1 tablet by oral route once daily Prozac 20 mg oral capsule 10/20/2014 take 1 capsule (20 mg) by oral route once daily Xanax 0.25 mg oral tablet 10/20/2014 take 1 tablet (0.25 mg) by oral route 2 times per day as needed. MUST LAST 30 DAYS. Name Start Date Expiration Date SIG Comments [...] route once daily for 4 days estradiol oral tablet 1 mg 09/14/2014 09/24/2014 take 1 tablet (1 mg) by oral route once daily for 10 days Famvir oral tablet 500 mg 09/20/2014 09/27/2014 take 1 tablet (500 mg) [...] day for 30 days Never took it Lucindanax oral tablet 0.25 mg 08/20/2013 12/01/2013 take [...] route once daily in the morning Lexapro oral tablet 10 mg 08/29/2014 10/20/2014 take 1 tablet b y [...] HC BMI BSA BMI Percentile O2 Sat(%) 10/20/2014 2:44:00 PM 135 mmHg 81 mmHg [...] 12:00 AM Bicillin CR, 1.2 million units [facility]# 6079 3-600-10 Reviewed 07/06/2014 11:29 AM URINE TEST Reviewed 07/06/2014 12:00 AM THER/PROPH/DIAG INJ SC/IM Reviewed 07/06/2014 12:00 AM Decadron, Per 1 Mg [facility]# [address]-96 Re viewed 07/06/2014 12:00 AM Depo-Medrol 40mg [...] 2014 2:46PM Grieving Oct 20 2014 2:46PM Payers Insurance Name Company Name Plan Name Plan Number Policy Number Stephen cy Group Number Start Date Cigna Cigna [id number] Friday, 2010 [facility] [id number] N/A [place] Medical Assistance Program [facility] Kennedikayla schrader Prog [id number] N/A Wppa Wppa [id number] Friday, ctober 2008 [facility] [id number] Friday, [facility] 2009 [facility] [id number] N/A Vineet Manley [id number] Friday, 2010 [place] Medical Assistance [facility] Kennedi schrader Prog [id number] Friday, 2010 History of Encounters Visit Date Visit Type Provider 10/20/2014 Office visit Katie TORRES RN 08/29/2014 Office visit Capri Colby ANALYTICS DIRECTOR 08/22/2014 Office visit Capri Cloby APRN 07/06/2014 Office visit Capri Colby APRN 06/28/2014 Office visit Capri Colby APRN 04/07/2014 Office visit Capri Colby APRN 03/24/2014 Office visit Capri Colby ANALYTICS DIRECTOR 01/04/2014 Office visit Dayne Taylor DO 12/01/2013 Office visit Capri Colby APRN 10/27/2013 Office visit Dayne Taylor DO 08/20/2013 Office visit Kanu Rodríguez APR N 05/18/2013 Office visit Capri Colby ANALYTICS DIRECTOR 12/01/2012 Office visit Dayne Taylor DO 03/09/2012 Office visit Capri Colby APRN 12/03/2011 Office visit Dayne Taylor DO 10/14/2011 Office visit Dayne Taylor DO 09/23/2011 Office visit Dayne Taylor DO 06/04/2011 Office visit Richardson Barber MD 05/20/2011 Office visit Richardson Barber MD 05/03/2011 [facility] Richardson Barber MD 04/29/2011 Office visit [...] 02/11/2011 Office visit Richardson Barber MD 02/11/2011 [facility] Richardson Barber MD 02/05/2011 Voided Richardson Barber MD 01/22/2011 Office visit Richardson Barber MD 01/16/2011 Office visit Richardson Barber MD 12/24/2010 Office visit Richardson Barber MD 11/29/2010 Office visit Richardson Barber MD 11/26/2010 Office visit Richardson Barber MD 10/22/2010 Office visit Richardson Barber MD 09/17/2010 Office visit Richardson Barber MD 07/19/2010 Office visit Dayne Taylor DO 06/08/2010 Office visit Capri Colby ANALYTICS DIRECTOR 03/27/2010 Office visit Dayne Taylor DO 03/07/2010 Office visit Yulisa MOYA 08/31/2009 Office visit Yulisa MOYA 05/01/2009 Office visit Joann MOYA 03/06/2009 Office visit Yulisa MOYA 02/02/2009 Office visit Yulisa MOYA 01/02/2009 Office visit Yulisa MOYA 10/26/2008 Office visit YULISA FRANCIS PA-C
[2019-09-13 08:04] LABS: BASOPHILS % (AUTO) 0 % (0-10); EOSINOPHILS # (AUTO) 0.2 10^3/uL (0.0-0.3); EOSINOPHILS % (AUTO) 2 % (0-10); HEMATOCRIT 33 % (35-52); HEMOGLOBIN 11.2 G/DL (11.5-16.0); LYMPHOCYTES # (AUTO) 1.8 X 10^3 (1.0-4.0); LYMPHOCYTES % (AUTO) 18 % (12-44); MEAN CORPUSCULAR HEMOGLOBIN 32 PG (25-34); MEAN CORPUSCULAR HGB CONC 34 G/DL (32-36); MEAN CORPUSCULAR VOLUME 93 FL (80-99); MEAN PLATELET VOLUME 11.7 FL (7.4-10.4); MONOCYTES # (AUTO) 1.2 X 10^3 (0.0-1.0); MONOCYTES % (AUTO) 12 % (0-12); NEUTROPHILS # (AUTO) 6.6 X 10^3 (1.8-7.8); NEUTROPHILS % (AUTO) 68 % (42-75); PLATELET COUNT 261 10^3/uL (130-400); RED CELL DISTRIBUTION WIDTH 13.4 % (10.0-14.5); WHITE BLOOD COUNT 9.8 10^3/uL (4.3-11.0)
--- NOTE | 2019-09-13 08:04 | History & Physical-OB ---
OB - Chief Complaint & HPI Date/Time Date of Admission: Date of Admission: Sep 13, 2019 at 07:04 Date seen by a Provider: Sep 13, 2019 Time Seen by a Provider: 08:45 Chief Complaint/History OB-Reason for Admission/Chief: Section Hx : 3 Hx Para: 2 Expected Date of Delivery: Sep 18, 2019 Gestational Age in Weeks: 3 Gestational Age in Days: 2 Indication for : other (HSV outbreak in ) Admission Nurse Assessment Rev: Yes History of Labs AB pos Antibody neg RI RPR NR HBsAb NR HCsAb NR HIV NR GC neg GBS pos Allergies and Home Medications Allergies Coded Allergies: Sulfa (Sulfonamide Antibiotics) (Verified Allergy, Unknown, Hives, 09/07/19) Home Medications Acyclovir 400 Mg Tablet, 400 MG PO TID, (Reported) Buspirone HCl 10 Mg Tablet, 20 MG PO TID, (Reported) take 2 (10mg) tabs Clonazepam 0.5 Mg Tablet, 0.5 MG PO DAILY PRN for severe anxiety, (Reported) Quetiapine Fumarate 200 Mg Tablet, 200 MG PO HS, (Reported) Sertraline HCl 100 Mg Tablet, 100 MG PO DAILY, (Reported) Patient Home Medication List Home Medication List Reviewed: Yes OB - History Hx of Present Care: Yes Ultrasounds: Normal mid trimester US Obstetrical Complications: None Medical Complications: None Patient Past Medical History HSV + OB - Admission Exam Physical Exam HEENT: NCAT Heart: Rhythm Normal Lungs: Clear Abdomen: Gravid Extremities: Normal Reflexes: Normal Heart Rate: 130's Accelerations: Accelerations Present Decelerations: No Decelerations Short Term Variability: Present Quarter Doper Variability: Average (6-25) Contractions on Admission: >10 Minutes Apart OB - Assessment/Plan/Diagnosis Assessment Assessment: section Admission Dx 29 yo @ 39.2 weeks HSV outbreak in Desires Primary section- due to concerns of HSV transmission GBS pos Admission Status: Inpatient Order (span 2 midnights) Reason for Inpatient Admission: Primary at term Plan Plan: Section ROMÁN RAMEY DO Sep 13, 2019 08:04
--- OUTSIDE RECORDS SUMMARY | 2019-09-13 08:04 | XMS REPORT ---
Author Jo Karimi [facility] Physicians oup Address [address] [place] [id number] Care Team Providers Care Clinical Nurse Leader Name Role Phone Maria Victoria Navarrete PCP BrandonJohny husseina PreferredProvider Allergies and Adverse Reactions Name Reaction Notes erythromycin vomiting SULFA (SULFONAMIDES) Plan of Treatment Planned Activity Comments Planned Date Planned Time Plan/Goal *Thin layer pap with reflex to HPV ; cervical/vaginal (ThinP rep or Surepath) 04/30/2017 12:00 AM Gonorrhea 04/30/2017 12:00 AM Chlamydia 04/30/2017 12:00 AM HIV-1 antibody 04/30/2017 12:00 AM FERRITIN 04/30/2017 12:00 AM TRICHOMONAS AMPLIFIED 04/30/2017 12:00 AM TRICHOMONAS AMPLIFIED 04/30/2017 12:00 AM Nasal bone fracture and Left maxillary fracture 016 4:30 PM Mirena placement 10/03/2015 12:00 AM Scoliois with previous surgery and harward placement 1 03/08/2014 1:00 PM Medications Active Name Start Date Estimated Completion Date SIG Co mments hydroxyzine HCl 25 mg oral tablet take 1 tablet by oral route As needed Latuda 20 mg oral tablet Name Start Date Expiration Date SIG Comments [...] oral route once daily in the evening Zofran (as hydrochloride) 4 mg oral tablet 02/09/20172017 Take 1 tablet po q 8 hrs PRN nausea/vomting Problem List Description Status Onset ADHD Active [...] rpm 100 F 197 lbs 67.5 in 30.3988 kg/m 2.0629 m 97 % 06/04/2016 6:22:00 PM 128 mmHg [...] AM URINE TEST Reviewed 04/30/2017 12:00 AM URINALYSIS AUTO W/SCOPE Returned 04/30/2017 12:00 AM OBSTETRIC PANEL Returned 04/30/2017 12:00 AM URINE DRUG SCREEN RAPID Returned 04/30/2017 12:00 AM HEPATITIS C AB TEST Returned 03/06/2009 12:00 AM US EXAM PELVIC [...] Per 1 Mg [facility]# [address]-08 Re viewed 07/06/2014 12:00 AM Depo-Medrol 40mg [...] (THC) NON-NEGAT SULAIMAN CALLED TO/BY DR. GERBER 1957 01-22-11 [facility] Phencyclidine (PCP) NEGATIVE Cocaine NEGATIVE [...] WBC Est Ur Ql Strip Grossly positive 05/01/2017 10:28 AM Test, Urine positi ve [...] for initial prescription of contraceptive pills Ma eros 2 2015 3:10PM Facial fracture Jul 24 [...] cy Group Number Start Date Cigna Cigna [id number] Friday, 2010 [facility] [id number] N/A [facility] Kennedi tance Prog [id number] N/A Wppa Wppa [id number] Friday, ctober 2008 UMR UMR [id number] Friday, [facility] [address] [facility] [id number] N/A Cigna Cigna [id number] Friday, 2010 [facility] Kennedi tance Prog [id number] Friday, 2010 History of Encounters Visit Date Visit Type Provider 04/30/2017 Office visit Maria Victoria stephen SWITCH OPERATOR 02/09/2017 Office visit Yessica Cuenca APR N 06/04/2016 Office visit Yessica Cuenca APR N 05/14/2016 Office visit Codi Guerra SWITCH OPERATOR 04/22/2016 Office visit Kanu Rodríguez APR N 03/20/2016 Office visit Kanu Rodríguez APR N 02/06/2016 Office visit Kanu Rodríguez APR N 01/04/2016 Office visit Kanu Rodríguez APR N 10/05/2015 Office visit Dayne Taylor DO 09/28/2015 Office visit Capri Colby SWITCH OPERATOR 09/26/2015 Office visit Kanu Rodríguez APR N 07/24/2015 Office visit Dayne Taylor DO 05/03/2015 Office visit Capri Colby SWITCH OPERATOR 02/09/2015 Office visit Dayne Taylor DO 01/02/2015 Office visit Katie TORRES RN 01/01/2015 Amber Mayfield MD 12/05/2014 Office visit Capri Colby SWITCH OPERATOR 11/28/2014 Office visit Katie TORRES RN 11/08/2014 Office visit Katie Mcconnell AP RN 10/20/2014 Office visit Katie TORRES RN 08/29/2014 Office visit Capri Lasha SWITCH OPERATOR 08/22/2014 Office visit Capri Colby SWITCH OPERATOR 07/06/2014 Office visit 07/06/2014 Office visit Capri Colby SWITCH OPERATOR 06/28/2014 Office visit 06/28/2014 Office visit Capri Colby SWITCH OPERATOR 04/07/2014 Office visit Capri Lasha SWITCH OPERATOR 03/24/2014 Office visit Capri Colby SWITCH OPERATOR 01/04/2014 Office visit Dayne Taylor DO 12/01/2013 Office visit Capri Colby SWITCH OPERATOR 10/27/2013 Office visit Dayne Taylor DO 08/20/2013 Office visit Kanu Rodríguez APR N 05/18/2013 Office visit Capri Colby SWITCH OPERATOR 12/01/2012 Office visit Dayne Taylor DO 03/09/2012 Office visit Capri Colby SWITCH OPERATOR 12/03/2011 Office visit Dayne Taylor DO 10/14/2011 Office visit Dayne Taylor DO 09/23/2011 Office visit Dayne Taylor DO 06/04/2011 Office visit Richardson Gerber MD 05/20/2011 Office visit Richardson Gerber MD 05/03/2011 [facility] Richardson Gerber MD 04/29/2011 Office [...] 02/11/2011 Office visit Richardson Gerber MD 02/11/2011 Hospital Richardson Gerber MD 02/05/2011 Voided Richardson [...]
--- OUTSIDE RECORDS SUMMARY | 2019-09-13 08:04 | XMS REPORT ---
Author Author Jo Colby Organization [facility] Physicians oup Address [address] [place], [place] [phone] Care Team Providers Care Rock Climbing Instructor Name Role Phone Capri Colby PCP Unavailable [...] Stephen Group Number Start Date Cigna Alejandrana [id number] Friday, 2010 [facility] [id number] N/A [facility] Kennedi tance Prog [id number] N/A Wppa Wppa [id number] Friday, O ctober 2008 R UMR [id number] Friday, [facility] 2009 [facility] [id number] N/A Cigna Cigna [id number] Friday, 2010 [place] [facility] Kennedi tance Prog [id number] Friday, 2010 History of Encounters Visit Date Visit Type Provider 07/06/2014 Office visit Capri Lasha DEBURR TECHNICIAN 06/28/2014 Office visit Capri Lasha DEBURR TECHNICIAN 04/07/2014 Office visit Capri Lasha DEBURR TECHNICIAN 03/24/2014 Office visit Capri Colby DEBURR TECHNICIAN 01/04/2014 Office visit Dayne Taylor DO 12/01/2013 Office visit Capri Lasha DEBURR TECHNICIAN 10/27/2013 Office visit Dayne Taylor DO 08/20/2013 Office visit Kanu Marcos APR N 05/18/2013 Office visit Capri Lasha DEBURR TECHNICIAN 12/01/2012 Office visit Dayne Tayolr DO 03/09/2012 Office visit Capri Colby DEBURR TECHNICIAN 12/03/2011 Office visit Dayne Taylor DO 10/14/2011 Office visit Dayne Taylor DO 09/23/2011 Office visit Dayne Taylor DO 06/04/2011 Office visit Richardson Barber MD 05/20/2011 Office visit Richardson Barber MD 05/03/2011 [facility] Richardson Barber MD 04/29/2011 Office visit Richardson [...] Office visit Richardson Barber MD 02/11/2011 [facility] Richardson Barber MD 02/05/2011 Voided Richardson Barber MD 01/22/2011 Office visit Richardson Barber MD 01/16/2011 Office visit Richardson Barber MD 12/24/2010 Office visit Richardson Barber MD 11/29/2010 Office visit Richardson Barber MD 11/26/2010 Office visit Richardson Barber MD 10/22/2010 Office visit Richardson Barber MD 09/17/2010 Office visit Richardson Barber MD 07/19/2010 Office visit Dayne Taylor DO 06/08/2010 Office visit Capri Lasha DEBURR TECHNICIAN 03/27/2010 Office visit Dayne Taylor DO 03/07/2010 Office visit Yulisa MOYA 08/31/2009 Office visit Yulisa MOYA 05/01/2009 Office visit Joann MOYA 03/06/2009 Office visit Yulisa MOYA 02/02/2009 Office visit Yulisa MOYA 01/02/2009 Office visit Yulisa MOYA 10/26/2008 Office visit YULISA FRANCIS PA-C
--- OUTSIDE RECORDS SUMMARY | 2019-09-13 08:05 | XMS REPORT ---
Author Author Jo Gillette [facility] Physicians oup Address [address] [place] [id number] Care Team Providers Care Machine Set Up Name Role Phone Cinthia Gillette PCP Dayne [...] AM Bicillin CR, 1.2 million units [facility]# 6079 3-600-10 Reviewed 07/06/2014 11:29 AM URINE TEST Reviewed 07/06/2014 12:00 AM THER/PROPH/DIAG INJ SC/IM Reviewed 07/06/2014 12:00 AM Decadron, Per 1 Mg [facility]# [address]-75 Re viewed 07/06/2014 12:00 AM Depo-Medrol 40mg [...] SULAIMAN CALLED TO/BY DR. GERBER 1540 01-22-11 [facility] Phencyclidine (PCP) NEGATIVE Cocaine NEGATIVE Methamphetamine [...] Est Ur Ql Strip Grossly positive 04/30/2017 5:11 PM Cannabinoids (THC) NON-NEGAT SULAIMAN [...] cy Group Number Start Date Cigna Cigna [id number] Friday, 2010 [facility] [id number] N/A [facility] Kennedi tance Prog [id number] N/A Wppa Wppa [id number] Friday, O ctober 2008 UMR UMR [id number] Friday, [facility] [id number] N/A Cigna Cigna [id number] Friday, 2010 [facility] Assistance [facility] Medical Kennedi tance Prog [id number] Friday, 2010 History of Encounters Visit Date Visit Type Provider 05/13/[address] Cinthia hudson MD 04/30/2017 Office visit Maria Victoria stephen COOPERAGE SHOP SUPERVISOR 02/09/2017 Office visit Yessica Cuenca APR N 06/04/2016 Office visit Yessica Cuenca APR N 05/14/2016 Office visit Codi Guerra COOPERAGE SHOP SUPERVISOR 04/22/2016 Office visit Kanu Rodríguez APR N 03/20/2016 Office visit Kanu Rodríguez APR N 02/06/2016 Office visit Kanu Rodríguez APR N 01/04/2016 Office visit Kanu Rodríguez APR N 10/05/2015 Office visit Dayne Taylor DO 09/28/2015 Office visit Capri Colby COOPERAGE SHOP SUPERVISOR 09/26/2015 Office visit Kanu Rodríguez APR N 07/24/2015 Office visit Dayne Taylor DO 05/03/2015 Office visit Capri Lasha COOPERAGE SHOP SUPERVISOR 02/09/2015 Office visit Dayne Taylor DO 01/02/2015 Office visit Katie TORRES RN 01/01/2015 [facility] Florecita Mayfield MD 12/05/2014 Office visit Capri Colby COOPERAGE SHOP SUPERVISOR 11/28/2014 Office visit Katie TORRES RN 11/08/2014 Office visit Katie TORRES RN 10/20/2014 Office visit Katie TORRES RN 08/29/2014 Office visit Capri Colby COOPERAGE SHOP SUPERVISOR 08/22/2014 Office visit Capri Colby COOPERAGE SHOP SUPERVISOR 07/06/2014 Office visit 07/06/2014 Office visit Capri Lasha COOPERAGE SHOP SUPERVISOR 06/28/2014 Office visit 06/28/2014 Office visit Capri Colby COOPERAGE SHOP SUPERVISOR 04/07/2014 Office visit Capri Colby COOPERAGE SHOP SUPERVISOR 03/24/2014 Office visit Capri Colby COOPERAGE SHOP SUPERVISOR 01/04/2014 Office visit Dayne Taylor DO 12/01/2013 Office visit Capri Lasha COOPERAGE SHOP SUPERVISOR 10/27/2013 Office visit Dayne Taylor DO 08/20/2013 Office visit Kanu Marcos APR N 05/18/2013 Office visit Capri Colby COOPERAGE SHOP SUPERVISOR 12/01/2012 Office visit Dayne Taylor DO 03/09/2012 Office visit Capri Colby COOPERAGE SHOP SUPERVISOR 12/03/2011 Office visit Dayne Taylor DO 10/14/2011 Office visit Dayne Taylor DO 09/23/2011 Office visit Dayne Taylor DO 06/04/2011 Office visit Richardson Gerber MD 05/20/2011 Office visit Richardson Gerber MD 05/03/2011 [facility] Richardson Gerber MD 04/29/2011 Office visit [...]
--- OUTSIDE RECORDS SUMMARY | 2019-09-13 08:05 | XMS REPORT ---
Author Author Jo Mcconnell [facility] oup Address [address] [place], [place] [phone] Care Team Providers Care Wholesaler Name Role Phone Katie Mcconnell PCP Unavailable Allergies and Adverse Reactions Name Reaction Notes Erythromycin vomiting SULFUR Plan of Treatment Planned Activity Comments Planned Date Planned Time Plan/Goal X-RAY EXAM THORAC SPINE 2VWS 11/08/2014 12:00 AM X-RAY EXAM L-S SPINE 04/05 VWS 11/08/2014 12:00 AM Medications Active Name Start Date Estimated Completion [...] AM Bicillin CR, 1.2 million units [facility]# 6079 3-600-10 Reviewed 07/06/2014 11:29 AM URINE TEST Reviewed 07/06/2014 12:00 AM THER/PROPH/DIAG INJ SC/IM Reviewed 07/06/2014 12:00 AM Decadron, Per 1 Mg [facility]# [address]-40 Re viewed 07/06/2014 12:00 AM Depo-Medrol 40mg [...] cy Group Number Start Date Cigna Cigna [id number] Friday, 2010 [facility] [id number] N/A [place] [facility] Kennedi tance Prog [id number] N/A Wppa Wppa [id number] Friday, O ctober 2008 UMR UMR [id number] Friday, [facility] 2009 [facility] [id number] 0 N/A Cigna Cigna [id number] Friday, 2010 [facility] Assistance [facility] Medical Kennedi tance Prog [id number] Friday, 2010 History of Encounters Visit Date Visit Type Provider 11/08/2014 Office visit Katie TORRES RN 10/20/2014 Office visit Katie TORRES RN 08/29/2014 Office visit Capri Colby FLOOR SANDING MACHINE OPERATOR 08/22/2014 Office visit Capri Colby FLOOR SANDING MACHINE OPERATOR 07/06/2014 Office visit Capri Colby FLOOR SANDING MACHINE OPERATOR 06/28/2014 Office visit Capri Colby FLOOR SANDING MACHINE OPERATOR 04/07/2014 Office visit Capri Colby FLOOR SANDING MACHINE OPERATOR 03/24/2014 Office visit Capri Colby FLOOR SANDING MACHINE OPERATOR 01/04/2014 Office visit Dayne Taylor DO 12/01/2013 Office visit Capri Colby FLOOR SANDING MACHINE OPERATOR 10/27/2013 Office visit Dayne Taylor DO 08/20/2013 Office visit Kanu Rodríguez APR N 05/18/2013 Office visit Capri Colby FLOOR SANDING MACHINE OPERATOR 12/01/2012 Office visit Dayne Taylor DO 03/09/2012 Office visit Capri Colby FLOOR SANDING MACHINE OPERATOR 12/03/2011 Office visit Dayne Taylor DO [...] 02/11/2011 Office visit Richardson Barber MD 02/11/2011 [facility] Richardson Barber MD 02/05/2011 Voided Richardson [...]
--- OUTSIDE RECORDS SUMMARY | 2019-09-13 08:06 | XMS REPORT ---
Author Author Jo Gillette [facility] Physicians oup Address [address] [place] [phone] Care Team Providers Care Cook At School Name Role Phone Cinthia Gillette PCP Dayne [...] Decadron, Per 1 Mg [facility]# [id number] Re viewed 07/06/2014 12:00 AM Depo-Medrol 40mg [...] SULAIMAN CALLED TO/BY DR. GERBER 1540 01-22-11 [facility] Phencyclidine (PCP) NEGATIVE Cocaine NEGATIVE [...] cy Group Number Start Date Cigna Cigna [id number] Friday, 2010 [facility] [id number] N/A [facility] Kennedi tance Prog [id number] N/A Wppa Wppa [id number] Friday, ctober 2008 UM UMR [id number] Friday, [facility] [id number] N/A Cigna Cigna [id number] Friday, 2010 [facility] Assistance [facility] Medical Kennedi tance Prog [id number] Friday, 2010 History of Encounters Visit Date Visit Type Provider 05/13/[address] Cinthia hudson MD 04/30/2017 Office visit Maria Victoria stephen WORKERS COMPENSATION MANAGER 02/09/2017 Office visit Yessica Cuenca APR N 06/04/2016 Office visit Yessica Cuenca APR N 05/14/2016 Office visit Codi Guerra WORKERS COMPENSATION MANAGER 04/22/2016 Office visit Kanu Rodríguez APR N 03/20/2016 Office visit Kanu Rodríguez APR N 02/06/2016 Office visit Kanu Rodríguez APR N 01/04/2016 Office visit Kanu Rodríguez APR N 10/05/2015 Office visit Dayne Taylor DO 09/28/2015 Office visit Capri Colby WORKERS COMPENSATION MANAGER 09/26/2015 Office visit Kanu Rodríguez APR N 07/24/2015 Office visit Dayne Taylor DO 05/03/2015 Office visit Capri Colby WORKERS COMPENSATION MANAGER 02/09/2015 Office visit Dayne Taylor DO 01/02/2015 Office visit Katie TORRES RN 01/01/2015 [facility] Florecita Mayfield MD 12/05/2014 Office visit Capri Lasha WORKERS COMPENSATION MANAGER 11/28/2014 Office visit Katie TORRES RN 11/08/2014 Office visit Katie TORRES RN 10/20/2014 Office visit Katie TORRES RN 08/29/2014 Office visit Capri Lasha WORKERS COMPENSATION MANAGER 08/22/2014 Office visit Capri Lasha WORKERS COMPENSATION MANAGER 07/06/2014 Office visit 07/06/2014 Office visit Capri Lasha WORKERS COMPENSATION MANAGER 06/28/2014 Office visit 06/28/2014 Office visit Capri Lasha WORKERS COMPENSATION MANAGER 04/07/2014 Office visit Capri Lasha WORKERS COMPENSATION MANAGER 03/24/2014 Office visit Capri Lasha WORKERS COMPENSATION MANAGER 01/04/2014 Office visit Dayne Taylor DO 12/01/2013 Office visit Capri Colby WORKERS COMPENSATION MANAGER 10/27/2013 Office visit Dayne Taylor DO 08/20/2013 Office visit Kanu Marcos APR N 05/18/2013 Office visit Capri Lasha WORKERS COMPENSATION MANAGER 12/01/2012 Office visit Dayne Taylor DO 03/09/2012 Office visit Capri Colby WORKERS COMPENSATION MANAGER 12/03/2011 Office visit Dayne Taylor DO [...]
--- OUTSIDE RECORDS SUMMARY | 2019-09-13 08:06 | XMS REPORT ---
Author Author Jo Taylor [facility] Physicians oup Address [address] [place] [id number] Care Team Providers Care Advocacy Director Name Role Phone Dayne Taylor PCP Unavailable [...] oral route every 8 hours as needed Name Start Date Expiration [...] 12:00 AM Bicillin CR, 1.2 million units [facility]# 6079 3-600-10 Reviewed 07/06/2014 11:29 AM URINE TEST Reviewed 07/06/2014 12:00 AM THER/PROPH/DIAG INJ SC/IM Reviewed 07/06/2014 12:00 AM Decadron, Per 1 Mg [facility]# [address]-76 Re viewed 07/06/2014 12:00 AM Depo-Medrol 40mg [...] 3:10PM Facial fracture Jul 24 2015 4:38PM Payers Insurance Name Company Name Plan Name Plan Number Policy Number Stephen cy Group Number Start Date Cigna Cigna [id number] Friday, 2010 [facility] [id number] N/A [facility] Kennedi tance Prog [id number] N/A Wppa Wppa [id number] Friday, O ctober 2008 UMR UMR [id number] Friday, [facility] 2009 [facility] [id number] N/A Cigna Cigna [id number] Friday, 2010 [facility] Kennedi tance Prog [id number] Friday, 2010 History of Encounters Visit Date [...] Capri Colby APRN 01/04/2014 Office visit Dayne Brandon DO 12/01/2013 Office visit Capri Colby EQUITY STRUCTURER 10/27/2013 Office visit Dayne Taylor DO 08/20/2013 Office visit Kanu Bentonran APR N 05/18/2013 Office visit Capri Colby EQUITY STRUCTURER 12/01/2012 Office visit Dayne Brandon DO 03/09/2012 Office visit Capri Colby EQUITY STRUCTURER 12/03/2011 Office visit Dayne Taylor DO 10/14/2011 Office visit Dayne Taylor DO 09/23/2011 Office visit Dayne Taylor DO 06/04/2011 Office visit Richardson Barber MD 05/20/2011 Office visit Richardson Barber MD 05/03/2011 [facility] Richardson Barber MD 04/29/2011 Office visit [...] 02/11/2011 Office visit Richardson Barber MD 02/11/2011 [facility] Richardson Barber MD 02/05/2011 Voided Richardson Barber MD 01/22/2011 Office visit Richardson Barber MD 01/16/2011 Office visit Richardson Barber MD 12/24/2010 Office visit Richardson Barber MD 11/29/2010 Office visit Richardson Barber MD 11/26/2010 Office visit Richardson Barber MD 10/22/2010 Office visit Richardson Barber MD 09/17/2010 Office visit Richardson Barber MD 07/19/2010 Office visit Dayne Taylor DO 06/08/2010 Office visit Capri Colby EQUITY STRUCTURER 03/27/2010 Office visit Dayne Taylor DO 03/07/2010 Office visit Yulisa MOYA 08/31/2009 Office visit Yulisa MOYA 05/01/2009 Office visit Joann MOYA 03/06/2009 Office visit Yulisa Danielle PA 02/02/2009 Office visit Yulisa MOYA 01/02/2009 Office visit Yulisa Danielle PA 10/26/2008 Office visit YULISA DANIELLE PA-C
--- OUTSIDE RECORDS SUMMARY | 2019-09-13 08:07 | XMS REPORT ---
Author Author Jo Rodríguez [facility] Physicians oup Address [address] [place] [id number] Care Team Providers Care Enrollment Management Coordinator Name Role Phone Kanu Rodríguez PCP Dayne [...] Date SIG Co mments Wellbutrin SR oral Zofran ODT 4 mg oral tablet,disintegrating 04/22/20162016 dissolve 1 tablet by oral route every 8 hours for 3 days Name Start Date Expiration Date SIG [...] prednisone 20 mg oral tablet 03/28/2014 04/02/2014 gmoez e 1 tablet by oral route daily [...] per day with food for 7 days Discontinued Name [...] [address] [facility]# [address]-83 Re viewed 07/06/2014 12:00 AM Depo-Medrol 40mg [...] vomi ting type Mar 20 2016 7:44PM Payers Insurance Name Company Name Plan Name Plan Number Policy Number Stephen cy Group Number Start Date Cigna Cigna [id number] Friday, 2010 [facility] [id number] N/A [facility] Kennedi tance Prog [id number] N/A Wppa Wppa [id number] Friday, ctober 2008 [facility] UMR [id number] Friday, [facility] 2009 [facility] [id number] N/A Cigna Cigna [id number] Friday, 2010 [place] [facility] Medical Kennedi tance Prog [id number] Friday, 2010 History of Encounters Visit Date Visit Type Provider 04/22/2016 Office visit Kanu Rodríguez APR N 03/20/2016 Office visit Kanu Rodríguez APR N 02/06/2016 Office visit Kaun Rodríguez APR N 01/04/2016 Office visit Kanu Rodríguez APR N 10/05/2015 Office visit Dayne Taylor DO 09/28/2015 Office visit Capri Colby BIOCHEMISTRY TECHNOLOGIST 09/26/2015 Office visit Kanu Rodríguez APR N 07/24/2015 Office visit Dayne Taylor DO 05/03/2015 Office visit Capri Colby BIOCHEMISTRY TECHNOLOGIST 02/09/2015 Office visit Dayne Owenste DO 01/02/2015 Office visit Katie TORRES RN 01/01/2015 [facility] Florecita Mayfield MD 12/05/2014 Office visit Capri Colby BIOCHEMISTRY TECHNOLOGIST 11/28/2014 Office visit Katie TORRES RN 11/08/2014 Office visit Katie TORRES RN 10/20/2014 Office visit Katie TORRES RN 08/29/2014 Office visit Capri Lasha BIOCHEMISTRY TECHNOLOGIST 08/22/2014 Office visit Capri Colby BIOCHEMISTRY TECHNOLOGIST 07/06/2014 Office visit 07/06/2014 Office visit Capri Colby BIOCHEMISTRY TECHNOLOGIST 06/28/2014 Office visit 06/28/2014 Office visit Capri Lasha BIOCHEMISTRY TECHNOLOGIST 04/07/2014 Office visit Capri Colby BIOCHEMISTRY TECHNOLOGIST 03/24/2014 Office visit Capri Colby BIOCHEMISTRY TECHNOLOGIST 01/04/2014 Office visit Dayne Brandon DO 12/01/2013 Office visit Capri Lasha BIOCHEMISTRY TECHNOLOGIST 10/27/2013 Office visit Dayne Brandon DO 08/20/2013 Office visit Kanu Rodríguez APR N 05/18/2013 Office visit Capri Colby BIOCHEMISTRY TECHNOLOGIST 12/01/2012 Office visit Dayne Brandon DO 03/09/2012 Office visit Carpi Colby BIOCHEMISTRY TECHNOLOGIST 12/03/2011 Office visit Dayne Brandon DO 10/14/2011 Office visit Dayne Brandon DO 09/23/2011 Office visit Dayne Owenste DO 06/04/2011 Office visit Richardson Gerber MD 05/20/2011 Office visit Richardson Gerber MD 05/03/2011 [facility] Richardson Gerber MD 04/29/2011 Office visit [...] 02/11/2011 Office visit Richardson Gerber MD 02/11/2011 [facility] Richardson Gerber MD 02/05/2011 Voided Richardson Gerber MD 01/22/2011 Office visit Richardson Gerber MD 01/16/2011 Office visit Richardson Gerber MD 12/24/2010 Office visit Richardson Gerber MD 11/29/2010 Office visit Richardson Gerber MD 11/26/2010 Office visit Richardson Gerber MD 10/22/2010 Office visit Richardson Gerber MD 09/17/2010 Office visit Richardson Gerber MD 07/19/2010 Office visit Dayne Taylor DO 06/08/2010 Office visit Capri Colby BIOCHEMISTRY TECHNOLOGIST 03/27/2010 Office visit Dayne Taylor DO 03/07/2010 Office visit Yulisa MOYA 08/31/2009 Office visit Yulisa MOYA 05/01/2009 Office visit Joann MOYA 03/06/2009 Office visit Yulisa MOYA 02/02/2009 Office visit Yulisa MOYA 01/02/2009 Office visit Yulisa MOYA 10/26/2008 Office visit YULISA FRANCIS PA-C
--- OUTSIDE RECORDS SUMMARY | 2019-09-13 08:07 | XMS REPORT ---
Author Author Jo Gillette [facility] Physicians oup Address [address] [place] [id number] Care Team Providers Care Entry Level Manufacturing Engineer Name Role Phone Cinthia Gillette PCP Dayne [...] 12:00 AM Bicillin CR, 1.2 million units [facility]# 6079 3-600-10 Reviewed 07/06/2014 11:29 AM URINE TEST Reviewed 07/06/2014 12:00 AM THER/PROPH/DIAG INJ SC/IM Reviewed 07/06/2014 12:00 AM Decadron, Per 1 Mg [facility]# [address]-79 Re viewed 07/06/2014 12:00 AM Depo-Medrol 40mg [...] CALLED TO/BY DR. GERBER [id number] 01-22-11 [facility] Phencyclidine (PCP) NEGATIVE Cocaine NEGATIVE Methamphetamine [...] cy Group Number Start Date Cigna Cigna [id number] Friday, 2010 [facility] [id number] N/A [facility] Kennedi tance Prog [id number] N/A Wppa Wppa [id number] Friday, O ctober 2008 [facility] UMR [id number] Friday, [facility] [id number] N/A Cigna Cigna [id number] Friday, 2010 [facility] Assistance [facility] Medical Kennedi tance Prog [id number] Friday, 2010 History of Encounters Visit Date Visit Type Provider 05/13/[address] Cinthia hudson MD 04/30/2017 Office visit Maria Victoria stephen PROFILING MACHINE SET UP OPERATOR TOOL 02/09/2017 Office visit Yessica Cuenca APR N 06/04/2016 Office visit Yessica Cuenca APR N 05/14/2016 Office visit Codi Guerra PROFILING MACHINE SET UP OPERATOR TOOL 04/22/2016 Office visit Kanu Rodríguez APR N 03/20/2016 Office visit Kanu Rodríguez APR N 02/06/2016 Office visit Kanu Rodríguez APR N 01/04/2016 Office visit Kanu Rodríguez APR N 10/05/2015 Office visit Dayne Taylor DO 09/28/2015 Office visit Capri Colby PROFILING MACHINE SET UP OPERATOR TOOL 09/26/2015 Office visit Kanu Rodríguez APR N 07/24/2015 Office visit Dayne Taylor DO 05/03/2015 Office visit Capri Lasha PROFILING MACHINE SET UP OPERATOR TOOL 02/09/2015 Office visit Dayne Taylor DO 01/02/2015 Office visit Katie TORRES RN 01/01/2015 [facility] Florecita Mayfield MD 12/05/2014 Office visit Capri Colby PROFILING MACHINE SET UP OPERATOR TOOL 11/28/2014 Office visit Katie TORRES RN 11/08/2014 Office visit Katie TORRES RN 10/20/2014 Office visit Katie TORRES RN 08/29/2014 Office visit Capri Colby PROFILING MACHINE SET UP OPERATOR TOOL 08/22/2014 Office visit Capri Colby PROFILING MACHINE SET UP OPERATOR TOOL 07/06/2014 Office visit 07/06/2014 Office visit Capri Lasha PROFILING MACHINE SET UP OPERATOR TOOL 06/28/2014 Office visit 06/28/2014 Office visit Capri Colby PROFILING MACHINE SET UP OPERATOR TOOL 04/07/2014 Office visit Capri Colby PROFILING MACHINE SET UP OPERATOR TOOL 03/24/2014 Office visit Capri Colby PROFILING MACHINE SET UP OPERATOR TOOL 01/04/2014 Office visit Dayne Taylor DO 12/01/2013 Office visit Capri Lasha PROFILING MACHINE SET UP OPERATOR TOOL 10/27/2013 Office visit Dayne Taylor DO 08/20/2013 Office visit Kanu Marcos APR N 05/18/2013 Office visit Capri Colby PROFILING MACHINE SET UP OPERATOR TOOL 12/01/2012 Office visit Dayne Taylor DO 03/09/2012 Office visit Capri Colby PROFILING MACHINE SET UP OPERATOR TOOL 12/03/2011 Office visit Dayne Taylor DO 10/14/2011 Office visit Dayne Taylor DO 09/23/2011 Office visit Dayne Taylor DO 06/04/2011 Office visit Richardson Gerber MD 05/20/2011 Office visit Richardson Gerber MD 05/03/2011 [facility] Richardson Gerber MD 04/29/2011 Office visit Richardson [...]
--- OUTSIDE RECORDS SUMMARY | 2019-09-13 08:08 | XMS REPORT ---
Author Author Jo Gillette [facility] Physicians oup Address [address] [place] [id number] Care Team Providers Care Loan Examiner Name Role Phone Cinthia Gillette PCP Dayne [...] AM Bicillin CR, 1.2 million units [facility]# 6079 3-600-10 Reviewed 07/06/2014 11:29 AM URINE TEST Reviewed 07/06/2014 12:00 AM THER/PROPH/DIAG INJ SC/IM Reviewed 07/06/2014 12:00 AM Decadron, Per 1 Mg [facility]# [address]-24 Re viewed 07/06/2014 12:00 AM Depo-Medrol 40mg [...] (THC) NON-NEGAT SULAIMAN CALLED TO/BY DR. GERBER [id number] 01-22-11 [facility] Phencyclidine (PCP) NEGATIVE Cocaine NEGATIVE [...] cy Group Number Start Date Cigna Cigna [id number] Friday, 2010 [facility] [id number] N/A [facility] Kennedi tance Prog [id number] N/A Wppa Wppa [id number] Friday, ctober 2008 [facility] UMR [id number] Friday, [facility] 2009 [facility] [id number] N/A Cigna Cigna [id number] Friday, [address] [facility] Medical Kennedi tance Prog [id number] Friday, 2010 History of Encounters Visit Date Visit Type Provider 07/31/[address] Cinthia an MD 07/03/2017 Office visit Juan An 06/05/[address] Cinthia an MD 05/13/[address] Cinthia an MD 04/30/2017 Office visit Maria Victoria stephen SORTING MACHINE OPERATOR 02/09/2017 Office visit Yessica Cuenca APR N 06/04/2016 Office visit Yessica Cuenca APR N 05/14/2016 Office visit Codi Guerra SORTING MACHINE OPERATOR 04/22/2016 Office visit Kanu Rodríguez APR N 03/20/2016 Office visit Kanu Rodríguez APR N 02/06/2016 Office visit Kanu Rodríguez APR N 01/04/2016 Office visit Kanu Rodríguez APR N 10/05/2015 Office visit Dayne Taylor DO 09/28/2015 Office visit Capri Colby SORTING MACHINE OPERATOR 09/26/2015 Office visit Kanu Rodríguez APR N 07/24/2015 Office visit Dayne Taylor DO 05/03/2015 Office visit Capri Colby SORTING MACHINE OPERATOR 02/09/2015 Office visit Dayne Taylor DO 01/02/2015 Office visit Katie TORRES RN 01/01/2015 [facility] Florecita Mayfield MD 12/05/2014 Office visit Capri Lasha SORTING MACHINE OPERATOR 11/28/2014 Office visit Katie TORRES RN 11/08/2014 Office visit Katie TORRES RN 10/20/2014 Office visit Katie TORRES RN 08/29/2014 Office visit Capri Lasha SORTING MACHINE OPERATOR 08/22/2014 Office visit Capri Lasha SORTING MACHINE OPERATOR 07/06/2014 Office visit 07/06/2014 Office visit Capri Lasha SORTING MACHINE OPERATOR 06/28/2014 Office visit 06/28/2014 Office visit Capri Lasha SORTING MACHINE OPERATOR 04/07/2014 Office visit Capri Lasha SORTING MACHINE OPERATOR 03/24/2014 Office visit Capri Lasha SORTING MACHINE OPERATOR 01/04/2014 Office visit Dayne Taylor DO 12/01/2013 Office visit Capri Colby SORTING MACHINE OPERATOR 10/27/2013 Office visit Dayne Taylor DO 08/20/2013 Office visit Kanu Marcos APR N 05/18/2013 Office visit Capri Lasha SORTING MACHINE OPERATOR 12/01/2012 Office visit Dayne Taylor DO 03/09/2012 Office visit Capri Colby SORTING MACHINE OPERATOR 12/03/2011 Office visit Dayne Taylor DO 10/14/2011 Office visit Dayne Taylor DO 09/23/2011 Office visit Dayne Taylor DO 06/04/2011 Office visit Richardson Gerber MD 05/20/2011 Office visit Richardson Gerber MD 05/03/2011 [facility] Richardson Gerber MD 04/29/2011 Office [...]
--- OUTSIDE RECORDS SUMMARY | 2019-09-13 08:08 | XMS REPORT ---
Author Author Jo Taylor [facility] Physicians oup Address [address] [place] [id number] Care Team Providers Care Dispensing Operator Name Role Phone Dayne Taylor PCP Unavailable [...] Decadron, Per 1 Mg [facility]# [address]-04 Re viewed 07/06/2014 12:00 AM Depo-Medrol 40mg [...] cy Group Number Start Date Cigna Cigna [id number] Friday, 2010 [facility] [id number] N/A [facility] Kennedi tance Prog [id number] N/A Wppa Wppa [id number] Friday, O ctober 2008 UMR UMR [id number] Friday, [facility] [id number] N/A Cigna Cigna [id number] Friday, 2010 [facility] Kennedi tance Prog [id number] Friday, 2010 History of Encounters Visit Date [...] TORRES RN 08/29/2014 Office visit Capri Lasha MEDICAL RESEARCH ASSISTANT 08/22/2014 Office visit Capri Lasha MEDICAL RESEARCH ASSISTANT 07/06/2014 Office visit 07/06/2014 Office visit Capri Lasha MEDICAL RESEARCH ASSISTANT 06/28/2014 Office visit 06/28/2014 Office visit Capri Lasha MEDICAL RESEARCH ASSISTANT 04/07/2014 Office visit Capri Lasha MEDICAL RESEARCH ASSISTANT 03/24/2014 Office visit Capri Lasha MEDICAL RESEARCH ASSISTANT 01/04/2014 Office visit Dayne Taylor DO 12/01/2013 Office visit Capri Lasha MEDICAL RESEARCH ASSISTANT 10/27/2013 Office visit Dayne Taylor DO 08/20/2013 Office visit Kanu Rodríguez APR N 05/18/2013 Office visit Capri Lasha MEDICAL RESEARCH ASSISTANT 12/01/2012 Office visit Dayne Taylor DO 03/09/2012 Office visit Capri Colby MEDICAL RESEARCH ASSISTANT 12/03/2011 Office visit Dayne Taylor DO 10/14/2011 Office visit Dayne Taylor DO 09/23/2011 Office visit Dayne Taylor DO 06/04/2011 Office visit Richardson Barber MD 05/20/2011 Office visit Richardson Barber MD 05/03/2011 [facility] Richardson Barber MD 04/29/2011 Office visit [...]
--- OUTSIDE RECORDS SUMMARY | 2019-09-13 08:08 | XMS REPORT ---
Author Author Jo Colby Organization [facility] Physicians Gr oup Address [address] [place], [place] [phone] Care Team Providers Care Metal Ceiling Hanger Name Role Phone Capri Colby PCP Unavailable Allergies and Adverse Reactions Name Reaction Notes Erythromycin vomiting SULFUR Plan of Treatment Not available. Medications Active Name Start Date Estimated Completion Date SIG Co mments mupirocin topical ointment 2 % 01/04/2014 a pply a small amount to the affected area by topical route 3 times per day Sprintec (28) oral tablet 0.25-35 mg-mcg 04/07/2014 [...] by oral route daily for 5 days Discontinued Name Start Date [...] route 2 times a day as needed Vyvanse oral capsule 30 mg 01/24/2014 06/28/2014 take 1 capsule (30 mg) by oral route once daily in the morning Problem List Description Status Onset ADHD Active Allergic rhinitis Active Depressive Disorder Active Anxiety Disorder Active 05/19/2013 Attention Deficit Disorder Active 12/01/2013 Vital Signs Date Time BP-Sys(mm[Hg] BP-Valeria(mm[Hg]) HR(bpm) RR(rpm) Temp WT HT HC BMI BSA BMI Percentile O2 Sat(%) 06/28/2014 11:15:00 AM 124 mmHg 72 mmHg [...] 06/28/2014 12:00 AM THER/PROPH/DIAG INJ SC/IM Reviewed 09/13/2010 [...] 04/07/2014 2:44 PM HCG Ur Ql negative History Of [...] 2:11PM Pharyngitis, Acute Jun 28 2014 11:16AM Payers Insurance Name Company Name Plan Name Plan Number Policy Number Stephen cy Group Number Start Date Cigna Cigna [id number] Friday, 2010 [facility] [id number] N/A [facility] Kennedi tance Prog [id number] N/A Wppa Wppa [id number] Friday, ctober 2008 U[facility] UMR [id number] Friday, [facility] 2009 [facility] [id number] N/A Cigna Cigna [id number] Friday, 2010 [facility] Kennedi tance Prog [id number] Friday, 2010 History of Encounters Visit Date Visit Type Provider 06/28/2014 Office visit Capri Colby APPLIED BEHAVIOR SCIENCE SPECIALIST 04/07/2014 Office visit Capri Colby APPLIED BEHAVIOR SCIENCE SPECIALIST 03/24/2014 Office visit Capri Colby APPLIED BEHAVIOR SCIENCE SPECIALIST 01/04/2014 Office visit Dayne Taylor DO 12/01/2013 Office visit Capri Colby APPLIED BEHAVIOR SCIENCE SPECIALIST 10/27/2013 Office visit Dayne Taylor DO 08/20/2013 Office visit Kanu Rodríguez APR N 05/18/2013 Office visit Capri Colby APPLIED BEHAVIOR SCIENCE SPECIALIST 12/01/2012 Office visit Dayne Taylor DO 03/09/2012 Office visit Capri oClby APPLIED BEHAVIOR SCIENCE SPECIALIST 12/03/2011 Office visit Dayne Taylor DO [...] 02/11/2011 Office visit Richardson Barber MD 02/11/2011 [facility] Richardson Barber MD 02/05/2011 Voided Richardson [...]
--- OUTSIDE RECORDS SUMMARY | 2019-09-13 08:09 | XMS REPORT ---
Author Author Jo Gillette [facility] Physicians oup Address [address] [place] [id number] Care Team Providers Care Dehydrogenation Converter Operator Name Role Phone Cinthia Gillette PCP [...] 1 Mg [facility]# [address]-42 Re viewed 07/06/2014 12:00 AM Depo-Medrol 40mg [...] (THC) NON-NEGAT SULAIMAN CALLED TO/BY DR. GERBER 4552 01-22-11 [facility] Phencyclidine (PCP) NEGATIVE Cocaine NEGATIVE [...] cy Group Number Start Date Cigna Cigna [id number] Friday, 2010 [facility] [id number] N/A [facility] Kennedi tance Prog [id number] N/A Wppa Wppa [id number] Friday, ctober 2008 [facility] UMR [id number] Friday, [facility] 2009 [facility] [id number] N/A Cigna Cigna [id number] Friday, 2010 [facility] Medical Kennedi tance Prog [id number] Friday, 2010 History of Encounters Visit Date Visit Type Provider 06/05/[address] Cinthia hudson MD 05/13/[address] Cinthia hudson MD 04/30/2017 Office visit Maria Victoria stephen CRUISE STAFF MEMBER 02/09/2017 Office visit Yessica Cuenca APR N 06/04/2016 Office visit Yessica Cuenca APR N 05/14/2016 Office visit Codi Guerra CRUISE STAFF MEMBER 04/22/2016 Office visit Kanu Rodríguez APR N 03/20/2016 Office visit Kanu Rodríguez APR N 02/06/2016 Office visit Kanu Rodríguez APR N 01/04/2016 Office visit Kanu Rodríguez APR N 10/05/2015 Office visit Dayne Taylor DO 09/28/2015 Office visit Capri Colby CRUISE STAFF MEMBER 09/26/2015 Office visit Kanu Rodríguez APR N 07/24/2015 Office visit Dayne Taylor DO 05/03/2015 Office visit Capri Colby CRUISE STAFF MEMBER 02/09/2015 Office visit Dayne Taylor DO 01/02/2015 Office visit Katie TORRES RN 01/01/2015 [facility] Florecita Mayfield MD 12/05/2014 Office visit Capri Lasha CRUISE STAFF MEMBER 11/28/2014 Office visit Katie Mcconnell AP RN 11/08/2014 Office visit Katie TORRES RN 10/20/2014 Office visit Katie TORRES RN 08/29/2014 Office visit Capri Colby CRUISE STAFF MEMBER 08/22/2014 Office visit Capri Lasha CRUISE STAFF MEMBER 07/06/2014 Office visit 07/06/2014 Office visit Capri Colby CRUISE STAFF MEMBER 06/28/2014 Office visit 06/28/2014 Office visit Capri Colby CRUISE STAFF MEMBER 04/07/2014 Office visit Capri Colby CRUISE STAFF MEMBER 03/24/2014 Office visit Capri Colby CRUISE STAFF MEMBER 01/04/2014 Office visit Dayne Taylor DO 12/01/2013 Office visit Capri Lasha CRUISE STAFF MEMBER 10/27/2013 Office visit Dayne Brandon DO 08/20/2013 Office visit Kanu Rodríguez APR N 05/18/2013 Office visit Capri Colby CRUISE STAFF MEMBER 12/01/2012 Office visit Dayne Taylor DO 03/09/2012 Office visit Capri Colby CRUISE STAFF MEMBER 12/03/2011 Office visit Dayne Taylor DO 10/14/2011 [...] Taylor DO 06/08/2010 Office visit Capri Colby CRUISE STAFF MEMBER 03/27/2010 Office visit Dyane Taylor DO 03/07/2010 Office visit Yulisa MOYA 08/31/2009 Office visit Yulisa MOYA 05/01/2009 Office visit Joann MOYA 03/06/2009 Office visit Yulisa MOYA 02/02/2009 Office visit Yulisa MOYA 01/02/2009 Office visit Yulisa MOYA 10/26/2008 Office visit YULISA FRANCIS PA-C
--- OUTSIDE RECORDS SUMMARY | 2019-09-13 08:09 | XMS REPORT ---
Author Author Jo Colby Organization [facility] Physicians oup Address [address] [place] [phone] Care Team Providers Care Natural Developer Name Role Phone Capri Colby PCP Unavailable [...] 12:00 AM Bicillin CR, 1.2 million units [facility]# 6079 3-600-10 Reviewed 07/06/2014 11:29 AM URINE TEST Reviewed 07/06/2014 12:00 AM THER/PROPH/DIAG INJ SC/IM Reviewed 07/06/2014 12:00 AM Decadron, Per 1 Mg [facility]# [address]-64 Re viewed 07/06/2014 12:00 AM Depo-Medrol 40mg [...] Number Stephen cy Group Number Start Date Vineet Manley [id number] Friday, 2010 [facility] [id number] N/A [facility] Kennedikayla Mcqueen [id number] N/A Wppa Wppa [id number] Friday, O ctober 2008 UMR UMR [id number] [facility] 2009 [facility] [id number] N/A Vineet Manley [id number] Friday, 2010 [place] [facility] Kennedi Mcqueen [id number] Friday, 2010 History of Encounters Visit Date Visit Type Provider 09/28/2015 Office visit Capri Colby SLUICE TENDER 09/26/2015 Office visit Kanu Rodríguez APR N 07/24/2015 Office visit Dayne Taylor DO 05/03/2015 Office visit Capri Colby SLUICE TENDER 02/09/2015 Office visit Dayne Brandon DO 01/02/2015 Office visit Katie TORRES RN 01/01/2015 [facility] Florecita Mayfield MD 12/05/2014 Office visit Capri Colby SLUICE TENDER 11/28/2014 Office visit Katie TORRES RN 11/08/2014 Office visit Katie TORRES RN 10/20/2014 Office visit Katie TORRES RN 08/29/2014 Office visit Capri Colby SLUICE TENDER 08/22/2014 Office visit Capri Colby SLUICE TENDER 07/06/2014 Office visit 07/06/2014 Office visit Capri Cloby SLUICE TENDER 06/28/2014 Office visit 06/28/2014 Office visit Capri Colby SLUICE TENDER 04/07/2014 Office visit Capri Colby SLUICE TENDER 03/24/2014 Office visit Capri Colby SLUICE TENDER 01/04/2014 Office visit Dayne Taylor DO 12/01/2013 Office visit Capri Colby SLUICE TENDER 10/27/2013 Office visit Dayne Taylor DO 08/20/2013 Office visit Kanu Rodríguez APR N 05/18/2013 Office visit Capri Colby SLUICE TENDER 12/01/2012 Office visit Dayne Brandon DO 03/09/2012 Office visit Capri Colby SLUICE TENDER 12/03/2011 Office visit Dayne Brandon DO 10/14/2011 Office visit Dayne Brandon DO 09/23/2011 Office visit Dayne Taylor DO 06/04/2011 Office visit Richardson Barber MD 05/20/2011 Office visit Richardson Barber MD 05/03/2011 [facility] Richardson Barber MD 04/29/2011 Office [...] Office visit Richardson Barber MD 02/11/2011 [facility] Richardson Barber MD 02/05/2011 Voided [...]
--- OUTSIDE RECORDS SUMMARY | 2019-09-13 08:10 | XMS REPORT ---
Author Author Jo Jeffries [facility] Address [address] [place] [id number] Care Team Providers Care Glue Clamp Operator Name Role Phone Juan Jeffries PCP Dayne [...] AM Bicillin CR, 1.2 million units [facility]# 6079 3-600-10 Reviewed 07/06/2014 11:29 AM URINE TEST Reviewed 07/06/2014 12:00 AM THER/PROPH/DIAG INJ SC/IM Reviewed 07/06/2014 12:00 AM Decadron, Per 1 Mg [facility]# [address]-31 Re viewed 07/06/2014 12:00 AM Depo-Medrol 40mg [...] SULAIMAN CALLED TO/BY DR. GERBER 1540 01-22-11 [facility] Phencyclidine (PCP) NEGATIVE Cocaine [...] Number Stephen cy Group Number Start Date [place] Oncologist Prog - RHC [place] Oncologist Prog - RH C [id number] N/A [facility] [id number] [facility] [id number] N/A [facility] Assistance [facility] Kennedi tance Prog [id number] N/A Wppa Wppa [id number] Friday, ctober 2008 UMR UMR [id number] Friday, [facility] [id number] N/A Cigna Cigna [id number] Friday, 2010 [facility] Kennedi tance Prog [id number] Friday, 2010 Cigna Cigna [id number] Friday, 2010 History of Encounters Visit Date Visit Type Provider 11/27/2017 Office visit Juan Hudson 11/17/2017 Office [...] MD 04/30/2017 Office visit Maria Victoria stephen HADOOP ANALYST 02/09/2017 Office visit Yessica Cuenca APR N 06/04/2016 Office visit Yessica Cuenca APR N 05/14/2016 Office visit Codi Guerra HADOOP ANALYST 04/22/2016 Office visit Kanu Bentonran APR N 03/20/2016 Office visit Kanu Bentonran APR N 02/06/2016 Office visit Kanu Bentonran APR N 01/04/2016 Office visit Kanu Bentonran APR N 10/05/2015 Office visit Dayne Brandon DO 09/28/2015 Office visit Capri Lasha HADOOP ANALYST 09/26/2015 Office visit Kanu Bentonran APR N 07/24/2015 Office visit Dayne Brandon DO 05/03/2015 Office visit Capri Colby HADOOP ANALYST 02/09/2015 Office visit Dayne Brandon DO 01/02/2015 Office visit Katie TORRES RN 01/01/2015 Hospital Florecita Mayfield MD 12/05/2014 Office visit Capri Colby HADOOP ANALYST 11/28/2014 Office visit Katie TORRES RN 11/08/2014 Office visit Katie TORRES RN 10/20/2014 Office visit Katie TORRES RN 08/29/2014 Office visit Capri Colby HADOOP ANALYST 08/22/2014 Office visit Capri Colby HADOOP ANALYST 07/06/2014 Office visit 07/06/2014 Office visit Capri Lasha HADOOP ANALYST 06/28/2014 Office visit 06/28/2014 Office visit Capri Lasha HADOOP ANALYST 04/07/2014 Office visit Capri Lasha HADOOP ANALYST 03/24/2014 Office visit Capri Lasha HADOOP ANALYST 01/04/2014 Office visit Dayne Brandon DO 12/01/2013 Office visit Capri Lasha HADOOP ANALYST 10/27/2013 Office visit Dayne Brandon DO 08/20/2013 Office visit Kanu Rodríguez APR N 05/18/2013 Office visit Capri Colby HADOOP ANALYST 12/01/2012 Office visit Dayne Brandon DO 03/09/2012 Office visit Capri Lasha HADOOP ANALYST 12/03/2011 Office visit Dayne Brandon DO 10/14/2011 [...]
--- OUTSIDE RECORDS SUMMARY | 2019-09-13 08:11 | XMS REPORT ---
Author Author Jo Gillette [facility] Address [address] [place] [id number] Care Team Providers Care Mate First Name Role Phone Cinthia Gillette PCP Dayne [...] Decadron, Per 1 Mg [facility]# [address]-12 Re viewed 07/06/2014 12:00 AM Depo-Medrol 40mg [...] (THC) NON-NEGAT SULAIMAN CALLED TO/BY DR. GERBER 3807 01-22-11 [facility] Phencyclidine (PCP) NEGATIVE Cocaine NEGATIVE [...] Of Immunizations Name Date Admin Mfg Name [facility] Code Trade Name Lot# Route Inj Vis [...] cy Group Number Start Date Cigna Cigna [id number] Friday, 2010 [facility] [id number] N/A [facility] Kennedi tance Prog [id number] N/A Wppa Wppa [id number] Friday, ctober 2008 UMR UMR [id number] Friday, [facility] [id number] N/A Cigna Cigna [id number] Friday, 2010 [facility] Medical Kennedi tance Prog [id number] Friday, 2010 History of Encounters Visit Date Visit Type Provider 07/31/[address] Cinthia hudson MD 07/03/2017 Office visit Juan Hudson 06/05/[address] Cinthia hudson MD 05/13/[address] Cinthia hudson MD 04/30/2017 Office visit Maria Victoria stephen DATA WAREHOUSING MANAGER 02/09/2017 Office visit Yessica Cuenca APR N 06/04/2016 Office visit Yessica Cuenca APR N 05/14/2016 Office visit Codi Guerra DATA WAREHOUSING MANAGER 04/22/2016 Office visit Kanu Rodríguez APR N 03/20/2016 Office visit Kanu Rodríguez APR N 02/06/2016 Office visit Kanu Rodríguez APR N 01/04/2016 Office visit Kanu Rodríguez APR N 10/05/2015 Office visit Dayne Brandon DO 09/28/2015 Office visit Capri Lasha DATA WAREHOUSING MANAGER 09/26/2015 Office visit Kanu Rodríguez APR N 07/24/2015 Office visit Dayne Brandon DO 05/03/2015 Office visit Capri Colby DATA WAREHOUSING MANAGER 02/09/2015 Office visit Dayne Brandon DO 01/02/2015 Office visit Katie TORRES RN 01/01/2015 Hospital Florecita Mayfield MD 12/05/2014 Office visit Capri Colby DATA WAREHOUSING MANAGER 11/28/2014 Office visit Katie TORRES RN 11/08/2014 Office visit Katie TORRES RN 10/20/2014 Office visit Katie TORRES RN 08/29/2014 Office visit Capri Colby DATA WAREHOUSING MANAGER 08/22/2014 Office visit Capri Colby DATA WAREHOUSING MANAGER 07/06/2014 Office visit 07/06/2014 Office visit Capri Colby DATA WAREHOUSING MANAGER 06/28/2014 Office visit 06/28/2014 Office visit Capri Colby DATA WAREHOUSING MANAGER 04/07/2014 Office visit Capri Colby DATA WAREHOUSING MANAGER 03/24/2014 Office visit Capri Colby DATA WAREHOUSING MANAGER 01/04/2014 Office visit Dayne Brandon DO 12/01/2013 Office visit Capri Colby DATA WAREHOUSING MANAGER 10/27/2013 Office visit Dayne Brandon DO 08/20/2013 Office visit Kanu Rodríguez APR N 05/18/2013 Office visit Capri Colby DATA WAREHOUSING MANAGER 12/01/2012 Office visit Dayne Brandon DO 03/09/2012 Office visit Capri Colby DATA WAREHOUSING MANAGER 12/03/2011 Office visit Dayne Brandon DO 10/14/2011 Office visit Dayne Owenste DO 09/23/2011 Office visit Dayne Owenste DO 06/04/2011 Office visit Richardson Gerber MD 05/20/2011 Office visit Richardson Gerber MD 05/03/2011 [facility] Richardson Gerber MD 04/29/2011 Office visit [...] 02/11/2011 Office visit Richardson Gerber MD 02/11/2011 [facility] Richardson Gerber MD 02/05/2011 Voided Richardson [...]
--- OUTSIDE RECORDS SUMMARY | 2019-09-13 08:11 | XMS REPORT ---
Author Author Jo Jeffries [facility] Address [address] [place] [phone] Care Team Providers Care Customs Director Name Role Phone Juan Jeffries PCP Dayne [...] 12:00 AM Bicillin CR, 1.2 million units [facility]# 6079 3-600-10 Reviewed 07/06/2014 11:29 AM URINE TEST Reviewed 07/06/2014 12:00 AM THER/PROPH/DIAG INJ SC/IM Reviewed 07/06/2014 12:00 AM Decadron, Per 1 Mg [facility]# [address]-05 Re viewed 07/06/2014 12:00 AM Depo-Medrol 40mg [...] CALLED TO/BY DR. 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 Prog - RH C [id number] N/A [facility] [id number] [facility] [id number] N/A [facility] Assistance [facility] Kennedi tance Prog [id number] N/A Wppa Wppa [id number] Friday, ctober 2008 UMR UMR [id number] Friday, [facility] 2009 [facility] [id number] N/A Cigna Cigna [id number] Friday, 2010 [facility] Kennedi tance Prog [id number] Friday, 2010 Cigna Cigna [id number] Friday, 2010 History of Encounters Visit Date [...] MD 04/30/2017 Office visit Maria Victoria stephen KITCHEN STEWARD 02/09/2017 Office visit Yessica Cuenca APR N 06/04/2016 Office visit Yessica Cuenca APR N 05/14/2016 Office visit Codi Guerra KITCHEN STEWARD 04/22/2016 Office visit Kanu Bentonran APR N 03/20/2016 Office visit Kanu Bentonran APR N 02/06/2016 Office visit Kanu Bentonran APR N 01/04/2016 Office visit Kanu Bentonran APR N 10/05/2015 Office visit Dayne Brandon DO 09/28/2015 Office visit Capri Lasha KITCHEN STEWARD 09/26/2015 Office visit Kanu Bentonran APR N 07/24/2015 Office visit Dayne Brandon DO 05/03/2015 Office visit Capri Colby KITCHEN STEWARD 02/09/2015 Office visit Dayne Brandon DO 01/02/2015 Office visit Katie TORRES RN 01/01/2015 Hospital Florecita Mayfield MD 12/05/2014 Office visit Capri Colby KITCHEN STEWARD 11/28/2014 Office visit Katie TORRES RN 11/08/2014 Office visit Katie TORRES RN 10/20/2014 Office visit Katie TORRES RN 08/29/2014 Office visit Capri Colby KITCHEN STEWARD 08/22/2014 Office visit Capri Colby KITCHEN STEWARD 07/06/2014 Office visit 07/06/2014 Office visit Capri Lasha KITCHEN STEWARD 06/28/2014 Office visit 06/28/2014 Office visit Capri Lasha KITCHEN STEWARD 04/07/2014 Office visit Capri Lasha KITCHEN STEWARD 03/24/2014 Office visit Capri Lasha KITCHEN STEWARD 01/04/2014 Office visit Dayne Brandon DO 12/01/2013 Office visit Capri Lasha KITCHEN STEWARD 10/27/2013 Office visit Dayne Brandon DO 08/20/2013 Office visit Kanu Rodríguez APR N 05/18/2013 Office visit Capri Colby KITCHEN STEWARD 12/01/2012 Office visit Dayne Brandon DO 03/09/2012 Office visit Capri Lasha KITCHEN STEWARD 12/03/2011 Office visit Dayne Brandon DO 10/14/2011 [...]
--- OUTSIDE RECORDS SUMMARY | 2019-09-13 08:12 | XMS REPORT ---
Author Author Jo Cuenca [facility] Address [address] [place] [id number] Care Team Providers Care Floral Clerk Name Role Phone Yessica Cuenca PCP Dayne [...] 12:00 AM Bicillin CR, 1.2 million units [facility]# 6079 3-600-10 Reviewed 07/06/2014 11:29 AM URINE TEST Reviewed 07/06/2014 12:00 AM THER/PROPH/DIAG INJ SC/IM Reviewed 07/06/2014 12:00 AM Decadron, Per 1 Mg [facility]# [address]-39 Re viewed 07/06/2014 12:00 AM Depo-Medrol 40mg [...] cy Group Number Start Date Cigna Cigna [id number] Friday, 2010 [facility] [id number] N/A [facility] Kennedi tance Prog [id number] N/A Wppa Wppa [id number] Friday, O ctober 2008 UMR UMR [id number] Friday, [facility] [id number] N/A Cigna Cigna [id number] Friday, 2010 [facility] Kennedi tance Prog [id number] Friday, 2010 History of Encounters Visit Date Visit Type Provider 02/09/2017 Office visit Yessica Cuenca APR N 06/04/2016 Office visit Yessica Cuenca APR N 05/14/2016 Office visit Codi Guerra FARM PRODUCTS SHIPPER 04/22/2016 Office visit Kanu Bentonran APR N 03/20/2016 Office visit Kanu Bentonran APR N 02/06/2016 Office visit Kanu Bentonran APR N 01/04/2016 Office visit Kanu Bentonran APR N 10/05/2015 Office visit Dayne Brandon DO 09/28/2015 Office visit Capri Lasha FARM PRODUCTS SHIPPER 09/26/2015 Office visit Kanu Bentonran APR N 07/24/2015 Office visit Dayne Brandon DO 05/03/2015 Office visit Capri Colby FARM PRODUCTS SHIPPER 02/09/2015 Office visit Dayne Brandon DO 01/02/2015 Office visit Katie TORRES RN 01/01/2015 [facility] Florecita Mayfield MD 12/05/2014 Office visit Capri Colby FARM PRODUCTS SHIPPER 11/28/2014 Office visit Katie TORRES RN 11/08/2014 Office visit Katie TORRES RN 10/20/2014 Office visit Katie TORRES RN 08/29/2014 Office visit Capri Colby FARM PRODUCTS SHIPPER 08/22/2014 Office visit Capri Colby FARM PRODUCTS SHIPPER 07/06/2014 Office visit 07/06/2014 Office visit Capri Colby FARM PRODUCTS SHIPPER 06/28/2014 Office visit 06/28/2014 Office visit Capri Colby FARM PRODUCTS SHIPPER 04/07/2014 Office visit Capri Colby FARM PRODUCTS SHIPPER 03/24/2014 Office visit Capri Colby FARM PRODUCTS SHIPPER 01/04/2014 Office visit Dayne Brandon DO 12/01/2013 Office visit Capri Colby FARM PRODUCTS SHIPPER 10/27/2013 Office visit Dayne Brandon DO 08/20/2013 Office visit Kanu Bentonran APR N 05/18/2013 Office visit Capri Colby FARM PRODUCTS SHIPPER 12/01/2012 Office visit Dayne Brandon DO 03/09/2012 Office visit Capri Colby FARM PRODUCTS SHIPPER 12/03/2011 Office visit Dayne Brandon DO 10/14/2011 Office visit Dayne Brandon DO 09/23/2011 Office visit Dayne Brandon DO 06/04/2011 Office visit Richardson Gerber MD 05/20/2011 Office visit Richardson Gerber MD 05/03/2011 [facility] Richardson Gerber MD 04/29/2011 Office visit [...] 02/11/2011 Office visit Richardson Gerber MD 02/11/2011 [facility] Richardson Gerber MD 02/05/2011 Voided Richardson [...]
--- OUTSIDE RECORDS SUMMARY | 2019-09-13 08:12 | XMS REPORT ---
Author Author Jo Taylor [facility] Address [address] [place] [id number] Care Team Providers Care Patient Services Representative Name Role Phone Dayne Taylor PCP Unavailable [...] 1.2 million units [facility]# 6079 3-600-10 Reviewed 07/06/2014 11:29 AM URINE TEST Reviewed 07/06/2014 12:00 AM THER/PROPH/DIAG INJ SC/IM Reviewed 07/06/2014 12:00 AM Decadron, Per 1 Mg [facility]# [address]-55 Re viewed 07/06/2014 12:00 AM Depo-Medrol 40mg [...] cy Group Number Start Date Cigna Cigna [id number] Friday, 2010 [facility] [id number] N/A [place] Medical Assistance [facility] Kennedi tance Prog [id number] N/A Wppa Wppa [id number] Friday, O ctober 2008 UMR UMR [id number] Friday, [facility] [id number] [phone] N/A Cigna Cigna [id number] Friday, 2010 [place] Medical Assistance [facility] Medical Kennedi tance Prog [id number] Friday, 2010 History of Encounters Visit Date [...] Office visit 06/28/2014 Office visit Capri Colby SPRUE CUTTING PRESS OPERATOR 04/07/2014 Office visit Capri Colby SPRUE CUTTING PRESS OPERATOR 03/24/2014 Office visit Capri Colby SPRUE CUTTING PRESS OPERATOR 01/04/2014 Office visit Dayne Brandon DO 12/01/2013 Office visit Capri Colby SPRUE CUTTING PRESS OPERATOR 10/27/2013 Office visit Dayne Brandon DO 08/20/2013 Office visit Kanu Rodríguez APR N 05/18/2013 Office visit Capri Colby SPRUE CUTTING PRESS OPERATOR 12/01/2012 Office visit Dayne Owneste DO 03/09/2012 Office visit Capri Colby SPRUE CUTTING PRESS OPERATOR 12/03/2011 Office visit Dayne Owenste DO 10/14/2011 Office visit Dayne Brandon DO 09/23/2011 Office visit Dayne Taylor DO 06/04/2011 Office visit Richardson Barber MD 05/20/2011 Office visit Richardson Barber MD 05/03/2011 [facility] Richardson Barber MD 04/29/2011 Office visit [...] Taylor DO 06/08/2010 Office visit Capri Colby SPRUE CUTTING PRESS OPERATOR 03/27/2010 Office visit Dayne Taylor DO 03/07/2010 Office visit Yulisa MOYA 08/31/2009 Office visit Yulisa MOYA 05/01/2009 Office visit Joann MOYA 03/06/2009 Office visit Yulisa MOYA 02/02/2009 Office visit Yulisa MOYA 01/02/2009 Office visit Yulisa MOYA 10/26/2008 Office visit YULISA FRANCIS PA-C
--- OUTSIDE RECORDS SUMMARY | 2019-09-13 08:13 | XMS REPORT ---
Author Author Jo Gillette [facility] Address [address] [place] [id number] Care Team Providers Care Field Agent Name Role Phone Cinthia Gillette PCP Dayne [...] Per 1 Mg [facility]# [address]-07 Re viewed 07/06/2014 12:00 AM Depo-Medrol 40mg [...] (THC) NON-NEGAT SULAIMAN CALLED TO/BY DR. GERBER 9920 01-22-11 [facility] Phencyclidine (PCP) NEGATIVE [...] cy Group Number Start Date Cigna Cigna [id number] Friday, 2010 [facility] [id number] N/A [facility] Kennedi tance Prog [id number] N/A Wppa Wppa [id number] Friday, ctober 2008 [facility] UMR [id number] Friday, [facility] [id number] N/A Cigna Cigna [id number] Friday, 2010 [facility] Kennedi tance Prog [id number] Friday, 2010 History of Encounters Visit Date Visit Type Provider 07/31/[address] Cinthia hudson MD 07/03/2017 Office visit Juan Hudson 06/05/[address] Cinthia hudson MD 05/13/[address] Cinthia hudson MD 04/30/2017 Office visit Maria Victoria stephen CARBONATING STONE CLEANER 02/09/2017 Office visit Yessica Cuenca APR N 06/04/2016 Office visit Yessica Cuenca APR N 05/14/2016 Office visit Codi Guerra CARBONATING STONE CLEANER 04/22/2016 Office visit Kanu Rodríguez APR N 03/20/2016 Office visit Kanu Bentonran APR N 02/06/2016 Office visit Kanu Bentonran APR N 01/04/2016 Office visit Kanu Bentonran APR N 10/05/2015 Office visit Dayne Brandon DO 09/28/2015 Office visit Capri Colby CARBONATING STONE CLEANER 09/26/2015 Office visit Kanu Bentonran APR N 07/24/2015 Office visit Dayne Brandon DO 05/03/2015 Office visit Capri Colby CARBONATING STONE CLEANER 02/09/2015 Office visit Dayne Brandon DO 01/02/2015 Office visit Katie TORRES RN 01/01/2015 Hospital Florecita Mayfield MD 12/05/2014 Office visit Capri Colby CARBONATING STONE CLEANER 11/28/2014 Office visit Katie TORRES RN 11/08/2014 Office visit Katie TORRES RN 10/20/2014 Office visit Katie TORRES RN 08/29/2014 Office visit Capri Colby CARBONATING STONE CLEANER 08/22/2014 Office visit Capri Lasha CARBONATING STONE CLEANER 07/06/2014 Office visit 07/06/2014 Office visit Capri Colby CARBONATING STONE CLEANER 06/28/2014 Office visit 06/28/2014 Office visit Capri Colby CARBONATING STONE CLEANER 04/07/2014 Office visit Capri Colby CARBONATING STONE CLEANER 03/24/2014 Office visit Capri Colby CARBONATING STONE CLEANER 01/04/2014 Office visit Dayne Brandon DO 12/01/2013 Office visit Capri Colby CARBONATING STONE CLEANER 10/27/2013 Office visit Dayne Brandon DO 08/20/2013 Office visit Kanu Bentonran APR N 05/18/2013 Office visit Capri Colby CARBONATING STONE CLEANER 12/01/2012 Office visit Dayne Brandon DO 03/09/2012 Office visit Capri Lasha CARBONATING STONE CLEANER 12/03/2011 Office visit Dayne Brandon DO 10/14/2011 Office visit Dayne Brandon DO 09/23/2011 Office visit Dayne Brandon DO 06/04/2011 Office visit Richardson Gerber MD 05/20/2011 Office visit Richardson Gerber MD 05/03/2011 [facility] Richardson Gerber MD 04/29/2011 [...] visit Richardson Gerber MD 02/11/2011 [facility] Richardson Gerber MD 02/05/2011 Voided Richardson Gerber MD 01/22/2011 Office visit Richardson Gerber MD 01/16/2011 Office visit Richardson Gerber MD 12/24/2010 Office visit iRchardson Gerber MD 11/29/2010 Office visit Richardson Gerber [...]
--- OUTSIDE RECORDS SUMMARY | 2019-09-13 08:13 | XMS REPORT ---
Author Author Jo Colby Organization [facility] Address [address] [place], [place] [phone] Care Team Providers Care Molding Associate Name Role Phone Capri Colby PCP Unavailable Allergies and Adverse Reactions Name Reaction Notes Erythromycin vomiting SULFUR Plan of Treatment Planned Activity Comments Planned Date Planned Time Plan/Goal URINE CULTURE/COLONY COUNT 05/03/2015 12:00 AM Scoliois with previous surgery and [...] FADY 3 YRS PLUS IM Reviewed 05/03/2015 3:46 PM URINE TEST Reviewed [...] 1 Mg [facility]# [address]-30 Re viewed 07/06/2014 12:00 AM Depo-Medrol 40mg [...] cy Group Number Start Date Cigna Cigna [id number] Friday, 2010 [facility] [id number] N/A [place] Medical Assistance [facility] Kennedi tance Prog [id number] N/A Wppa Wppa [id number] Friday, ctober 2008 UMR UMR [id number] Friday, [facility] [id number] N/A Cigna Cigna [id number] Friday, 2010 [place] Medical [address] [facility] Medical Kennedi tance Prog [id number] Friday, 2010 History of Encounters Visit Date Visit Type Provider 05/03/2015 Office visit Capri Colby APRN 02/09/2015 Office visit Dayne Taylor DO 01/02/2015 Office visit Katie TORRES RN 01/01/2015 [facility] Florecita Mayfield MD 12/05/2014 Office visit Capri Colby SUPERVISOR TUMBLERS 11/28/2014 Office visit Katie TORRES RN 11/08/2014 Office visit Katie TORRES RN 10/20/2014 Office visit Katie TORRES RN 08/29/2014 Office visit Capri Colby SUPERVISOR TUMBLERS 08/22/2014 Office visit Capri Colby APRN 07/06/2014 Office visit 07/06/2014 Office visit Capri Colby APRN 06/28/2014 Office visit 06/28/2014 Office visit Capri Colby APRN 04/07/2014 Office visit Capri Colby SUPERVISOR TUMBLERS 03/24/2014 Office visit Capri Colby SUPERVISOR TUMBLERS 01/04/2014 Office visit Dayne Taylor DO 12/01/2013 Office visit Capri Colby SUPERVISOR TUMBLERS 10/27/2013 Office visit Dayne Taylor DO 08/20/2013 Office visit Kanu Rodríguez APR N 05/18/2013 Office visit Capri Colby SUPERVISOR TUMBLERS 12/01/2012 Office visit Dayne Taylor DO 03/09/2012 Office visit Capir Colby APRN 12/03/2011 Office visit Dayne Taylor DO 10/14/2011 Office visit Dayne Taylor DO 09/23/2011 Office visit Dayne Taylor DO 06/04/2011 Office visit Richardson Barber MD 05/20/2011 Office visit Richardson Barber MD 05/03/2011 [facility] Richardson Barber MD 04/29/2011 Office visit Richardson Barber MD 04/22/2011 Office visit Richardson Barber MD 04/16/2011 Office visit Richardson Barber MD 04/10/2011 Office visit Richardson Barber MD 04/01/2011 Office visit Richardson Barber MD 03/18/2011 Office visit Richarsdon Barber MD 03/14/2011 Office visit Richardson Barber MD 02/20/2011 Office visit Richardson Barber MD 02/12/2011 Office visit Richardson Barber MD 02/11/2011 Office visit Richardson Barber MD 02/11/2011 [facility] Richardson Barber MD 02/05/2011 Voided [...]
--- OUTSIDE RECORDS SUMMARY | 2019-09-13 08:13 | XMS REPORT ---
Author Author Jo Colby Organization [facility] Address [address] [place], [place] [id number] Care Team Providers Care Military Administrative Technician Name Role Phone Capri Colby PCP Unavailable Allergies and Adverse Reactions Name Reaction Notes Erythromycin vomiting SULFUR Plan of Treatment Not available. Medications Active Name Start Date Estimated Completion Date SIG Co mments Sprintec (28) oral tablet 0.25-35 mg-mcg 04/07/2014 take 1 tablet by oral route once daily Strattera oral capsule 60 mg 08/24/2014 gomez e 1 capsule (60 mg) by [...] by oral route once daily before breakfast Problem List Description Status Onset ADHD Active Allergic rhinitis Active Depressive Disorder Active Anxiety Disorder Active 05/19/2013 Attention deficit disorder Active 12/01/2013 Anxiety Active 08/24/2014 Depression Active 08/24/2014 ADD (attention deficit disorder) Active 08/25/19 15 Vital Signs Date Time BP-Sys(mm[Hg] BP-Valeria(mm[Hg]) HR(bpm) RR(rpm) Temp WT HT HC BMI BSA BMI Percentile O2 Sat(%) 08/22/2014 1:29:00 PM 146 mmHg 82 mmHg [...] (attention deficit disorder) Aug 22 2014 1:31PM Payers Insurance Name Company Name Plan Name Plan Number Policy Number Stephen cy Group Number Start Date Cigna Cigna [id number] Friday, 2010 [facility] [id number] N/A [place] Medical Assistance [facility] Medical Kennedi tance Prog [id number] N/A Wppa Wppa [id number] Friday, O ctober 2008 [facility] [id number] Friday, [facility] 2009 [facility] [id number] N/A Cigna Cigna [id number] Friday, 2010 [facility] Assistance [facility] Medical Kennedi tance Prog [id number] Friday, 2010 History of Encounters Visit Date Visit Type Provider 08/22/2014 Office visit Capri Colby APRN 07/06/2014 Office visit Capri Colby APRN 06/28/2014 Office visit Capri Colby APRN 04/07/2014 Office visit Capri Colby APRN 03/24/2014 Office visit Capri Colby APRN 01/04/2014 Office visit Dayne Taylor DO 12/01/2013 Office visit Capri Colby PATROLLER 10/27/2013 Office visit Dayne Taylor DO 08/20/2013 Office visit Kanu Rodríguez APR N 05/18/2013 Office visit Capri Colby PATROLLER 12/01/2012 Office visit Dayne Taylor DO 03/09/2012 Office visit Capri Colby PATROLLER 12/03/2011 Office visit Dayne Taylor DO 10/14/2011 Office visit Dayne Taylor DO 09/23/2011 Office visit Dayne Taylor DO 06/04/2011 Office visit Richardson Barber MD 05/20/2011 Office visit Richardson Barber MD 05/03/2011 [facility] Richardson Barber MD 04/29/2011 Office visit [...] 02/11/2011 Office visit Richardson Barber MD 02/11/2011 [facility] Richardson Barber MD 02/05/2011 Voided Richardson [...]
--- OUTSIDE RECORDS SUMMARY | 2019-09-13 08:14 | XMS REPORT ---
Author Author Jo Colby Organization [facility] Address [address] [place] [address] Care Team Providers Care Quality Audit Representative Name Role Phone Capri Colby PCP Unavailable [...] Mg [facility]# [address]-20 Re viewed 07/06/2014 12:00 AM Depo-Medrol 40mg [...] Lower back pain Sep 26 2015 2:53PM Payers Insurance Name Company Name Plan Name Plan Number Policy Number Stephen cy Group Number Start Date Cigna Cigna [id number] Friday, [address] [facility] [id number] N/A [place] Medical Assistance [facility] Medical Kennedi tance Prog [id number] N/A Wppa Wppa [id number] Friday, O ctober 2008 [facility] UMR [id number] Friday, [facility] [id number] N/A Cigna Cigna [id number] Friday, 2010 [place] Medical Assistance [facility] Medical Kennedi tance Prog [id number] Friday, 2010 History of Encounters Visit Date Visit Type Provider 09/28/2015 Office visit Capri Colby APRN 09/26/2015 Office visit Kanu Rodríguez APR N 07/24/2015 Office visit Dayne Taylor DO 05/03/2015 Office visit Capri Colby APPLIED COMPUTER SCIENCE PROFESSOR 02/09/2015 Office visit Dayne Taylor DO 01/02/2015 Office visit Katie TORRES RN 01/01/2015 [facility] Florecita Mayfield MD 12/05/2014 Office visit Capri Colby APPLIED COMPUTER SCIENCE PROFESSOR 11/28/2014 Office visit Katie TORRES RN 11/08/2014 Office visit Katie TORRES RN 10/20/2014 Office visit Katie TORRES RN 08/29/2014 Office visit Capri Colby APPLIED COMPUTER SCIENCE PROFESSOR 08/22/2014 Office visit Capri Colby APPLIED COMPUTER SCIENCE PROFESSOR 07/06/2014 Office visit 07/06/2014 Office visit Capri Colby APPLIED COMPUTER SCIENCE PROFESSOR 06/28/2014 Office visit 06/28/2014 Office visit Capri Colby APRN 04/07/2014 Office visit Capri Colby APPLIED COMPUTER SCIENCE PROFESSOR 03/24/2014 Office visit Capri Colby APPLIED COMPUTER SCIENCE PROFESSOR 01/04/2014 Office visit Dayne Taylor DO 12/01/2013 Office visit Capri Colby APPLIED COMPUTER SCIENCE PROFESSOR 10/27/2013 Office visit Dayne Taylor DO 08/20/2013 Office visit Kanu Rodríguze APR N 05/18/2013 Office visit Capri Colby APPLIED COMPUTER SCIENCE PROFESSOR 12/01/2012 Office visit Dayne Taylor DO 03/09/2012 Office visit Capri Colby APPLIED COMPUTER SCIENCE PROFESSOR 12/03/2011 Office visit Dayne Taylor DO 10/14/2011 Office visit Dayne Taylor DO 09/23/2011 Office visit Dayne Taylor DO 06/04/2011 Office visit Richardson Barber MD 05/20/2011 Office visit Richardson Barber MD 05/03/2011 [facility] Richardson Barber MD 04/29/2011 Office visit Richardson Barber MD 04/22/2011 Office visit Richadrson Barber MD 04/16/2011 Office visit Richardson Barber MD 04/10/2011 Office visit Richardson Barber MD 04/01/2011 Office visit Richardson Barber MD 03/18/2011 Office visit Richardson Barber MD 03/14/2011 Office visit Richardson Barber MD 02/20/2011 Office visit Richardson Barber MD 02/12/2011 Office visit Richardson Barber MD 02/11/2011 Office visit Richardson Barber MD 02/11/2011 [facility] Richardson Barber MD 02/05/2011 Voided Richardson [...]
--- OUTSIDE RECORDS SUMMARY | 2019-09-13 08:14 | XMS REPORT ---
Author Author Jo Rodríguez [facility] Address [address] [place] [id number] Care Team Providers Care Tawer Name Role Phone Kanu Rodríguez PCP Dayne [...] route every 12 hours for 10 days Discontinued Name Start Date Discontinued Date [...] HC BMI BSA BMI Percentile O2 Sat(%) 02/06/2016 5:49:00 PM 130 mmHg 98 mmHg [...] Bicillin CR, 1.2 million units [facility]# 6079 3-600-10 Reviewed 07/06/2014 11:29 AM URINE TEST Reviewed 07/06/2014 12:00 AM THER/PROPH/DIAG INJ SC/IM Reviewed 07/06/2014 12:00 AM Decadron, Per 1 Mg [facility]# [address]-20 Re viewed 07/06/2014 12:00 AM Depo-Medrol 40mg [...] (THC) NON-NEGAT SULAIMAN CALLED TO/BY DR. GERBER 1631 01-22-11 SJM Phencyclidine (PCP) NEGATIVE Cocaine NEGATIVE [...] in other diseases Feb 06 2016 5:52PM Payers Insurance Name Company Name Plan Name Plan Number Policy Number Stephen cy Group Number Start Date Cigna Cigna [id number] Friday, 2010 [facility] [id number] N/A [place] Medical Assistance [facility] Medical Kennedi tance Prog [id number] N/A Wppa Wppa [id number] Friday, ctober 2008 [facility] UMR [id number] Friday, [facility] [id number] N/A Cigna Cigna [id number] Friday, 2010 [place] Medical Assistance [facility] Medical Kennedi tance Prog [id number] Friday, 2010 History of Encounters Visit Date Visit Type Provider 02/06/2016 Office visit Kanu Rodríguez APR N 01/04/2016 Office visit Kanu Rodríguez APR N 10/05/2015 Office visit Dayne Taylor DO 09/28/2015 Office visit Capri Colby APRN 09/26/2015 Office visit Kanu Rodríguez APR N 07/24/2015 Office visit Dayne Taylor DO 05/03/2015 Office visit Carpi Colby APRN 02/09/2015 Office visit Dayne Taylor DO 01/02/2015 Office visit Katie TORRES RN 01/01/2015 [facility] Florecita Mayfield MD 12/05/2014 Office visit Capri Colby WOMEN DESIGNER 11/28/2014 Office visit Katie TORRES RN 11/08/2014 Office visit Katie TORRES RN 10/20/2014 Office visit Katie TORRES RN 08/29/2014 Office visit Capri Colby WOMEN DESIGNER 08/22/2014 Office visit Capri Colby APRN 07/06/2014 Office visit 07/06/2014 Office visit Capri Colby APRN 06/28/2014 Office visit 06/28/2014 Office visit Capri Colby APRN 04/07/2014 Office visit Capri Colby WOMEN DESIGNER 03/24/2014 Office visit Capri Colby WOMEN DESIGNER 01/04/2014 Office visit Dayne Taylor DO 12/01/2013 Office visit Capri Colby APRN 10/27/2013 Office visit Dayne Taylor DO 08/20/2013 Office visit Kanu Rodríguez APR N 05/18/2013 Office visit Capri Colby APRN 12/01/2012 Office visit Dayne Taylor DO 03/09/2012 Office visit Capri Colby WOMEN DESIGNER 12/03/2011 Office visit Dayne Taylor DO 10/14/2011 Office visit Dayne Taylor DO 09/23/2011 Office visit Dayne Taylor DO 06/04/2011 Office visit Richardson Gerber MD 05/20/2011 Office visit Richardson Gerber MD 05/03/2011 [facility] Richardson Gerber MD 04/29/2011 Office visit Richardson [...] 02/11/2011 Office visit Richardson Gerber MD 02/11/2011 [facility] Richardson Gerber MD 02/05/2011 Voided Richardson Gerber [...]
[2019-09-13] MEDS ORDERED: TETANUS,DIPTH,PERTUSS P/F (BOOSTRIX) 0.5 ML VIAL IM SCH (08:15)
[2019-09-13] MEDS ORDERED: ONDANSETRON 4 MG/2 ML (SDV) Z0FRAN IVP PRN (08:15)
[2019-09-13] MEDS ORDERED: MEASLES,MUMPS,RUBELLA 1 EA INJ SC SCH (08:15)
--- OUTSIDE RECORDS SUMMARY | 2019-09-13 08:15 | XMS REPORT | CCD ---
Author Author AUSTIN JASSO Organization Unknown Address [address] [place], [place] [address] Care Team Providers Care Antenna Installer Name Role Phone [facility], HEATHER DO Attphys [facility], HEATHER DO Prisurg Vital Signs Unknown or Not Available. Allergies Allergy Code Allergy Type Reaction Status SULFA (sulfonamide) 0 Drug allergy Active Procedures Procedure Code Procedure Type Date KNEE [id number] 03/24/2014 History of Immunizations Unknown or Not Available. Problems Problem Code Start Date Resolved Date Sta tus VAGINAL DELIVERY 650 05/03/2011 A ctive Results Unknown or Not Available. Active Medications Unknown or Not Available. Medications Administered During Visit Unknown or Not Available. Encounters Encounter Diagnosis Diagnosis Code Start Date PAIN IN LIMB 7295 03/24/2014 Social History Smoking Status Code Start Date End Date Never smoker [id number] Patient Decision Aids Unknown or Not Available. Discharge Instructions You were admitted to [facility] on 03/24/2014 with a principal diagnosis of PAIN IN LIMB. You were discharged from [facility] on 03/24/2014. Should you have any questions prior to discharge, please contact a member of your healthcare team. If you have left the hospital and have any questions, please contact your primary care physician. Chief Complaint and Reason For Visit Chief Complaint Date of Onset KNEE INJURY Function Status Unknown or Not Available. Referral/Transition of Care Unknown or Not Available.
--- OUTSIDE RECORDS SUMMARY | 2019-09-13 08:15 | XMS REPORT ---
Author Author Jo Mcconnell [facility] Address [address] [place], [place] [address] Care Team Providers Care Lan Administrator Name Role Phone Katie Mcconnell PCP Unavailable [...] oral route once daily for 30 days buspirone 7.5 mg oral tablet 01/02/2015 gomez e 1 tablet (7.5 mg) by oral route 2 times per day Name Start Date Expiration Date SIG Comments [...] HC BMI BSA BMI Percentile O2 Sat(%) 01/02/2015 2:45:00 PM 120 mmHg 85 mmHg [...] Mg [facility] 2[facility]# [address]-01 Re viewed 07/06/2014 12:00 AM Depo-Medrol 40mg [...] Generalized anxiety disorder Jan 02 2015 2:47PM Payers Insurance Name Company Name Plan Name Plan Number Policy Number Stephen cy Group Number Start Date Cigartur Cigartur [id number] Friday, 2010 [facility] [id number] N/A [place] Medical [place] Program [place] [facility] Kennedikayla Mcqueen [id number] N/A Wppa Wppa [id number] Friday, ctober 2008 [facility] UMR [id number] [facility] 2009 [facility] [id number] N/A Vineet Manley [id number] Friday, [facility] [id number] Friday, 2010 History of Encounters Visit Date Visit Type Provider 01/02/2015 Office visit Katie TORRES RN 12/05/2014 Office visit Capri Colby COMPOSITION PROFESSOR 11/28/2014 Office visit Katie TORRES RN 11/08/2014 Office visit Katie TORRES RN 10/20/2014 Office visit Katie TORRES RN 08/29/2014 Office visit Capri Colby COMPOSITION PROFESSOR 08/22/2014 Office visit Capri Colby APRN 07/06/2014 Office visit Capri Colby APRN 06/28/2014 Office visit Capri Colby APRN 04/07/2014 Office visit Capri Colby COMPOSITION PROFESSOR 03/24/2014 Office visit Capri Colby COMPOSITION PROFESSOR 01/04/2014 Office visit Dayne Taylor DO 12/01/2013 Office visit Capri Colby COMPOSITION PROFESSOR 10/27/2013 Office visit Dayne Taylor DO 08/20/2013 Office visit Kanu Rodríguez APR N 05/18/2013 Office visit Capri Colby COMPOSITION PROFESSOR 12/01/2012 Office visit Dayne Taylor DO 03/09/2012 Office visit Capri Colby COMPOSITION PROFESSOR 12/03/2011 Office visit Dayne Taylor DO 10/14/2011 Office visit Dayne Taylor DO 09/23/2011 Office visit Dayne Taylor DO 06/04/2011 Office visit Richardson Barber MD 05/20/2011 Office visit Richardson Barber MD 05/03/2011 [facility] Richardson Barber MD 04/29/2011 Office [...] 02/11/2011 Office visit Richardson Barber MD 02/11/2011 [facility] Richardson Barber MD 02/05/2011 Voided [...]
--- OUTSIDE RECORDS SUMMARY | 2019-09-13 08:15 | XMS REPORT ---
Author Author Jo Rodríguez [facility] Address [address] [place] [address] Care Team Providers Care Reinforcing Steel Placer Name Role Phone Kanu Rodríguez PCP Dayne [...] Date SIG Co mments Wellbutrin SR oral Macrobid 100 mg oral capsule 03/20/2016 03/27/2016 gomez e 1 capsule (100 mg) by oral route 2 times per day with food for 7 days Name Start Date Expiration [...] route every 12 hours for 10 days Zofran ODT 4 mg oral tablet,disintegrating 03/20/20162016 dissolve 1 tablet by oral route every [...] HC BMI BSA BMI Percentile O2 Sat(%) 03/20/2016 7:42:00 PM 132 mmHg 70 mmHg [...] 12:00 AM Bicillin CR, 1.2 million units NDC# 6079 3-600-10 Reviewed 07/06/2014 11:29 AM URINE TEST Reviewed 07/06/2014 12:00 AM THER/PROPH/DIAG INJ SC/IM Reviewed 07/06/2014 12:00 AM Decadron, Per 1 Mg [facility]# [address]-36 Re viewed 07/06/2014 12:00 AM Depo-Medrol 40mg [...] History Of Immunizations Name Date Admin [facility] Name Mf Code Trade Name Lot# Route [...] cy Group Number Start Date Cigna Cigna [id number] Friday, 2010 [facility] [id number] N/A [place] [facility] Kennedi tance Prog [id number] N/A Wppa Wppa [id number] Friday, O ctober 2008 [facility] UMR [id number] Friday, [facility] 2009 [facility] [id number] N/A Cigna Cigna [id number] Friday, 2010 [place] Medical Assistance [facility] Medical Kennedi tance Prog [id number] Friday, 2010 History of Encounters Visit Date Visit Type Provider 03/20/2016 Office visit Kanu Rodríguez APR N 02/06/2016 Office visit Kanu Rodríguez APR N 01/04/2016 Office visit Kanu Rodríguez APR N 10/05/2015 Office visit Dayne Taylor DO 09/28/2015 Office visit Capri Colby SAUSAGE STUFFER 09/26/2015 Office visit Kanu Rodríguez APR N 07/24/2015 Office visit Dayne Taylor DO 05/03/2015 Office visit Capri Colby SAUSAGE STUFFER 02/09/2015 Office visit Dayne Taylor DO 01/02/2015 Office visit Katie TORRES RN 01/01/2015 [facility] Florecita Mayfield MD 12/05/2014 Office visit Capri Colby SAUSAGE STUFFER 11/28/2014 Office visit Katie TORRES RN 11/08/2014 Office visit Katie TORRES RN 10/20/2014 Office visit Katie TORRES RN 08/29/2014 Office visit Capri Colby SAUSAGE STUFFER 08/22/2014 Office visit Capri Colby SAUSAGE STUFFER 07/06/2014 Office visit 07/06/2014 Office visit Capri Colby SAUSAGE STUFFER 06/28/2014 Office visit 06/28/2014 Office visit Capri Lasha SAUSAGE STUFFER 04/07/2014 Office visit Capri Colby SAUSAGE STUFFER 03/24/2014 Office visit Capri Colby SAUSAGE STUFFER 01/04/2014 Office visit Dayne Taylor DO 12/01/2013 Office visit Capri Colby SAUSAGE STUFFER 10/27/2013 Office visit Dayne Taylor DO 08/20/2013 Office visit Kanu Rodríguez APR N 05/18/2013 Office visit Capri Colby SAUSAGE STUFFER 12/01/2012 Office visit Dayne Taylor DO 03/09/2012 Office visit Capri Colby SAUSAGE STUFFER 12/03/2011 Office visit Dayne Taylor DO 10/14/2011 Office visit Dayne Taylor DO 09/23/2011 Office visit Dayne Taylor DO 06/04/2011 Office visit Richardson Gerbre MD 05/20/2011 Office visit Richardson Gerber MD 05/03/2011 [facility] Richardson Gerber MD 04/29/2011 Office [...] 02/11/2011 Office visit Richardson Gerber MD 02/11/2011 [facility] Richardson Gerber MD 02/05/2011 Voided Richardson Gerber MD 01/22/2011 Office visit Richardson Gerber MD 01/16/2011 Office visit Richardson Gerber MD 12/24/2010 Office visit Richardson Gerber MD 11/29/2010 Office visit Richardson Gerber MD 11/26/2010 Office visit Richardson Gerber MD 10/22/2010 Office visit Richardson Gerber MD 09/17/2010 Office visit Richardson Gerber MD 07/19/2010 Office visit Dayne Taylor DO 06/08/2010 Office visit Capri Colby SAUSAGE STUFFER 03/27/2010 Office visit Dayne Taylor DO 03/07/2010 Office visit Yulisa MOYA 08/31/2009 Office visit Yulisa MOYA 05/01/2009 Office visit Joann MOYA 03/06/2009 Office visit Yulisa MOYA 02/02/2009 Office visit Yulisa MOYA 01/02/2009 Office visit Yulisa MOYA 10/26/2008 Office visit YULISA FRANCIS PA-C
--- OUTSIDE RECORDS SUMMARY | 2019-09-13 08:15 | XMS REPORT | Continuity of Care Document ---
Demographics Preferred Language Unknown Marital Status Unknown Christian Affiliation Unknown Race Unknown Ethnic Group Unknown Author Organization Unknown Address Unknown Phone Unavailable Allergies Active Description Code Type Severity Reaction Onset Reported/Identified Relationship to Patient Clinical Status Yes ERYTHROMYCIN 89854561 DRUG N/A RASH Yes No Known Environmental Allergies 48045 997 N/A N/A Yes No Known Food Allergies 35194943 N/A N/A Yes SULFA (sulfonamide) 87021182 CLAS S N/A N/A Yes Sulfa (Sulfonamide Antibiotics) [id number] 0491 Drug Allergy Unknown Hives 020 Medications There is no data. Problems Date Dx Coded Attending Type Code Diagnosis Diagnosed By 01/30/1339 ROMÁN RAMEY DO, Ot Z01.818 ENCOUNTER FOR OTHER PREPROCEDURAL EXAMIN 11/18/2017 P U15308 Oth er specified related conditions, third trimester 11/18/2017 S R300 Dysuria 12/15/2017 P J5467M5 Ma ternal care for excessive growth, second trimester, not applicable or unspecified 12/25/2017 P Z3483 Enco unter for supervision of other normal , third trimester 12/25/2017 S Z3685 Enco unter for screening for Streptococcus B 08/03/2018 P F419 Anxie ty disorder, unspecified 08/03/2018 S Z5329 Proc edure and treatment not carried out because of patient's decision for other reasons 05/07/2019 ROMÁN RAMEY DO Ot Z36.9 ENCOUNTER FOR SCREENING, UNSPE 05/07/2019 ROMÁN RAMEY DO Ot Z3A.20 20 WEEKS GESTATION OF 06/04/2019 ROMÁN RAMEY DO, Ot Z36.9 ENCOUNTER FOR SCREENING, UNSPE 06/04/2019 ROMÁN RAMEY DO, Ot Z3A.20 20 WEEKS GESTATION OF Procedures There is no data. Results Test Result Range RPR, Rfx Qn RPR/Confirm TP - 04/30/17 17 :11 RPR Non Reactive Non Reactive Rubella Antibodies, IgG - 04/30/17 17:11 Rubella Antibodies, IgG 3.06 index Immun e >0.99 HBsAg Screen - 04/30/17 17:11 HBsAg Screen Negative Negative RPR, Rfx Qn RPR/Confirm TP - 06/07/18 20 :42 RPR Non Reactive Non Reactive Encounters ACCT No. Visit Date/Time Discharge Status Pt. Type Provider Facility Loc./Unit Complaint [id number] 09/09/2019 13:12:49 Document Registration [id number] 05/10/2019 13:05:11 Document Registration [id number] 01/25/2019 18:11:36 Document Registration [id number] 01/23/2019 14:24:16 Document Registration [id number] 01/23/2019 14:17:32 Document Registration [id number] 01/07/2019 12:19:59 Document Registration [id number] 09/01/2018 11:56:11 Document Registration [id number] 08/26/2018 21:57:33 Document Registration [id number] 08/20/2018 02:57:03 Document Registration [id number] 08/20/2018 02:50:04 Document Registration [id number] 08/06/2018 11:40:32 Document Registration [id number] 06/07/2018 20:15:21 Document Registration [id number] 06/07/2018 20:06:20 Document Registration [id number] 06/05/2018 13:34:00 Document Registration [id number] 06/05/2018 13:13:14 Document Registration [id number] 02/23/2018 02:37:10 Document Registration [id number] 02/02/2018 10:42:49 Document Registration [id number] 02/02/2018 10:07:35 Document Registration [id number] 01/28/2018 16:13:23 Document Registration [id number] 01/28/2018 16:04:02 Document Registration [id number] 01/08/2018 19:38:21 Document Registration [id number] 12/25/2017 08:19:44 Document Registration [id number] 11/20/2017 14:54:46 Document Registration [id number] 11/18/2017 11:11:13 Document Registration [id number] 11/17/2017 13:51:05 Document Registration [id number] 11/06/2017 16:20:39 Document Registration [id number] 10/30/2017 11:18:46 Document Registration [id number] 10/20/2017 13:56:28 Document Registration [id number] 09/24/2017 09:45:38 Document Registration [id number] 09/18/2017 14:46:01 Document Registration [id number] 07/31/2017 11:42:26 Document Registration [id number] 04/30/2017 16:50:18 Document Registration [id number] 12/18/2016 16:23:12 Document Registration [id number] 12/14/2016 06:32:52 Document Registration [id number] 12/14/2016 01:16:10 Document Registration [id number] 08/18/2018 11:20:00 08/18/2018 23:59: 59 CLS Outpatient BATSHEVA GUALLPA LAC [id number] 06/09/2018 17:05:00 Document Registration [id number] 05/02/2017 08:12:00 Document Registration [id number] 05/02/2017 20:06:00 Document Registration [id number] 07/15/2019 18:36:24 07/15/2019 23:59: 59 CLS Outpatient Radha Fung [id number] 03/19/2019 17:47:58 03/19/2019 23:59: 59 CLS Outpatient Velia Quezada [id number] 04/16/2018 19:15:55 04/16/2018 23:59: 59 CLS Outpatient Radha Fung [id number] 03/19/2018 14:09:34 03/19/2018 23:59: 59 [facility] Baldwin [id number] 03/10/2018 16:25:12 03/10/2018 23:59: 59 CLS Outpatient Juan Jeffries [id number] 02/19/2018 16:33:11 02/19/2018 23:59: 59 [facility] Baldwin [id number] 02/12/2018 16:30:42 02/12/2018 23:59: 59 CLS Outpatient TapanuneJuan burrell [id number] 01/21/2018 11:29:26 01/21/2018 23:59: 59 [facility] [id number] 01/08/2018 17:08:03 01/08/2018 23:59: 59 CLS Outpatient Cinthia Gillette [id number] 01/01/2018 16:26:08 01/01/2018 23:59: 59 CLS Outpatient Cinthia Gillette [id number] 12/24/2017 16:42:52 12/24/2017 23:59: 59 CLS Outpatient Cinthia Gillette [id number] 12/04/2017 15:59:20 12/04/2017 23:59: 59 CLS Outpatient Cinthia Gillette [id number] 11/27/2017 15:02:43 11/27/2017 23:59: 59 CLS Outpatient Juan Jeffries [id number] 11/17/2017 14:32:42 11/17/2017 23:59: 59 CLS Outpatient Cinthia Gillette [id number] 09/23/2017 14:35:50 09/23/2017 23:59: 59 CLS Outpatient Cinthia Gillette [id number] 09/02/2017 15:03:25 09/02/2017 23:59: 59 CLS Outpatient Juan Jeffries [id number] 07/31/2017 12:31:32 07/31/2017 23:59: 59 CLS Outpatient Rose Gilletteanne [id number] 07/03/2017 12:53:52 07/03/2017 23:59: 59 CLS Outpatient Juan Jeffries [id number] 07/03/2017 12:38:23 07/03/2017 23:59: 59 CLS Outpatient Cinthia Gillette [id number] 06/05/2017 12:38:22 06/05/2017 23:59: 59 CLS Outpatient Rose Gilletteanne [id number] 05/13/2017 16:31:58 05/13/2017 23:59: 59 CLS Outpatient NainRose britoanne [id number] 04/30/2017 16:37:53 04/30/2017 23:59: 59 CLS Outpatient Maria Victoria Navarrete [id number] 02/09/2017 15:09:07 02/09/2017 23:59: 59 CLS Outpatient ColemanYessica rose Belkis [id number] 06/04/2016 19:13:52 06/04/2016 23:59: 59 CLS Outpatient ColemanJamey rosevicky Tamayo [id number] 05/14/2016 19:32:39 05/14/2016 23:59: 59 CLS Outpatient Codi Guerra [id number] 04/22/2016 19:57:49 04/22/2016 23:59: 59 CLS Outpatient Kanu Rodríguez [id number] 03/20/2016 20:36:15 03/20/2016 23:59: 59 CLS Outpatient Kanu Rodríguez [id number] 02/06/2016 18:29:11 02/06/2016 23:59: 59 CLS Outpatient Kanu Rodríguez [id number] 10/05/2015 16:10:18 10/05/2015 23:59: 59 CLS Outpatient BrandonDayne [id number] 09/28/2015 15:07:26 09/28/2015 23:59: 59 CLS Outpatient Walker, Capri [id number] 09/26/2015 15:45:55 09/26/2015 23:59: 59 CLS Outpatient RodríguezKanu aponte [id number] 05/03/2015 15:58:21 05/03/2015 23:59: 59 CLS Outpatient Walker, Capri [id number] 03/04/2015 22:30:55 03/04/2015 23:59: 59 CLS Outpatient Florecita Mayfield [id number] 02/09/2015 15:41:32 02/09/2015 23:59: 59 CLS Outpatient Dayne Taylor [id number] 01/02/2015 15:31:17 01/02/2015 23:59: 59 CLS Outpatient Katie Mcconnell [id number] 12/05/2014 15:21:48 12/05/2014 23:59: 59 CLS Outpatient WalkerCapri [id number] 11/28/2014 15:33:12 11/28/2014 23:59: 59 CLS Outpatient Katie Mcconnell [id number] 11/08/2014 14:58:25 11/08/2014 23:59: 59 CLS Outpatient Katie Mcconnell [id number] 10/20/2014 15:40:45 10/20/2014 23:59: 59 CLS Outpatient Katie Mcconnell [id number] 10/10/2014 22:05:37 10/10/2014 23:59: 59 CLS Outpatient Walker, Capri [id number] 10/10/2014 22:00:51 10/10/2014 23:59: 59 CLS Outpatient Walker, Capri [id number] 07/06/2014 12:10:45 07/06/2014 23:59: 59 CLS Outpatient Walker, Capri [id number] 06/28/2014 11:58:39 06/28/2014 23:59: 59 CLS Outpatient Walker, Capri [id number] 04/07/2014 15:01:54 04/07/2014 23:59: 59 CLS Outpatient Walker, Capri [id number] 01/04/2014 15:03:20 01/04/2014 23:59: 59 CLS Outpatient BrandonDayne [id number] 12/01/2013 15:31:51 12/01/2013 23:59: 59 CLS Outpatient Capri Colby [id number] 10/27/2013 11:38:28 10/27/2013 23:59: 59 CLS Outpatient Brandon, Dayne [id number] 08/20/2013 14:57:47 08/20/2013 23:59: 59 CLS Outpatient RodríguezKanu aponte [id number] 05/18/2013 14:22:20 05/18/2013 23:59: 59 CLS Outpatient Capri Colby [id number] 09/09/2019 05:39:00 020 13:40:00 DIS Outpatient ROMÁN RAMEY DO [facility] PREOP [id number] 05/06/2019 15:03:00 23:59:59 CLS Outpatient ROMÁN RAMEY DO [facility] RAD [id number] 09/13/2019 07:30:00 P EN Preadmit ROMÁN RAMEY DO HX HSV [id number] 05/02/2017 11:06:00 Document Registration
--- NOTE | 2019-09-13 08:30 | NUR ---
consent signed for c/s and placed on chart.
[2019-09-13] MEDS ORDERED: WATER (STERILE) FOR INJECTION 10 ML ONE (09:06)
[2019-09-13] MEDS ORDERED: ceFAZolin INJECTION 1,000 MG ONE (09:06)
[2019-09-13] MEDS ORDERED: OXYTOCIN PRE-MIX DRIP 1,000 ML IV ONE (09:12)
[2019-09-13] MEDS ORDERED: fentaNYL INJECTION 100 MCG/2 ML AMP ONE (09:13)
[2019-09-13] MEDS: CATHETER FLUSH 10 ML SYR IV SCH ×3 (09:19→17:20)
[2019-09-13] MEDS ORDERED: DCS100C PO (09:38)
[2019-09-13] MEDS ORDERED: HYDR-83 PO (09:38)
[2019-09-13] MEDS ORDERED: IBUP-844 PO (09:38)
[2019-09-13] MEDS ORDERED: KETAMINE/NaCl 50 MG/5 ML SYRINGE (ED ONLY) ONE (09:57)
[2019-09-13] MEDS ORDERED: MIDAZOLAM 2 MG/2 ML (VERSED) VIAL ONE (09:57)
[2019-09-13] MEDS: DOCUSATE SODIUM 100 MG (COLACE) CAP PO SCH ×2 (10:00→19:50)
[2019-09-13] MEDS ORDERED: BUPIVACAINE 0.5% 30 ML (SENSORCAINE) VIAL ONE (10:32)
[2019-09-13] MEDS: KETOROLAC 30 MG/ML VIAL IV SCH ×2 (11:19→17:19)
--- NOTE | 2019-09-13 11:47 | NUR ---
vega catheter dc'd. 100cc urine noted in chamber. FFu/0. lt rubra noted, no clots expressed. sanjay-care offered. v-pad and panties in place.
--- NOTE | 2019-09-13 11:54 | NUR ---
pt transferred to room 307 via bed with this RN @ side. pt highly anxious r/t in nursery. requested multiple times to see him. Addendum: 09/13/19 at 1227 by BARRINGTON CADENA RN able to move LE's by self. denies c/o pain @ time.
[2019-09-13] MEDS: OXYTOCIN PRE-MIX DRIP 500 ML IV SCH ×2 (12:04→16:28)
--- NOTE | 2019-09-13 12:07 | NUR ---
pt up with assist x1 to w/c. into nursery for bonding with .
[2019-09-13] MEDS: HYDROcodone/APAP 5 MG/325 MG (LORTAB) TAB PO PRN ×2 (12:55→19:50)
--- NOTE | 2019-09-13 15:42 | OPERATIVE REPORT ---
DATE OF SERVICE: PREOPERATIVE DIAGNOSES: 1. A 29-year-old G3, P2 at 39 weeks gestation. 2. History of HSV outbreak in . POSTOPERATIVE DIAGNOSES: 1. A 29-year-old G3, P2 at 39 weeks gestation. 2. History of HSV outbreak in . PROCEDURE: Primary low transverse section. SURGEON: Mendel Ramey DO AUTOMATED LOGISTICS SPECIALIST: Judi Yuan DNP, who was necessary for vital retraction and manipulation throughout the procedure. ANESTHESIA: Spinal. ESTIMATED BLOOD LOSS: 500 mL. URINE OUTPUT: 100 mL clear at the end of the procedure. FLUIDS: 2200 mL lactated Ringer's solution. FINDINGS: A live male weighing 6 pounds 1 ounce, Apgars of 6 and 8. Grossly normal appearing uterus, bilateral fallopian tubes and ovaries. SPECIMEN SENT: None. INDICATIONS FOR PROCEDURE: This 29-year-old female is a patient who had sought care in my office. It was uncomplicated with the exception of HSV outbreaks in the second trimester. I discussed with the patient being on HSV suppression after 35 weeks; however, she had significant concerns with transmission to the infant and this was a new finding for her. She wished to proceed with the most safest method possible to reduce the incidence of transition to her . I discussed with the patient the primary . However, I did recommend that we do a trial of labor. The patient opted to proceed with primary section due to the risk of the baby. Risk of the procedure were discussed with the patient in detail including risk of bleeding, infection, damage to surrounding structures including, but not limited to bowel, bladder, ureter, kidneys, possible need for reoperation, postoperative complication, recovering timeframe and even . After everything was discussed with the patient in detail, consent was obtained in the preoperative area and the patient was taken to the operating room. OPERATIVE REPORT IN DETAIL: Once in the operating room, spinal anesthesia was found to be adequate, placed in supine position with leftward tilt, prepped and draped in normal sterile fashion. Timeout was performed and anesthesia was tested. A Pfannenstiel skin incision was then made with a knife and carried down to underlying fascia using Bovie cautery. Fascial incision extended laterally using Bovie cautery. The superior aspect of the fascial incision was then grasped with Cabrera clamps, tented up and dissected off the underlying rectus muscles. The inferior aspect of the fascial incision was then grasped with Cabrera clamps, tented up and dissected off the underlying rectus muscles. Rectus muscles were then dissected down the midline using Mcconnell scissors, which exposed the peritoneum, which I then entered bluntly and extended using blunt traction. Mateo ring retractor was placed in the peritoneal incision, which offers excellent lateral sidewall retraction. I then identified the lower uterine segment, which was found to be thinned out and make a low transverse incision to the vesicouterine peritoneum and bluntly dissected off the lower uterine segment. I then proceeded with my myotomy until membranes were visualized, at which point I extended the uterine incision laterally and superiorly using bandage scissors. The infant was found in vertex presentation. Amniotomy was performed and clear fluid was noted. With gentle fundal pressure, the 's head was elevated up to the incision and delivered through the incision where the nares and oropharynx were bulb suctioned. Nuchal cord was reduced x1. Anterior and posterior shoulders were delivered. was then brought on to the operative field where the cord was doubly clamped and cut and infant was handed off to waiting nurses in attendance. Cord blood was collected. Three-vessel cord with intact placenta was delivered spontaneously thereafter. IV Pitocin was initiated to facilitate uterine contraction. Uterine fundus became firm with bimanual massage. Uterus was then exteriorized and cleared of all endometrial clots and debris. I then proceeded with closing the uterine incision using 0 Vicryl suture in running locked fashion. Second layer of imbricating 0 Monocryl was placed. Excellent hemostasis was noted after doing this. I then placed the uterus back in the pelvis and copiously irrigated the pelvis using normal saline. No active bleeding noted from any of my dissection planes. I placed Interceed antiadhesive over my low transverse incision. I then proceeded with closing the peritoneum using 3-0 Vicryl suture in a running fashion, after I removed the Mateo ring retractor. The rectus muscle was reapproximated using 3-0 Vicryl suture in interrupted fashion. The fascia was reapproximated using 0 Vicryl suture in running fashion. Subcutaneous tissue was reapproximated using 3-0 plain interrupted subcutaneous stitch and skin reapproximated using 4-0 Monocryl running subcuticular. Dermabond was applied to incision and sterile dressing with adhesive white tape. The patient tolerated the procedure well and was taken to recovery area in stable condition. Lap and sponge counts were correct at the end of the procedure. Instrument counts correct as well. Two grams of Ancef were given preoperatively for infection prophylaxis. Job ID: [id number] DocumentID: [id number] Dictated Date: 09/13/2019 10:57:56 Play Therapist Date: 09/13/2019 15:42:01 Dictated By: MENDEL RAMEY DO
--- NOTE | 2019-09-13 17:30 | NUR ---
Up to BR. voided 200cc urine without difficulty. new v-pad and panties in place.
--- NOTE | 2019-09-13 19:20 | NUR ---
report given to ANIL Mcdaniels.
--- NOTE | 2019-09-13 19:50 | NUR ---
Pt. had put call light on during report, Fahad Contreras RN to room, pt. yelled "Get out! I don't want to see you!" SO @ desk talking w/Fahad Contreras RN stating pt. is threatening to leave the hospital. This RN to room, pt. crying, calmed pt, asked what she was upset about. Pt. c/o "Pitocin is killing me! I think he turned something inside out or backwards inside my stomach, it doesn't feel right!" Pitocin turned off, IV S.L.ed. Reassurance given after assessment completed that abd WNL, dressing intact, no prob. noted. Abd binder offered & will give after pt back to from [facility] to visit . Lortab offered & given for c/o pain, will re-eval. POC discussed w/pt & questions answered regarding POC, cont. to give pt. reassurance, pt. thankful. will cont. to monitor.
--- NOTE | 2019-09-13 20:40 | NUR ---
Called Dr. Jimenez, update given, new order rc'd for Xanax 0.25 mg PO X1 prn for anxiety.
[2019-09-14 00:58] VITALS: BP 125/73
[2019-09-14] MEDS: HYDROcodone/APAP 5 MG/325 MG (LORTAB) TAB PO PRN ×5 (00:58→23:44)
[2019-09-14] MEDS: CATHETER FLUSH 10 ML SYR IV SCH ×2 (00:58→06:15)
[2019-09-14] MEDS: KETOROLAC 30 MG/ML VIAL IV SCH ×2 (00:58→06:14)
[2019-09-14 05:25] VITALS: BP 137/89
[2019-09-14 06:08] LABS: BASOPHILS % (AUTO) 0 % (0-10); EOSINOPHILS # (AUTO) 0.1 10^3/uL (0.0-0.3); EOSINOPHILS % (AUTO) 1 % (0-10); HEMATOCRIT 28 % (35-52); HEMOGLOBIN 9.3 G/DL (11.5-16.0); LYMPHOCYTES # (AUTO) 1.6 X 10^3 (1.0-4.0); LYMPHOCYTES % (AUTO) 16 % (12-44); MEAN CORPUSCULAR HEMOGLOBIN 31 PG (25-34); MEAN CORPUSCULAR HGB CONC 33 G/DL (32-36); MEAN CORPUSCULAR VOLUME 94 FL (80-99); MEAN PLATELET VOLUME 12.2 FL (7.4-10.4); MONOCYTES # (AUTO) 1.2 X 10^3 (0.0-1.0); MONOCYTES % (AUTO) 12 % (0-12); NEUTROPHILS # (AUTO) 6.9 X 10^3 (1.8-7.8); NEUTROPHILS % (AUTO) 70 % (42-75); PLATELET COUNT 215 10^3/uL (130-400); RED CELL DISTRIBUTION WIDTH 13.3 % (10.0-14.5); WHITE BLOOD COUNT 9.9 10^3/uL (4.3-11.0)
--- NOTE | 2019-09-14 07:15 | Anesthesia-Regional Post-Op ---
Regional Patient Condition Mental Status: Alert, Oriented x3 Circulation: Same as Pre-Op Headache: Absent Sensation: Full Recovery Motor Block: Absent Post Op Complications Complications None Follow Up Care/Instructions Patient Instructions None needed. Anesthesia/Patient Condition Patient is doing well, no complaints, stable vital signs, no apparent adverse anesthesia problems. No complications reported per nursing. WALTER HARDIN CRNA Sep 14, 2019 07:15
--- NOTE | 2019-09-14 07:45 | Postpartum Progress Note ---
Note Note Day # 1 Subjective: Patient is without complaints. Ambulating, voiding. Tolerating a regular diet without nausea or vomiting. Normal lochia. Pain is well controlled with oral pain medications. Objective: Physical Exam: General - Alert and oriented, no apparent distress Abdomen - Soft, appropriately tender to palpation, non-distended, fundus firm at umbilicus Extremities - no edema, negative Herson's bilaterally Incision- clean/dry/intact Assessment: POD 1 PLTCS Acute blood loss anemia Plan: Routine care. Encourage breast feeding. Encourage ambulation. Ferrous sulfate supplementation. Plan for discharge tomorrow Vitals - Labs Vital Signs - I&O Vital Signs Date Time Temp Pulse Resp B/P (MAP) Pulse Ox O2 Delivery O2 Flow Rate FiO2 09/14/19 05:25 36.4 72 18 137/89 (105) 99 Room Air 09/14/19 00:58 36.4 75 18 125/73 (90) 99 Room Air 09/13/19 21:30 36.4 64 18 134/77 (96) 97 Room Air 09/13/19 17:15 36.5 64 18 155/73 (100) 97 Room Air 09/13/19 12:21 36.0 60 18 119/89 (99) 100 Room Air 09/13/19 11:36 Room Air 09/13/19 11:36 36.0 16 119/88 (98) 100 Room Air 09/13/19 11:21 Room Air 09/13/19 11:21 36.0 16 110/89 (96) 100 Room Air 09/13/19 11:06 Room Air 09/13/19 11:06 36.5 16 120/86 (97) 100 Room Air 09/13/19 10:51 16 117/89 (98) 100 Room Air 09/13/19 10:49 36.9 16 112/85 (94) 100 09/13/19 10:49 Room Air 09/13/19 09:20 67 18 127/82 (97) Room Air 09/13/19 09:00 74 18 123/75 (91) Room Air 09/13/19 08:45 74 18 122/65 (84) Room Air 09/13/19 08:30 59 18 139/90 (106) Room Air I & O 09/14/19 07:00 Intake Total 3730 ml Output Total 100 ml Balance 3630 ml Labs Laboratory Tests 09/13/19 07:56: White Blood Count 9.8, Red Blood Count 3.54L, Hemoglobin 11.2L, Hematocrit 33L, Mean Corpuscular Volume 93, Mean Corpuscular Hemoglobin 32, Mean Corpuscular Hemoglobin Concent 34, Red Cell Distribution Width 13.4, Platelet Count 261, Mean Platelet Volume 11.7H, Neutrophils (%) (Auto) 68, Lymphocytes (%) (Auto) 18, Monocytes (%) (Auto) 12, Eosinophils (%) (Auto) 2, Basophils (%) (Auto) 0, Neutrophils # (Auto) 6.6, Lymphocytes # (Auto) 1.8, Monocytes # (Auto) 1.2H, Eosinophils # (Auto) 0.2, Basophils # (Auto) 0.0 09/14/19 05:29: White Blood Count 9.9, Red Blood Count 2.98L, Hemoglobin 9.3L, Hematocrit 28L, Mean Corpuscular Volume 94, Mean Corpuscular Hemoglobin 31, Mean Corpuscular Hemoglobin Concent 33, Red Cell Distribution Width 13.3, Platelet Count 215, Mean Platelet Volume 12.2H, Neutrophils (%) (Auto) 70, Lymphocytes (%) (Auto) 16, Monocytes (%) (Auto) 12, Eosinophils (%) (Auto) 1, Basophils (%) (Auto) 0, Neutrophils # (Auto) 6.9, Lymphocytes # (Auto) 1.6, Monocytes # (Auto) 1.2H, Eosinophils # (Auto) 0.1, Basophils # (Auto) 0.0 PADMINI DUGGAN MED STUDENT Sep 14, 2019 07:45
--- NOTE | 2019-09-14 08:00 | NUR ---
TO NURSERY TO SEE INFANT. MOVES WELL.
[2019-09-14] MEDS ORDERED: IBUPROFEN 600 MG (MOTRIN) TAB PO SCH (08:15)
[2019-09-14 09:00] VITALS: BP 147/76
--- NOTE | 2019-09-14 10:12 | NUR ---
CM/SS: Visited with pt as per consult related to mental illness Plan: Pt to return home with baby with identified services for mother and baby in place Summary: Pt reports doing ok on today. She is open to share and reports she already has services in place with WIC and with [employer] with her 20 month old. She currently has a 20 month old and a eight year old. The eight year old is in the custody of her father as she was very young when she had her and she was unable to take care of child. They have a custody arrangement and share that the child visits every other week on the weekends. Pt reports she is diagnosed with borderline personality disorder, and PTSD. Pt reports she can not be around people much she gets too nervous. Significant other reports he does not live with pt, as she does not want to be around people much, so he visits on his days off and helps with the children. She does indicated that she takes medication for the anxiety. So much so, that the baby was born with some issues with coming off the medications. comes by and gives mom an update about baby. Letting her know baby will be ok and that baby was having some startle responses from the Klonopin medication. Post depression is discussed. Pt reports that she is in mental health and does attend her appointments on a regular basis, through [facility]. Pt is encouraged to follow up with mental health. She verbalizes understanding. Pt is wished well with baby and encouraged to follow up with providers for baby and herself. She verbalizes understanding.
[2019-09-14] MEDS: DOCUSATE SODIUM 100 MG (COLACE) CAP PO SCH ×2 (10:26→23:43)
--- NOTE | 2019-09-14 11:00 | NUR ---
C/O INTERMITTENT PAIN UNDER SHOULDER FROM GAS.
[2019-09-14] MEDS: IBUPROFEN 600 MG (MOTRIN) TAB PO SCH ×3 (12:21→23:44)
--- NOTE | 2019-09-14 12:21 | NUR ---
LORTAB GIVEN PER C/O ABD AND BACK PAIN.
[2019-09-14 12:45] VITALS: BP 122/82
[2019-09-14] MEDS ORDERED: CALCIUM CARBONATE 500 MG (TUMS) TAB.CHEW PO NR (13:15)
--- NOTE | 2019-09-14 13:30 | NUR ---
PT HAS AMBULATED BACK AND FORTH TO SEE INFANT IN NURSERY TODAY. VOIDING WELL.
--- NOTE | 2019-09-14 15:01 | NUR ---
TDAP GIVEN IM IN LEFT DELTOID. SITE CLEAR.
--- NOTE | 2019-09-14 18:00 | NUR ---
CONTINUES TO DO WELL. AMBULATING TO NURSERY THROUGHOUT THE DAY.
[2019-09-14 18:25] VITALS: BP 131/74
[2019-09-14] MEDS ORDERED: CALCIUM CARBONATE 500 MG (TUMS) TAB.CHEW PO PRN (18:30)
--- NOTE | 2019-09-14 19:28 | NUR ---
DULCOLAX 10 MG P.O. FOR C/O NEEDING TO HAVE A BM.
[2019-09-14] MEDS ORDERED: SIMETHICONE 80 MG (MYLICON) CHEW PO PRN (19:30)
[2019-09-14] MEDS ORDERED: BISACODYL 5 MG (DULCOLAX) TABLET PO NR (19:30)
[2019-09-14 23:44] VITALS: BP 138/72
[2019-09-15 06:55] VITALS: BP 109/72
[2019-09-15] MEDS: IBUPROFEN 600 MG (MOTRIN) TAB PO SCH ×2 (06:55→12:36)
[2019-09-15] MEDS: HYDROcodone/APAP 5 MG/325 MG (LORTAB) TAB PO PRN ×2 (06:55→13:38)
--- NOTE | 2019-09-15 07:49 | Postpartum Progress Note ---
Note Note Day # 2 Subjective: Patient is without complaints. Ambulating, voiding. Tolerating a regular diet without nausea or vomiting. Normal lochia. Pain is well controlled with oral pain medications. Objective: Physical Exam: General - Alert and oriented, no apparent distress Abdomen - Soft, appropriately tender to palpation, non-distended, fundus firm at umbilicus Extremities - no edema, negative Herson's bilaterally Incision- c/d/i Assessment: POD 2 PLTCS Plan: Routine care. Encourage breast feeding. Encourage ambulation. Ferrous sulfate supplementation. Plan for discharge today Vitals - Labs Vital Signs - I&O Vital Signs Date Time Temp Pulse Resp B/P (MAP) Pulse Ox O2 Delivery O2 Flow Rate FiO2 09/15/19 06:55 36.5 91 18 109/72 (84) 98 Room Air 09/14/19 23:44 36.4 65 18 138/72 (94) 98 Room Air 09/14/19 18:25 36.5 82 18 131/74 (93) 99 Room Air 09/14/19 12:45 36.5 77 18 122/82 (95) 99 Room Air 09/14/19 09:00 36.6 74 18 147/76 (99) 99 Room Air I & O 09/15/19 07:00 Intake Total 600 ml Balance 600 ml Labs Microbiology 09/13/19 MRSA Screen - Final, Complete MRSA not isolated ROMÁN RAMEY DO Sep 15, 2019 07:49
--- NOTE | 2019-09-15 07:50 | Discharge Inst-Women's Service ---
Discharge Inst-Women's Serv Depart Medication/Instructions New, Converted or Re-Newed RX: RX on Chart Final Diagnosis POD 2 PLTCS Problems Reviewed?: Yes Consults/Follow Up Additional Follow Up: Yes Orders/Referrals Dr. Jimenez in 7-10 days and in 6 weeks Activity Activity: Activity as Tolerated Driving Instructions: No Driving for 1 Week NO SMOKING: NO SMOKING Nothing Inside Vagina: No Douching, No [place], No Tampons Diet Discharge Diet: No Restrictions Symptoms to Report to : Bleeding Excessive, Pain Increased, Fever Over 101 Degrees F, Vaginal Bleeding Increase, Questions/Concerns For Any Problems or Questions: Contact Your Physician Skin/Wound Care Infection Signs and Symptoms: Increased Redness, Foul Odor of Wound, Increased Drainage, Skin Itchy or Has a Rash, Increased Swelling, Temperature Above 101 F Operative Area Clean and Dry: Keep Incision Clean/Dry Stitches/[place]/Dermabond: Dermabond, Care of Stitches Bathing Instructions: ROMÁN Su DO Sep 15, 2019 07:50
[2019-09-15 08:05] VITALS: BP 173/81
--- NOTE | 2019-09-15 08:05 | NUR ---
initial shift assessment completed, see interventions for further. POC reviewed, states understanding.
[2019-09-15] MEDS: DOCUSATE SODIUM 100 MG (COLACE) CAP PO SCH (08:07)
[2019-09-15 12:40] VITALS: BP 131/87
[2019-09-15 13:30] VITALS: BP 166/80
--- NOTE | 2019-09-15 13:41 | NUR ---
up to shower. infant into nursery.
--- NOTE | 2019-09-15 16:05 | NUR ---
dismissal instructions given, verbalizes understanding. reviewed medication administration schedule & follow up appointments. signature page signed, placed on chart. Addendum: 09/15/19 at 1607 by BARRINGTON CADENA RN dismissed to border status until discharged from hospital.
== END 2019-09-15 16:05 | disposition home or self-care (01) | DRG 787 ==
LOC: LDRP 07:04
PROVIDERS: ADMIT Obstetrics & Gynecology; ATTEND Obstetrics & Gynecology
PROC: 10D00Z1 Extraction of Products of Conception, Low, Open Approach (ICD-10-PCS; principal; 2019-09-13 09:27)
DX: O98.32 Other infections with a predominantly sexual mode of transmission complicating childbirth (principal); D62 Acute posthemorrhagic anemia; O90.81 Anemia of the puerperium; O99.824 Streptococcus B carrier state complicating childbirth; A60.09 Herpesviral infection of other urogenital tract; Z3A.39 39 weeks gestation of pregnancy; Z37.0 Single live birth; Z79.899 Other long term (current) drug therapy; Z23 Encounter for immunization
CPT/HCPCS: 36415; 85025; 86850; 86900; 86901; 87081; 90715; 94664